=== PATIENT | female | born 1985 | race Asian ===

== ENCOUNTER 2022-07-25 08:25 | Outpatient (CLI) | payer OTHER, SELFPAY ==
--- NOTE | 2022-07-25 08:45 | CRLHL7_ITS ---
For Patients: As a result of the Cures Act, medical imaging exams and procedure reports are released immediately into your electronic medical record. You may view this report before your referring provider. If you have questions, please contact your health care provider. INDICATION: First trimester scan, establish dates. COMPARISON: None. TECHNIQUE: Real-time alexandra-scale imaging of the pelvis was performed. Patient declined transvaginal exam. FINDINGS: Sonographic imaging demonstrates a single living intrauterine gestation. The embryo demonstrates a slightly decreased cardiac rate measuring 111 beats per minute. The embryo`s crown-rump length measurement of 1.0 cm corresponds to a gestational age of 7 weeks 1 day with a sonographic due date of 03/12/2023. There is a normal-appearing yolk sac. There are no gross abnormalities noted within the embryo at this early state of development. The gestational sac has a normal appearance. There is no evidence of a perigestational hemorrhage. The amount of fluid within the sac appears appropriate for gestational age. Left ovary is normal. Right ovary is not visualized. IMPRESSION: Single living intrauterine with sonographic gestational age 7 weeks 1 day and sonographic due date 03/12/2023. heart rate is slightly low, likely due to early gestation. Follow-up 11-14 days suggested. Dictated by Jersey Bunch MD @ 07/25/2022 10:10:11 AM (Electronically Signed)
== END 2022-07-25 08:26 | disposition home or self-care (01) ==
LOC: US 08:27
PROVIDERS: Visit Provider Obstetrics & Gynecology
DX: Z34.91 Encounter for supervision of normal pregnancy, unspecified, first trimester (principal)
CPT/HCPCS: 76801; 87086; 87491; 87591

== ENCOUNTER 2022-08-08 09:08 | Outpatient (CLI) | payer OTHER, SELFPAY ==
--- NOTE | 2022-08-08 09:15 | CRLHL7_ITS ---
For Patients: As a result of the Century Cures Act, medical imaging exams and procedure reports are released immediately into your electronic medical record. You may view this report before your referring provider. If you have questions, please contact your health care provider. INDICATION: Confirm viability COMPARISON: 07/25/2022 TECHNIQUE: Real-time alexandra-scale imaging of the pelvis was performed. FINDINGS: Sonographic imaging demonstrates a single living intrauterine gestation. The embryo demonstrates a regular cardiac rate measuring 180 beats per minute. The embryo`s crown-rump length measurement of 2.1 cm corresponds to a gestational age of 8 weeks 5 days with a sonographic due date of 03/15/2023. There is a normal-appearing yolk sac. There are no gross abnormalities noted within the embryo at this early state of development. The gestational sac has a normal appearance. There is a 1.4 x 1.9 x 0.7 cm perigestational hemorrhage. The amount of fluid within the sac appears appropriate for gestational age. The cervix is closed. The myometrium appears normal. The ovaries are not visualized. There are no suspicious fluid collections noted in the cul-de-sac. IMPRESSION: Single living intrauterine with sonographic gestational age 8 weeks 5 days and sonographic due date 03/15/2023. Normal heart rate. Small right inferior subchorionic hemorrhage measuring 1.4 x 1.9 x 0.7 cm. Dictated by Jersey Bunch MD @ 08/08/2022 11:14:34 AM (Electronically Signed)
== END 2022-08-08 09:09 | disposition home or self-care (01) ==
LOC: US 09:08
PROVIDERS: Visit Provider Obstetrics & Gynecology
DX: O36.80X0 Pregnancy with inconclusive fetal viability, not applicable or unspecified (principal); Z87.59 Personal history of other complications of pregnancy, childbirth and the puerperium; Z3A.09 9 weeks gestation of pregnancy
CPT/HCPCS: 76801; 86592; 86703; 86762; 86787; 86803; 86850; 86900; 86901; 87340

== ENCOUNTER 2022-10-10 22:35 | Emergency (ER) | payer OTHER, SELFPAY ==
[2022-10-10 22:50] VITALS: BP 136/89; PULSE 94; RESP 18; TEMP 36.7; O2SAT 99; BMI 30.2
--- NOTE | 2022-10-10 23:17 | ED.NURSE ---
poc u/s was done per dr mullins. he did a perineal exam. noted to have a rectal fissure and no vag bleeding. this nurse did order processing clerk. ua was obtained.
[2022-10-10 23:22] LABS: Appearance Urine Clear (Clear); Color Urine Yellow (Yellow)
[2022-10-10 23:23] LABS: Bilirubin Urine Negative (Negative); Blood Urine Trace-lysed (Negative); Glucose Urine 3+ (Negative); Ketones Urine Negative (Negative); Leukocyte Esterase Urine Negative (Negative); Nitrite Urine Negative (Negative); Protein Urine Negative (Negative); Urobilinogen Urine 0.2 (0.2-1.0); pH Urine 6.5 (5.0-8.5)
[2022-10-10 23:32] LABS: Bacteria Urine Few; RBC Urine 0-2 (0-2); Squamous Epithelial Cell Urine Few (None-Few); WBC Urine 0-2 (0-5)
[2022-10-10 23:46] VITALS: BP 125/78; PULSE 89; RESP 18; TEMP 36.9; O2SAT 99
--- NOTE | 2022-10-11 00:07 | ED_ITS ---
HPI - General Date Seen: 10/10/22 Chief complaint: Vaginal Bleeding Stated complaint: 18wks 1day , vaginal bleeding Time Seen by Provider: 10/10/22 22:50 Source: patient and family Mode of arrival: ambulatory Limitations: no limitations History of Present Illness HPI Narrative: Patient is a 37-year-old at 18 weeks gestation. Presents here with a little bit of blood on her tissue after she wiped herself when she was having a bowel movement. She tells me she was having a tough bowel movement, and a little bit of pain with this. She wiped herself from back to front, they were not having intercourse, and she has no blood from her vagina she thinks, and also when she pees is negative. She denies any fevers chills or sweats any abdominal pain, the has thus far been okay. She is able to show me that tissue, there is just a little bit of staining of blood on there. Complaint: vaginal bleeding Related Data Home Medications Medication Instructions Recorded Confirmed prenat.vits,get,wkp-jgva-[id number] 1 tab PO QDAY 07/25/22 09/19/22 Previous Rx's Medication Instructions Recorded aspirin 81 mg tablet,delayed 81 mg PO QDAY #60 tabs 09/19/22 release (Adult Low Dose Aspirin) Allergies Allergy/AdvReac Type Severity Reaction Status Date / Time No Known Drug Allergies Allergy Verified 09/19/22 09:23 Review of Systems Status of ROS: Reports: 10 or more systems reviewed and unremarkable except as noted in History and below [facility] Medical History No significant past medical history Surgical History No significant past surgical history Social History Smoking Status: Never smoker Do you use any of these nicotine containing products: None Second hand tobacco smoke exposure: No How often do you have a drink containing alcohol: never How often do you have six or more drinks on one occasion: Never AUDIT-C Alcohol total score: 0 Non-prescribed substance use: denies use Little interest or pleasure in doing things: several days Feeling down, depressed, or hopeless: not at all Exam Narrative: Exam Narrative: On examination here in room 1, care all my nurse is present, gravid uterus, with no tenderness to palpation, ultrasound is done by myself, which shows a Page , with a posterior fundal placenta, fetus moving around, with a good heartbeat at 160, I examined the rectal area, there is clearly a anal fissure here, which is at the 7 o'clock position, no blood is seen in the vagina, Const: Vital Signs, click to edit/add: Vital Signs - 24 hr 10/10/22 22:50 10/10/22 23:46 10/10/22 23:46 Temperature 98.0 F 98.5 F 98.5 F Pulse Rate [Right Pulse Oximeter] 94 89 89 Respiratory Rate 18 18 18 Blood Pressure [Ri ght Upper Arm] 136/89 125/78 125/78 Pulse Oximetry 99 99 Oxygen Delivery Me thod Room Air Room Air Course Vital Signs Vital signs: Initial Vital Signs Temperature 98.0 F 10/10/22 22:50 Temperature Source Temporal Artery Scan 10/10/22 22:50 Pulse Rate 94 10/10/22 22:50 Respiratory Rate 18 10/10/22 22:50 Blood Pressure 136/89 10/10/22 22:50 Blood Pressure Mean 104 10/10/22 22:50 Blood Pressure Position Sitting 10/10/22 22:50 Pulse Oximetry 99 10/10/22 22:50 Oxygen Delivery Method 10/10/22 22:50 Vital Signs Temperature 98.0 F 10/10/22 22:50 Pulse Rate 94 10/10/22 22:50 Respiratory Rate 18 10/10/22 22:50 Blood Pressure 136/89 10/10/22 22:50 Pulse Oximetry 99 10/10/22 22:50 Oxygen Delivery Method 10/10/22 22:50 Temperature 98.5 F 10/10/22 23:46 Pulse Rate 89 10/10/22 23:46 Respiratory Rate 18 10/10/22 23:46 Blood Pressure 125/78 10/10/22 23:46 Pulse Oximetry 99 10/10/22 23:46 Oxygen Delivery Method 10/10/22 23:46 MDM - OB/Uterine Contractions MDM Narrative Medical decision making narrative: vaginal bleeding with , threatened miscarriage, UTI, hemorrhagic cystitis, Medical Records Attestation: I reviewed the patient's medical records. Lab Data Attestation: I reviewed the patient's lab results. Labs: Lab Results 10/10/22 Range/Units 23:11 Urine Color Yellow (Yellow) Urine Appearance Clear (Clear) Urine pH 6.5 (5.0-8.5) Ur Specific Prospect 1.010 (1.000-1.030) Urine Protein Negative (Negative) Urine Glucose (UA) 3+ A (Negative) Urine Ketones Negative (Negative) Urine Blood Trace-lysed A (Negative) Urine Nitrite Negative (Negative) Urine Bilirubin Negative (Negative) Urine Urobilinogen 0.2 (0.2-1.0) Ur Leukocyte Esterase Negative (Negative) Urine RBC 0-2 (0-2) Urine WBC 0-2 (0-5) Ur Squamous Epith Cells Few (None-Few) Urine Bacteria Few A (None) Discharge Plan Discharge Clinical Impression: , Acute anal fissure, Glucosuria, Blood glucose elevated Patient Disposition: Home w/ Parent or Adult Condition: Stable Instructions: Anal Fissure (ED), at 15 to 18 Weeks (ED) Additional Instructions: home, rest, reassurance given, stool softeners are suggested, Colace 2 tablets morning and night, Anusol HC on area of the fissure, I would do this twice a day, follow-up with OB as needed, but her baby looked good on the limited ultr asound we did today No evidence of infection on the urinalysis. Your glucose level is elevated, and I would like you to call tomorrow to the OB doctor, and talk to them. Seeing a dietitian is usually the 1st step. Prescriptions: No Action prenat.vits,get,uks-wsml-fylpr Tablet 1 tab PO QDAY aspirin [Adult Low Dose Aspirin] 81 mg tablet,delayed release (DR/EC) 81 mg PO QDAY Qty: 60 2RF Follow Up/Referrals: Provider,Not a Local [Referring] - Stand Alone Forms: DLSth Info Instructions
== END 2022-10-10 23:56 | disposition home or self-care (01) ==
LOC: ED 23:48
PROVIDERS: Emergency Provider Family Medicine; PCP Obstetrics & Gynecology
DX: K60.2 Anal fissure, unspecified (principal); O99.810 Abnormal glucose complicating pregnancy; R73.9 Hyperglycemia, unspecified; Z3A.18 18 weeks gestation of pregnancy
CPT/HCPCS: 81001; 82962; 87086; 99283; 99284

== ENCOUNTER 2022-10-31 12:56 | Outpatient (CLI) | payer OTHER, SELFPAY | END 2022-10-31 12:57 | disposition home or self-care (01) | LOC: US 12:56 | PROVIDERS: PCP Obstetrics & Gynecology; Visit Provider Pediatrics Neonatal-Perinatal Medicine | DX: O09.522 Supervision of elderly multigravida, second trimester (principal); Z3A.21 21 weeks gestation of pregnancy | CPT/HCPCS: 76811; 76820 ==

== ENCOUNTER 2022-11-21 08:44 | Outpatient (CLI) | payer OTHER, SELFPAY ==
--- NOTE | 2022-11-21 08:45 | CRLHL7_ITS ---
For Patients: As a result of the Cures Act, medical imaging exams and procedure reports are released immediately into your electronic medical record. You may view this report before your referring provider. If you have questions, please contact your health care provider. INDICATION: Follow-up growth TECHNIQUE: Real time alexandra scale imaging of the fetus was performed as well as color Doppler and spectral Doppler analysis of the umbilical artery. COMPARISON: 10/31/2022 FINDINGS: Sonographic imaging demonstrates a single living intrauterine gestation. Fetus demonstrates a regular cardiac rate of 154 beats per minute. Fetus has a transverse position. The placenta lies left fundal. Amniotic fluid volume appears normal and there is a single deepest pocket of 5.0 cm. The estimated weight is 567gm which lies at the 9th %. On the prior OB ultrasound dated 10/31/2022 the estimated weight was at the 10th percentile. There is adequate diastolic blood flow within the umbilical artery. The S/D ratio measures 3.4. BPD 14th percentile. HC 6th percentile. AC 24th percentile. FL 5th percentile. The recorded biophysical profile data is not accurate before 28 weeks. IMPRESSION: Sonographic gestational age 23 weeks 1 day and sonographic due date 03/19/2023. Sonographic age 1 week behind the clinical age. Estimated weight 9 percentile. Abdominal circumference 24th percentile. Dictated by Jersey Bunch MD @ 11/21/2022 12:26:55 PM (Electronically Signed)
== END 2022-11-21 08:45 | disposition home or self-care (01) ==
LOC: US 08:44
PROVIDERS: Visit Provider Obstetrics & Gynecology
DX: O09.522 Supervision of elderly multigravida, second trimester (principal); Z3A.23 23 weeks gestation of pregnancy
CPT/HCPCS: 76816; 76819; 76820

== ENCOUNTER 2022-12-04 07:05 | Outpatient (CLI) | payer OTHER, SELFPAY ==
--- NOTE | 2022-12-04 07:15 | CRLHL7_ITS ---
For Patients: As a result of the Cures Act, medical imaging exams and procedure reports are released immediately into your electronic medical record. You may view this report before your referring provider. If you have questions, please contact your health care provider. INDICATION: Intrauterine growth retardation. TECHNIQUE: Transabdominal obstetrical ultrasound. COMPARISON: November 21, 2022. FINDINGS: Single living intrauterine in transverse presentation. Anterior, fundal, and posterior placenta. heart rate 142 beats per minute. Normal amniotic fluid. Single deepest pocket measurement 3.6 cm. Biophysical profile score 6/8 with 2 points given each for gross body movement, tone, and amniotic fluid. respiratory activity was not observed during the time course of the study. The umbilical artery systolic to diastolic ratio is 3.0 which is within the range of normal. IMPRESSION: Biophysical profile score 6/8. The biophysical profile score is unchanged when compared to November 21, 2022. Dictated by Enrrique Beck MD @ 12/04/2022 8:36:41 AM (Electronically Signed)
== END 2022-12-04 07:06 | disposition home or self-care (01) ==
PROVIDERS: Visit Provider Obstetrics & Gynecology
DX: O36.5990 Maternal care for other known or suspected poor fetal growth, unspecified trimester, not applicable or unspecified (principal)
CPT/HCPCS: 76819; 76820

== ENCOUNTER 2022-12-12 08:58 | Outpatient (CLI) | payer OTHER, SELFPAY ==
--- NOTE | 2022-12-12 09:15 | CRLHL7_ITS ---
For Patients: As a result of the Century Cures Act, medical imaging exams and procedure reports are released immediately into your electronic medical record. You may view this report before your referring provider. If you have questions, please contact your health care provider. INDICATION: IUGR COMPARISON: 12/04/2022 TECHNIQUE: Real time alexandra scale imaging of the fetus was performed as well as color Doppler and spectral Doppler analysis of the umbilical artery. Without non-stress testing. FINDINGS: Sonographic imaging demonstrates a single living intrauterine gestation. Fetus demonstrates a regular cardiac rate of 154 beats per minute. Fetus has a transverse position. The umbilical artery demonstrates adequate diastolic blood flow. The S/D ratio measures 3.8. The amniotic fluid volume appears normal and there is a single deepest pocket measurement of 6.4 cm. The fetus was active and demonstrated normal breathing movements. There was normal flexion and extension of the trunk and extremities. IMPRESSION: Normal biophysical profile score of 8 out of 8. Dictated by Jersey Bunch MD @ 12/12/2022 12:19:16 PM (Electronically Signed)
== END 2022-12-12 08:59 | disposition home or self-care (01) ==
LOC: US 08:59
PROVIDERS: Visit Provider Obstetrics & Gynecology
DX: O36.5990 Maternal care for other known or suspected poor fetal growth, unspecified trimester, not applicable or unspecified (principal)
CPT/HCPCS: 76819; 76820

== ENCOUNTER 2022-12-26 08:12 | Outpatient (CLI) | payer OTHER, SELFPAY ==
--- NOTE | 2022-12-26 08:15 | CRLHL7_ITS ---
For Patients: As a result of the Century Cures Act, medical imaging exams and procedure reports are released immediately into your electronic medical record. You may view this report before your referring provider. If you have questions, please contact your health care provider. INDICATION: IUGR COMPARISON: 12/12/2022 TECHNIQUE: Real time alexandra scale imaging of the fetus was performed as well as color Doppler and spectral Doppler analysis of the umbilical artery. Without non-stress testing. FINDINGS: Sonographic imaging demonstrates a single living intrauterine gestation. Fetus demonstrates a regular cardiac rate of 149 beats per minute. Fetus has a transverse position. The umbilical artery demonstrates adequate diastolic blood flow. The S/D ratio measures 2.9. The amniotic fluid volume appears normal and there is a single deepest pocket measurement of 5.0 cm. The fetus was active and demonstrated normal breathing movements. There was normal flexion and extension of the trunk and extremities. Possible echogenic bowel loops noted. IMPRESSION: Normal biophysical profile score of 8 out of 8. Possible echogenic bowel loops. A maternal medicine consult is recommended. Dictated by Jersey Bunch MD @ 12/26/2022 9:07:23 AM (Electronically Signed)
== END 2022-12-26 08:13 | disposition home or self-care (01) ==
LOC: US 08:12
PROVIDERS: Visit Provider Obstetrics & Gynecology
DX: O36.5990 Maternal care for other known or suspected poor fetal growth, unspecified trimester, not applicable or unspecified (principal); Z3A.00 Weeks of gestation of pregnancy not specified
CPT/HCPCS: 76819; 76820

== ENCOUNTER 2023-01-02 08:56 | Outpatient (CLI) | payer OTHER, SELFPAY ==
--- NOTE | 2023-01-02 09:15 | CRLHL7_ITS ---
For Patients: As a result of the Cures Act, medical imaging exams and procedure reports are released immediately into your electronic medical record. You may view this report before your referring provider. If you have questions, please contact your health care provider. OB ULTRASOUND TRAM by US: 03/12/2023. GA: 30 w, 1 d. COMPARISON: Ultrasound 12/26/2022. Single. INDICATION: IUGR. CERVIX: Not visualized. POSITIONING: Breech. AMNIOTIC FLUID: 3.6 cm. BIOPHYSICAL PROFILE: Total score: 2. Gross body movements: 2. tone: 2. Respiratory activity: 2. Amniotic fluid: 2. (SDP N: Increase 2 x 1 cm) PLACENTA: Technique: Transabdominal. PLACENTA POSITION: Fundal. DOPPLER: heart rate: 157 bpm. Umbilical artery: 2.9 S/D. COMMENT: Comment of echogenic bowel by technologist which is not well documented on this limited biophysical profile. As previously recommended, perinatology consultation would be recommended. IMPRESSION: Biophysical profile score 8 of 8. Ninfa Maher M.D. Diagnostic/Breast Radiologist [email or web address]/ayleen abbasi/Dictated by: Ninfa Maher MD @ 01/02/2023 11:29:00 AM (Electronically Signed)
== END 2023-01-02 08:57 | disposition home or self-care (01) ==
LOC: US 08:57
PROVIDERS: Visit Provider Obstetrics & Gynecology
DX: O36.5930 Maternal care for other known or suspected poor fetal growth, third trimester, not applicable or unspecified (principal); Z3A.30 30 weeks gestation of pregnancy
CPT/HCPCS: 76819; 76820

== ENCOUNTER 2023-01-16 09:04 | Outpatient (CLI) | payer OTHER, SELFPAY ==
--- NOTE | 2023-01-16 09:15 | CRLHL7_ITS ---
For Patients: As a result of the Century Cures Act, medical imaging exams and procedure reports are released immediately into your electronic medical record. You may view this report before your referring provider. If you have questions, please contact your health care provider. INDICATION: IUGR TECHNIQUE: Real time alexandra scale imaging of the fetus was performed as well as color Doppler and spectral Doppler analysis of the umbilical artery. COMPARISON: 11/21/2022, 10/31/2022. 01/02/2023, 12/26/2022, 12/12/2022, 12/04/2022 FINDINGS: Sonographic imaging demonstrates a single living intrauterine gestation. Fetus demonstrates a regular cardiac rate of 150 beats per minute. Fetus has a breech position. The placenta lies anteriorly. Amniotic fluid volume appears normal and there is a single deepest pocket of 6.8 cm. The estimated weight is 1861gm which lies at the 32nd %. On the prior OB ultrasound dated 11/21/2022 the estimated weight was at the 9th percentile. On the prior OB ultrasound dated 10/31/2022, the estimated weight was at the 10th percentile. There is adequate diastolic blood flow within the umbilical artery. The S/D ratio measures 2.5. The fetus was active and demonstrated normal breathing movements. There was normal flexion and extension of the trunk and extremities. IMPRESSION: Normal biophysical profile score 8/8. Normal S/D ratio 2.5. Sonographic gestational age 32 weeks 0 days and sonographic due date 03/13/2023. Good correlation with dates. Normal interval growth. Estimated weight 32nd percentile. Abdominal circumference 69th percentile. Femur length less than 3rd percentile. Dictated by Jersey Bunch MD @ 01/17/2023 8:46:06 AM (Electronically Signed)
== END 2023-01-16 09:05 | disposition home or self-care (01) ==
LOC: US 09:05
PROVIDERS: Visit Provider Obstetrics & Gynecology
DX: O36.5930 Maternal care for other known or suspected poor fetal growth, third trimester, not applicable or unspecified (principal); Z3A.32 32 weeks gestation of pregnancy
CPT/HCPCS: 76819; 76820

== ENCOUNTER 2023-01-23 09:08 | Outpatient (CLI) | payer OTHER, SELFPAY ==
--- NOTE | 2023-01-23 09:15 | CRLHL7_ITS ---
For Patients: As a result of the Century Cures Act, medical imaging exams and procedure reports are released immediately into your electronic medical record. You may view this report before your referring provider. If you have questions, please contact your health care provider. INDICATION: IUGR COMPARISON: 01/16/2023 TECHNIQUE: Real time alexandra scale imaging of the fetus was performed as well as color Doppler and spectral Doppler analysis of the umbilical artery. Without non-stress testing. FINDINGS: Sonographic imaging demonstrates a single living intrauterine gestation. Fetus demonstrates a regular cardiac rate of 152 beats per minute. Fetus has a guerrero breech position. The umbilical artery demonstrates adequate diastolic blood flow. The S/D ratio measures 2.9. The amniotic fluid volume appears normal and there is a single deepest pocket measurement of 5.4 cm. The fetus was active. Absent breathing movements. There was normal flexion and extension of the trunk and extremities. IMPRESSION: Biophysical profile 03/14. Normal umbilical artery Doppler. Dictated by Jersey Bunch MD @ 01/23/2023 12:34:57 PM (Electronically Signed)
== END 2023-01-23 09:09 | disposition home or self-care (01) ==
LOC: US 09:09
PROVIDERS: Visit Provider Obstetrics & Gynecology
DX: O36.5990 Maternal care for other known or suspected poor fetal growth, unspecified trimester, not applicable or unspecified (principal); Z3A.33 33 weeks gestation of pregnancy
CPT/HCPCS: 76819; 76820; 86592

== ENCOUNTER 2023-01-30 08:23 | Outpatient (CLI) | payer OTHER, SELFPAY ==
--- NOTE | 2023-01-30 08:15 | CRLHL7_ITS ---
For Patients: As a result of the Century Cures Act, medical imaging exams and procedure reports are released immediately into your electronic medical record. You may view this report before your referring provider. If you have questions, please contact your health care provider. INDICATION: female. Evaluate well-being. TECHNIQUE: Transabdominal obstetrical ultrasound. COMPARISON: January 16, 2023. January 02, 2023. FINDINGS: Single living intrauterine in variable presentation predominantly transverse but also oblique with head toward the maternal right lower quadrant. Anterior placenta. heart rate 123 beats per minute. Normal amniotic fluid. Single deepest pocket measurement 4.9 cm. Normal amniotic fluid volume index of 15.5 cm. Close cervix measuring 4.5 cm. Biophysical profile 6/8 with 2 points given each for gross body movements, tone, and amniotic fluid. breathing was not fully observed during the course of this study (reported 15-20 seconds of breathing observed at real-time ultrasound evaluation). Biparietal diameter 8.4 cm, 33 weeks 6 days, 40th percentile. Head circumference 31.2 cm, 34 weeks 6 days, 32nd percentile. Abdominal circumference 29.6 cm, 33 weeks 4 days, 38th percentile. Femur length 6.2 cm, 31 weeks 6 days, 3rd percentile. Composite calculated ultrasound age 34 weeks 4 days with a sonographic due date of March 16, 2023. Estimated weight 2156 g which lies at the 21st percentile. Normal head to abdominal circumference ratio 1.05 (0.95-1.11). IMPRESSION: 1. Single living intrauterine in variable presentation predominantly transverse. 2. heart rate 123 beats per minute. Normal amniotic fluid. 3. Biophysical profile score 6/8. 4. Composite calculated ultrasound age 33 weeks 4 days with a sonographic due date of March 16, 2023. Dictated by Enrrique Beck MD @ 01/30/2023 10:14:53 AM (Electronically Signed)
== END 2023-01-30 08:24 | disposition home or self-care (01) ==
LOC: US 08:23
PROVIDERS: Visit Provider Obstetrics & Gynecology
DX: O09.523 Supervision of elderly multigravida, third trimester (principal); O24.913 Unspecified diabetes mellitus in pregnancy, third trimester; Z3A.33 33 weeks gestation of pregnancy
CPT/HCPCS: 76816; 76819

== ENCOUNTER 2023-02-04 07:08 | Outpatient (CLI) | payer OTHER, SELFPAY ==
--- NOTE | 2023-02-04 07:15 | CRLHL7_ITS ---
For Patients: As a result of the Century Cures Act, medical imaging exams and procedure reports are released immediately into your electronic medical record. You may view this report before your referring provider. If you have questions, please contact your health care provider. INDICATION: Advanced maternal age COMPARISON: 01/30/2023 TECHNIQUE: Real time alexandra scale imaging of the fetus was performed. Without non-stress testing. FINDINGS: Sonographic imaging demonstrates a single living intrauterine gestation. Fetus demonstrates a regular cardiac rate of 142 beats per minute. Fetus has a transverse position, head maternal right. The amniotic fluid volume appears normal and there is a single deepest pocket measurement of 4.6 cm. The fetus was active. Absent breathing movements. There was normal flexion and extension of the trunk and extremities. IMPRESSION: Biophysical profile 03/14. Dictated by Jersey Bunch MD @ 02/04/2023 9:15:40 AM (Electronically Signed)
== END 2023-02-04 07:09 | disposition home or self-care (01) ==
PROVIDERS: Visit Provider Obstetrics & Gynecology
DX: O09.529 Supervision of elderly multigravida, unspecified trimester (principal)
CPT/HCPCS: 76819

== ENCOUNTER 2023-02-06 09:17 | Outpatient (CLI) | payer OTHER, SELFPAY ==
--- NOTE | 2023-02-06 09:15 | CRLHL7_ITS ---
For Patients: As a result of the Century Cures Act, medical imaging exams and procedure reports are released immediately into your electronic medical record. You may view this report before your referring provider. If you have questions, please contact your health care provider. INDICATION: Gestational diabetes, advanced maternal age COMPARISON: 02/04/2023 TECHNIQUE: Real time alexandra scale imaging of the fetus was performed. Without non-stress testing. FINDINGS: Sonographic imaging demonstrates a single living intrauterine gestation. Fetus demonstrates a regular cardiac rate of 161 beats per minute. Fetus has a breech position. The amniotic fluid volume appears normal and there is a single deepest pocket measurement of 4.7 cm. The fetus was active and demonstrated normal breathing movements. There was normal flexion and extension of the trunk and extremities. IMPRESSION: Normal biophysical profile score of 8 out of 8. Dictated by Jersey Bunch MD @ 02/06/2023 11:31:38 AM (Electronically Signed)
== END 2023-02-06 09:18 | disposition home or self-care (01) ==
LOC: US 09:17
PROVIDERS: Visit Provider Obstetrics & Gynecology
DX: O09.529 Supervision of elderly multigravida, unspecified trimester (principal); O24.919 Unspecified diabetes mellitus in pregnancy, unspecified trimester
CPT/HCPCS: 76819; 87086

== ENCOUNTER 2023-02-20 09:12 | Outpatient (CLI) | payer OTHER, SELFPAY ==
--- NOTE | 2023-02-20 09:15 | CRLHL7_ITS ---
For Patients: As a result of the Cures Act, medical imaging exams and procedure reports are released immediately into your electronic medical record. You may view this report before your referring provider. If you have questions, please contact your health care provider. INDICATION: PREGESTATIONAL DIABETES MELLITUS TECHNIQUE: Real time alexandra scale imaging of the fetus was performed. COMPARISON: 02/18/2023 FINDINGS: Sonographic imaging demonstrates a single living intrauterine gestation. Fetus demonstrates a regular cardiac rate of 132 beats per minute. Fetus has a transverse position, head maternal right. The placenta lies fundal. Amniotic fluid volume appears normal and there is a single deepest pocket of 4.5 cm. The estimated weight is 3253gm which lies at the 69th %. On the prior OB ultrasound dated 01/30/2023 the estimated weight was at the 21st percentile. BPD 51st percentile. HC 11th percentile. AC 94th percentile. FL 21st percentile. The fetus was active and demonstrated normal breathing movements. There was normal flexion and extension of the trunk and extremities. IMPRESSION: Normal biophysical profile score 8/8. Sonographic gestational age 36 weeks 6 days and sonographic due date 03/14/2023. Good correlation with dates. Normal interval growth. Estimated weight 69th percentile. Abdominal circumference 94th percentile. Dictated by Jersey Bunch MD @ 02/20/2023 10:09:57 AM (Electronically Signed)
== END 2023-02-20 09:13 | disposition home or self-care (01) ==
LOC: US 09:12
PROVIDERS: Visit Provider Obstetrics & Gynecology
DX: O24.913 Unspecified diabetes mellitus in pregnancy, third trimester (principal); Z3A.36 36 weeks gestation of pregnancy
CPT/HCPCS: 76816; 76819

== ENCOUNTER 2023-04-03 08:54 | Outpatient (CLI) | payer OTHER, SELFPAY ==
--- NOTE | 2023-04-03 17:00 | W.PM.LAC.MC ---
Consult Note - Mom Date of Visit Date of visit: 04/03/23 provider relations consultant: Jazzy Quintana Visit Code: Visit Patient's Information Phone number: [phone] : 1 Para: 1 Allergies No Known Drug Allergies Allergy (Verified 02/27/23 10:26) Mother's Medical History: Medical History Work Plans: does not have to return to work Delivery Information Delivery type: Primary C/S; Labored Weeks Gestation: 39.0 Gestational Age: AGA Weight: 3.26 kg Discharge Weight: 2.997 kg Baby's Information Baby's Age at Visit: 1 month Baby's Provider or Clinic: Dr. Booth Jaundice: No Reason for Consult Reason for Consult: weight check, using nipple shield Past Experience Past Experience: No Current Frequency of Day Feedings: every 3 - 3.5 hours Frequency of Night Feedings: twice overnight Both Breasts: Yes Suck: strong with nipple shield Latch: fairly wide Length of Time: about 30 minutes total Pumping Pumping: Yes (2 - 4 times/day) Quantity Pumped: 2 - 3 oz totla Supplementing EMB Supplement: Yes (in the daytime gives 3 oz EBM after nursing baby ) Formula Supplement: Yes (give formula overnight) Baby Elimination Number of Wet Diapers a Day: almost every feeding Number of BM a Day: almost every feeding Breast/Nipple Condition Breast Information: WNL Maternal Nipple Condition - Left: Common Nipple Maternal Nipple Condition - Right: Common Nipple Sore Nipples: No Onsite Pre-Feed weight: 3.522 kg Post-Feed weight: 3.604 kg Milk Transferred (mL): 82 Pre-Nursing Left Nipple: Within Normal Limits Pre-Nursing Right Nipple: Within Normal Limits Post-Nursing Left Nipple: Within Normal Limits Post-Nursing Right Nipple: Within Normal Limits Assessments/Interventions Assessments/Interventions: Met with mom and this now 1 month old ex- term AGA baby for consult.? Mom reports she's nursing every 3 - 3.5 hours during the day.? She uses a nipple shield, offers both sides, and sessions last about 30 minutes.? She then offers about 3 oz EBM.? She pumps 2 - 4 times/day and gets 2 - 3 oz total each time.? Baby is formula fed twice overnight. Breasts WNL- symmetrical with rounded lower quadrants, intramammary distance < 1.5 inches.? Nipples are everted and don't flatten or retract on compression, no damage noted. Baby has gained 24 grams/day since her last visit on 03/20.? Per POC she did not have a caput/cephalohematoma at delivery.? She prefers to turn her head to the right, but mom tries different things to encourage her ROM to the left; she moves her extremities equally.? Baby's palate is WNL.? Her upper lip is easy to flange and her gums don't brenda.? She has a strong suck on a finger and her tongue consistently extends past the gumline, some canoeing when lateralizing.? Her lower frenulum appears to be WNL. Mom attempted to latch baby to the left side but she slipped off without the shield, she had a deep latch with the shield and nursed about 15 minutes.? Mom offered the right side starting with the shield, then removing it after a few minutes.? Baby latched but only suckled a few times and after a few attempts the shield was replaced.? Baby nursed another 10 minutes and transferred 82 ml.? After POC dressed her she started to show feeding cues so dad gave her 1 oz formula. Plan: 1. Encouraged mom to continue with every daytime feeding.? Offer both sides and practice weaning her from the shield like we did here in clinic.? Reviewed this can take a while so be patient and use it when needed.? OK to follow baby's cues re: when to nurse/feed but she should have about 8 feedings/24 hours. 2. Suggested mom not automatically bottle feed her after nursing but to follow her cues.? Baby may also not need 3 oz supplement and to start with 1 - 2 oz.? 3. Encouraged mom to pump TID so that she could offer EBM if needed during the day as well as with the night feeding(s) and reduce or possibly stop formula usage. 4. Will f/u with PCP for a 2 month C and encouraged her to consider [employer] by [employer] (she's not driving). Meds Home Medications and Allergies Home Medications Medication Instructions Recorded Confirmed Type prenat.vits,get,kfb-uanp-ssiup 1 tab PO QDAY 07/25/22 03/05/23 History Allergies Allergy/AdvReac Type Severity Reaction Status Date / Time No Known Drug Allergies Allergy Verified 02/27/23 10:26
== END 2023-04-03 08:55 | disposition home or self-care (01) ==
LOC: OB LAC 08:55
PROVIDERS: Visit Provider Obstetrics & Gynecology
DX: Z39.1 Encounter for care and examination of lactating mother (principal)
CPT/HCPCS: 99211

== ENCOUNTER 2023-04-24 08:07 | Outpatient (CLI) | payer OTHER, SELFPAY | END 2023-04-24 08:08 | disposition home or self-care (01) | LOC: NFLDREF 04-25 06:30 | PROVIDERS: Visit Provider Obstetrics & Gynecology | DX: Z39.2 Encounter for routine postpartum follow-up (principal); Z86.32 Personal history of gestational diabetes | CPT/HCPCS: 82947; 82950 ==

== ENCOUNTER 2023-05-16 08:03 | Outpatient (CLI) | payer OTHER, SELFPAY | END 2023-05-16 08:04 | disposition home or self-care (01) | LOC: NFLDREF 05-17 06:30 | PROVIDERS: PCP Family Medicine; Referring Provider Family Medicine; Visit Provider Family Medicine | DX: Z13.1 Encounter for screening for diabetes mellitus (principal); Z13.6 Encounter for screening for cardiovascular disorders | CPT/HCPCS: 80048; 80061 ==

== ENCOUNTER 2024-01-29 09:10 | Outpatient (CLI) | payer OTHER, SELFPAY ==
--- OUTSIDE RECORDS SUMMARY | 2024-01-29 09:12 | XMS_ITS | Clinical Summary ---
Author Name Unknown Organization [facility] Address [address] [place] [address]. [place] [address] Care Team Providers Care Dentist Name Role Phone No Ref-Primary, Physician Primary Care Provider Dennis Haley MD Unavailable [phone] Allergies No known active allergies Social History Tobacco Use Types Packs/Day Years Used Date Smoking Tobacco: Never Assessed Adolescent Education Answer Date Record ed Getting School Help Needed Not on file 06/29 Sex and Gender Information Value Date Recorded Sex Assigned at Not on file Gender Identity Not on file Sexual Orientation Not on file Last Filed Vital Signs Vital Sign Reading Time Taken Comments Blood Pressure 114/66 11/28/2022 10:17 AM METEOROLOGIST IN CHARGE Pulse 88 07/16/2022 11:23 AM CDT Temperature 36.7 ??C (98.1 ??F) 07/16/2022 1 1:23 AM CDT Respiratory Rate 18 07/16/2022 11:2 3 AM CDT Oxygen Saturation 98% 07/16/2022 11: 23 AM CDT Inhaled Oxygen Concentration - - Weight 52.5 kg (115 lb 12.8 oz) 022 11:23 AM CDT Height 132.1 cm (4' 4) 11/29/2020 4:53 PM METEOROLOGIST IN CHARGE Body Mass Index 30.11 11/29/2020 4:53 PM METEOROLOGIST IN CHARGE Plan of Treatment Health Maintenance Due Date Last Done Comments A1C 1983 ADVANCE CARE PLANNING 1983 ANNUAL REVIEW OF HM ORDERS 1983 DIABETIC FOOT EXAM 1983 EYE EXAM 1983 LIPID 1983 MAMMO SCREENING 1983 MICROALBUMIN 1983 YEARLY PREVENTIVE VISIT 1983 Pneumococcal Vaccine: Pediatrics (0 to 5 Years) and At-Risk Patients (6 to 64 Years) (1 of 2 - PCV) 1989 HIV SCREENING 1998 HEPATITIS C SCREENING 2001 HEPATITIS B IMMUNIZATION (1 of 3 - 19+ 3-dose series) 2002 PAP 2004 BMP 11/29/2021 11/29/2020 COVID-19 Vaccine (3 - 2022-2 4 season) 2023 07/20/2021, 06/22/2021 INFLUENZA VACCINE (#1) 2023 08/08/2022 PHQ-2 (once per calendar year) 2023 DTAP/TDAP/TD IMMUNIZATION (2 - Td or Tdap) 12/26/2032 12/26/2022 HPV IMMUNIZATION Aged Out No longer e ligible based on patient's age to complete this topic IPV IMMUNIZATION Aged Out No longer e ligible based on patient's age to complete this topic MENINGITIS IMMUNIZATION Aged Out No l onger eligible based on patient's age to complete this topic RSV MONOCLONAL ANTIBODY Aged Out No l onger eligible based on patient's age to complete this topic Procedures Procedure Name Priority Date/Time Associated Diagnosis Comments BASIC METABOLIC PANEL STAT 11/29/2020 8:35 PM METEOROLOGIST IN CHARGE from Last 3 Months or Most Recently Relevant to Health Maintenance Results * Basic metabolic panel (11/29/2020 8:35 PM METEOROLOGIST IN CHARGE) Sodium 138 133 - 144 mmol/L 11/29/2020 8:[address] [facility] Potassium 3.8 3.4 - 5.3 mmol/L 11/29/2020 8:[address] [facility] Chloride 107 94 - 109 mmol/L 11/29/2020 8:[address] [facility] Carbon Dioxide 23 20 - 32 mmol/L 11/29/2020 8:59 PM [facility] Anion Gap 8 3 - 14 mmol/L 11/29/2020 8:59 PM [facility] Glucose 93 70 - 99 mg/dL 11/29/2020 8:59 PM [facility] Urea Nitrogen 16 7 - 30 mg/dL 11/29/2020 8:59 PM METEOROLOGIST IN CHARGE [facility] Creatinine 0.57 0.52 - 1.04 mg/dL 11/29/2020 8:59 PM [facility] GFR Estimate >90 >60 mL/min/{1. 73_m2} 11/29/2020 8:59 PM METEOROLOGIST IN CHARGE [facility] Comment: Non GFR Calc Starting 09/23/2018, serum creatinine based estimated GFR (eGFR) will be calculated using the Chronic Kidney Disease Epidemiology Collaboration (CKD-EPI) equation. GFR Estimate If Black >90 >60 mL/min/{1. 73_m2} 11/29/2020 8:59 PM METEOROLOGIST IN CHARGE [facility] Comment: GFR Calc Starting 09/23/2018, serum creatinine based estimated GFR (eGFR) will be calculated using the Chronic Kidney Disease Epidemiology Collaboration (CKD-EPI) equation. Calcium 8.7 8.5 - 10.1 mg/dL 11/29/2020 8:59 PM [facility] 11/29/2020 8:35 PM METEOROLOGIST IN CHARGE 11/29/2020 8:40 PM METEOROLOGIST IN CHARGE Latricia Trinh MD LAB - BLOOD ORDERABL ES [facility] [address] [place] [address], [facility] [phone] [facility] [address] [place] [address], [facility] [phone] from Last 3 Months or Most Recently Relevant to Health Maintenance Care Teams Dentist Relationship Specialty Start Date End Date No Ref-Primary, Physician PCP - General 11/29/20 Dennis Haley MD [address] [address] Assigned OBGYN Provider 02/02/23
--- OUTSIDE RECORDS SUMMARY | 2024-01-29 09:12 | XMS_ITS | Referral Summary ---
Author Name Unknown Organization [facility] Address [address] [place] [address]. [place] [address] Care Team Providers Care Biodiesel Engineering Manager Name Role Phone No Ref-Primary, Physician Primary Care Provider Dennis Haley MD Unavailable [phone] Allergies No known active allergies Social History [...] Comments Blood Pressure 114/66 11/28/2022 10:17 AM STATE WILDLIFE OFFICER Pulse 88 07/16/2022 11:23 AM CDT Temperature 36.7 ??C (98.1 ??F) 07/16/2022 1 1:23 AM CDT Respiratory Rate 18 07/16/2022 11:2 3 AM CDT Oxygen Saturation 98% 07/16/2022 11: 23 AM CDT Inhaled Oxygen Concentration - - Weight 52.5 kg (115 lb 12.8 oz) 022 11:23 AM CDT Height 132.1 cm (4' 4) 11/29/2020 4:53 PM STATE WILDLIFE OFFICER Body Mass Index 30.11 11/29/2020 4:53 PM STATE WILDLIFE OFFICER Plan of Treatment Not on file Procedures Procedure Name Priority Date/Time Associated Diagnosis Comments BASIC METABOLIC PANEL STAT 11/29/2020 8:35 PM STATE WILDLIFE OFFICER from Last 3 Months or Most Recently Relevant to Health Maintenance Results * Basic metabolic panel (11/29/2020 8:35 PM STATE WILDLIFE OFFICER) Sodium 138 133 - 144 mmol/L 11/29/2020 8:52 PM STATE WILDLIFE OFFICER [facility] Potassium 3.8 3.4 - 5.3 mmol/L 11/29/2020 8:52 PM [facility] Chloride 107 94 - 109 mmol/L 11/29/2020 8:52 PM [facility] Carbon Dioxide 23 20 - 32 mmol/L 11/29/2020 8:59 PM [facility] Anion Gap 8 3 - 14 mmol/L 11/29/2020 8:59 PM [facility] Glucose 93 70 - 99 mg/dL 11/29/2020 8:59 PM [facility] Urea Nitrogen 16 7 - 30 mg/dL 11/29/2020 8:59 PM [facility] Creatinine 0.57 0.52 - 1.04 mg/dL 11/29/2020 8:59 PM [facility] GFR Estimate >90 >60 mL/min/{1. 73_m2} 11/29/2020 8:59 PM [facility] Comment: Non GFR Calc Starting 09/23/2018, serum creatinine based estimated GFR (eGFR) will be calculated using the Chronic Kidney Disease Epidemiology Collaboration (CKD-EPI) equation. GFR Estimate If Black >90 >60 mL/min/{1. 73_m2} 11/29/2020 8:59 PM [facility] Comment: GFR Calc Starting 09/23/2018, serum creatinine based estimated GFR (eGFR) will be calculated using the Chronic Kidney Disease Epidemiology Collaboration (CKD-EPI) equation. Calcium 8.7 8.5 - 10.1 mg/dL 11/29/2020 8:59 PM [facility] 11/29/2020 8:35 PM STATE WILDLIFE OFFICER 11/29/2020 8:40 PM STATE WILDLIFE OFFICER Latricia Trinh MD LAB - BLOOD ORDERABL ES [facility] [address], [place] [address], [facility] [phone] [facility] [address] [address], [facility] [phone] from Last 3 Months or Most Recently Relevant to Health Maintenance Care Teams Biodiesel Engineering Manager Relationship Specialty Start Date End Date No Ref-Primary, Physician PCP - General 11/29/20 Dennis Haley MD [address] [facility] [address], [place] [id number] Assigned OBGYN Provider 02/02/23
--- NOTE | 2024-01-29 09:15 | US_ITS ---
Patient: MORENA QUINTANILLA Facility:?[facility] RIS Patient ID:?[id number] Site Patient ID:?[id number]. Site :?[id number] Study:?US-OB Pelvis dating-01/29/2024 10:17:59 AM Ordering Physician:Amanda Granados Final Report: INDICATION: First trimester scan, establish dates. COMPARISON: None. TECHNIQUE: Real-time alexandar-scale imaging of the pelvis was performed. FINDINGS: Sonographic imaging demonstrates a single living intrauterine gestation. The embryo demonstrates a regular cardiac rate measuring 169 beats per minute. The embryo`s crown-rump length measurement of 1.7 cm corresponds to a gestational age of 8 weeks 0 days with a sonographic due date of 09/09/2022. There is a normal-appearing yolk sac. There are no gross abnormalities noted within the embryo at this early state of development. The gestational sac has a normal appearance. There is no evidence of a perigestational hemorrhage. The amount of fluid within the sac appears appropriate for gestational age. The cervix is closed. Small posterior intramural fibroid measures 9 x 8 x 11 millimeters. The ovaries are of normal size. Corpus luteal cyst right ovary. There are no suspicious fluid collections noted in the cul-de-sac. IMPRESSION: Single living intrauterine with sonographic gestational age 8 weeks 0 days and a sonographic due date of 09/09/2022. Dictated by Jersey Bunch MD @ 01/29/2024 7:07:02 PM Signed by:?Jersey Bunch MD @01/29/2024 7:07:02 PM (Electronic Signature)
== END 2024-01-29 09:11 | disposition home or self-care (01) ==
LOC: US 09:10
PROVIDERS: PCP Family Medicine; Visit Provider Obstetrics & Gynecology
DX: Z34.91 Encounter for supervision of normal pregnancy, unspecified, first trimester (principal); Z3A.08 8 weeks gestation of pregnancy
CPT/HCPCS: 76817; 82565; 82570; 84156; 84450; 84460; 86592; 86703; 86704; 86706; 86762; 86787; 86803; 86850; 86900; 86901; 87086; 87340; 87491; 87591

== ENCOUNTER 2024-02-12 12:30 | Outpatient (CLI) | payer OTHER, SELFPAY ==
--- OUTSIDE RECORDS SUMMARY | 2024-02-16 07:13 | XMS_ITS | Clinical Summary ---
Author Name Unknown Organization [facility] Address [facility] [place] [address] Care Team Providers Care Public Health Physician Name Role Phone No Ref-Primary, Physician Primary Care Provider Dennis Haley MD Unavailable Allergies No known active allergies Encounters Date Type Department Care Team Description 02/06/2024 Orders Only [facility] Maternal Medicine [facility] [address] [place] [address] Nicole Grant RN Pre-existing diabetes mellitus during in first trimester (Primary Dx) 02/05/2024 Telephone [facility] Maternal Medicine [facility] [address] [place] [address] Nicole Grant mayonnaise mixer 02/05/2024 Transcribe Orders [facility] Maternal Medicine [facility] [address] [facility] [address] [place] [address] Amanda Qureshi MD related condition (Primary Dx) 01/29/2024 Medical Correspondence [facility] [address] [place] [address] Scan, Non-Provider from Last 3 Months Social History Tobacco Use Types Packs/Day Years [...] Comments Blood Pressure 114/66 11/28/2022 10:17 AM JELLY FILTER TENDER Pulse 88 07/16/2022 11:23 AM CDT Temperature 36.7 ??C (98.1 ??F) 07/16/2022 1 1:23 AM CDT Respiratory Rate 18 07/16/2022 11:2 3 AM CDT Oxygen Saturation 98% 07/16/2022 11: 23 AM CDT Inhaled Oxygen Concentration - - Weight 52.5 kg (115 lb 12.8 oz) 022 11:23 AM CDT Height 132.1 cm (4' 4) 11/29/2020 4:53 PM JELLY FILTER TENDER Body Mass Index 30.11 11/29/2020 4:53 PM JELLY FILTER TENDER Plan of Treatment Upcoming Encounters Date Type Department Care Team (Late st Contact Info) Description 02/26/2024 10:15 AM CDT Appointment [facility] Maternal Medicine [facility] [address] [facility] [address] [place] [phone] Annika Ibrahim MD [address] [place], [place] [address] 02/26/2024 11:00 AM CDT Office Visit [facility] Medicine [facility] [address] [facility] [address] [place] [phone] Annika Ibrahim MD [address] [place], [place] [id number] Health Maintenance Due Date Last Done Comments [...] - 2022-2 4 season) 2023 07/20/2021, 06/22/2021 PHQ-2 (once per calendar year) 2023 INFLUENZA VACCINE (Season Ended) 2024 08/08/2022 DTAP/TDAP/TD IMMUNIZATION (2 - Td or Tdap) [...] BASIC METABOLIC PANEL STAT 11/29/2020 8:35 PM JELLY FILTER TENDER from Last 3 Months or Most Recently Relevant to Health Maintenance Results * Basic metabolic panel (11/29/2020 8:35 PM JELLY FILTER TENDER) Sodium 138 133 - 144 mmol/L 11/29/2020 8:52 PM [facility] Potassium 3.8 3.4 - 5.3 mmol/L 11/29/2020 8:52 PM [facility] Chloride 107 94 - 109 mmol/L 11/29/2020 8:52 PM [facility] Carbon Dioxide 23 20 - 32 mmol/L 11/29/2020 8:59 PM [facility] Anion Gap 8 3 - 14 mmol/L 11/29/2020 8:59 PM [facility] Glucose 93 70 - 99 mg/dL 11/29/2020 8:59 PM [facility] Urea Nitrogen 16 7 - 30 mg/dL 11/29/2020 8:59 PM [facility] Creatinine 0.57 0.52 - 1.04 mg/dL 11/29/2020 8:59 PM [facility] GFR Estimate >90 >60 mL/min/{1. 73_m2} 11/29/2020 8:59 PM JELLY FILTER TENDER [facility] Comment: Non GFR Calc Starting 09/23/2018, serum creatinine based estimated GFR (eGFR) will be calculated using the Chronic Kidney Disease Epidemiology Collaboration (CKD-EPI) equation. GFR Estimate If Black >90 >60 mL/min/{1. 73_m2} 11/29/2020 8:59 PM JELLY FILTER TENDER [facility] Comment: GFR Calc Starting 09/23/2018, serum creatinine based estimated GFR (eGFR) will be calculated using the Chronic Kidney Disease Epidemiology Collaboration (CKD-EPI) equation. Calcium 8.7 8.5 - 10.1 mg/dL 11/29/2020 8:59 PM JELLY FILTER TENDER [facility] 11/29/2020 8:35 PM JELLY FILTER TENDER 11/29/2020 8:40 PM JELLY FILTER TENDER Latricia Trinh MD LAB - BLOOD ORDERABL ES [facility] [address] [place] [address], [facility] [phone] [facility] [address] [place] [address], [facility] [phone] from Last 3 Months or Most Recently Relevant to Health Maintenance Care Teams Public Health Physician Relationship Specialty Start Date End Date No Ref-Primary, Physician PCP - General 11/29/20 Dennis Haley MD [address] [facility] [address] [place] [address] Assigned OBGYN Provider 02/02/23
--- OUTSIDE RECORDS SUMMARY | 2024-02-16 07:13 | XMS_ITS | Encounter Summary ---
Author Name Unknown Organization [facility] Address [address] [place] [address]. [place] [address] Care Team Providers Care Vp Talent Management Name Role Phone No Ref-Primary, Physician Primary Care Provider Dennis Haley MD Unavailable [phone] Reason for Referral * Consultation (Routine: Next available opening) - Pending Review Specialty Diagnoses / Procedures Referred By Jade gonsales Referred To Contact Diagnoses Pre-existing diabetes mellitus during in first trimester Annika Ibrahim MD [address] [place], [place] [address]E [address] [address] Referral ID Status Reason Start Date Expiration Date V isits Requested Visits Authorized [id number] Pending Review 02/06/2024 02/05/2025 1 1 Question Answer MFM Consult Yes Comments MFM radiologic consult * Diagnostic Imaging Ultrasound (Routine) - Pending Review Specialty Diagnoses / Procedures Referred By Jade gonsales Referred To Contact Radiology. Diagnoses Pre-existing diabetes mellitus during in first trimester Procedures Maternal Nuchal Translucency Annika Ibrahim MD [address] [place] [address] Referral ID Status Reason Start Date Expiration Date V isits Requested Visits Authorized [id number] Pending Review 02/06/2024 02/05/2025 1 1 Encounter Details Date Type Department Care Team (Late st Contact Info) Description 02/06/2024 Orders Only [facility] Maternal Medicine [facility] [address] [place] [address] Nicole Grant RN Pre-existing diabetes mellitus during in first trimester (Primary Dx) Social History Tobacco Use Types Packs/Day Years Used Date Smoking Tobacco: Never Assessed Adolescent Education Answer Date Record ed Getting School Help Needed Not on file 06/29 Sex and Gender Information Value Date Recorded Sex Assigned at Not on file Gender Identity Not on file Sexual Orientation Not on file documented as of this encounter Plan of Treatment Upcoming Encounters Date Type Department Care Team (Late Contact Info) Description 02/26/2024 10:15 AM CDT Appointment [facility] Medicine [facility] [address] [facility] [address] [place] [phone] Annika Ibrahim MD [address] [place] [address] 02/26/2024 11:00 AM CDT Office Visit [facility] Medicine [facility] [address] [place] [phone] Annika Ibrahim MD [address] [place] [address] Scheduled Orders Name Type Priority Associated Diagnoses Orde r Schedule Maternal Nuchal Translucency Imaging Routine Pre-existing diabetes mellitus during in first trimester Expected: 02/20/2024 (Approximate), Expires: 12/06/2024 Scheduled Referrals Name Type Priority Associated Diagnoses Orde r Schedule MFM Office Visit Referral Routine: Next available opening Pre-existing diabetes mellitus during in first trimester Expected: 02/20/2024 (Approximate), Expires: 02/05/2025 documented as of this encounter Visit Diagnoses Diagnosis Pre-existing diabetes mellitus during in first trimester- Primary documented in this encounter Care Teams Vp Talent Management Relationship Specialty Start Date End Date No Ref-Primary, Physician PCP - General 11/29/20 Dennis Haley MD [address] [facility] [address] [place] [address] Assigned OBGYN Provider 02/02/23 documented as of this encounter
--- OUTSIDE RECORDS SUMMARY | 2024-02-16 07:13 | XMS_ITS | Referral Summary ---
Author Name Unknown Organization [place] Address [facility] [place] [address] Care Team Providers Care B Operator Name Role Phone No Ref-Primary, Physician Primary Care Provider Dennis Haley MD Unavailable [phone] Encounters Date Type Department Care Team Description 02/06/2024 Orders Only [facility] [place] [address] [place], [place] [address] Nicole Grant RN Pre-existing diabetes mellitus during in first trimester (Primary Dx) 02/05/2024 Telephone [facility] Maternal Medicine [facility] [address] [place], [place] [address] Nicole Grant airplane rental clerk 02/05/2024 Transcribe Orders [facility] Maternal Medicine [facility] [address] [facility] [address] [place] [address] Amanda Qureshi MD related condition (Primary Dx) 01/29/2024 Medical Correspondence [facility] [address] [place] [address] Scan, Non-Provider from Last 3 Months Allergies No known active allergies Social History [...] Comments Blood Pressure 114/66 11/28/2022 10:17 AM [facility] Pulse 88 07/16/2022 11:23 AM CDT Temperature 36.7 ??C (98.1 ??F) 07/16/2022 1 1:23 AM CDT Respiratory Rate 18 07/16/2022 11:2 3 AM CDT Oxygen Saturation 98% 07/16/2022 11: 23 AM CDT Inhaled Oxygen Concentration - - Weight 52.5 kg (115 lb 12.8 oz) 022 11:23 AM CDT Height 132.1 cm (4' 4) 11/29/2020 4:53 PM [facility] Body Mass Index 30.11 11/29/2020 4:53 PM [facility] Plan of Treatment Upcoming Encounters Date Type Department Care Team (Late st Contact Info) Description 02/26/2024 10:15 AM CDT Appointment [facility] Medicine [facility] [address] [facility] [address] [place] [phone] Annika Ibrahim MD [address] [place], [place] [address] 02/26/2024 11:00 AM CDT Office Visit [facility] Medicine [facility] [address] [facility] [address] [place] [phone] Annika Ibrahim MD [address] [place], [place] [phone] Procedures Procedure Name Priority Date/Time Associated Diagnosis Comments BASIC METABOLIC PANEL STAT 11/29/2020 8:35 PM [facility] from Last 3 Months or Most Recently Relevant to Health Maintenance Results * Basic metabolic panel (11/29/2020 8:35 PM [facility]) Sodium 138 133 - 144 mmol/L 11/29/2020 8:52 PM [facility] Potassium 3.8 3.4 - 5.3 mmol/L 11/29/2020 8:52 PM [facility] Chloride 107 94 - 109 mmol/L 11/29/2020 8:52 PM [facility] Carbon Dioxide 23 20 - 32 mmol/L 11/29/2020 8:59 PM [facility] Anion Gap 8 3 - 14 mmol/L 11/29/2020 8:59 PM [facility] Glucose 93 70 - 99 mg/dL 11/29/2020 8:59 PM [facility] Urea Nitrogen 16 7 - 30 mg/dL 11/29/2020 8:59 PM [facility] Creatinine 0.57 0.52 - 1.04 mg/dL 11/29/2020 8:59 PM [facility] GFR Estimate >90 >60 mL/min/{1. 73_m2} 11/29/2020 8:59 PM [facility] Comment: Non GFR Calc Starting 09/23/2018, serum creatinine based estimated GFR (eGFR) will be calculated using the Chronic Kidney Disease Epidemiology Collaboration (CKD-EPI) equation. GFR Estimate If Black >90 >60 mL/min/{1. 73_m2} 11/29/2020 8:59 PM [facility] Comment: GFR Calc Starting 09/23/2018, serum creatinine based estimated GFR (eGFR) will be calculated using the Chronic Kidney Disease Epidemiology Collaboration (CKD-EPI) equation. Calcium 8.7 8.5 - 10.1 mg/dL 11/29/2020 8:59 PM [facility] 11/29/2020 8:35 PM [facility] 11/29/2020 8:40 PM [facility] Latricia Trinh MD LAB - BLOOD ORDERABL ES [facility] [address] [place] [address], [facility] [phone] [facility] [address] [place] [address], [facility] [phone] from Last 3 Months or Most Recently Relevant to Health Maintenance Care Teams B Operator Relationship Specialty Start Date End Date No Ref-Primary, Physician PCP - General 11/29/20 Dennis Haley MD [address] [facility] [address] [place], [place] [phone] Assigned OBGYN Provider 02/02/23
--- OUTSIDE RECORDS SUMMARY | 2024-02-16 07:14 | XMS_ITS | Encounter Summary ---
Author Name Unknown Organization [place] Address [address] [facility] [place] [address] Care Team Providers Care Second Time Worker Name Role Phone No Ref-Primary, Physician Primary Care Provider Dennis Haley MD Unavailable [phone] Reason for Visit * Reason Onset Date Comments Referral 02/05/2024 Encounter Details Date Type Department Care Team (Late Contact Info) Description 02/05/2024 Telephone [facility] Maternal Medicine [facility] [address] [place], [place] [phone] Nicole Grant, lean engineer Social History Tobacco Use Types Packs/Day Years Used Date Smoking Tobacco: Never Assessed Adolescent Education Answer Date Record ed Getting School Help Needed Not on file 06/29 Sex and Gender Information Value Date Recorded Sex Assigned at Not on file Gender Identity Not on file Sexual Orientation Not on file documented as of this encounter Miscellaneous Notes * Telephone Encounter - Nicole Grant RN - 02/05/2024 3:40 PM CDT Spoke with patient who gave verbal permission to review [facility] electronic records. Pt is planning NIPT with primary area coordinator clinic. Nicole Grant RN documented in this encounter Plan of Treatment Upcoming Encounters Date Type Department Care Team (Late st Contact Info) Description 02/26/2024 10:15 AM CDT Appointment [facility] Maternal Medicine [facility] [address] [facility] [address] [place] [address] Annika Ibrahim MD [address] [place], [place] [address] 02/26/2024 11:00 AM CDT Office Visit [facility] Maternal Medicine [facility] [address] [facility] [address] [place] [phone] Annika Ibrahim MD [address] [place], [place] [address] documented as of this encounter Visit Diagnoses Not on filedocumented in this encounter Care Teams Second Time Worker Relationship Specialty Start Date End Date No Ref-Primary, Physician PCP - General 11/29/20 Dennis Haley MD [address] [place], [place] [address] Assigned OBGYN Provider 02/02/23 documented as of this encounter
--- OUTSIDE RECORDS SUMMARY | 2024-02-16 07:14 | XMS_ITS | Encounter Summary ---
Author Name Unknown Organization [place] Address [address] [place] [address]. [place] [address] Care Team Providers Care Policy Change Clerk Name Role Phone No Ref-Primary, Physician Primary Care Provider Dennis Haley MD Unavailable [phone] Reason for Referral * Consultation (Routine) - Pending Review Specialty Diagnoses / Procedures Referred By Jade gonsales Referred To Contact Diagnoses related condition Amanda Qureshi MD [facility] [address] [place] [address] [facility] [address] [place] [address] Referral ID Status Reason Start Date Expiration Date V isits Requested Visits Authorized [id number] Pending Review 02/05/2024 02/04/2025 1 1 Question Answer MFM Consultation (unrelated to Ultrasound findings) Yes (enter details in Comments) Genetic Counseling Consultation: No fax [facility] Amandatono Qureshi [phone] Ultrasound NONE US PROC NONE Preferred Location: [facility] [place] [facility] 09/04/2024 MFM Issue OTHER (enter details in Comments) - diabetes Comments There is no height or weight on file to calculate BMI. >> Patient may proceed with recommendations for further testing as directed by the Maternal Medicine Specialist >> >> If requesting Echo: MFM will determine appropriate location for exam due to indication. Please be aware that coverage of these services is subject to the terms and limitations of your health insurance plan. Call member services at your health plan with any benefit or coverage questions. Encounter Details Date Type Department Care Team (Latest Contact Info) Description 02/05/2024 Transcribe Orders [facility] Maternal Medicine [place] [address] [place] [phone] Amanda Qureshi MD [facility] [address] [place] [address] related condition (Primary Dx) Social History Tobacco Use Types [...] Info) Description 02/26/2024 10:15 AM CDT Appointment [facility] Maternal Medicine [place] [address] [place] [phone] Annika Ibrahim MD [address] [id number] 02/26/2024 11:00 AM CDT Office Visit [facility] Medicine [place] [address] [phone] Annika Ibrahim MD [address] [phone] Scheduled Referrals Name Type Priority Associated Diagnoses Orde r Schedule [facility] Ctr Referral - Referral Routine related condition Expected: 02/05/2024 (Approximate), Expires: 08/03/2024 documented as of this encounter Visit Diagnoses Diagnosis related condition- Primary Unspecified complication of , unspecified as to episode of care documented in this encounter Care Teams Policy Change Clerk Relationship Specialty Start Date End Date No Ref-Primary, Physician PCP - General 11/29/20 Dennis Haley MD [address] [address] Assigned OBGYN Provider 02/02/23 documented as of this encounter
--- OUTSIDE RECORDS SUMMARY | 2024-02-16 07:14 | XMS_ITS | Encounter Summary ---
Author Name Unknown Organization [place] Address [address] [place] [address]. [place] [address] Care Team Providers Care Curing Room Supervisor Name Role Phone No Ref-Primary, Physician Primary Care Provider Dennis Haley MD Unavailable [phone] Encounter Details Date Type Department Care Team (Late st Contact Info) Description 01/29/2024 [facility] [address] [place] [phone] Scan, Non-Provider Social History Tobacco Use Types Packs/Day Years [...] Info) Description 02/26/2024 10:15 AM CDT Appointment [facility] Maternal Medicine [facility] [address] [facility] [address] [place] [address] Annika Ibrahim MD [address] [place] [address] 02/26/2024 11:00 AM CDT Office Visit [facility] Maternal Medicine [facility] [address] [facility] [address] [place] [address] Annika Ibrahim MD [address] [place] [address] documented as of this encounter Visit Diagnoses Not on filedocumented in this encounter Care Teams Curing Room Supervisor Relationship Specialty Start Date End Date No Ref-Primary, Physician PCP - General 11/29/20 Dennis Haley MD [address] [facility] [address] [place], [place] [address] Assigned OBGYN Provider 02/02/23 documented as of this encounter
== END 2024-02-12 12:31 | disposition home or self-care (01) ==
LOC: NFLDREF 02-16 07:12
PROVIDERS: PCP Family Medicine; Referring Provider Family Medicine; Visit Provider Obstetrics & Gynecology
DX: O24.13 Pre-existing type 2 diabetes mellitus, in the puerperium (principal); E11.65 Type 2 diabetes mellitus with hyperglycemia; Z79.84 Long term (current) use of oral hypoglycemic drugs
CPT/HCPCS: 82570; 84156

== ENCOUNTER 2024-02-27 10:29 | Outpatient (CLI) | payer OTHER, SELFPAY | END 2024-02-27 10:30 | disposition home or self-care (01) | PROVIDERS: PCP Family Medicine; Visit Provider Physician Assistant | DX: O24.111 Pre-existing type 2 diabetes mellitus, in pregnancy, first trimester (principal); E13.9 Other specified diabetes mellitus without complications; Z3A.12 12 weeks gestation of pregnancy; Z79.4 Long term (current) use of insulin | CPT/HCPCS: 80053; 84443 ==

== ENCOUNTER 2024-06-15 08:39 | Outpatient (CLI) | payer OTHER, SELFPAY ==
--- OUTSIDE RECORDS SUMMARY | 2024-06-15 08:40 | XMS_ITS | Clinical Summary ---
Author Organization [facility] Address [address] [place] [address] Care Team Providers Care Maxillofacial Prosthodontist Name Role Phone Unavailable Primary Care Provider Unavailabl e Source Comments Patient records contain information from all sites at [facility]. For routine questions regarding patient records, call [phone] during business hours, M-F 8:00 AM - 5:00 PM Central Time. Record requests for emergency care only can be directed to [phone] at any time.[facility] Allergies No known active allergies Medications Medication Sig Dispensed Refills Start Date End Date Status insulin NPH 100 unit/mL injection Inject 9 Units under the skin 2 (two) times a day with meals. 14 units in the morning - 10 units in the evening Active no115/iron/folic acid ( 19 ORAL) Take 1 tablet by mouth daily. Active aspirin [address] tablet Take 81 mg by mouth daily. Active Alcohol Prep pads, medicated USE A NEW PAD FOUR TIMES DAILY NEEDED 02/27/2024 Active Accu-Chek Guide test strips USE TO TEST BLOOD SUGAR FOUR TIMES DAILY 03/19/2024 Active Accu-Chek Guide Me Glucose Mtr misc See Admin Instructions. 02/27/2024 Active Accu-Chek Softclix Lancets lancets USE TO TEST BLOOD SUGAR FOUR TIMES DAILY 03/20/2024 Active metFORMIN XR (Glucophage-XR) 500 mg 24 hr tablet Take 2 tablets by mouth daily. 03/05/2024 Active insulin syringe-needle U-100 1 mL 31 gauge x 5/16 syringe 2 (two) times a day. as directed 03/25/2024 Active Active Problems Patient Care Coordination No te Formatting of this note migh t be different from the original. Delivery plan: chart: Care Team/nursing team: [facility]. CHEYANNE Colon Partner name: Pertinent medical issues for management (just critical diagnoses for ): thickened NT, AMA, Diabetes Type II /Maternal Board plans indicated: (yes or no) Genetic testing at delivery: Antepartum: Additional consults needed/completed: Echo - Payam - Anesthesia - Tour - Genetics - Social Work - COVID: Flu Shot: Rhogam: Tdap: Rubella/Varicella status: 28 week labs: PHQ 9: GBS: Labor/Delivery Plan: Contraception plan: Education: NOB - Early - Mid - Late - Estimated Date of Delivery Comme nts Yes 09/09/2024 Based on Ultraso und No additional problems on file Encounters Date Type Department Care Team Description 05/20/2024 9:00 AM CDT Comprehensive Visit Division of Pediatric Cardiology in [place], [place] [address] [place] [phone] Yosvany Murphy M.B.B.S. Encounter For Screening For Congenital Cardiac Abnormalities (HCC) (Primary Dx); Diabetes Mellitus Type 2 (HCC); Abnormal Ultrasound 05/20/2024 7:11 AM CDT - 05/20/2024 11:59 PM CDT Hospital Encounter Department of Cardiovascular Diseases in [address] [phone] Ino Colno M.B.B.S. Diabetes Mellitus Type 2 (HCC); Abnormal Ultrasound Discharge Disposition: Home or Self Care 04/29/2024 3:00 PM CDT Comprehensive Visit Department of Obstetrics and Gynecology in [address] [phone] Ino Colon M.B.B.S. Lala Heredia M.S., [facility] Procedure And Treatment Not Carried Out Due To Patient Leaving Prior To Being Seen By Health Care Provider (Primary Dx); Abnormal Ultrasound 04/29/2024 2:00 PM CDT Routine Department of Obstetrics and Gynecology in [place], [place] [address] [place] [phone] Ino Colon M.B.B.S. Diabetes Mellitus Type 2 (HCC) (Primary Dx); Abnormal Ultrasound 04/29/2024 12:49 PM CDT - 04/29/2024 11:59 PM CDT Hospital Encounter Department of Obstetrics and Gynecology in [place], [place] [address] [place] [address] Ino Colon M.B.B.S. Abnormal Ultrasound Discharge Disposition: Home or Self Care 04/01/2024 1:00 PM CDT Routine Department of Obstetrics and Gynecology in [place], [place] [address] [place] [address] Ino Colon M.B.B.S. Abnormal Ultrasound (Primary Dx) 04/01/2024 11:03 AM CDT - 04/01/2024 11:59 PM CDT Hospital Encounter Department of Obstetrics and Gynecology in [place], [place] [address] [place] [address] Naomi Dahl M.D. Diabetes Mellitus Type 2 (HCC); Abnormal Ultrasound Discharge Disposition: Home or Self Care from Last 3 Months Social History Tobacco Use Types Packs/Day Years Used Date Smoking Tobacco: Never Smokeless Tobacco: Never Tobacco Cessation:Counseling Given: Not Answered Alcohol Use Standard Drinks/Week Comments Not Currently 0 (1 standard drink = 0.6 oz pur e alcohol) [facility] Utilities Answer Date Recorded In the past 12 months has th e BuildingLayer, gas, oil, or water [employer] threatened to shut off services in your home? No 03/31/2024 Exercise Vital Sign Answer Date Recorde d On average, how many days pe r week do you engage in moderate to strenuous exercise (like a brisk walk)? 0 days 03/31/2024 On average, how many minutes do you engage in exercise at this level? 30 min 03/31/2024 Hunger Vital Sign Answer Date Recorded Within the past 12 months, y ou worried that your food would run out before you got the money to buy more. Never true 03/31/20 24 Within the past 12 months, t he food you bought just didn't last and you didn't have money to get more. Never true 03/31/2024 PRAPARE - Transportation Answer Date Re corded In the past 12 months, has l ack of transportation kept you from medical appointments or from getting medications? No 03/08 In the past 12 months, has l ack of transportation kept you from meetings, work, or from getting things needed for daily living? No 03/31/2024 Nutrition Answer Date Recorded On average, how many serving s of fruits and vegetables do you eat per day (serving size is equal to 1 cup or approximately the size of a tennis ball)? 5 or more 03/31/2024 Dental Answer Date Recorded Dental: Regular Dentist Yes 03/31/20 Employment Answer Date Recorded Employment status Unemployed/not in [employer] paid workforce and NOT seeking employment 03/31/2024 Housing Stability Answer Date Recorded What is your living situation today? I have a [facility] place to live 03/31/2024 Estimated Date of Delivery Comme nts Yes 09/09/2024 Based on Ultraso und Sex and Gender Information Value Date Recorded Sex Assigned at Female 03/31/2024 9:51 PM CDT Gender Identity Female 03/31/2024 9:51 PM CDT Sexual Orientation Choose not to disclose 2023 9:51 PM CDT Last Filed Vital Signs Vital Sign Reading Time Taken Comments Blood Pressure 110/75 04/29/2024 2:31 PM CDT Pulse 91 04/29/2024 2:31 PM CDT Temperature - - Respiratory Rate - - Oxygen Saturation 98% 04/29/2024 2:31 PM CDT Inhaled Oxygen Concentration - - Weight - - Height - - Body Mass Index - - Plan of Treatment Health Maintenance Due Date Last Done Comments Cervical Cancer Screening 1985 HIV Screening 1985 Hepatitis C Screening 1985 Lipid (Cholesterol) Screening 1985 Mammogram 1985 Hepatitis B Vaccines (1 of 3 - 19+ 3-dose series) 2002 Depression Screening (Annual PHQ-2) 10/07/2023 COVID-19 Vaccine (3 - 2022-2 4 season) 2024 07/20/2021, 06/22/2021 Influenza Vaccine (#1) 2024 08/08/2022 RSV vaccine - (32-3 6 weeks) or 60+ years (1 - Risk 1-dose series) 07/15/2024 DTaP,Tdap,and Td Vaccines (2 - Td or Tdap) 12/26/2032 12/26/2022 HPV Vaccines Aged Out No longer eligi ble based on patient's age to complete this topic Pneumococcal vaccine (0-64 years) Aged Out No longer eligible b ased on patient's age to complete this topic Procedures Procedure Name Priority Date/Time Associated Diagnosis Comments COSBY ECHO 2D WITH COLOR AND DOPPLER Routine 05/20/2024 8:42 AM CDT Diabetes Mellitus Type 2 (HCC) Abnormal Ultrasound US OB FOLLOW-UP AND OR GROWTH COSBY RAD - Routine (most inpatients and all outpatients) 04/29/2024 4:27 PM CDT Abnormal Ultrasound US OB ADVANCED LEVEL COSBY RAD - Routine (most inpatients and all outpatients) 04/01/2024 12:04 PM CDT Diabetes Mellitus Type 2 (HCC) Abnormal Ultrasound from Last 3 Months Results * COSBY ECHO 2D WITH COLOR AND DOPPLER (05/20/2024 8:42 AM CDT) Ejection Fraction [facility] Anatomical Region Laterality Modality Echocardiography 05/20/2024 7:12 AM CDT Impressions 05/20/2024 8:56 AM CDT 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 Normal great artery relationships. For the complete report, see the Order-Level Documents. Narrative 05/20/2024 8:56 AM CDT For the complete report, see the Order-Level Documents. Final Impressions 1. echocardiogram performed due to maternal diabetes mellitus. 2. Estimated date of delivery 09/09/2024. ??Gestational age 24 weeks; 0 days. 3. Cosby . 4. lie: transverse. 5. Normal cardiac anatomy. 6. Normal cardiac dimensions. 7. Normal biventricular function. 8. Normal Doppler velocities. 9. Normal aortic arch. 10. Normal ductal arch. 11. Normal patency of the foramen ovale. 12. echocardiogram reveals normal sinus rhythm at a heart rate of 144 contr/min. 13. Normal umbilical cord Doppler velocities and profile. Three vessel cord. 14. No pericardial effusion. No hydrops. Procedure Note Yosvany Murphy M.B.B.S. - 05/20/2024 For the complete report, see the Order-Level Documents. Final Impressions 1. echocardiogram performed due to maternal diabetes mellitus. 2. Estimated date of delivery 09/09/2024. Gestational age 24 weeks; 0days. 3. Cosby . 4. lie: transverse. 5. Normal cardiac anatomy. 6. Normal cardiac dimensions. 7. Normal biventricular function. 8. Normal Doppler velocities. 9. Normal aortic arch. 10. Normal ductal arch. 11. Normal patency of the foramen ovale. 12. echocardiogram reveals normal sinus rhythm at a heart rate of144 contr/min. 13. Normal umbilical cord Doppler velocities and profile. Three vesselcord. 14. No pericardial effusion. No hydrops. 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 Normal great artery relationships. For the complete report, see the Order-Level Documents. Ino FigueredoS. CV ECHO PROCEDURES * US OB Follow-up and or Growth Cosby (04/29/2024 4:27 PM CDT) Anatomical Region Laterality Modality Body, Ultrasound OB RST LOS, Ultrasound ARZ LOS N/A Ultrasound Narrative 04/29/2024 4:27 PM CDT MORENA ALVARADO OB Exam, 04/29/2024 EXAM INFORMATION Patient Name: ??MORENA ALVARADO : ??1985 Age: ??38 yrs Sex: ??Female Ref Phys: ??INO COLON Exam Date: 04/29/2024 Procedure: US OB FOLLOW-UP AND OR GROWTH COSBY Exam Site: [facility] OB #1 Plurality: 1 OBHx: [G:(3)] ?F Trm:() Pre:() C-Sec:() Ab-I:() Ab-S:() Ect:() Multi:() Cece:(1) INDICATIONS FOR SONOGRAPHY growth and followup anatomy IMPRESSION A transabdominal ultrasound was performed. Follow-up for anatomy scan completion: Dating revised. She did an ultrasound at 8 weeks elsewhere with 5 days difference compared to LMP dating. TRAM will be adjusted to 09/09/2024. Findings:Cosby's in transverse lie with the head towards the maternal right side. The following structures can be seen today and appear normal: Sag and Trans Lumbar spine, Sag and Trans Sacral spine, Cerebellum, Vermis, CSP, Midline falx, Palate, Maxilla, Mandible, Tongue, 4 chamber heart, Interventricular septum, RVOT, LVOT, 3VV, 3VT, Aortic arch, Ductal arch, SVC/IVC, Pulmonary veins, Chest/Heart/lungs, Diaphragm, Upper lip/nose, Hands, Feet. ??The placenta is Posterior, and there is no evidence of Previa. Normal amniotic fluid biometry is consistent with the 71st percentile for gestational age. The AC is at the 73rd percentile. Conclusion:The anatomy survey was completed today and appears normal. Normal growth for gestational age. MATERNAL MEASUREMENTS Cervix Length: ??54.5 mm MEASUREMENTS ??jaswinder ??wks [+/-] (Range) % ?? BPD: 4.95 cm ?? 21w0d ??[+/-1.73] ??(4.38 - 5.55) 48% FL: ??3.26 cm ?? 20w1d ??[+/-1.80] ??(2.97 - 4.15) 16% HC: ??18.69 cm ?? 21w0d ??[+/-1.48] ??(16.96 - 20.88) 41% AC: ??16.92 cm ?? 21w6d ??[+/-2.06] ??(13.48 - 18.74) 73% HL: ??2.99 cm ?? 19w4d ? (2.80 - 3.80) 22% TCD: 2.21 cm ?? 21w4d ??[+/-1.80] ??(1.90 - 2.40) 52% NF: ??3.7 mm ? Cisterna Magna: 0.33 cm ? RATIOS ??(Range) % ?? HC/AC: 1.10 ?(1.06 - 1.25) 27% ?? FL/BPD: 0.66 ? FL/AC: 0.19 ? LONG BONES SURVEY ??cm ??wks [+/-] (Range) % ?? Humerus: 2.99 cm ?? 19w4d ? (2.80 - 3.80) 22% Ulna: ?? 2.85 cm ? Radius: 2.48 cm ? Femur: 3.26 cm ?? 20w1d ??[+/-1.80] ??(2.97 - 4.15) 16% Tibia: 2.63 cm ? Fibula: 2.59 cm ? COMPUTATIONS GA: ?? 21w0d [+/-1.40] Method: ??TRAM TRAM: ??09/09/2024 Sono GA: ??20w5d [+/-1.40] Method: ?? BPD, HC, AC, FL Weight: ??427 gms. ??0 lb 15 oz. ??71% Method: ??BPD, HC, AC, FL OBSERVATIONS Amniotic Fluid Fluid Volume: ??Normal MVP: ??4.71 cm Placenta: ??Placenta is Posterior. ??There is no evidence of a placenta previa. Presentation: ?Transverse head maternal right Size: ?Normal for dates FHR: ??157 bpm Sex: ??Male ANATOMY Normal: Sag and Trans Lumbar spine, Sag and Trans Sacral spine, Cerebellum, Vermis, CSP, Midline falx, Palate, Maxilla, Mandible, Tongue, 4 chamber heart, Interventricular septum, RVOT, LVOT, 3VV, 3VT, Aortic arch, Ductal arch, SVC/IVC, Pulmonary veins, Chest/Heart/lungs, Diaphragm, Upper lip/nose, Hands, Feet Preliminary Read by Tish Claudio R.V.T., RChintanM.S. on 04/29/2024 2:17:32 PM. Preliminary Read by Tish Claudio R.V.T., R.VikaM.S. on 04/29/2024 2:23:24 PM. Delivery Recruiter: ??Tish Claudio R.V.T., Mirta.S. Thank You For This Referral Procedure Note Ino Colon M.B.B.S. - 04/29/2024 KADE SOCORROMORENA OB Exam, 04/29/2024 EXAM INFORMATION Patient Name: MORENA ALVARADO : 1985 Age: 38 yrs Sex: Female Ref Phys: INO COLON Exam Date: 04/29/2024 Procedure: US OB FOLLOW-UP AND OR GROWTH COSBY Exam Site: [facility] OB #1 Plurality: 1 OBHx: [G:(3)] F Trm:() Pre:() C-Sec:() Ab-I:() Ab-S:() Ect:() Multi:() Cece:(1) INDICATIONS FOR SONOGRAPHY growth and followup anatomy IMPRESSION A transabdominal ultrasound was performed. Follow-up for anatomy scan completion: Dating revised. She did an ultrasound at 8 weeks elsewhere with 5 daysdifference compared to LMP dating. TRAM will be adjusted to 09/09/2024. Findings:Cosby's in transverse lie with the headtowards the maternal right side. The following structures can be seentoday and appear normal: Sag and Trans Lumbar spine, Sag and Trans Sacralspine, Cerebellum, Vermis, CSP, Midline falx, Palate, Maxilla, Mandible, Tongue, 4 chamber heart, Interventricularseptum, RVOT, LVOT, 3VV, 3VT, Aortic arch, Ductal arch, SVC/IVC, Pulmonaryveins, Chest/Heart/lungs, Diaphragm, Upper lip/nose, Hands, Feet. Theplacenta is Posterior, and there is no evidence of Previa. Normal amniotic fluid biometry isconsistent with the 71st percentile for gestational age. The AC isat the 73rd percentile. Conclusion:The anatomy survey was completedtoday and appears normal. Normal growth for gestational age. MATERNAL MEASUREMENTS Cervix Length: 54.5 mm MEASUREMENTS jaswinder wks [+/-] (Range) % BPD: 4.95 cm 21w0d [+/-1.73] (4.38 - 5.55) 48% FL: 3.26 cm 20w1d [+/-1.80] (2.97 - 4.15) 16% HC: 18.69 cm 21w0d [+/-1.48] (16.96 - 20.88) 41% AC: 16.92 cm 21w6d [+/-2.06] (13.48 - 18.74) 73% HL: 2.99 cm 19w4d (2.80 - 3.80) 22% TCD: 2.21 cm 21w4d [+/-1.80] (1.90 - 2.40) 52% NF: 3.7 mm Cisterna Magna: 0.33 cm RATIOS (Range) % HC/AC: 1.10 (1.06 - 1.25) 27% FL/BPD: 0.66 FL/AC: 0.19 LONG BONES SURVEY cm wks [+/-] (Range) % Humerus: 2.99 cm 19w4d (2.80 - 3.80) 22% Ulna: 2.85 cm Radius: 2.48 cm Femur: 3.26 cm 20w1d [+/-1.80] (2.97 - 4.15) 16% Tibia: 2.63 cm Fibula: 2.59 cm COMPUTATIONS GA: 21w0d [+/-1.40] Method: TRAM TRAM: 09/09/2024 Sono GA: 20w5d [+/-1.40] Method: BPD, HC, AC, FL Weight: 427 gms. 0 lb 15 oz. 71% Method: BPD, HC, AC, FL OBSERVATIONS Amniotic Fluid Fluid Volume: Normal MVP: 4.71 cm Placenta: Placenta is Posterior. There is no evidence of a placentaprevia. Presentation: Transverse head maternal right Size: Normal for dates FHR: 157 bpm Sex: Male ANATOMY Normal: Sag and Trans Lumbar spine, Sag and Trans Sacral spine,Cerebellum, Vermis, CSP, Midline falx, Palate, Maxilla, Mandible, Tongue,4 chamber heart, Interventricular septum, RVOT, LVOT, 3VV, 3VT, Aorticarch, Ductal arch, SVC/IVC, Pulmonary veins, Chest/Heart/lungs, Diaphragm, Upper lip/nose, Hands, Feet Preliminary Read by Tish Claudio R.V.T., R.D.M.S. on :17:32 PM. Preliminary Read by Tish Claudio R.V.T., R.D.M.S. on :23:24 PM. Delivery Recruiter: Tish Claudio R.V.T., R.D.M.S. Thank You For This Referral Ino Robertson IMG OB US PROCEDUR ES * US OB Advanced Level Cosby (04/01/2024 12:04 PM CDT) Anatomical Region Laterality Modality Body, Ultrasound OB RST LOS, Ultrasound ARZ LOS N/A Ultrasound Narrative 04/01/2024 12:17 PM CDT MORENA ALVARADO OB Exam, 04/01/2024 EXAM INFORMATION Patient Name: ??MORENA ALVARADO : ??1985 Age: ??38 yrs Sex: ??Female Ref Phys: ??NAOMI DAHL Exam Date: 04/01/2024 Procedure: US OB ADVANCED LEVEL COSBY Exam Site: [facility] OB #[id number] Plurality: 1 OBHx: [G:(3)] ?F Trm:() Pre:() C-Sec:() Ab-I:() Ab-S:() Ect:() Multi:() Cece:(1) INDICATIONS FOR SONOGRAPHY ama, type 2 DM, increased NT IMPRESSION A transabdominal detailed ultrasound examination of the fetus was ordered and performed secondary to thickened nuchal translucency, T2DM. Findings: Cosby intrauterine with good activity. Size is consistent with dates. Imaging today is limited by early gestational age, patient scanning characteristics and position There are no abnormalities or sonographic soft markers of aneuploidy visualized however numerous views are suboptimal. Normal fluid Posterior low lying placenta. The maternal uterus and adnexae were visualized and normal. Recommend follow-up of suboptimal anatomy views in 1-3 weeks. Recommend reassessment of placentation around 28-32 weeks. MATERNAL MEASUREMENTS Cervix Length: ??55.8 mm MEASUREMENTS ??jaswinder ??wks [+/-] (Range) % ?? BPD: 3.64 cm ?? 17w1d ??[+/-1.19] ??(3.26 - 4.43) 25% FL: ??2.23 cm ?? 16w5d ??[+/-1.38] ??(2.00 - 3.17) 12% HC: ??13.76 cm ?? 17w1d ??[+/-1.19] ??(12.77 - 16.69) 16% AC: ??11.34 cm ?? 17w1d ??[+/-1.66] ??(9.46 - 14.71) 29% HL: ??1.96 cm ?? 15w5d ? (1.94 - 2.91) 7% TCD: 1.75 cm ?? 18w0d ??[+/-1.80] ??(1.67 - 1.87) 40% NF: ??3.4 mm ? Cisterna Magna: 0.45 cm ? Lateral Ventricle: 0.47 cm ? RATIOS ??(Range) % ?? HC/AC: 1.21 ?(1.07 - 1.29) 64% ?? FL/BPD: 0.61 ? FL/AC: 0.20 ? LONG BONES SURVEY ??cm ??wks [+/-] (Range) % ?? Humerus: 1.96 cm ?? 15w5d ? (1.94 - 2.91) 7% Ulna: ?? 1.75 cm ? Radius: 1.6 cm ? Femur: 2.23 cm ?? 16w5d ??[+/-1.38] ??(2.00 - 3.17) 12% Tibia: 1.68 cm ? Fibula: 1.57 cm ? COMPUTATIONS GA: ?? 17w5d Method: ??TRAM TRAM: ??09/04/2024 Sono GA: ??17w0d Method: ?? Average OBSERVATIONS Amniotic Fluid Fluid Volume: ??Normal Placenta: ??Placenta is Posterior, Low Lying. ?? Presentation: ?Variable Size: ?Normal for dates FHR: ??159 bpm Sex: ??Male ANATOMY Normal: Sag and Trans Cervical spine, Sag and Trans Thoracic spine, Cisterna magna, Cerebral ventricle, Choroid plexus, Nuchal thickness, Midline falx, Mandible, Situs, Anterior abdominal wall, Abdominal cord insertion, Placental cord insert , 3 vessel cord, Stomach, Kidneys (coronal and trans), Renal arteries, Bladder, Face, Profile/Nasal Bone, Orbits/lens, Upper extremities, Lower extremities Not Seen: Sag and Trans Lumbar spine, Sag and Trans Sacral spine, Cerebellum, Vermis, CSP, Palate, Maxilla, Tongue, 4 chamber heart, Interventricular septum, RVOT, LVOT, 3VV, 3VT, Aortic arch, Ductal arch, SVC/IVC, Pulmonary veins, Chest/Heart/lungs, Diaphragm, Upper lip/nose, Hands, Feet Preliminary Read by Tish Claudio, Kin, R.D.M.S. on 04/01/2024 12:03:53 PM. Delivery Recruiter: ??Tish Claudio R.V.T., R.Parisa.M.S. Thank You For This Referral Procedure Note Jaz Chahal M.D. - 04/01/2024 MORENA ALVARADO OB Exam, 04/01/2024 EXAM INFORMATION Patient Name: MORENA ALVARADO : 1985 Age: 38 yrs Sex: Female Ref Phys: NAOMI DAHL Exam Date: 04/01/2024 Procedure: US OB ADVANCED LEVEL COSBY Exam Site: [facility] OB #[id number] Plurality: 1 OBHx: [G:(3)] F Trm:() Pre:() C-Sec:() Ab-I:() Ab-S:() Ect:() Multi:() Cece:(1) INDICATIONS FOR SONOGRAPHY ama, type 2 DM, increased NT IMPRESSION A transabdominal detailed ultrasound examination of the fetus was orderedand performed secondary to thickened nuchal translucency, T2DM. Findings: Cosby intrauterine with good activity. Size is consistent with dates. Imaging today is limited by early gestational age, patient scanningcharacteristics and position There are no abnormalities or sonographic soft markers of aneuploidyvisualized however numerous views are suboptimal. Normal fluid Posterior low lying placenta. The maternal uterus and adnexae were visualized and normal. Recommend follow-up of suboptimal anatomy views in 1-3 weeks. Recommend reassessment of placentation around 28-32 weeks. MATERNAL MEASUREMENTS Cervix Length: 55.8 mm MEASUREMENTS jaswinder wks [+/-] (Range) % BPD: 3.64 cm 17w1d [+/-1.19] (3.26 - 4.43) 25% FL: 2.23 cm 16w5d [+/-1.38] (2.00 - 3.17) 12% HC: 13.76 cm 17w1d [+/-1.19] (12.77 - 16.69) 16% AC: 11.34 cm 17w1d [+/-1.66] (9.46 - 14.71) 29% HL: 1.96 cm 15w5d (1.94 - 2.91) 7% TCD: 1.75 cm 18w0d [+/-1.80] (1.67 - 1.87) 40% NF: 3.4 mm Cisterna Magna: 0.45 cm Lateral Ventricle: 0.47 cm RATIOS (Range) % HC/AC: 1.21 (1.07 - 1.29) 64% FL/BPD: 0.61 FL/AC: 0.20 LONG BONES SURVEY cm wks [+/-] (Range) % Humerus: 1.96 cm 15w5d (1.94 - 2.91) 7% Ulna: 1.75 cm Radius: 1.6 cm Femur: 2.23 cm 16w5d [+/-1.38] (2.00 - 3.17) 12% Tibia: 1.68 cm Fibula: 1.57 cm COMPUTATIONS GA: 17w5d Method: TRAM TRAM: 09/04/2024 Sono GA: 17w0d Method: Average OBSERVATIONS Amniotic Fluid Fluid Volume: Normal Placenta: Placenta is Posterior, Low Lying. Presentation: Variable Size: Normal for dates FHR: 159 bpm Sex: Male ANATOMY Normal: Sag and Trans Cervical spine, Sag and Trans Thoracic spine,Cisterna magna, Cerebral ventricle, Choroid plexus, Nuchal thickness,Midline falx, Mandible, Situs, Anterior abdominal wall, Abdominal cordinsertion, Placental cord insert , 3 vessel cord, Stomach, Kidneys (coronal and trans), Renal arteries, Bladder, Face,Profile/Nasal Bone, Orbits/lens, Upper extremities, Lower extremities Not Seen: Sag and Trans Lumbar spine, Sag and Trans Sacral spine,Cerebellum, Vermis, CSP, Palate, Maxilla, Tongue, 4 chamber heart,Interventricular septum, RVOT, LVOT, 3VV, 3VT, Aortic arch, Ductal arch,SVC/IVC, Pulmonary veins, Chest/Heart/lungs, Diaphragm, Upper lip/nose, Hands, Feet Preliminary Read by Tish Claudio R.V.T., RChintanM.S. on 2:03:53 PM. Delivery Recruiter: Tish Claudio R.V.T., JoanM.S. Thank You For This Referral Naomi Dahl M.D. IMG OB US IN OCEDURES from Last 3 Months
--- OUTSIDE RECORDS SUMMARY | 2024-06-15 08:41 | XMS_ITS | Referral Summary ---
Author Organization [facility] Address [address] [place] [address]. [place] [address] Care Team Providers Care Primer Press Operator Name Role Phone No Ref-Primary, Physician Primary Care Provider Annika Ibrahim MD Unavailable [phone] Allergies No known active allergies Social History Tobacco Use Types Packs/Day Years Used Date Smoking Tobacco: Never Assessed Adolescent Education Answer Date Record ed Getting School Help Needed Not on file 06/29 Estimated Date of Delivery Comme nts Yes 09/04/2024 Based on last me nstrual period of 11/29/2023 Sex and Gender Information Value Date Recorded Sex Assigned at Not on file Gender Identity Not on file Sexual Orientation Not on file Last Filed Vital Signs Vital Sign Reading Time Taken Comments Blood Pressure 138/87 02/26/2024 11:03 AM CDT Pulse 79 02/26/2024 11:03 AM CDT Temperature 36.7 ??C (98.1 ??F) 07/16/2022 1 1:23 AM CDT Respiratory Rate 18 02/26/2024 11:0 0 AM CDT Oxygen Saturation 100% 02/26/2024 11: 00 AM CDT Inhaled Oxygen Concentration - - Weight 52.5 kg (115 lb 12.8 oz) 022 11:23 AM CDT Height 132.1 cm (4' 4) 11/29/2020 4:53 PM COMMUNITY RELATIONS DIRECTOR Body Mass Index 30.11 11/29/2020 4:53 PM COMMUNITY RELATIONS DIRECTOR Plan of Treatment Not on file Procedures Procedure Name Priority Date/Time Associated Diagnosis Comments BASIC METABOLIC PANEL STAT 11/29/2020 8:35 PM COMMUNITY RELATIONS DIRECTOR from Last 3 Months or Most Recently Relevant to Health Maintenance Results * Basic metabolic panel (11/29/2020 8:35 PM COMMUNITY RELATIONS DIRECTOR) Sodium 138 133 - 144 mmol/L 11/29/2020 8:52 PM [facility] Potassium 3.8 3.4 - 5.3 mmol/L 11/29/2020 8:52 PM [facility] Chloride 107 94 - 109 mmol/L 11/29/2020 8:52 PM [facility] Carbon Dioxide 23 20 - 32 mmol/L 11/29/2020 8:59 PM [facility] Anion Gap 8 3 - 14 mmol/L 11/29/2020 8:59 PM [facility] Glucose 93 70 - 99 mg/dL 11/29/2020 8:59 PM [facility] Urea Nitrogen 16 7 - 30 mg/dL 11/29/2020 8:59 PM [facility] Creatinine 0.57 0.52 - 1.04 mg/dL 11/29/2020 8:59 PM [facility] GFR Estimate >90 >60 mL/min/{1. 73_m2} 11/29/2020 8:59 PM [facility] Comment: Non GFR Calc Starting 09/23/2018, serum creatinine based estimated GFR (eGFR) will be calculated using the Chronic Kidney Disease Epidemiology Collaboration (CKD-EPI) equation. GFR Estimate If Black >90 >60 mL/min/{1. 73_m2} 11/29/2020 8:59 PM [facility] Comment: GFR Calc Starting 09/23/2018, serum creatinine based estimated GFR (eGFR) will be calculated using the Chronic Kidney Disease Epidemiology Collaboration (CKD-EPI) equation. Calcium 8.7 8.5 - 10.1 mg/dL 11/29/2020 8:59 PM [facility] 11/29/2020 8:35 PM COMMUNITY RELATIONS DIRECTOR 11/29/2020 8:40 PM COMMUNITY RELATIONS DIRECTOR Latricia Trinh MD LAB - BLOOD ORDERABL ES [facility] [address] [address], [facility] [phone] [facility] [address] [place] [address], [facility] [phone] from Last 3 Months or Most Recently Relevant to Health Maintenance Care Teams Primer Press Operator Relationship Specialty Start Date End Date No Ref-Primary, Physician PCP - General 11/29/20 Annika Ibrahim MD [address] [address] Assigned OBGYN Provider 03/29/24
--- OUTSIDE RECORDS SUMMARY | 2024-06-15 08:41 | XMS_ITS | Referral Summary ---
Author Organization [facility] Address [address] [place] [address] Care Team Providers Care Ui Developer Name Role Phone Unavailable Primary Care Provider Unavailabl e Source Comments Patient records contain information from all sites at [facility]. For routine questions regarding patient records, call [phone] during business hours, M-F 8:00 AM - 5:00 PM Central Time. Record requests for emergency care only can be directed to [phone] at any time.[facility] Encounters Date Type Department Care Team Description 05/20/2024 9:00 AM CDT Comprehensive Visit Division of Pediatric Cardiology in [place], [place] [address] [place] [address] Yosvany Murphy M.B.B.S. Encounter For Screening For Congenital Cardiac Abnormalities (HCC) (Primary Dx); Diabetes Mellitus Type 2 (HCC); Abnormal Ultrasound 05/20/2024 7:11 AM CDT - 05/20/2024 11:59 PM CDT Hospital Encounter Department of Cardiovascular Diseases in [place], [place] [address] [place] [phone] Ino Kingsley M.B.B.S. Diabetes Mellitus Type 2 (HCC); Abnormal Ultrasound Discharge Disposition: Home or Self Care 04/29/2024 2:00 PM CDT Routine Department of Obstetrics and Gynecology in [place], [place] [address] [place] [address] Ino Kingsley M.B.B.S. Diabetes Mellitus Type 2 (HCC) (Primary Dx); Abnormal Ultrasound 04/29/2024 12:49 PM CDT - 04/29/2024 11:59 PM CDT Hospital Encounter Department of Obstetrics and Gynecology in [place], [place] [address] [place] [address] Ino Kingsley M.B.B.S. Abnormal Ultrasound Discharge Disposition: Home or Self Care 04/29/2024 3:00 PM CDT Comprehensive Visit Department of Obstetrics and Gynecology in [place], [place] [address] [place] [address] Ino Kingsley M.B.B.S. Lala Heredia M.S., [facility] [place] Procedure And Treatment Not Carried Out Due To Patient Leaving Prior To Being Seen By Health Care Provider (Primary Dx); Abnormal Ultrasound 04/01/2024 1:00 PM CDT Routine Department of Obstetrics and Gynecology in [place], [place] [address] [place] [address] Ino Kingsley M.B.B.S. Abnormal Ultrasound (Primary Dx) 04/01/2024 11:03 AM CDT - 04/01/2024 11:59 PM CDT Hospital Encounter Department of Obstetrics and Gynecology in [place], [place] [address] [place] [address] Naomi Dahl M.D. Diabetes Mellitus Type 2 (HCC); Abnormal Ultrasound Discharge Disposition: Home or Self Care from Last 3 Months Allergies No known active allergies Medications Medication [...] original. Delivery plan: chart: Care Team/nursing team: [facility]. MFM Blair Partner name: Pertinent medical issues for management (just critical diagnoses for ): thickened NT, AMA, Diabetes Type II /Maternal Board plans indicated: (yes or no) Genetic testing at delivery: Antepartum: Additional consults needed/completed: Echo - Pyaam - Anesthesia - Tour - Genetics - Social Work - COVID: Flu Shot: Rhogam: Tdap: Rubella/Varicella status: 28 week labs: PHQ 9: GBS: Labor/Delivery Plan: Contraception plan: Education: NOB - Early - Mid - Late - Estimated Date of Delivery Comme nts Yes 09/09/2024 Based on Ultraso und No additional problems on file Social History Tobacco Use Types Packs/Day Years Used Date Smoking Tobacco: Never Smokeless Tobacco: Never Tobacco Cessation:Counseling Given: Not Answered Alcohol Use Standard Drinks/Week Comments Not Currently 0 (1 standard drink = 0.6 oz pur e alcohol) [facility] Utilities Answer Date Recorded In the past 12 months has th e [email or web address], gas, oil, or water [employer] threatened to shut off services in your [...] Answer Date Recorded Employment status Unemployed/not in e paid workforce and NOT seeking employment 03/31/2024 Housing Stability Answer Date Recorded What is your living situation today? I have a [facility] place to live 03/31/2024 Estimated Date of [...] Mass Index - - Plan of Treatment Not on file Procedures [...] DOPPLER (05/20/2024 8:42 AM CDT) Ejection Fraction [facility] Anatomical Region Laterality Modality Echocardiography 05/20/2024 7:12 [...] complete report, see the Order-Level Documents. Ino Robertson CV ECHO PROCEDURES * US OB Follow-up and or Growth Cosby (04/29/2024 4:27 PM CDT) Anatomical Region Laterality Modality Body, Ultrasound OB RST LOS, Ultrasound ARZ LOS N/A Ultrasound Narrative 04/29/2024 4:27 PM CDT MORENA LAYNE OB Exam, 04/29/2024 EXAM INFORMATION Patient Name: ??NELLY LAYNEMARINE GONSALEZA : ??1985 Age: ??38 yrs Sex: ??Female Ref Phys: ??INO KINGSLEY Exam Date: 04/29/2024 Procedure: US OB FOLLOW-UP AND OR GROWTH COSYB Exam Site: [facility] OB #1 Plurality: 1 OBHx: [G:(3)] [...] ?? 21w0d [+/-1.40] Method: ??TRAM TRAM: ??09/09/2024 Malcom GA: ??20w5d [+/-1.40] Method: ?? BPD, HC, [...] Hands, Feet Preliminary Read by Tish Claudio R.VDiyaTDiya, R.D.M.S. on 04/29/2024 2:17:32 PM. Preliminary Read by Tish Claudio R.VDiyaTDiya, R.D.M.S. on 04/29/2024 2:23:24 PM. Trade Show Coordinator: ??Tish Claudio R.VDiyaTDiya, R.D.M.S. Thank You For This Referral Procedure Note Ino Kingsley M.B.B.S. - 04/29/2024 MORENA LAYNE OB Exam, 04/29/2024 EXAM INFORMATION Patient Name: MORENA LAYNE : 1985 Age: 38 yrs Sex: Female Ref Phys: INO SANCHO Exam Date: 04/29/2024 Procedure: US OB FOLLOW-UP AND OR GROWTH COSBY Exam Site: [facility] OB #1 Plurality: 1 OBHx: [G:(3)] [...] Read by Tish Claudio R.V.T., R.D.M.S. on 7/24/94404:23:24 PM. Trade Show Coordinator: Tish Claudio R.V.T., R.D.M.S. Thank You For This Referral Ino Robertson IMG OB US PROCEDUR ES * US OB Advanced Level Cosby (04/01/2024 12:04 PM CDT) Anatomical Region Laterality Modality Body, Ultrasound OB RST LOS, Ultrasound ARZ LOS N/A Ultrasound Narrative 04/01/2024 12:17 PM CDT MORENA LAYNE OB Exam, 04/01/2024 EXAM INFORMATION Patient Name: ??KADE SOCORROMORENA : ??1985 Age: ??38 yrs Sex: ??Female Ref Phys: ??NAOMI DAHL Exam Date: 04/01/2024 Procedure: US OB ADVANCED LEVEL COSBY Exam Site: [facility] OB #[id number] Plurality: 1 OBHx: [G:(3)] [...] GA: ?? 17w5d Method: ??TRAM TRAM: ??09/04/2024 Malcom GA: ??17w0d Method: ?? Average OBSERVATIONS Amniotic [...] Hands, Feet Preliminary Read by Tish Claudio, R.V.T., R.D.M.S. on 04/01/2024 12:03:53 PM. Trade Show Coordinator: ??Tish Claudio, R.V.T., R.D.M.S. Thank You For This Referral Procedure Note Jaz Chahal M.D. - 04/01/2024 MORENA LAYNE OB Exam, 04/01/2024 EXAM INFORMATION Patient Name: MORENA LAYNE : 1985 Age: 38 yrs Sex: Female Ref Phys: NAOMI DAHL Exam Date: 04/01/2024 Procedure: US OB ADVANCED LEVEL COSBY Exam Site: [facility] OB #[id number] Plurality: 1 OBHx: [G:(3)] [...] Read by Tish Claudio R.V.T., R.D.M.S. on 2:03:53 PM. Trade Show Coordinator: Tish Claudio R.V.T., R.D.M.S. Thank You For This Referral Naomi ACEVES OB US CO OCEDURES from Last 3 Months
--- OUTSIDE RECORDS SUMMARY | 2024-06-15 08:41 | XMS_ITS | Clinical Summary ---
Author Organization [facility] Address [address] [place] [address]. [place] [address] Care Team Providers Care Decision Support Manager Name Role Phone No Ref-Primary, Physician Primary Care Provider Annika Ibrahim MD Unavailable [phone] Allergies No known active allergies Social [...] 132.1 cm (4' 4) 11/29/2020 4:53 PM FUR DESIGNER Body Mass Index 30.11 11/29/2020 4:53 PM FUR DESIGNER Plan of Treatment Health Maintenance Due Date [...] series) 2002 PAP 2004 BMP 11/29/2021 11/29/2020 PHQ-2 (once per calendar year) 2023 MATERNAL SCREENING DISCUSSION 02/07/2024 OBGCT (OB) 05/15/2024 COVID-19 Vaccine (3 - 2022-2 4 season) 2024 07/20/2021, 06/22/2021 INFLUENZA VACCINE (#1) 2024 08/08/2022 RSV VACCINE (1 - Risk 1-dose series) 07/10/2024 DTAP/TDAP/TD IMMUNIZATION (2 - Td or Tdap) [...] BASIC METABOLIC PANEL STAT 11/29/2020 8:35 PM FUR DESIGNER from Last 3 Months or Most Recently Relevant to Health Maintenance Results * Basic metabolic panel (11/29/2020 8:35 PM FUR DESIGNER) Sodium 138 133 - 144 mmol/L 11/29/2020 8:52 PM FUR DESIGNER [facility] Potassium 3.8 3.4 - 5.3 mmol/L 11/29/2020 8:52 PM FUR DESIGNER [facility] Chloride 107 94 - 109 mmol/L 11/29/2020 8:52 PM FUR DESIGNER [facility] Carbon Dioxide 23 20 - 32 mmol/L 11/29/2020 8:59 PM FUR DESIGNER [facility] Anion Gap 8 3 - 14 mmol/L 11/29/2020 8:59 PM FUR DESIGNER [facility] Glucose 93 70 - 99 mg/dL 11/29/2020 8:59 PM [facility] Urea Nitrogen 16 7 - 30 mg/dL 11/29/2020 8:59 PM [facility] Creatinine 0.57 0.52 - 1.04 mg/dL 11/29/2020 8:59 PM [facility] GFR Estimate >90 >60 mL/min/{1. 73_m2} 11/29/2020 8:59 PM FUR DESIGNER [facility] Comment: Non GFR Calc Starting 09/23/2018, serum creatinine based estimated GFR (eGFR) will be calculated using the Chronic Kidney Disease Epidemiology Collaboration (CKD-EPI) equation. GFR Estimate If Black >90 >60 mL/min/{1. 73_m2} 11/29/2020 8:59 PM [facility] Comment: GFR Calc Starting 09/23/2018, serum creatinine based estimated GFR (eGFR) will be calculated using the Chronic Kidney Disease Epidemiology Collaboration (CKD-EPI) equation. Calcium 8.7 8.5 - 10.1 mg/dL 11/29/2020 8:59 PM [facility] 11/29/2020 8:35 PM FUR DESIGNER 11/29/2020 8:40 PM FUR DESIGNER Latricia Trinh MD LAB - BLOOD ORDERABL ES [facility] [address] [place] [address], [facility] [phone] [facility] [address] [place] [address], [facility] [phone] from Last 3 Months or Most Recently Relevant to Health Maintenance Care Teams Decision Support Manager Relationship Specialty Start Date End Date No Ref-Primary, Physician PCP - General 11/29/20 Annika Ibrahim MD [address] [address] [place] [address] Assigned OBGYN Provider 03/29/24
--- OUTSIDE RECORDS SUMMARY | 2024-06-15 08:41 | XMS_ITS | Encounter Summary ---
Author Organization [facility] Address [address] [place] [address] Care Team Providers Care Pc Technician Name Role Phone Unavailable Primary Care Provider Unavailabl e Reason for Referral * Outpatient (Routine) - Closed Specialty Diagnoses / Procedures Referred By Jade gonsales Referred To Contact Obstetrics and Gynecology Bhaskar Colon M.B.B.S. [address] [place] [phone] [facility] Referral ID Status Reason Start Date Expiration Date Visits Re quested Visits Authorized [id number] Closed 04/01/2024 10/01/2025 1 1 Reason for Visit * Appointment Request (Routine) - Authorized Specialty Diagnoses / Procedures Referred By Jade gonsales Referred To Contact Maternal and Medicine Diagnoses Maternal Care For Suspected Abnormality And Damage Single Gestation (HCC) Amanda Faith M.D. [address] [place] [address] Referral ID Status Reason Start Date Expiration Date V isits Requested Visits Authorized [id number] Authorized 03/03/2024 03/03/2025 2 2 Encounter Details Date Type Department Care Team (Latest Contact Info) Description 04/01/2024 1:00 PM CDT Routine Department of Obstetrics and Gynecology in [place], [place] [address] [place] [phone] Bhaskar Colon M.B.B.S. [address] [place] [phone] Abnormal Ultrasound (Primary Dx) Social History Tobacco Use Types Packs/Day Years Used Date Smoking Tobacco: Never Smokeless Tobacco: Never Tobacco Cessation:Counseling Given: Not Answered Alcohol Use Standard Drinks/Week Comments Not Currently 0 (1 standard drink = 0.6 oz pur e alcohol) [facility] Utilities Answer Date Recorded In the past 12 months has e electric, gas, oil, or water company threatened to shut off services in your [...] money to buy more. Never true 03/31/20 Within the past 12 months, t he [...] your living situation today? I have a [facility] place to live 03/31/2024 Estimated Date of Delivery Comme nts Yes 09/09/2024 Based on Ultraso und Sex and Gender Information Value Date Recorded Sex Assigned at Female 03/31/2024 9:51 PM CDT Gender Identity Female 03/31/2024 9:51 PM CDT Sexual Orientation Choose not to disclose 2023 9:51 PM CDT documented as of this encounter Last Filed Vital Signs Vital Sign Reading Time Taken Comments Blood Pressure 127/77 04/01/2024 11:50 AM CDT Pulse 85 04/01/2024 11:50 AM CDT Temperature - - Respiratory Rate - - Oxygen Saturation 99% 04/01/2024 11:50 AM CDT Inhaled Oxygen Concentration - - Weight - - Height - - Body Mass Index - - documented in this encounter Consult Notes * Bhaskar Colon M.B.B.S. - 04/01/2024 1:00 PM CDT SUBJECTIVE CHIEF COMPLAINT / REASON FOR VISIT Sangita Flor is a 38 y.o. . Patient's last menstrual period was 11/29/2023. Her Estimated Date of Delivery: 09/04/24 determined by LMP consistent with 8 week ultrasound. Gestational age is: 17w5d. She is being referred by Dr. Amanda FAITH in [place] for AMA, type 2 DM on insulin, hx l eiomyoma of uterus with hx of classical c/s due to fibroid. Increased NT with Normal NIPT. She was seen at [facility] for [facility] consult regarding type 2 DM, AMA, classical c/s Leiomyoma of uterus. She declined genetics at that time. She comes in today for increased NT evaluation. HISTORY OF PRESENT CONDITION OB History Para Term AB Living 3 1 1 1 1 SAB IAB Ectopic Molar Multiple Live Births 1 1 # Outcome Date GA Lbr Javier/2nd Weight Sex Type Anes PTL Lv 3 Current 2 Term 03/05/23 39w0d CS-Classical NICOLAS 1 SAB 12/19/20 8w0d Genetic Screen: Low risk NIPT Past Medical History: Diagnosis Date Abnormal Pap Smear Cervix Diabetes Mellitus NOS Leiomyoma (Fibroid) Uterus Past Surgical History: Procedure Laterality Date SECTION COLPOSCOPY No family history on file. Social History Socioeconomic History Marital status: Spouse name: Adam Flor Number of children: 1 Years of education: 12 Tobacco Use Smoking status: Never Smokeless tobacco: Never Vaping Use Vaping status: never used Substance and Sexual Activity Alcohol use: Not Currently Drug use: Never Sexual activity: Yes Partners: Male control/protection: None Social Determinants of Health Food Insecurity: No Food Insecurity (03/31/2024) Hunger Vital Sign Worried About Running Out of Food in the Last Year: Never true Ran Out of Food in the Last Year: Never true Transportation Needs: No Transportation Needs (03/31/2024) PRAPARE - Transportation Lack of Transportation (Medical): No Lack of Transportation (Non-Medical): No Physical Activity: Inactive (03/31/2024) Exercise Vital Sign Days of Exercise per Week: 0 days Minutes of Exercise per Session: 30 min Housing Stability: Low Risk (03/31/2024) Housing Stability Housing: Living Situation: I have a steady place to live No Known Allergies Medications the Patient Reported Taking Accu-Chek Guide Me Glucose Mtr misc (Taking) Accu-Chek Guide test strips (Taking) Accu-Chek Softclix Lancets lancets (Taking) Alcohol Prep pads, medicated (Taking) aspirin [address] tablet (Taking) insulin NPH 100 unit/mL injection (Taking) insulin syringe-needle U-100 1 mL 31 gauge x 5/16 syringe (Taking) metFORMIN XR (Glucophage-XR) 500 mg 24 hr tablet (Taking) no115/iron/folic acid ( 19 ORAL) (Taking) REVIEW OF SYSTEMS Noncontributory OBJECTIVE VITAL SIGNS Vitals: 04/01/24 1150 BP: 127/77 Pulse: 85 SpO2: 99% DIAGNOSTICS I have reviewed the OB ultrasound(s). IMPRESSION A transabdominal detailed ultrasound examination of the fetus was ordered and performed secondary to thickened nuchal translucency, T2DM. Findings: Page intrauterine with good activity. Size is consistent [...] Recommend reassessment of placentation around 28-32 weeks. ASSESSMENT / PLAN Sangita Flor is a 38 years old lady referred to us for enlarged nuchal translucency of 3 mm and a negative NIPT testing. She was previously seen by MFM i at an another rescued to evaluate coexisting medical complications including diabetes type 2, fibroid uterus requiring a classical , and advanced maternal age. She declined genetic testing at that time and she comes in today for early detailed ultrasound and MFM consultation. On today's ultrasound at 17 weeks, no major abnormalities are detected however the ultrasound is limited by early gestational age a woman able to see all necessary structures to complete the study. Afollow-up ultrasound is recommended to further evaluate the fetus and rule out major structural abnormalities. Enlarged nuchal translucency (NT): I have explained to Sangita Flor that nuchal translucency refers to the hypoechoic regionbetween the skin and underlying soft tissues of the posterior cervical spine. The measurement is obtained with a CRL measures between 45-84 mm which corresponds to approximately 11-14 weeks of gestational. A nuchal translucency measurement of more than 3 mm and 3.5 mm is above the 95th and 99th percentile respectively. Enlarged NT at 11 to 14 weeks of gestation has been associated with increased risks for genetic andanatomic abnormalities (particularly congenital heart disease), which are, in turn, associated withincreased risks for miscarriage, demise, and . Genetic abnormalities: Aneuploidy: Chromosomal abnormalities are detected in 33% of cases with Down syndrome being the most common associated abnormality. Other possible chromosomal abnormalities include Trisomy 13 (Patau syndrome), trisomy 18 (Edward syndrome), monosomy X (Yarbrough syndrome), and triploidy. Other genetic abnormalities: Over 100 developmental and genetic syndromes have been associated with enlarged NT. Some, but not all, of these syndromes are associated with pathogenic copy number variants or anatomic abnormalitiesthat can be detected prenatally and suggest a specific diagnosis. For example, Bellingham syndrome, multiple pterygium syndrome, Cedillo syndrome, Hawa de Anderson syndrome, congenital adrenal hyperplasia, spinal muscular atrophy, DiGeorge syndrome, Msybm-Szbgt-Ivlle syndrome, and a variety of skeletal dysplasias have been diagnosed after an enlarged NT was detected in utero . Structural abnormality: Cardiac abnormalities: The 2nd most commonly encountered etiology of increased nuchal translucency is congenital anomalies. Euploid fetus with enlarged nuchal translucency risk is 7 folds higher compared to the general population. Approximately 45% of euploidy fetuses with congenital heart disease had enlarged nuchal translucency antenatally. Enlarged NT is an early marker of cardiac anomalies and may be detected before diagnosis of the anomaly. In a series of 211 fetuses with enlarged NT and subsequently diagnosed with a major cardiac anomaly, the cardiac diagnosis was made at the 11- to 13-week scan in approximately 54 %. Noncardiac abnormalities: Enlarged nuchal translucency has also been associated with noncardiac congenital anomalies either in the setting of a genetic syndrome or in isolation. These structural abnormalities include: Hydrocephalus, Agenesis, hypoplasia, and dysplasia of the lung, Atresia and stenosis of the small intestine, Osteodystrophies and Diaphragm anomalies. Summary of recommendations: 1. Genetic consultation and invasive testing: (the patient declined genetic counseling at this point and further genetic testing. She would like to wait for the completed anatomy ultrasound. If abnormalities are detected on ultrasound or echo she will reconsider having a genetic consult and performing invasive testing). 2. Follow up ultrasound to complete the detailed anatomy scan: Ideally, we will see patient within 2 weeks however due to pre scheduled commitment Sangitakylee Sousa Alissa Flor would rather to have that is scheduled in 4 weeks. Return visit to [facility] after ultrasound. 3. echo ultrasound to rule out cardiac abnormalities at 22-24 weeks. I personally spent 60 minutes in care of the patient today. Time includes both non face to face andface to face patient care. Jordan Witt.S. documented in this encounter Plan of Treatment Scheduled Referrals Name Type Priority Associated Diagnoses Order Schedule Obstetrics and Gynecology office visit (clinic) Outpatient Referral Routine Expected: 04/29/2024, Expires: 07/02/2025 documented as of this encounter Visit Diagnoses Diagnosis Abnormal Ultrasound - Primary documented in this encounter
--- OUTSIDE RECORDS SUMMARY | 2024-06-15 08:41 | XMS_ITS | Encounter Summary ---
Author Organization [facility] Address [address] [place] [address] Care Team Providers Care Director Of Religious Life Name Role Phone Unavailable Primary Care Provider Unavailabl e Encounter Details Date Type Department Care Team (Latest Contact Info) Description 04/01/2024 11:03 AM CDT - 04/01/2024 11:59 PM CDT Hospital Encounter Department of Obstetrics and Gynecology in [place], [place] [address] [place] [phone] Naomi Dahl M.D. [address] [place] [phone] Diabetes Mellitus Type 2 (HCC); Abnormal Ultrasound Discharge Disposition: Home or Self Care Social History Tobacco Use Types Packs/Day Years Used Date Smoking Tobacco: Never Smokeless Tobacco: Never Alcohol Use Standard Drinks/Week Comments Not Currently 0 (1 standard drink = 0.6 oz pur e alcohol) [facility] Utilities Answer Date Recorded In the past 12 months has [employer], [employer], oil, or water [employer] threatened to shut off services in your [...] Answer Date Recorded Employment status Unemployed/not in th e paid workforce and NOT seeking employment 03/31/2024 Housing Stability Answer Date Recorded What is your living situation today? I have a [facility] place to live 03/31/2024 Estimated Date of Delivery Comme nts Yes 09/09/2024 Based on Ultraso und Sex and Gender Information Value Date Recorded Sex Assigned at Female 03/31/2024 9:51 PM CDT Gender Identity Female 03/31/2024 9:51 PM CDT Sexual Orientation Choose not to disclose 2023 9:51 PM CDT documented as of this encounter Medications at Time of Discharge Medication Sig Dispensed Refills Start Date End Date Accu-Chek Guide Me Glucose Mtr misc See Admin Instructions. 02/27/2024 Accu-Chek Guide test strips USE TO TEST BLOOD SUGAR FOUR TIMES DAILY 03/19/2024 Accu-Chek Softclix Lancets lancets USE TO TEST BLOOD SUGAR FOUR TIMES DAILY 03/20/2024 Alcohol Prep pads, medicated USE A NEW PAD FOUR TIMES DAILY NEEDED 02/27/[address] tablet Take 81 mg by mouth daily. insulin NPH 100 unit/mL injection Inject 9 Units under the skin 2 (two) times a day with meals. 14 units in the morning - 10 units in the evening insulin syringe-needle U-100 1 mL 31 gauge x 5/16 syringe 2 (two) times a day. as directed 03/25/2024 metFORMIN XR (Glucophage-XR) 500 mg 24 hr tablet Take 2 tablets by mouth daily. 03/05/2024 no115/iron/folic acid ( 19 ORAL) Take 1 tablet by mouth daily. documented as of this encounter Plan of Treatment Not on file documented as of this encounter Procedures Procedure Name Priority Date/Time Associated Diagnosis Comments US OB ADVANCED LEVEL COSBY RAD - Routine (most inpatients and all outpatients) 04/01/2024 12:04 PM CDT Diabetes Mellitus Type 2 (HCC) Abnormal Ultrasound documented in this encounter Results * US OB Advanced Level Cosby (04/01/2024 12:04 PM CDT) Anatomical Region Laterality Modality Body, Ultrasound OB RST LOS, Ultrasound ARZ LOS N/A Ultrasound Narrative 04/01/2024 12:17 PM CDT MORENA ALVARADO OB Exam, 04/01/2024 EXAM INFORMATION Patient Name: ??KADE SOCORRO MORENA JASS : ??1985 Age: ??38 yrs Sex: ??Female Ref Phys: ??NAOMI DAHL Exam Date: 04/01/2024 Procedure: US OB ADVANCED LEVEL COSBY Exam Site: [facility]126 Plurality: 1 OBHx: [G:(3)] ?F [...] Claudio, R.V.T., R.D.M.S. on 04/01/2024 12:03:53 PM. [employer] Treatment Operator: ??Tish Claudio, R.V.T., R.D.M.S. Thank You For This Referral Procedure Note Jaz Chahal M.D. - 04/01/2024 MORENA ALVARADO OB Exam, 04/01/2024 EXAM INFORMATION Patient Name: MORENA ALVARADO : 1985 Age: 38 yrs Sex: Female Ref Phys: NAOMI DAHL Exam Date: 04/01/2024 Procedure: US OB ADVANCED LEVEL COSBY Exam Site: [facility] #126 Plurality: 1 OBHx: [G:(3)] F [...] Hands, Feet Preliminary Read by Tish Claudio R.VDiyaT., R.D.M.S. on 2:03:53 PM. [employer] Well Treatment Operator: Tish Claudio R.V.T., R.D.M.S. Thank You For This Referral Naomi ACEVES OB US DE OCEDURES documented in this encounter Visit Diagnoses Diagnosis Diabetes Mellitus Type 2 (HCC) Abnormal Ultrasound documented in this encounter
--- OUTSIDE RECORDS SUMMARY | 2024-06-15 08:41 | XMS_ITS | Encounter Summary ---
Author Organization [facility] Address [address] [place] [address] Care Team Providers Care Lookback Coordinator Name Role Phone Unavailable Primary Care Provider Unavailabl e Reason for Referral * Outpatient (Routine) - Closed Specialty Diagnoses / Procedures Referred By Jade gonsales Referred To Contact Diagnoses Diabetes Mellitus Type 2 (HCC) Abnormal Ultrasound Procedures Echo Bhaskar Colon M.B.B.S. [address] [place] [phone] [facility] Referral ID Status Reason Start Date Expiration Date Visits Re quested Visits Authorized [id number] Closed 04/29/2024 04/29/2025 1 1 Reason for Visit * Outpatient (Routine) - Closed Specialty Diagnoses / Procedures Referred By Jade gonsales Referred To Contact Diagnoses Diabetes Mellitus Type 2 (HCC) Abnormal Ultrasound Procedures Echo Bhaskar Colon M.B.B.S. [address] [place] [phone] [facility] Referral ID Status Reason Start Date Expiration Date Visits Re quested Visits Authorized [id number] Closed 04/29/2024 04/29/2025 1 1 Encounter Details Date Type Department Care Team (Latest Contact Info) Description 05/20/2024 7:11 AM CDT - 05/20/2024 11:59 PM CDT Hospital Encounter Department of Cardiovascular Diseases in [place], [place] [address] [place] [phone] Bhaskar Colon M.B.BDiyaS. [address] [place] [phone] Diabetes Mellitus Type 2 (HCC); Abnormal Ultrasound Discharge Disposition: Home or Self Care Social History Tobacco Use Types Packs/Day Years Used Date Smoking Tobacco: Never Smokeless Tobacco: Never Alcohol Use Standard Drinks/Week Comments Not Currently 0 (1 standard drink = 0.6 oz pur e alcohol) [facility] Utilities Answer Date Recorded In the past 12 months has e [employer], gas, oil, or water [employer] threatened to shut off services in your [...] your living situation today? I have a [facility] place to live 03/31/2024 Estimated [...] Ultrasound documented in this encounter Results * COSBY ECHO 2D WITH COLOR AND DOPPLER (05/20/2024 8:42 AM CDT) Ejection Fraction [facility] Anatomical Region Laterality Modality Echocardiography 05/20/2024 7:12 [...] the complete report, see the Order-Level Documents. Bhaskar Robertson CV ECHO PROCEDURES documented in this encounter Visit Diagnoses Diagnosis Diabetes Mellitus Type 2 (HCC) Abnormal Ultrasound documented in this encounter
--- OUTSIDE RECORDS SUMMARY | 2024-06-15 08:41 | XMS_ITS | Encounter Summary ---
Author Organization [facility] Address [address] [place] [address] Care Team Providers Care Xerox Machine Assembler Name Role Phone Unavailable Primary Care Provider Unavailabl e Encounter Details Date Type Department Care Team (Latest Contact Info) Description 04/29/2024 12:49 PM CDT - 04/29/2024 11:59 PM CDT Hospital Encounter Department of Obstetrics and Gynecology in [place], [place] [address] [place] [phone] Ino Colon M.B.B.S. [address] [place] [phone] Abnormal Ultrasound Discharge Disposition: Home or Self Care Social History Tobacco Use Types Packs/Day Years Used Date Smoking Tobacco: Never Smokeless Tobacco: Never Alcohol Use Standard Drinks/Week Comments Not Currently 0 (1 standard drink = 0.6 oz pur e alcohol) [facility] Utilities Answer Date Recorded In the past 12 months has [employer], oil, or water [employer] threatened to shut off services in your [...] your living situation today? I have a [facility] place to live 03/31/2024 Estimated Date [...] Priority Date/Time Associated Diagnosis Comments US OB FOLLOW-UP AND OR GROWTH COSBY RAD - Routine (most inpatients and all outpatients) 04/29/2024 4:27 PM CDT Abnormal Ultrasound documented in this encounter Results * US OB Follow-up and or Growth Cosby (04/29/2024 4:27 PM CDT) Anatomical Region Laterality Modality Body, Ultrasound OB RST LOS, Ultrasound ARZ LOS N/A Ultrasound Narrative 04/29/2024 4:27 PM CDT MORENA ALVARADO OB Exam, 04/29/2024 EXAM INFORMATION Patient Name: ??NELLY ALVARADOAN JASS : ??1985 Age: ??38 yrs Sex: ??Female Ref Phys: ??INO COLON Exam Date: 04/29/2024 Procedure: US OB FOLLOW-UP AND OR GROWTH COSBY Exam Site: [facility] #1 Plurality: 1 OBHx: [G:(3)] ?F [...] Read by Tish Claudio R.V.T., R.D.M.S. on 04/29/2024 2:17:32 PM. Preliminary Read by Tish Claudio R.V.T., R.D.M.S. on 04/29/2024 2:23:24 PM. Glass Handler: ??Tish Claudio R.V.T., R.D.M.S. Thank You For This Referral Procedure Note Ino Colon M.B.B.S. - 04/29/2024 MORENA ALVARADO OB Exam, 04/29/2024 EXAM INFORMATION Patient Name: MORENA ALVARADO : 1985 Age: 38 yrs Sex: Female Ref Phys: INO COLON Exam Date: 04/29/2024 Procedure: US OB FOLLOW-UP AND OR GROWTH COSBY Exam Site: [facility] OB #1 Plurality: 1 OBHx: [G:(3)] F [...] Feet Preliminary Read by Tish Claudio R.V.T., Mirta.S. on :17:32 PM. Preliminary Read by Tish Claudio R.V.T., Mirta.S. on :23:24 PM. Glass Handler: Tish Claudio R.V.T., JuanitoSDiya Thank You For This Referral Ino Robertson IMG OB US PROCEDUR ES documented in this encounter Visit Diagnoses Diagnosis Abnormal Ultrasound documented in this encounter
--- OUTSIDE RECORDS SUMMARY | 2024-06-15 08:41 | XMS_ITS | Encounter Summary ---
Author Organization [facility] Address [address] [place] [address] Care Team Providers Care Patient Appointment Coordinator Name Role Phone Unavailable Primary Care Provider Unavailabl e Reason for Referral * Outpatient (Routine) - Closed Specialty Diagnoses / Procedures Referred By Contac t Referred To Contact Diagnoses Diabetes Mellitus Type 2 (HCC) Abnormal Ultrasound Procedures Echo Bhaskar Colon M.B.B.S. [address] [place] [phone] [facility] Referral ID Status Reason Start Date Expiration Date Visits Re quested Visits Authorized [id number] Closed 04/29/2024 04/29/2025 1 1 * Outpatient (Routine) - Closed Specialty Diagnoses / Procedures Referred By Edac t Referred To Contact Pediatric Cardiology Diagnoses Diabetes Mellitus Type 2 (HCC) Abnormal Ultrasound Bhaskar Colon M.B.B.S. [address] [place] [phone] [facility] Referral ID Status Reason Start Date Expiration Date Visits Re quested Visits Authorized [id number] Closed 04/29/2024 10/29/2025 1 1 Reason for Visit * Outpatient (Routine) - Closed Specialty Diagnoses / Procedures Referred By Jade t Referred To Contact Obstetrics and Gynecology Bhaskar Colon M.B.B.S. [address] [place] [phone] [facility] Referral ID Status Reason Start Date Expiration Date Visits Re quested Visits Authorized [id number] Closed 04/01/2024 10/01/2025 1 1 Encounter Details Date Type Department Care Team (Latest Contact Info) Description 04/29/2024 2:00 PM CDT Routine Department of Obstetrics and Gynecology in [place], [place] [address] [place] [phone] Bhaskar Colon M.B.BDiyaS. [address] [place] [phone] Diabetes Mellitus Type 2 (HCC) (Primary Dx); Abnormal Ultrasound Social History Tobacco Use Types Packs/Day Years Used Date Smoking Tobacco: Never Smokeless Tobacco: Never Alcohol Use Standard Drinks/Week Comments Not Currently 0 (1 standard drink = 0.6 oz pur e alcohol) [facility] Utilities Answer Date Recorded In the past 12 months has [employer], gas, oil, or water [employer] threatened to shut off services in your [...] your living situation today? I have a [facility] place to live 03/31/2024 Estimated [...] Index - - documented in this encounter Progress Notes * Bhaskar Colon M.B.B.S. - 04/29/2024 2:00 PM CDT SUBJECTIVE CHIEF COMPLAINT / REASON FOR VISIT Sangita Flor is a 38 y.o. . Patient's last menstrual period was 11/29/2023. Her Estimated Date of Delivery: 09/09/24 determined by ultrasound at 8 weeks gestational age. Gestational age is 21w2d. She returns today for Advanced level anatomy scan due to enlarged NT at 12 weeks and DMII. HISTORY OF PRESENT CONDITION OBJECTIVE VITAL SIGNS Vitals: 04/29/24 1431 BP: 110/75 Pulse: 91 SpO2: 98% DIAGNOSTICS Ultrasound: IMPRESSION A transabdominal ultrasound was performed. Follow-up for anatomy scan completion: Dating revised. She did an ultrasound at 8 weeks elsewhere with 5 days difference compared to LMP dating. TRAM will be adjusted to 09/09/2024. Findings:Cosby's in transverse lie with the head towards the maternal right side. The following structures can be seen today and appear normal: Sag and Trans Lumbar spine, Sag andTrans Sacral spine, Cerebellum, Vermis, CSP, Midline falx, Palate, Maxilla, Mandible, Tongue, 4 chamber heart, Interventricular septum, RVOT, LVOT, 3VV,3VT, Aortic arch, Ductal arch, SVC/IVC, Pulmonary veins, Chest/Heart/lungs, Diaphragm, Upper lip/nose, Hands, Feet. The placenta is Posterior, and there is no evidence of Previa. Normal amniotic fluid biometry is consistent with the 71st percentile for gestational age. The AC is at the 73rd percentile. Conclusion:The anatomy survey was completed today and appears normal. Normal growth for gestational age. ASSESSMENT / PLAN We discussed today's ultrasound result including normal anatomy survey and absence of soft markers for chromosomal abnormalities. We also discussed the need to have a echo to ensure absence of congenital heart malformations. Which she agrees to. Considering the normal anatomy scan, she declined to meet with the geneticist to discuss the need for any further genetic diseases stating it wont change her plan to keep the . echo is requested. If no cardiac abnormalities identefied, She can continue care with the primary referring OB provider and deliver locally. Recommendations: echo testing starting at 32 weeks due to Hx of DM II and enlarged NT which is associated with adverse outcomes. Timing of delivery is driven by diabetes control in . Mode of delivery is as per usual obstetric indications. I personally spent 30 minutes in care of the patient today. Time includes both non face to face andface to face patient care. Jordan Witt.S. documented in this encounter Plan of Treatment Scheduled Referrals Name Type Priority Associated Diagnoses Order Schedule Pediatric Cardiology - clinic consult (clinic) Outpatient Referral Routine Diabetes Mellitus Type 2 (HCC) Abnormal Ultrasound Expected: 05/20/2024, Expires: 07/30/2025 documented as of this encounter Results * COSBY ECHO 2D WITH COLOR AND DOPPLER (05/20/2024 8:42 AM CDT) Ejection Fraction [facility] Anatomical Region Laterality Modality Echocardiography 05/20/2024 7:12 [...] complete report, see the Order-Level Documents. Bhaskar PringleB.S. CV ECHO PROCEDURES documented in this encounter Visit Diagnoses Diagnosis Diabetes Mellitus Type 2 (HCC)- Primary Abnormal Ultrasound Diabetes Mellitus Type 2 (HCC) Abnormal Ultrasound documented in this encounter
--- OUTSIDE RECORDS SUMMARY | 2024-06-15 08:41 | XMS_ITS ---
Author Organization [facility] Address [address] [place] [address] Care Team Providers Care Handicraft Or Hobby Shop Manager Name Role Phone Unavailable Unavailable Unavailable Surgery Details Not on file Complications Check Surgery Details section. Procedure Estimated Blood Loss Check Surgery Details section. Procedure Findings Check Surgery Details section. Procedure Specimens Taken Check Surgery Details section.
--- OUTSIDE RECORDS SUMMARY | 2024-06-15 08:41 | XMS_ITS | Encounter Summary ---
Author Organization [facility] Address [address] [place] [address] Care Team Providers Care Stove Fitter Name Role Phone Unavailable Primary Care Provider Unavailabl e Reason for Visit * Outpatient (Routine) - Closed Specialty Diagnoses / Procedures Referred By Jade gonsales Referred To Contact Pediatric Cardiology Diagnoses Diabetes Mellitus Type 2 (HCC) Abnormal Ultrasound Bhaskar Colon M.B.B.S. [address] [place] [phone] [facility] Referral ID Status Reason Start Date Expiration Date Visits Re quested Visits Authorized [id number] Closed 04/29/2024 10/29/2025 1 1 Encounter Details Date Type Department Care Team (Latest Contact Info) Description 05/20/2024 9:00 AM CDT Comprehensive Visit Division of Pediatric Cardiology in [place], [place] [address] [place] [phone] Yosvany Murphy M.B.B.S. [address] [place] [phone] Encounter For Screening For Congenital Cardiac Abnormalities (HCC) (Primary Dx); Diabetes Mellitus Type 2 (HCC); Abnormal Ultrasound Social History Tobacco Use Types Packs/Day Years Used Date Smoking Tobacco: Never Smokeless Tobacco: Never Alcohol Use Standard Drinks/Week Comments Not Currently 0 (1 standard drink = 0.6 oz pur e alcohol) [facility] Utilities Answer Date Recorded In the past 12 months has [employer], gas, oil, or water company threatened [...] your living situation today? [facility] 03/31/2024 Estimated Date of Delivery Comme nts Yes 09/09/2024 Based on Ultraso und Sex and Gender Information Value Date Recorded Sex Assigned at Female 03/31/2024 9:51 PM CDT Gender Identity Female 03/31/2024 9:51 PM CDT Sexual Orientation Choose not to disclose 2023 9:51 PM CDT documented as of this encounter Consult Notes * Yosvany Murphy M.B.B.S. - 05/20/2024 9:00 AM CDT [facility] Cardiology Consultation Pino JohnsonB.S. Date of Consultation: 05/20/2024 Patient: Sangita Flor Date of : 1985, Age: 38 y.o. , CSN: [id number] Address: [address] [place] [address] Referral: Bhaskar Colon M.B.B.S. [address] [place] [phone] SUBJECTIVE CHIEF COMPLAINT: cardiovascular screening. HISTORY OF PRESENT ILLNESS: I had the pleasure of meeting Sangita Sousa for the first time in our Cardiology Clinic for cardiovascular screening. Sangita Sousa is a 38 y.o. at 24w0d of gestation. Estimated Date of Delivery: 09/09/24. Obstetric ultrasound showed increased nuchal fold thickness. She has been referred for echocardiography for cardiovascular screening due to abnormal obstetric ultrasound. Current Medications: Accu-Chek Guide Me Glucose Mtr misc, See Admin Instructions. Accu-Chek Guide test strips, USE TO TEST BLOOD SUGAR FOUR TIMES DAILY Accu-Chek Softclix Lancets lancets, USE TO TEST BLOOD SUGAR FOUR TIMES DAILY Alcohol Prep pads, medicated, USE A NEW PAD FOUR TIMES DAILY NEEDED aspirin [address] tablet, Take 81 mg by mouth daily. insulin NPH 100 unit/mL injection, Inject 9 Units under the skin 2 (two) times a day with meals. 14units in the morning - 10 units in the evening insulin syringe-needle U-100 1 mL 31 gauge x 5/16 syringe, 2 (two) times a day. as directed metFORMIN XR (Glucophage-XR) 500 mg 24 hr tablet, Take 2 tablets by mouth daily. no115/iron/folic acid ( 19 ORAL), Take 1 tablet by mouth daily. No Known Allergies Past Medical History: Diagnosis Date Abnormal Pap Smear Cervix Diabetes Mellitus NOS Leiomyoma (Fibroid) Uterus Past Surgical History: Procedure Laterality Date SECTION COLPOSCOPY Social History Socioeconomic History Marital status: Spouse [...] have a steady place to live No family history on file. No known family history of congenital heart disease, cardiomyopathy, arrhythmia, sudden premature or early coronary artery disease. OBJECTIVE DIAGNOSTICS Echo Narrative: For the complete report, see the Order-Level Documents. Final Impressions 1. echocardiogram performed due to maternal diabetes mellitus. 2. Estimated date of delivery 09/09/2024. Gestational age 24 weeks; 0 days. 3. Page . 4. lie: transverse. 5. Normal cardiac [...] cord. 14. No pericardial effusion. No hydrops. 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 Normal great artery relationships. For the complete report, see the Order-Level Documents. ASSESSMENT / PLAN #1 Encounter For Screening For Congenital Cardiac Abnormalities (HCC) #2 Normal echocardiogram In summary, Sangita Sousa is a 38 y.o. at 24w0d of gestation. echocardiogram revealed normal cardiac anatomy and function. I reviewed the findings of the echocardiogram and its limitations with Sangita Sousa. I explained that echocardiography has certain inherent limitations due to f etal hemodynamics and technological constraints. These limitations may include the inability to rule out atrial septal defects, small ventricular septal defects, partial anomalous pulmonary venous connection, minor valve abnormalities such as bicuspid aortic valve, and coarctation of the aorta. Sangita Sousa does not need any further cardiac evaluation during this unless there are new concerns. Transthoracic echocardiogram on the can be performed postnatally if there is a clinical need. Questions were answered. Thank you for allowing me to see Sangita Sousa today. Please feel free to call should any questions or concerns arise. Dahlia Johnson.B.S. documented in this encounter Plan of Treatment Not on file documented as of this encounter Visit Diagnoses Diagnosis Encounter For Screening For Congenital Cardiac Abnormalities (HCC)- Primary Diabetes Mellitus Type 2 (HCC) Abnormal Ultrasound documented in this encounter
--- OUTSIDE RECORDS SUMMARY | 2024-06-15 08:41 | XMS_ITS | Encounter Summary ---
Author Organization [facility] Address [address] [place] [address] Care Team Providers Care Requisition Approver Name Role Phone Unavailable Primary Care Provider Unavailabl e Reason for Visit * Reason Onset Date Comments Left Without Being Seen 04/29/2024 * Outpatient (Routine) - Canceled Specialty Diagnoses / Procedures Referred By Jade t Referred To Contact Obstetrics and Gynecology Diagnoses Abnormal Ultrasound Bhaskar Colon M.B.B.S. [address] [place] [phone] [facility] Referral ID Status Reason Start Date Expiration Date V isits Requested Visits Authorized [id number] Canceled 04/01/2024 10/01/2025 1 1 Encounter Details Date Type Department Care Team (Latest Contact Info) Description 04/29/2024 3:00 PM CDT Comprehensive Visit Department of Obstetrics and Gynecology in [place], [place] [address] [place] [phone] Bhaskar Colon M.B.B.S. [address] [place] [phone] Lala Heredia M.S., [facility] [address] [place] [phone] Procedure And Treatment Not Carried Out Due To Patient Leaving Prior To Being Seen By Health Care Provider (Primary Dx); Abnormal Ultrasound Social History Tobacco Use Types Packs/Day Years Used Date Smoking Tobacco: Never Smokeless Tobacco: Never Alcohol Use Standard Drinks/Week Comments Not Currently 0 (1 standard drink = 0.6 oz pur e alcohol) [facility] Utilities Answer Date Recorded In the past [...] living situation today? I have a [facility] place to live 03/31/2024 Estimated Date of Delivery Comme nts Yes 09/09/2024 Based on Ultraso und Sex and Gender Information Value Date Recorded Sex Assigned at Female 03/31/2024 9:51 PM CDT Gender Identity Female 03/31/2024 9:51 PM CDT Sexual Orientation Choose not to disclose 2023 9:51 PM CDT documented as of this encounter Progress Notes * Lala Heredia M.S., [facility] - 04/29/2024 3:00 PM CDT Mrs. Sangita Flor was scheduled and checked in for an appointment but left before being seen by Lala Heredia M.S., ROGER. documented in this encounter Plan of Treatment Not on file documented as of this encounter Visit Diagnoses Diagnosis Procedure And Treatment Not Carried Out Due To Patient Leaving Prior To Being Seen By Health Care Provider- Primary Abnormal Ultrasound documented in this encounter
--- NOTE | 2024-06-15 08:45 | CRLHL7_ITS ---
For Patients: As a result of the Century Cures Act, medical imaging exams and procedure reports are released immediately into your electronic medical record. You may view this report before your referring provider. If you have questions, please contact your health care provider. INDICATION: Pre-existing diabetes TECHNIQUE: Real time alexandra scale imaging of the fetus was performed. COMPARISON: 01/29/2024 FINDINGS: Sonographic imaging demonstrates a single living intrauterine gestation. Fetus demonstrates a regular cardiac rate of 135 beats per minute. Fetus has a breech position. The placenta lies posteriorly. Amniotic fluid volume appears normal and there is a single deepest pocket of 4.6 cm. The estimated weight is 1090gm which lies at the 12th %. BPD 49th percentile. HC 19th percentile. AC 41st percentile. FL less than 3rd percentile. The fetus was active and demonstrated normal breathing movements. There was normal flexion and extension of the trunk and extremities. IMPRESSION: Normal biophysical profile score 8/8. Sonographic gestational age 27 weeks 6 days and sonographic due date of 09/08/2024. Good correlation with dates. Estimated weight 12th percentile. Abdominal circumference 41st percentile. FL less than 3rd percentile. Dictated by Jersey Bunch MD @ 06/15/2024 9:50:05 AM (Electronically Signed)
== END 2024-06-15 08:40 | disposition home or self-care (01) ==
LOC: US 08:39
PROVIDERS: PCP Family Medicine; Visit Provider Obstetrics & Gynecology
DX: O24.119 Pre-existing type 2 diabetes mellitus, in pregnancy, unspecified trimester (principal); Z3A.28 28 weeks gestation of pregnancy
CPT/HCPCS: 76816; 76819; 86592

== ENCOUNTER 2024-06-22 07:24 | Outpatient (CLI) | payer OTHER, SELFPAY ==
--- NOTE | 2024-06-22 07:15 | CRLHL7_ITS ---
For Patients: As a result of the Century Cures Act, medical imaging exams and procedure reports are released immediately into your electronic medical record. You may view this report before your referring provider. If you have questions, please contact your health care provider. INDICATION: 38 year-old female. Advanced maternal age. Pre-existing type 2 diabetes. Follow-up. Evaluate well-being. COMPARISON: June 15, 2024. TECHNIQUE: Real time alexandra scale imaging of the fetus was performed. Without non-stress testing. FINDINGS: Sonographic imaging demonstrates a single living intrauterine gestation in transverse presentation with the head toward the maternal right side. Posterior placenta. Fetus demonstrates a regular cardiac rate of 133 beats per minute. The amniotic fluid volume appears normal and there is a single deepest pocket measurement of 4.3 cm. The fetus was active and demonstrated normal breathing movements. There was normal flexion and extension of the trunk and extremities. IMPRESSION: Normal biophysical profile score of 8 out of 8. Dictated by Enrrique Beck MD @ 06/22/2024 9:01:22 AM (Electronically Signed)
--- OUTSIDE RECORDS SUMMARY | 2024-06-22 07:26 | XMS_ITS | Encounter Summary ---
Author Organization [facility] Address [address] [place] [address] Care Team Providers Care Vocational Placement Specialist Name Role Phone Unavailable Primary Care Provider Unavailabl e Encounter Details Date Type Department Care Team (Latest Contact Info) Description 04/01/2024 11:03 AM CDT - 04/01/2024 11:59 PM CDT Hospital Encounter Department of Obstetrics and Gynecology in [place], [place] [address] [place] [phone] Naomi Dahl M.D. [address] [place] [phone] Diabetes Mellitus Type 2 (HCC); Abnormal Ultrasound Discharge Disposition: Home or Self Care Social History Tobacco Use Types Packs/Day Years Used Date Smoking Tobacco: Never Smokeless Tobacco: Never Alcohol Use Standard Drinks/Week Comments Not Currently 0 (1 standard drink = 0.6 oz pur e alcohol) [facility] Utilities Answer Date Recorded In the past 12 months has [employer], [employer], oil, or water [employer] threatened to shut off services in your [...] your living situation today? I have a [facility] place to live 03/31/2024 Estimated Date [...] N/A Ultrasound Narrative 04/01/2024 12:17 PM CDT MORNEA ALVARADO OB Exam, 04/01/2024 EXAM INFORMATION Patient Name: ??KADE SOCORRO MORENA JASS : ??1985 Age: ??38 yrs Sex: ??Female Ref Phys: ??NAOMI DAHL Exam Date: 04/01/2024 Procedure: US OB ADVANCED LEVEL COSBY Exam Site: [facility] OB #126 Plurality: 1 OBHx: [G:(3)] [...] Claudio, R.V.T., R.D.M.S. on 04/01/2024 12:03:53 PM. Director Of Field Service: ??Tish Claudio, R.V.T., R.D.M.S. Thank You For This Referral Procedure Note Jaz Chahal M.D. - 04/01/2024 MORENA ALVARADO OB Exam, 04/01/2024 EXAM INFORMATION Patient Name: MORENA ALVARADO : 1985 Age: 38 yrs Sex: Female Ref Phys: NAOMI DAHL Exam Date: 04/01/2024 Procedure: US OB ADVANCED LEVEL COSBY Exam Site: [facility] OB #126 Plurality: 1 OBHx: [G:(3)] [...] Tish Claudio R.VDiyaT., R.D.M.S. on 2:03:53 PM. Director Of Field Service: Tish Claudio R.V.T., R.D.M.S. Thank You For This Referral Naomi ACEVES OB US [place] OCEDURES documented in this encounter Visit Diagnoses Diagnosis Diabetes Mellitus Type 2 (HCC) Abnormal Ultrasound documented in this encounter
--- OUTSIDE RECORDS SUMMARY | 2024-06-22 07:26 | XMS_ITS | Encounter Summary ---
Author Organization [facility] Address [address] [place] [phone] Care Team Providers Care Sanitation Worker Cleaning Machinery Name Role Phone Unavailable Primary Care Provider Unavailabl e Reason for Referral * Outpatient (Routine) - Closed Specialty Diagnoses / Procedures Referred By Contac t Referred To Contact Diagnoses Diabetes Mellitus Type 2 (HCC) Abnormal Ultrasound Procedures Echo Bhaskar Colon M.B.B.S. [address] [place] [phone] [facility] Referral ID Status Reason Start Date Expiration Date Visits Re quested Visits Authorized [id number] Closed 04/29/2024 04/29/2025 1 1 * Outpatient (Routine) - Closed Specialty Diagnoses / Procedures Referred By Edac t Referred To Contact Pediatric Cardiology Diagnoses Diabetes Mellitus Type 2 (HCC) Abnormal Ultrasound Bhaskar Colon M.B.B.S. [address] [place] [phone] [facility] Referral ID Status Reason Start Date Expiration Date Visits Re quested Visits Authorized [id number] Closed 04/29/2024 10/29/2025 1 1 Reason for Visit * Outpatient (Routine) - Closed Specialty Diagnoses / Procedures Referred By Jade t Referred To Contact Obstetrics and Gynecology Bhaskar Colon M.B.B.S. [address] [place] [phone] [facility] Referral ID Status Reason Start Date Expiration Date Visits Re quested Visits Authorized [id number] Closed 04/01/2024 10/01/2025 1 1 Encounter Details Date Type Department Care Team (Latest Contact Info) Description 04/29/2024 2:00 PM CDT Routine Department of Obstetrics and Gynecology in [place], [place] [address] [place] [phone] Bhaskar Colon M.B.BDiyaS. [address] [place] [phone] Diabetes Mellitus Type 2 (HCC) (Primary Dx); Abnormal Ultrasound Social History Tobacco Use Types Packs/Day Years Used Date Smoking Tobacco: Never Smokeless Tobacco: Never Alcohol Use Standard Drinks/Week Comments Not Currently 0 (1 standard drink = 0.6 oz pur e alcohol) [facility] Utilities Answer Date Recorded In the past 12 months has [employer], gas, oil, or water [employer] threatened to shut off services in your [...] your living situation today? I have a [facility] place to live 03/31/2024 Estimated Date of [...] scan, she declined to meet with the oven attendant to discuss the need for any further [...] DOPPLER (05/20/2024 8:42 AM CDT) Ejection Fraction [facility] Anatomical Region Laterality Modality Echocardiography 05/20/2024 7:12 [...]
--- OUTSIDE RECORDS SUMMARY | 2024-06-22 07:26 | XMS_ITS | Clinical Summary ---
Author Organization [facility] Address [address] [place] [address] Care Team Providers Care Lightning Rod Erector Name Role Phone Unavailable Primary Care Provider Unavailabl e Source Comments Patient records contain information from all sites at [facility]. For routine questions regarding patient records, call [phone] during business hours, M-F 8:00 AM - 5:00 PM Central Time. Record requests for emergency care only can be directed to [phone] at any time.[facility] Allergies No known active allergies Medications [...] original. Delivery plan: chart: Care Team/nursing team: [facility]. CHEYANNE Colon Partner name: Pertinent medical issues [...] Comprehensive Visit Division of Pediatric Cardiology in [place], [place] [address] [place] [phone] Yosvany Murphy M.B.B.S. Encounter For Screening For Congenital Cardiac Abnormalities (HCC) (Primary Dx); Diabetes Mellitus Type 2 (HCC); Abnormal Ultrasound 05/20/2024 7:11 AM CDT - 05/20/2024 11:59 PM CDT Hospital Encounter Department of Cardiovascular Diseases in [address] [phone] Ino Colon M.B.B.S. Diabetes Mellitus Type 2 (HCC); Abnormal Ultrasound Discharge Disposition: Home or Self Care 04/29/2024 3:00 PM CDT Comprehensive Visit Department of Obstetrics and Gynecology in [address] [phone] Ino Colon M.B.B.S. Lala Heredia M.S., [facility] Procedure And Treatment Not Carried Out Due To Patient Leaving Prior To Being Seen By Health Care Provider (Primary Dx); Abnormal Ultrasound 04/29/2024 2:00 PM CDT Routine Department of Obstetrics and Gynecology in [place], [place] [address] [place] [phone] Ino Colon M.B.B.S. Diabetes Mellitus Type 2 (HCC) (Primary Dx); Abnormal Ultrasound 04/29/2024 12:49 PM CDT - 04/29/2024 11:59 PM CDT Hospital Encounter Department of Obstetrics and Gynecology in [place], [place] [address] [place] [address] Ino Colon M.B.B.S. Abnormal Ultrasound Discharge Disposition: Home or Self Care 04/01/2024 1:00 PM CDT Routine Department of Obstetrics and Gynecology in [place], [place] [address] [place] [phone] Ino Colon M.B.B.S. Abnormal Ultrasound (Primary Dx) 04/01/2024 11:03 AM CDT - 04/01/2024 11:59 PM CDT Hospital Encounter Department of Obstetrics and Gynecology in [place], [place] [address] [place] [address] Naomi Dahl M.D. Diabetes Mellitus Type 2 (HCC); Abnormal Ultrasound Discharge Disposition: Home or Self Care from Last 3 Months Social History Tobacco Use Types Packs/Day Years Used Date Smoking Tobacco: Never Smokeless Tobacco: Never Tobacco Cessation:Counseling Given: Not Answered Alcohol Use Standard Drinks/Week Comments Not Currently 0 (1 standard drink = 0.6 oz pur e alcohol) [facility] Utilities Answer Date Recorded In the past 12 months has th e [employer], gas, oil, or water [employer] threatened to shut off services in your [...] Answer Date Recorded Employment status Unemployed/not in [employer] paid workforce and NOT seeking employment 03/31/2024 Housing Stability Answer Date Recorded What is your living situation today? I have a [facility] place to live 03/31/2024 Estimated [...] FOLLOW-UP AND OR GROWTH COSBY Exam Site: [facility] OB #1 Plurality: 1 OBHx: [G:(3)] ?F [...] Claudio R.V.T., R.VikaM.S. on 04/29/2024 2:23:24 PM. Employee Counselor: ??Tish Claudio R.V.T., Mirta.S. Thank You For This Referral Procedure Note Ino Colon M.B.B.S. - 04/29/2024 KADE SOCORROMORENA OB Exam, 04/29/2024 EXAM INFORMATION Patient Name: MORENA ALVARADO : 1985 Age: 38 yrs Sex: Female Ref Phys: INO COLON Exam Date: 04/29/2024 Procedure: US OB FOLLOW-UP AND OR GROWTH COSBY Exam Site: [facility] OB #1 Plurality: 1 OBHx: [G:(3)] F [...] Tish Claudio R.V.T., R.D.M.S. on :23:24 PM. Employee Counselor: Tish Claudio R.V.T., R.D.M.S. Thank You For [...] US OB ADVANCED LEVEL COSBY Exam Site: [facility] OB #126 Plurality: 1 OBHx: [G:(3)] ?F [...] Claudio, Kin, R.D.M.S. on 04/01/2024 12:03:53 PM. Employee Counselor: ??Tish Claudio R.V.T., R.Parisa.M.S. Thank You For This Referral Procedure Note Jaz Chahal M.D. - 04/01/2024 MORENA ALVARADO OB Exam, 04/01/2024 EXAM INFORMATION Patient Name: MORENA ALVARADO : 1985 Age: 38 yrs Sex: Female Ref Phys: NAOMI DAHL Exam Date: 04/01/2024 Procedure: US OB ADVANCED LEVEL COSBY Exam Site: [facility] OB #126 Plurality: 1 OBHx: [G:(3)] F [...] Tish Claudio R.V.T., RChintanM.S. on 2:03:53 PM. Employee Counselor: Tish Claudio R.V.T., JoanM.S. Thank You For This Referral Naomi Dahl M.D. IMG OB US [place] OCEDURES from Last 3 Months
--- OUTSIDE RECORDS SUMMARY | 2024-06-22 07:26 | XMS_ITS | Clinical Summary ---
Author Organization [facility] Address [address] [place] [address]. [place] [address] Care Team Providers Care Real Estate Clerk Name Role Phone No Ref-Primary, Physician Primary Care Provider Annika Ibrahim MD Unavailable [phone] Allergies No known active allergies Social [...] 132.1 cm (4' 4) 11/29/2020 4:53 PM PROMOTIONAL ADVERTISING ASSISTANT Body Mass Index 30.11 11/29/2020 4:53 PM PROMOTIONAL ADVERTISING ASSISTANT Plan of Treatment Health Maintenance Due Date [...] BASIC METABOLIC PANEL STAT 11/29/2020 8:35 PM PROMOTIONAL ADVERTISING ASSISTANT from Last 3 Months or Most Recently Relevant to Health Maintenance Results * Basic metabolic panel (11/29/2020 8:35 PM PROMOTIONAL ADVERTISING ASSISTANT) Sodium 138 133 - 144 mmol/L 11/29/2020 8:52 PM PROMOTIONAL ADVERTISING ASSISTANT [facility] Potassium 3.8 3.4 - 5.3 mmol/L 11/29/2020 8:52 PM PROMOTIONAL ADVERTISING ASSISTANT [facility] Chloride 107 94 - 109 mmol/L 11/29/2020 8:52 PM PROMOTIONAL ADVERTISING ASSISTANT [facility] Carbon Dioxide 23 20 - 32 mmol/L 11/29/2020 8:59 PM PROMOTIONAL ADVERTISING ASSISTANT [facility] Anion Gap 8 3 - 14 mmol/L 11/29/2020 8:59 PM PROMOTIONAL ADVERTISING ASSISTANT [facility] Glucose 93 70 - 99 mg/dL 11/29/2020 8:59 PM [facility] Urea Nitrogen 16 7 - 30 mg/dL 11/29/2020 8:59 PM [facility] Creatinine 0.57 0.52 - 1.04 mg/dL 11/29/2020 8:59 PM [facility] GFR Estimate >90 >60 mL/min/{1. 73_m2} 11/29/2020 8:59 PM PROMOTIONAL ADVERTISING ASSISTANT [facility] Comment: Non GFR Calc Starting 09/23/2018, serum creatinine based estimated GFR (eGFR) will be calculated using the Chronic Kidney Disease Epidemiology Collaboration (CKD-EPI) equation. GFR Estimate If Black >90 >60 mL/min/{1. 73_m2} 11/29/2020 8:59 PM [facility] Comment: GFR Calc Starting 09/23/2018, serum creatinine based estimated GFR (eGFR) will be calculated using the Chronic Kidney Disease Epidemiology Collaboration (CKD-EPI) equation. Calcium 8.7 8.5 - 10.1 mg/dL 11/29/2020 8:59 PM [facility] 11/29/2020 8:35 PM PROMOTIONAL ADVERTISING ASSISTANT 11/29/2020 8:40 PM PROMOTIONAL ADVERTISING ASSISTANT Latricia Trinh MD LAB - BLOOD ORDERABL ES [facility] [address] [place] [address], [facility] [phone] [facility] [address] [place] [address], [facility] [phone] from Last 3 Months or Most Recently Relevant to Health Maintenance Care Teams Real Estate Clerk Relationship Specialty Start Date End Date No Ref-Primary, Physician PCP - General 11/29/20 Annika Ibrahim MD [address] [address] [place] [address] Assigned OBGYN Provider 03/29/24
--- OUTSIDE RECORDS SUMMARY | 2024-06-22 07:26 | XMS_ITS | Encounter Summary ---
Author Organization [facility] Address [address] [place] [address] Care Team Providers Care Imager Name Role Phone Unavailable Primary Care Provider Unavailabl e Reason for Visit * Outpatient (Routine) - Closed Specialty Diagnoses / Procedures Referred By Jade gonsales Referred To Contact Pediatric Cardiology Diagnoses Diabetes Mellitus Type 2 (HCC) Abnormal Ultrasound Bhaskar Colon M.B.B.S. [address] [place] [phone] [facility] Referral ID Status Reason Start Date Expiration Date Visits Re quested Visits Authorized [id number] Closed 04/29/2024 10/29/2025 1 1 Encounter Details Date Type Department Care Team (Latest Contact Info) Description 05/20/2024 9:00 AM CDT Comprehensive Visit Division of Pediatric Cardiology in [place], [place] [address] [place] [phone] Yosvany Murphy M.B.B.S. [address] [place] [phone] Encounter For Screening For Congenital Cardiac Abnormalities (HCC) (Primary Dx); Diabetes Mellitus Type 2 (HCC); Abnormal Ultrasound Social History Tobacco Use Types Packs/Day Years Used Date Smoking Tobacco: Never Smokeless Tobacco: Never Alcohol Use Standard Drinks/Week Comments Not Currently 0 (1 standard drink = 0.6 oz pur e alcohol) [facility] Utilities Answer Date Recorded In the past 12 months has [employer], gas, oil, or water company threatened [...] living situation today? I have a [facility] place to live 03/31/2024 Estimated Date [...] Murphy M.B.B.S. - 05/20/2024 9:00 AM CDT [facility] Cardiology Consultation Pino JohnsonB.S. Date of Consultation: 05/20/2024 Patient: Sangita Flor Date of : 1985, Age: 38 y.o. , CSN: [id number] Address: [address] [place] [address] Referral: Bhaskar Colon M.B.B.S. [address] [place] [address] SUBJECTIVE CHIEF COMPLAINT: cardiovascular screening. HISTORY OF [...]
--- OUTSIDE RECORDS SUMMARY | 2024-06-22 07:26 | XMS_ITS | Referral Summary ---
Author Organization [facility] Address [address] [place] [address]. [place] [address] Care Team Providers Care Carton Waxing Machine Operator Name Role Phone No Ref-Primary, Physician Primary Care Provider Annika Ibrahim MD Unavailable [phone] Allergies No known active allergies Social [...] 132.1 cm (4' 4) 11/29/2020 4:53 PM GRAPHIC DESIGN ASSISTANT Body Mass Index 30.11 11/29/2020 4:53 PM GRAPHIC DESIGN ASSISTANT Plan of Treatment Not on file Procedures Procedure Name Priority Date/Time Associated Diagnosis Comments BASIC METABOLIC PANEL STAT 11/29/2020 8:35 PM GRAPHIC DESIGN ASSISTANT from Last 3 Months or Most Recently Relevant to Health Maintenance Results * Basic metabolic panel (11/29/2020 8:35 PM GRAPHIC DESIGN ASSISTANT) Sodium 138 133 - 144 mmol/L 11/29/2020 8:52 PM [facility] Potassium 3.8 3.4 - 5.3 mmol/L 11/29/2020 8:52 PM [facility] Chloride 107 94 - 109 mmol/L 11/29/2020 8:52 PM [facility] Carbon Dioxide 23 20 - 32 mmol/L 11/29/2020 8:59 PM [facility] Anion Gap 8 3 - 14 mmol/L 11/29/2020 8:59 PM [facility] Glucose 93 70 - 99 mg/dL 11/29/2020 8:59 PM [facility] Urea Nitrogen 16 7 - 30 mg/dL 11/29/2020 8:59 PM [facility] Creatinine 0.57 0.52 - 1.04 mg/dL 11/29/2020 8:59 PM [facility] GFR Estimate >90 >60 mL/min/{1. 73_m2} 11/29/2020 8:59 PM [facility] Comment: Non GFR Calc Starting 09/23/2018, serum creatinine based estimated GFR (eGFR) will be calculated using the Chronic Kidney Disease Epidemiology Collaboration (CKD-EPI) equation. GFR Estimate If Black >90 >60 mL/min/{1. 73_m2} 11/29/2020 8:59 PM [facility] Comment: GFR Calc Starting 09/23/2018, serum creatinine based estimated GFR (eGFR) will be calculated using the Chronic Kidney Disease Epidemiology Collaboration (CKD-EPI) equation. Calcium 8.7 8.5 - 10.1 mg/dL 11/29/2020 8:59 PM [facility] 11/29/2020 8:35 PM GRAPHIC DESIGN ASSISTANT 11/29/2020 8:40 PM GRAPHIC DESIGN ASSISTANT Latricia Trinh MD LAB - BLOOD ORDERABL ES [facility] [address] [address], [facility] [phone] [facility] [address] [place] [address], [facility] [phone] from Last 3 Months or Most Recently Relevant to Health Maintenance Care Teams Carton Waxing Machine Operator Relationship Specialty Start Date End Date No Ref-Primary, Physician PCP - General 11/29/20 Annika Ibrahim MD [address] [address] Assigned OBGYN Provider 03/29/24
--- OUTSIDE RECORDS SUMMARY | 2024-06-22 07:26 | XMS_ITS | Referral Summary ---
Author Organization [facility] Address [address] [place] [address] Care Team Providers Care Metal Fitters And Machinists Name Role Phone Unavailable Primary Care Provider Unavailabl e Source Comments Patient records contain information from all sites at [facility]. For routine questions regarding patient records, call [phone] during business hours, M-F 8:00 AM - 5:00 PM Central Time. Record requests for emergency care only can be directed to [phone] at any time.[facility] Encounters Date Type Department Care Team Description 05/20/2024 9:00 AM CDT Comprehensive Visit Division of Pediatric Cardiology in [place], [place] [address] [place] [phone] Yosvany Murphy M.B.B.S. Encounter For Screening For Congenital Cardiac Abnormalities (HCC) (Primary Dx); Diabetes Mellitus Type 2 (HCC); Abnormal Ultrasound 05/20/2024 7:11 AM CDT - 05/20/2024 11:59 PM CDT Hospital Encounter Department of Cardiovascular Diseases in [place], [place] [address] [place] [phone] Ino Kingsley M.B.B.S. Diabetes Mellitus Type 2 (HCC); Abnormal Ultrasound Discharge Disposition: Home or Self Care 04/29/2024 2:00 PM CDT Routine Department of Obstetrics and Gynecology in [place], [place] [address] [place] [phone] Ino Kingsley M.B.B.S. Diabetes Mellitus Type 2 (HCC) (Primary Dx); Abnormal Ultrasound 04/29/2024 12:49 PM CDT - 04/29/2024 11:59 PM CDT Hospital Encounter Department of Obstetrics and Gynecology in [place], [place] [address] [place] [address] Ino Kingsley M.B.B.S. Abnormal Ultrasound Discharge Disposition: Home or Self Care 04/29/2024 3:00 PM CDT Comprehensive Visit Department of Obstetrics and Gynecology in [place], [place] [address] [place] [address] Ino Kingsley M.B.B.S. Lala Heredia M.S., [facility] Procedure And Treatment Not Carried Out Due To Patient Leaving Prior To Being Seen By Health Care Provider (Primary Dx); Abnormal Ultrasound 04/01/2024 1:00 PM CDT Routine Department of Obstetrics and Gynecology in [place], [place] [address] [place] [address] Ino Kingsley M.B.B.S. Abnormal Ultrasound (Primary Dx) 04/01/2024 11:03 AM CDT - 04/01/2024 11:59 PM CDT Hospital Encounter Department of Obstetrics and Gynecology in [place], [place] [address] [place] [address] Naomi Dahl M.D. Diabetes Mellitus Type 2 [...] plan: chart: Care Team/nursing team: [facility]. MFM [place] Partner name: Pertinent medical issues for management [...] drink = 0.6 oz pur e alcohol) [facility] Utilities Answer Date Recorded In the past 12 months has th e [employer], gas, oil, or water [employer] threatened to shut off services in your [...] your living situation today? I have a [facility] place to live 03/31/2024 Estimated Date [...] DOPPLER (05/20/2024 8:42 AM CDT) Ejection Fraction [facility] Anatomical Region Laterality Modality Echocardiography 05/20/2024 [...] FOLLOW-UP AND OR GROWTH COSBY Exam Site: [facility] OB #1 Plurality: 1 OBHx: [G:(3)] [...] Claudio R.VDiyaTDiya, R.D.M.S. on 04/29/2024 2:23:24 PM. Forensic Identification Specialist: ??Tish Claudio R.VDiyaTDiya, R.D.M.S. Thank You For This Referral Procedure Note Ino Kingsley M.B.B.S. - 04/29/2024 MORENA LAYNE OB Exam, 04/29/2024 EXAM INFORMATION Patient Name: MORENA LAYNE : 1985 Age: 38 yrs Sex: Female Ref Phys: INO SANCHO Exam Date: 04/29/2024 Procedure: US OB FOLLOW-UP AND OR GROWTH COSBY Exam Site: [facility] OB #1 Plurality: 1 OBHx: [G:(3)] [...] Read by Tish Claudio R.V.T., R.D.M.S. on 7/24/40074:23:24 PM. Forensic Identification Specialist: Tish Claudio R.V.T., R.D.M.S. Thank You For [...] US OB ADVANCED LEVEL COSBY Exam Site: [facility] OB #126 Plurality: 1 OBHx: [G:(3)] [...] Claudio, R.V.T., R.D.M.S. on 04/01/2024 12:03:53 PM. Forensic Identification Specialist: ??Tish Claudio, R.V.T., R.D.M.S. Thank You For This Referral Procedure Note Jaz Chahal M.D. - 04/01/2024 MORENA LAYNE OB Exam, 04/01/2024 EXAM INFORMATION Patient Name: MORENA LAYNE : 1985 Age: 38 yrs Sex: Female Ref Phys: NAOMI DAHL Exam Date: 04/01/2024 Procedure: US OB ADVANCED LEVEL COSBY Exam Site: [facility] OB #126 Plurality: 1 OBHx: [G:(3)] [...] Tish Claudio R.V.T., R.D.M.S. on 2:03:53 PM. Forensic Identification Specialist: Tish Claudio R.V.T., R.D.M.S. Thank You For This Referral Naomi ACEVES OB US [place] OCEDURES from Last 3 Months
--- OUTSIDE RECORDS SUMMARY | 2024-06-22 07:26 | XMS_ITS | Encounter Summary ---
Author Organization [facility] Address [address] [place] [address] Care Team Providers Care Guest Experience Specialist Name Role Phone Unavailable Primary Care Provider Unavailabl e Reason for Referral * Outpatient (Routine) - Closed Specialty Diagnoses / Procedures Referred By Jade gonsales Referred To Contact Diagnoses Diabetes Mellitus Type 2 (HCC) Abnormal Ultrasound Procedures Echo Bhaskar Colon M.B.B.S. [address] [place] [phone] [facility] Referral ID Status Reason Start Date Expiration Date Visits Re quested Visits Authorized [id number] Closed 04/29/2024 04/29/2025 1 1 Reason for Visit * Outpatient (Routine) - Closed Specialty Diagnoses / Procedures Referred By Jade gonsales Referred To Contact Diagnoses Diabetes Mellitus Type 2 (HCC) Abnormal Ultrasound Procedures Echo Bhaskar Colon M.B.B.S. [address] [place] [phone] [facility] Referral ID Status Reason Start Date Expiration Date Visits Re quested Visits Authorized [id number] Closed 04/29/2024 04/29/2025 1 1 Encounter Details Date Type Department Care Team (Latest Contact Info) Description 05/20/2024 7:11 AM CDT - 05/20/2024 11:59 PM CDT Hospital Encounter Department of Cardiovascular Diseases in [place], [place] [address] [place] [phone] Bhaskar Colon M.B.BDiyaS. [address] [place] [address] Diabetes Mellitus Type 2 (HCC); Abnormal Ultrasound Discharge Disposition: Home or Self Care Social History Tobacco Use Types Packs/Day Years Used Date Smoking Tobacco: Never Smokeless Tobacco: Never Alcohol Use Standard Drinks/Week Comments Not Currently 0 (1 standard drink = 0.6 oz pur e alcohol) [facility] Utilities Answer Date Recorded In the past 12 months has e [employer], gas, oil, or water [employer] threatened to shut off services in your [...] your living situation today? I have a [facility] place to live 03/31/2024 Estimated Date of [...] DOPPLER (05/20/2024 8:42 AM CDT) Ejection Fraction [facility] Anatomical Region Laterality Modality Echocardiography 05/20/2024 [...]
--- OUTSIDE RECORDS SUMMARY | 2024-06-22 07:26 | XMS_ITS | Encounter Summary ---
Author Organization [facility] Address [address] [place] [address] Care Team Providers Care Branch Manager Trainee Name Role Phone Unavailable Primary Care Provider Unavailabl e Encounter Details Date Type Department Care Team (Latest Contact Info) Description 04/29/2024 12:49 PM CDT - 04/29/2024 11:59 PM CDT Hospital Encounter Department of Obstetrics and Gynecology in [place], [place] [address] [place] [phone] Ino Colon M.B.B.S. [address] [place] [phone] Abnormal Ultrasound Discharge Disposition: Home or Self Care Social History Tobacco Use Types Packs/Day Years Used Date Smoking Tobacco: Never Smokeless Tobacco: Never Alcohol Use Standard Drinks/Week Comments Not Currently 0 (1 standard drink = 0.6 oz pur e alcohol) [facility] Utilities Answer Date Recorded In the past 12 months has [employer], oil, or water [facility] threatened to shut off services in your [...] your living situation today? I have a [facility] place to live 03/31/2024 Estimated Date [...] FOLLOW-UP AND OR GROWTH COSBY Exam Site: [facility] OB #1 Plurality: 1 OBHx: [G:(3)] ?F [...] Claudio R.V.T., R.D.M.S. on 04/29/2024 2:23:24 PM. Lever Miller: ??Tish Claudio R.V.T., R.D.M.S. Thank You For This Referral Procedure Note Ino Colon M.B.B.S. - 04/29/2024 MORENA ALVARADO OB Exam, 04/29/2024 EXAM INFORMATION Patient Name: MORENA ALVARADO : 1985 Age: 38 yrs Sex: Female Ref Phys: INO COLON Exam Date: 04/29/2024 Procedure: US OB FOLLOW-UP AND OR GROWTH COSBY Exam Site: [facility] OB #1 Plurality: 1 OBHx: [G:(3)] F [...] Tish Claudio R.V.T., Mirta.S. on :23:24 PM. Lever Miller: Tish Claudio R.V.T., JuanitoSDiya Thank You For This Referral Ino Robertson IMG OB US PROCEDUR ES documented in this encounter Visit Diagnoses Diagnosis Abnormal Ultrasound documented in this encounter
--- OUTSIDE RECORDS SUMMARY | 2024-06-22 07:26 | XMS_ITS ---
Author Organization [facility] Address [address] [place] [address] Care Team Providers Care Laserist Name Role Phone Unavailable Unavailable Unavailable Surgery Details Not on file Complications Check Surgery Details section. Procedure Estimated Blood Loss Check Surgery Details section. Procedure Findings Check Surgery Details section. Procedure Specimens Taken Check Surgery Details section.
--- OUTSIDE RECORDS SUMMARY | 2024-06-22 07:26 | XMS_ITS | Encounter Summary ---
Author Organization [facility] Address [address] [place] [address] Care Team Providers Care Snowboarder Name Role Phone Unavailable Primary Care Provider Unavailabl e Reason for Referral * Outpatient (Routine) - Closed Specialty Diagnoses / Procedures Referred By Jade gonsales Referred To Contact Obstetrics and Gynecology Bhaskar Colon M.B.B.S. [address] [place] [phone] [facility] Referral ID Status Reason Start Date Expiration Date Visits Re quested Visits Authorized [id number] Closed 04/01/2024 10/01/2025 1 1 Reason for Visit * Appointment Request (Routine) - Authorized Specialty Diagnoses / Procedures Referred By Jade gonsales Referred To Contact Maternal and Medicine Diagnoses Maternal Care For Suspected Abnormality And Damage Single Gestation (HCC) Amanda Faith M.D. [address] [place] [address] Referral ID Status Reason Start Date Expiration Date V isits Requested Visits Authorized [id number] Authorized 03/03/2024 03/03/2025 2 2 Encounter Details Date Type Department Care Team (Latest Contact Info) Description 04/01/2024 1:00 PM CDT Routine Department of Obstetrics and Gynecology in [place], [place] [address] [place] [phone] Bhaskar Colon M.B.B.S. [address] [place] [phone] Abnormal Ultrasound (Primary Dx) Social History Tobacco Use Types Packs/Day Years Used Date Smoking Tobacco: Never Smokeless Tobacco: Never Tobacco Cessation:Counseling Given: Not Answered Alcohol Use Standard Drinks/Week Comments Not Currently 0 (1 standard drink = 0.6 oz pur e alcohol) [facility] Utilities Answer Date Recorded In the [...] your living situation today? I have a [facility] place to live 03/31/2024 Estimated Date [...] being referred by Dr. 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 Increased NT with Normal NIPT. She was seen at [facility] for [facility] consult regarding type 2 DM, AMA, classical [...] and suggest a specific diagnosis. For example, Shanelle syndrome, multiple pterygium syndrome, Cedillo syndrome, Petal de Anderson syndrome, congenital adrenal hyperplasia, spinal muscular atrophy, DiGeorge syndrome, Hasup-Eupjq-Oxulf syndrome, and a variety of skeletal dysplasias [...] scheduled in 4 weeks. Return visit to [facility] after ultrasound. 3. echo ultrasound to rule [...]
--- OUTSIDE RECORDS SUMMARY | 2024-06-22 07:26 | XMS_ITS | Encounter Summary ---
Author Organization [facility] Address [address] [place] [address] Care Team Providers Care Wax Bleacher Name Role Phone Unavailable Primary Care Provider Unavailabl e Reason for Visit * Reason Onset Date Comments Left Without Being Seen 04/29/2024 * Outpatient (Routine) - Canceled Specialty Diagnoses / Procedures Referred By Jade t Referred To Contact Obstetrics and Gynecology Diagnoses Abnormal Ultrasound Bhaskar Colon M.B.B.S. [address] [place] [phone] [facility] Referral ID Status Reason Start Date Expiration Date V isits Requested Visits Authorized [id number] Canceled 04/01/2024 10/01/2025 1 1 Encounter Details Date Type Department Care Team (Latest Contact Info) Description 04/29/2024 3:00 PM CDT Comprehensive Visit Department of Obstetrics and Gynecology in [place], [place] [address] [place] [phone] Bhaskar Colon M.B.B.S. [address] [place] [phone] Lala Heredia M.S., [facility] [address] [place] [phone] Procedure And Treatment Not Carried Out Due To Patient Leaving Prior To Being Seen By Health Care Provider (Primary Dx); Abnormal Ultrasound Social History Tobacco Use Types Packs/Day Years Used Date Smoking Tobacco: Never Smokeless Tobacco: Never Alcohol Use Standard Drinks/Week Comments Not Currently 0 (1 standard drink = 0.6 oz pur e alcohol) [facility] Utilities Answer Date Recorded In the [...] your living situation today? I have a [facility] place to live 03/31/2024 Estimated Date of Delivery Comme nts Yes 09/09/2024 Based on Ultraso und Sex and Gender Information Value Date Recorded Sex Assigned at Female 03/31/2024 9:51 PM CDT Gender Identity Female 03/31/2024 9:51 PM CDT Sexual Orientation Choose not to disclose 2023 9:51 PM CDT documented as of this encounter Progress Notes * Lala Heredia M.S., [facility] - 04/29/2024 3:00 PM CDT Mrs. Sangita [...]
== END 2024-06-22 07:25 | disposition home or self-care (01) ==
LOC: US 07:24
PROVIDERS: PCP Family Medicine; Visit Provider Obstetrics & Gynecology
DX: O09.529 Supervision of elderly multigravida, unspecified trimester (principal); O24.119 Pre-existing type 2 diabetes mellitus, in pregnancy, unspecified trimester
CPT/HCPCS: 76819

== ENCOUNTER 2024-06-29 07:26 | Outpatient (CLI) | payer OTHER, SELFPAY ==
--- NOTE | 2024-06-29 07:15 | CRLHL7_ITS ---
For Patients: As a result of the Century Cures Act, medical imaging exams and procedure reports are released immediately into your electronic medical record. You may view this report before your referring provider. If you have questions, please contact your health care provider. INDICATION: Gestational diabetes COMPARISON: 06/22/2024 TECHNIQUE: Sue-scale and color Doppler of the gravid uterus and fetus from a transabdominal approach. FINDINGS: Established gestational age: 30 weeks 3 days Single intrauterine gestation in a breech presentation. heart rate is 155 bpm. The nose and lips are normal. Normal profile. No pleural effusion, pericardial effusion, ascites, or skin edema. Amniotic fluid volume is normal. The placenta is posterior. No previa. No periplacental hemorrhage. Three-vessel cord. WELLBEING tone: 2/2 movement: 2/2 breathin/2 Amniotic fluid volume: 2/2 The single deepest vertical pocket measures: 6.4 cm. MATERNAL Cervical length is 4.5 cm. No funneling at the os. Measured transabdominally. IMPRESSION: Biophysical profile score is 8/8. Dictated by Joselyn Garza MD @ 06/29/2024 11:27:53 AM (Electronically Signed)
--- OUTSIDE RECORDS SUMMARY | 2024-06-29 07:28 | XMS_ITS | Encounter Summary ---
Author Organization [facility] Address [address] [place] [address] Care Team Providers Care Automobile Wrecker Name Role Phone Unavailable Primary Care Provider Unavailabl e Reason for Referral * Outpatient (Routine) - Closed Specialty Diagnoses / Procedures Referred By Contac t Referred To Contact Diagnoses Diabetes Mellitus Type 2 (HCC) Abnormal Ultrasound Procedures Echo Bhaskar Colon M.B.B.S. [address] [place] [phone] [facility] Referral ID Status Reason Start Date Expiration Date Visits Re quested Visits Authorized [id number] Closed 04/29/2024 04/29/2025 1 1 * Outpatient (Routine) - Closed Specialty Diagnoses / Procedures Referred By Edac t Referred To Contact Pediatric Cardiology Diagnoses Diabetes Mellitus Type 2 (HCC) Abnormal Ultrasound Bhaskar Colon M.B.B.S. [address] [place] [phone] [facility] Referral ID Status Reason Start Date Expiration Date Visits Re quested Visits Authorized [id number] Closed 04/29/2024 10/29/2025 1 1 Reason for Visit * Outpatient (Routine) - Closed Specialty Diagnoses / Procedures Referred By Jade t Referred To Contact Obstetrics and Gynecology Bhaskar Colon M.B.B.S. [address] [place] [phone] [facility] Referral ID Status Reason Start Date Expiration Date Visits Re quested Visits Authorized [id number] Closed 04/01/2024 10/01/2025 1 1 Encounter Details Date Type Department Care Team (Latest Contact Info) Description 04/29/2024 2:00 PM CDT Routine Department of Obstetrics and Gynecology in [place], [place] [address] [place] [phone] Bhaskar Colon M.B.BDiyaS. [address] [place] [phone] Diabetes Mellitus Type 2 (HCC) (Primary Dx); Abnormal Ultrasound Social History Tobacco Use Types Packs/Day Years Used Date Smoking Tobacco: Never Smokeless Tobacco: Never Alcohol Use Standard Drinks/Week Comments Not Currently 0 (1 standard drink = 0.6 oz pur e alcohol) [facility] Utilities Answer Date Recorded In the past 12 months has [employer], gas, oil, or water [employer] threatened to shut off services in your [...] your living situation today? I have a [facility] place to live 03/31/2024 Estimated [...] scan, she declined to meet with the business analyst project manager to discuss the need for any further [...] DOPPLER (05/20/2024 8:42 AM CDT) Ejection Fraction [facility] Anatomical Region Laterality Modality Echocardiography 05/20/2024 [...]
--- OUTSIDE RECORDS SUMMARY | 2024-06-29 07:28 | XMS_ITS | Clinical Summary ---
Author Organization [facility] Address [address] [place] [address] Care Team Providers Care Die Drawing Checker Name Role Phone Unavailable Primary Care Provider Unavailabl e Source Comments Patient records contain information from all sites at [facility]. For routine questions regarding patient records, call [phone] during business hours, M-F 8:00 AM - 5:00 PM Central Time. Record requests for emergency care only can be directed to [phone] at any time.[facility] Allergies No known active allergies Medications Medication [...] original. Delivery plan: chart: Care Team/nursing team: [facility]. CHEYANNE Colon Partner name: Pertinent medical issues [...] Comprehensive Visit Division of Pediatric Cardiology in [place], [place] [address] [place] [phone] Yosvany Murphy M.B.B.S. Encounter For Screening For Congenital Cardiac Abnormalities (HCC) (Primary Dx); Diabetes Mellitus Type 2 (HCC); Abnormal Ultrasound 05/20/2024 7:11 AM CDT - 05/20/2024 11:59 PM CDT Hospital Encounter Department of Cardiovascular Diseases in [address] [phone] Ino Colon M.B.B.S. Diabetes Mellitus Type 2 (HCC); Abnormal Ultrasound Discharge Disposition: Home or Self Care 04/29/2024 3:00 PM CDT Comprehensive Visit Department of Obstetrics and Gynecology in [address] [phone] Ino Colon M.B.B.S. Lala Heredia M.S., [facility] Procedure And Treatment Not Carried Out Due To Patient Leaving Prior To Being Seen By Health Care Provider (Primary Dx); Abnormal Ultrasound 04/29/2024 2:00 PM CDT Routine Department of Obstetrics and Gynecology in [place], [place] [address] [place] [phone] Ino Colon M.B.B.S. Diabetes Mellitus Type 2 (HCC) (Primary Dx); Abnormal Ultrasound 04/29/2024 12:49 PM CDT - 04/29/2024 11:59 PM CDT Hospital Encounter Department of Obstetrics and Gynecology in [place], [place] [address] [place] [address] Ino Colon M.B.B.S. Abnormal Ultrasound Discharge Disposition: Home or Self Care 04/01/2024 1:00 PM CDT Routine Department of Obstetrics and Gynecology in [place], [place] [address] [place] [address] Ino Colon M.B.B.S. Abnormal Ultrasound (Primary Dx) 04/01/2024 11:03 AM CDT - 04/01/2024 11:59 PM CDT Hospital Encounter Department of Obstetrics and Gynecology in [place], [place] [address] [place] [phone] Naomi Dahl M.D. Diabetes Mellitus Type 2 (HCC); Abnormal Ultrasound Discharge Disposition: Home or Self Care from Last 3 Months Social History Tobacco Use Types Packs/Day Years Used Date Smoking Tobacco: Never Smokeless Tobacco: Never Tobacco Cessation:Counseling Given: Not Answered Alcohol Use Standard Drinks/Week Comments Not Currently 0 (1 standard drink = 0.6 oz pur e alcohol) [facility] Utilities Answer Date Recorded In the past 12 months has th e [employer], gas, oil, or water [employer] threatened to shut off services in your [...] Answer Date Recorded Employment status Unemployed/not in [email or web address] paid workforce and NOT seeking employment 03/31/2024 Housing Stability Answer Date Recorded What is your living situation today? I have a [facility] place to live 03/31/2024 Estimated Date of [...] DOPPLER (05/20/2024 8:42 AM CDT) Ejection Fraction [facility] Anatomical Region Laterality Modality Echocardiography 05/20/2024 [...] FOLLOW-UP AND OR GROWTH COSBY Exam Site: [facility] OB #1 Plurality: 1 OBHx: [G:(3)] ?F [...] Claudio R.V.T., R.VikaM.S. on 04/29/2024 2:23:24 PM. Smoking Pipe Maker: ??Tish Claudio R.V.T., Mirta.S. Thank You For This Referral Procedure Note Ino Colon M.B.B.S. - 04/29/2024 KADE SOCORROMORENA OB Exam, 04/29/2024 EXAM INFORMATION Patient Name: MORENA ALVARADO : 1985 Age: 38 yrs Sex: Female Ref Phys: INO COLON Exam Date: 04/29/2024 Procedure: US OB FOLLOW-UP AND OR GROWTH COSBY Exam Site: [facility] OB #1 Plurality: 1 OBHx: [G:(3)] F [...] Tish Claudio R.V.T., R.D.M.S. on :23:24 PM. Smoking Pipe Maker: Tish Claudio R.V.T., R.D.M.S. Thank You For [...] US OB ADVANCED LEVEL COSBY Exam Site: [facility] OB #126 Plurality: 1 OBHx: [G:(3)] ?F [...] Claudio, Kin, R.D.M.S. on 04/01/2024 12:03:53 PM. Smoking Pipe Maker: ??Tish Claudio R.V.T., R.Parisa.M.S. Thank You For This Referral Procedure Note Jaz Chahal M.D. - 04/01/2024 MORENA ALVARADO OB Exam, 04/01/2024 EXAM INFORMATION Patient Name: MORENA ALVARADO : 1985 Age: 38 yrs Sex: Female Ref Phys: NAOMI DAHL Exam Date: 04/01/2024 Procedure: US OB ADVANCED LEVEL COSBY Exam Site: [facility] OB #126 Plurality: 1 OBHx: [G:(3)] F [...] Tish Claudio R.V.T., RChintanM.S. on 2:03:53 PM. Smoking Pipe Maker: Tish Claudio R.V.T., JoanM.S. Thank You For This Referral Naomi Dahl M.D. IMG OB US [place] OCEDURES from Last 3 Months
--- OUTSIDE RECORDS SUMMARY | 2024-06-29 07:28 | XMS_ITS | Encounter Summary ---
Author Organization [facility] Address [address] [place] [address] Care Team Providers Care Lapidarist Name Role Phone Unavailable Primary Care Provider Unavailabl e Encounter Details Date Type Department Care Team (Latest Contact Info) Description 04/29/2024 12:49 PM CDT - 04/29/2024 11:59 PM CDT Hospital Encounter Department of Obstetrics and Gynecology in [place], [place] [address] [place] [phone] Ino Colon M.B.B.S. [address] [place] [phone] Abnormal Ultrasound Discharge Disposition: Home or Self Care Social History Tobacco Use Types Packs/Day Years Used Date Smoking Tobacco: Never Smokeless Tobacco: Never Alcohol Use Standard Drinks/Week Comments Not Currently 0 (1 standard drink = 0.6 oz pur e alcohol) [facility] Utilities Answer Date Recorded In the past 12 months has [employer], oil, or water [employer] threatened to shut off services in your [...] your living situation today? I have a [facility] place to live 03/31/2024 Estimated [...] FOLLOW-UP AND OR GROWTH COSBY Exam Site: [facility] OB #1 Plurality: 1 OBHx: [G:(3)] [...] Claudio R.V.T., R.D.M.S. on 04/29/2024 2:23:24 PM. Spot Welder Body Assembly: ??Tish Claudio R.V.T., R.D.M.S. Thank You For This Referral Procedure Note Ino Colon M.B.B.S. - 04/29/2024 MORENA ALVARADO OB Exam, 04/29/2024 EXAM INFORMATION Patient Name: MORENA ALVARADO : 1985 Age: 38 yrs Sex: Female Ref Phys: INO COLON Exam Date: 04/29/2024 Procedure: US OB FOLLOW-UP AND OR GROWTH COSBY Exam Site: [facility] OB #1 Plurality: 1 OBHx: [G:(3)] [...] Tish Claudio R.V.T., Mirta.S. on :23:24 PM. Spot Welder Body Assembly: Tish Claudio R.V.T., JuanitoSDiya Thank You For This Referral Ino Robertson IMG OB US PROCEDUR ES documented in this encounter Visit Diagnoses Diagnosis Abnormal Ultrasound documented in this encounter
--- OUTSIDE RECORDS SUMMARY | 2024-06-29 07:28 | XMS_ITS ---
Author Organization [facility] Address [address] [place] [address] Care Team Providers Care Chemical Production Machine Operator Name Role Phone Unavailable Unavailable Unavailable Surgery Details Not on file Complications Check Surgery Details section. Procedure Estimated Blood Loss Check Surgery Details section. Procedure Findings Check Surgery Details section. Procedure Specimens Taken Check Surgery Details section.
--- OUTSIDE RECORDS SUMMARY | 2024-06-29 07:28 | XMS_ITS | Encounter Summary ---
Author Organization [facility] Address [address] [place] [address] Care Team Providers Care Trade Embalmer Name Role Phone Unavailable Primary Care Provider Unavailabl e Reason for Referral * Outpatient (Routine) - Closed Specialty Diagnoses / Procedures Referred By Jade gonsales Referred To Contact Diagnoses Diabetes Mellitus Type 2 (HCC) Abnormal Ultrasound Procedures Echo Bhaskar Colon M.B.B.S. [address] [place] [phone] [facility] Referral ID Status Reason Start Date Expiration Date Visits Re quested Visits Authorized [id number] Closed 04/29/2024 04/29/2025 1 1 Reason for Visit * Outpatient (Routine) - Closed Specialty Diagnoses / Procedures Referred By Jade gonsales Referred To Contact Diagnoses Diabetes Mellitus Type 2 (HCC) Abnormal Ultrasound Procedures Echo Bhaskar Colon M.B.B.S. [address] [place] [phone] [facility] Referral ID Status Reason Start Date Expiration Date Visits Re quested Visits Authorized [id number] Closed 04/29/2024 04/29/2025 1 1 Encounter Details Date Type Department Care Team (Latest Contact Info) Description 05/20/2024 7:11 AM CDT - 05/20/2024 11:59 PM CDT Hospital Encounter Department of Cardiovascular Diseases in [place], [place] [address] [place] [phone] Bhaskar Colon M.B.BDiyaS. [address] [place] [address] Diabetes Mellitus Type 2 (HCC); Abnormal Ultrasound Discharge Disposition: Home or Self Care Social History Tobacco Use Types Packs/Day Years Used Date Smoking Tobacco: Never Smokeless Tobacco: Never Alcohol Use Standard Drinks/Week Comments Not Currently 0 (1 standard drink = 0.6 oz pur e alcohol) [facility] Utilities Answer Date Recorded In the past 12 months has e [employer], gas, oil, or water [employer] threatened to shut off services in your [...] your living situation today? I have a [facility] place to live 03/31/2024 Estimated Date [...] DOPPLER (05/20/2024 8:42 AM CDT) Ejection Fraction [facility] Anatomical Region Laterality Modality Echocardiography [...]
--- OUTSIDE RECORDS SUMMARY | 2024-06-29 07:28 | XMS_ITS | Encounter Summary ---
Author Organization [facility] Address [address] [place] [address] Care Team Providers Care Manager Monitoring Name Role Phone Unavailable Primary Care Provider Unavailabl e Reason for Visit * Outpatient (Routine) - Closed Specialty Diagnoses / Procedures Referred By Jade gonsales Referred To Contact Pediatric Cardiology Diagnoses Diabetes Mellitus Type 2 (HCC) Abnormal Ultrasound Bhaskar Colon M.B.B.S. [address] [place] [phone] [facility] Referral ID Status Reason Start Date Expiration Date Visits Re quested Visits Authorized [id number] Closed 04/29/2024 10/29/2025 1 1 Encounter Details Date Type Department Care Team (Latest Contact Info) Description 05/20/2024 9:00 AM CDT Comprehensive Visit Division of Pediatric Cardiology in [place], [place] [address] [place] [phone] Yosvany Murphy M.B.B.S. [address] [place] [phone] Encounter For Screening For Congenital Cardiac Abnormalities (HCC) (Primary Dx); Diabetes Mellitus Type 2 (HCC); Abnormal Ultrasound Social History Tobacco Use Types Packs/Day Years Used Date Smoking Tobacco: Never Smokeless Tobacco: Never Alcohol Use Standard Drinks/Week Comments Not Currently 0 (1 standard drink = 0.6 oz pur e alcohol) [facility] Utilities Answer Date Recorded In the past 12 months has [employer], gas, oil, or water company threatened [...] your living situation today? I [facility] a [facility] place [facility] live 03/31/2024 Estimated [...] Murphy M.B.B.S. - 05/20/2024 9:00 AM CDT [facility] Cardiology Consultation Pino JohnsonB.S. Date of Consultation: 05/20/2024 Patient: Sangita Flor Date of : 1985, Age: 38 y.o. , CSN: [id number] Address: [address] [place] [address] Referral: Bhaskar Colon M.B.B.S. [address] [place] [address] SUBJECTIVE CHIEF COMPLAINT: cardiovascular screening. HISTORY OF [...]
--- OUTSIDE RECORDS SUMMARY | 2024-06-29 07:28 | XMS_ITS | Referral Summary ---
Author Organization [facility] Address [address] [place] [address] Care Team Providers Care School Bus Inspector Name Role Phone Unavailable Primary Care Provider Unavailabl e Source Comments Patient records contain information from all sites at [facility]. For routine questions regarding patient records, call [phone] during business hours, M-F 8:00 AM - 5:00 PM Central Time. Record requests for emergency care only can be directed to [phone] at any time.[facility] Encounters Date Type Department Care Team Description 05/20/2024 9:00 AM CDT Comprehensive Visit Division of Pediatric Cardiology in [place], [place] [address] [place] [phone] Yosvany Murphy M.B.B.S. Encounter For Screening For Congenital Cardiac Abnormalities (HCC) (Primary Dx); Diabetes Mellitus Type 2 (HCC); Abnormal Ultrasound 05/20/2024 7:11 AM CDT - 05/20/2024 11:59 PM CDT Hospital Encounter Department of Cardiovascular Diseases in [place], [place] [address] [place] [phone] Ino Kingsley M.B.B.S. Diabetes Mellitus Type 2 (HCC); Abnormal Ultrasound Discharge Disposition: Home or Self Care 04/29/2024 2:00 PM CDT Routine Department of Obstetrics and Gynecology in [place], [place] [address] [place] [phone] Ino Kingsley M.B.B.S. Diabetes Mellitus Type 2 (HCC) (Primary Dx); Abnormal Ultrasound 04/29/2024 12:49 PM CDT - 04/29/2024 11:59 PM CDT Hospital Encounter Department of Obstetrics and Gynecology in [place], [place] [address] [place] [phone] Ino Kingsley M.B.B.S. Abnormal Ultrasound Discharge Disposition: Home or Self Care 04/29/2024 3:00 PM CDT Comprehensive Visit Department of Obstetrics and Gynecology in [place], [place] [address] [place] [phone] Ino Kingsley M.B.B.S. Lala Heredia M.S., [facility] Procedure And Treatment Not Carried Out Due To Patient Leaving Prior To Being Seen By Health Care Provider (Primary Dx); Abnormal Ultrasound 04/01/2024 1:00 PM CDT Routine Department of Obstetrics and Gynecology in [place], [place] [address] [place] [phone] Ino Kingsley M.B.B.S. Abnormal Ultrasound (Primary Dx) 04/01/2024 11:03 AM CDT - 04/01/2024 11:59 PM CDT Hospital Encounter Department of Obstetrics and Gynecology in [place], [place] [address] [place] [phone] Naomi Dahl M.D. Diabetes Mellitus Type 2 [...] original. Delivery plan: chart: Care Team/nursing team: [facility]. MFM Sebastian Partner name: Pertinent medical issues for management [...] drink = 0.6 oz pur e alcohol) [facility] Utilities Answer Date Recorded In the past 12 months has th e [email or web address], gas, oil, or water [employer] threatened to shut off services in your [...] your living situation today? I have a [facility] place to live 03/31/2024 Estimated Date [...] DOPPLER (05/20/2024 8:42 AM CDT) Ejection Fraction [facility] Anatomical Region Laterality Modality Echocardiography 05/20/2024 [...] FOLLOW-UP AND OR GROWTH COSBY Exam Site: [facility] OB #1 Plurality: 1 OBHx: [G:(3)] ?F [...] Claudio R.VDiyaTDiya, R.D.M.S. on 04/29/2024 2:23:24 PM. Warehouse Loader: ??Tish Claudio R.VDiyaTDiya, R.D.M.S. Thank You For This Referral Procedure Note Ino Kingsley M.B.B.S. - 04/29/2024 MORENA LAYNE OB Exam, 04/29/2024 EXAM INFORMATION Patient Name: MORENA LAYNE : 1985 Age: 38 yrs Sex: Female Ref Phys: INO SANCHO Exam Date: 04/29/2024 Procedure: US OB FOLLOW-UP AND OR GROWTH COSBY Exam Site: [facility] OB #1 Plurality: 1 OBHx: [G:(3)] F [...] Read by Tish Claudio R.V.T., R.D.M.S. on 7/24/10216:23:24 PM. Warehouse Loader: Tish Claudio R.V.T., R.D.M.S. Thank You For [...] US OB ADVANCED LEVEL COSBY Exam Site: [facility] OB #126 Plurality: 1 OBHx: [G:(3)] ?F [...] Claudio, R.V.T., R.D.M.S. on 04/01/2024 12:03:53 PM. Warehouse Loader: ??Tish Claudio, R.V.T., R.D.M.S. Thank You For This Referral Procedure Note Jaz Chahal M.D. - 04/01/2024 MORENA LAYNE OB Exam, 04/01/2024 EXAM INFORMATION Patient Name: MORENA LAYNE : 1985 Age: 38 yrs Sex: Female Ref Phys: NAOMI DAHL Exam Date: 04/01/2024 Procedure: US OB ADVANCED LEVEL COSBY Exam Site: [facility] OB #126 Plurality: 1 OBHx: [G:(3)] F [...] Tish Claudio R.V.T., R.D.M.S. on 2:03:53 PM. Warehouse Loader: Tish Claudio R.V.T., R.D.M.S. Thank You For This Referral Naomi ACEVES OB US [place] OCEDURES from Last 3 Months
--- OUTSIDE RECORDS SUMMARY | 2024-06-29 07:29 | XMS_ITS | Referral Summary ---
Author Organization [facility] Address [address] [place] [address]. [place] [address] Care Team Providers Care Stone Banker Name Role Phone No Ref-Primary, Physician Primary Care Provider Annika Ibrahim MD Unavailable [phone] Allergies No known active allergies Social [...] 132.1 cm (4' 4) 11/29/2020 4:53 PM SYSTEMS AUDITOR Body Mass Index 30.11 11/29/2020 4:53 PM SYSTEMS AUDITOR Plan of Treatment Not on file Procedures Procedure Name Priority Date/Time Associated Diagnosis Comments BASIC METABOLIC PANEL STAT 11/29/2020 8:35 PM SYSTEMS AUDITOR from Last 3 Months or Most Recently Relevant to Health Maintenance Results * Basic metabolic panel (11/29/2020 8:35 PM SYSTEMS AUDITOR) Sodium 138 133 - 144 mmol/L 11/29/2020 8:52 PM [facility] Potassium 3.8 3.4 - 5.3 mmol/L 11/29/2020 8:52 PM [facility] Chloride 107 94 - 109 mmol/L 11/29/2020 8:52 PM [facility] Carbon Dioxide 23 20 - 32 mmol/L 11/29/2020 8:59 PM [facility] Anion Gap 8 3 - 14 mmol/L 11/29/2020 8:59 PM [facility] Glucose 93 70 - 99 mg/dL 11/29/2020 8:59 PM [facility] Urea Nitrogen 16 7 - 30 mg/dL 11/29/2020 8:59 PM [facility] Creatinine 0.57 0.52 - 1.04 mg/dL 11/29/2020 8:59 PM [facility] GFR Estimate >90 >60 mL/min/{1. 73_m2} 11/29/2020 8:59 PM [facility] Comment: Non GFR Calc Starting 09/23/2018, serum creatinine based estimated GFR (eGFR) will be calculated using the Chronic Kidney Disease Epidemiology Collaboration (CKD-EPI) equation. GFR Estimate If Black >90 >60 mL/min/{1. 73_m2} 11/29/2020 8:59 PM [facility] Comment: GFR Calc Starting 09/23/2018, serum creatinine based estimated GFR (eGFR) will be calculated using the Chronic Kidney Disease Epidemiology Collaboration (CKD-EPI) equation. Calcium 8.7 8.5 - 10.1 mg/dL 11/29/2020 8:59 PM [facility] 11/29/2020 8:35 PM SYSTEMS AUDITOR 11/29/2020 8:40 PM SYSTEMS AUDITOR Latricia Trinh MD LAB - BLOOD ORDERABL ES [facility] [address] [address], [facility] [phone] [facility] [address] [place] [address], [facility] [phone] from Last 3 Months or Most Recently Relevant to Health Maintenance Care Teams Stone Banker Relationship Specialty Start Date End Date No Ref-Primary, Physician PCP - General 11/29/20 Annika Ibrahim MD [address] [address] Assigned OBGYN Provider 03/29/24
--- OUTSIDE RECORDS SUMMARY | 2024-06-29 07:29 | XMS_ITS | Encounter Summary ---
Author Organization [facility] Address [address] [place] [address] Care Team Providers Care Brake Press Operator Name Role Phone Unavailable Primary Care Provider Unavailabl e Reason for Referral * Outpatient (Routine) - Closed Specialty Diagnoses / Procedures Referred By Jade gonsales Referred To Contact Obstetrics and Gynecology Bhaskar Colon M.B.B.S. [address] [place] [phone] [facility] Referral ID Status Reason Start Date Expiration Date Visits Re quested Visits Authorized [id number] Closed 04/01/2024 10/01/2025 1 1 Reason for Visit * Appointment Request (Routine) - Authorized Specialty Diagnoses / Procedures Referred By Jade gonsales Referred To Contact Maternal and Medicine Diagnoses Maternal Care For Suspected Abnormality And Damage Single Gestation (HCC) Amanda Faith M.D. [address] [place] [address] Referral ID Status Reason Start Date Expiration Date V isits Requested Visits Authorized [id number] Authorized 03/03/2024 03/03/2025 2 2 Encounter Details Date Type Department Care Team (Latest Contact Info) Description 04/01/2024 1:00 PM CDT Routine Department of Obstetrics and Gynecology in [place], [place] [address] [place] [phone] Bhaskar Colon M.B.B.S. [address] [place] [phone] Abnormal Ultrasound (Primary Dx) Social History Tobacco Use Types Packs/Day Years Used Date Smoking Tobacco: Never Smokeless Tobacco: Never Tobacco Cessation:Counseling Given: Not Answered Alcohol Use Standard Drinks/Week Comments Not Currently 0 (1 standard drink = 0.6 oz pur e alcohol) [facility] Utilities Answer Date Recorded In the past [...] your living situation today? I have a [facility] place to live 03/31/2024 Estimated Date [...] being referred by Dr. 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 Increased NT with Normal NIPT. She was seen at [facility] consult regarding type 2 DM, AMA, classical [...] Shanelle syndrome, multiple pterygium syndrome, Cedillo syndrome, Westcliffe de Anderson syndrome, congenital adrenal hyperplasia, spinal muscular atrophy, DiGeorge syndrome, Gnibf-Ttamj-Kwuld syndrome, and a variety of skeletal dysplasias [...] scheduled in 4 weeks. Return visit to [facility] after ultrasound. 3. echo ultrasound to rule [...]
--- OUTSIDE RECORDS SUMMARY | 2024-06-29 07:29 | XMS_ITS | Encounter Summary ---
Author Organization [facility] Address [address] [place] [address] Care Team Providers Care Secondary School Special Ed Teacher Name Role Phone Unavailable Primary Care Provider Unavailabl e Encounter Details Date Type Department Care Team (Latest Contact Info) Description 04/01/2024 11:03 AM CDT - 04/01/2024 11:59 PM CDT Hospital Encounter Department of Obstetrics and Gynecology in [place], [place] [address] [place] [phone] Naomi Dahl M.D. [address] [place] [phone] Diabetes Mellitus Type 2 (HCC); Abnormal Ultrasound Discharge Disposition: Home or Self Care Social History Tobacco Use Types Packs/Day Years Used Date Smoking Tobacco: Never Smokeless Tobacco: Never Alcohol Use Standard Drinks/Week Comments Not Currently 0 (1 standard drink = 0.6 oz pur e alcohol) [facility] Utilities Answer Date Recorded In the past 12 months has [employer], [employer], oil, or water [email or web address] threatened to shut off services in your [...] US OB ADVANCED LEVEL COSBY Exam Site: [facility] OB #126 Plurality: 1 OBHx: [...] Claudio, R.V.T., R.D.M.S. on 04/01/2024 12:03:53 PM. Winding Rack Operator: ??Tish Claudio, R.V.T., R.D.M.S. Thank You For This Referral Procedure Note Jaz Chahal M.D. - 04/01/2024 MORENA ALVARADO OB Exam, 04/01/2024 EXAM INFORMATION Patient Name: MORENA ALVARADO : 1985 Age: 38 yrs Sex: Female Ref Phys: NAOMI DAHL Exam Date: 04/01/2024 Procedure: US OB ADVANCED LEVEL COSBY Exam Site: [facility] OB #126 Plurality: 1 OBHx: [...] Tish Claudio R.VDiyaT., R.D.M.S. on 2:03:53 PM. Winding Rack Operator: Tish Claudio R.V.T., R.D.M.S. Thank You For This Referral Naomi ACEVES OB US AR OCEDURES documented in this encounter Visit Diagnoses Diagnosis Diabetes Mellitus Type 2 (HCC) Abnormal Ultrasound documented in this encounter
--- OUTSIDE RECORDS SUMMARY | 2024-06-29 07:29 | XMS_ITS | Clinical Summary ---
Author Organization [facility] Address [address] [place] [address]. [place] [address] Care Team Providers Care Radiographer Angiogram Name Role Phone No Ref-Primary, Physician Primary Care Provider Annika Ibrahim MD Unavailable [phone] Allergies No known active allergies Social [...] 132.1 cm (4' 4) 11/29/2020 4:53 PM GAME FARM SUPERVISOR Body Mass Index 30.11 11/29/2020 4:53 PM GAME FARM SUPERVISOR Plan of Treatment Health Maintenance Due Date [...] OBGCT (OB) 05/15/2024 COVID-19 Vaccine (3 - 2023-2 5 season) 2024 07/20/2021, 06/22/2021 INFLUENZA VACCINE (#1) [...] BASIC METABOLIC PANEL STAT 11/29/2020 8:35 PM GAME FARM SUPERVISOR from Last 3 Months or Most Recently Relevant to Health Maintenance Results * Basic metabolic panel (11/29/2020 8:35 PM GAME FARM SUPERVISOR) Sodium 138 133 - 144 mmol/L 11/29/2020 8:52 PM GAME FARM SUPERVISOR [facility] Potassium 3.8 3.4 - 5.3 mmol/L 11/29/2020 8:52 PM GAME FARM SUPERVISOR [facility] Chloride 107 94 - 109 mmol/L 11/29/2020 8:52 PM GAME FARM SUPERVISOR [facility] Carbon Dioxide 23 20 - 32 mmol/L 11/29/2020 8:[address] [facility] Anion Gap 8 3 - 14 mmol/L 11/29/2020 8:[address] [facility] Glucose 93 70 - 99 mg/dL 11/29/2020 8:59 PM [facility] Urea Nitrogen 16 7 - 30 mg/dL 11/29/2020 8:59 PM [facility] Creatinine 0.57 0.52 - 1.04 mg/dL 11/29/2020 8:59 PM [facility] GFR Estimate >90 >60 mL/min/{1. 73_m2} 11/29/2020 8:[address]OR [facility] Comment: Non GFR Calc Starting 09/23/2018, serum creatinine based estimated GFR (eGFR) will be calculated using the Chronic Kidney Disease Epidemiology Collaboration (CKD-EPI) equation. GFR Estimate If Black >90 >60 mL/min/{1. 73_m2} 11/29/2020 8:59 PM [facility] Comment: GFR Calc Starting 09/23/2018, serum creatinine based estimated GFR (eGFR) will be calculated using the Chronic Kidney Disease Epidemiology Collaboration (CKD-EPI) equation. Calcium 8.7 8.5 - 10.1 mg/dL 11/29/2020 8:59 PM [facility] 11/29/2020 8:35 PM GAME FARM SUPERVISOR 11/29/2020 8:40 PM GAME FARM SUPERVISOR Latricia Trinh MD LAB - BLOOD ORDERABL ES [facility] [address] [place] [address], [facility] [phone] [facility] [address] [place] [address], [facility] [phone] from Last 3 Months or Most Recently Relevant to Health Maintenance Care Teams Radiographer Angiogram Relationship Specialty Start Date End Date No Ref-Primary, Physician PCP - General 11/29/20 Annika Ibrahim MD [address] [address] [place] [address] Assigned OBGYN Provider 03/29/24
--- OUTSIDE RECORDS SUMMARY | 2024-06-29 07:29 | XMS_ITS | Encounter Summary ---
Author Organization [facility] Address [address] [place] [address] Care Team Providers Care Patternmaker Grader Name Role Phone Unavailable Primary Care Provider Unavailabl e Reason for Visit * Reason Onset Date Comments Left Without Being Seen 04/29/2024 * Outpatient (Routine) - Canceled Specialty Diagnoses / Procedures Referred By Jade t Referred To Contact Obstetrics and Gynecology Diagnoses Abnormal Ultrasound Bhaskar Colon M.B.B.S. [address] [place] [phone] [facility] Referral ID Status Reason Start Date Expiration Date V isits Requested Visits Authorized [id number] Canceled 04/01/2024 10/01/2025 1 1 Encounter Details Date Type Department Care Team (Latest Contact Info) Description 04/29/2024 3:00 PM CDT Comprehensive Visit Department of Obstetrics and Gynecology in [place], [place] [address] [place] [phone] Bhaskar Colon M.B.B.S. [address] [place] [phone] Lala Heredia M.S., [facility] [address] [place] [phone] Procedure And Treatment Not Carried Out Due To Patient Leaving Prior To Being Seen By Health Care Provider (Primary Dx); Abnormal Ultrasound Social History Tobacco Use Types Packs/Day Years Used Date Smoking Tobacco: Never Smokeless Tobacco: Never Alcohol Use Standard Drinks/Week Comments Not Currently 0 (1 standard drink = 0.6 oz pur e alcohol) [facility] Utilities Answer Date Recorded In the past [...] your living situation today? I have a [facility] place to live 03/31/2024 Estimated Date of Delivery Comme nts Yes 09/09/2024 Based on Ultraso und Sex and Gender Information Value Date Recorded Sex Assigned at Female 03/31/2024 9:51 PM CDT Gender Identity Female 03/31/2024 9:51 PM CDT Sexual Orientation Choose not to disclose 2023 9:51 PM CDT documented as of this encounter Progress Notes * Lala Heredia M.S., [facility] - 04/29/2024 3:00 PM CDT Mrs. Sangita [...]
== END 2024-06-29 07:27 | disposition home or self-care (01) ==
LOC: US 07:27
PROVIDERS: PCP Family Medicine; Visit Provider Obstetrics & Gynecology
DX: O24.119 Pre-existing type 2 diabetes mellitus, in pregnancy, unspecified trimester (principal); Z3A.30 30 weeks gestation of pregnancy
CPT/HCPCS: 76819

== ENCOUNTER 2024-07-06 10:12 | Outpatient (CLI) | payer OTHER, SELFPAY ==
--- OUTSIDE RECORDS SUMMARY | 2024-07-06 10:14 | XMS_ITS | Encounter Summary ---
Author Organization [facility] Address [address] [place] [address] Care Team Providers Care Electronics Parts Sales Representative Name Role Phone Unavailable Primary Care Provider Unavailabl e Reason for Visit * Outpatient (Routine) - Closed Specialty Diagnoses / Procedures Referred By Jade gonsales Referred To Contact Pediatric Cardiology Diagnoses Diabetes Mellitus Type 2 (HCC) Abnormal Ultrasound Bhaskar Colon M.B.B.S. [address] [place] [phone] [facility] Referral ID Status Reason Start Date Expiration Date Visits Re quested Visits Authorized [id number] Closed 04/29/2024 10/29/2025 1 1 Encounter Details Date Type Department Care Team (Latest Contact Info) Description 05/20/2024 9:00 AM CDT Comprehensive Visit Division of Pediatric Cardiology in [place], [place] [address] [place] [phone] Yosvany Murphy M.B.B.S. [address] [place] [phone] Encounter For Screening For Congenital Cardiac Abnormalities (HCC) (Primary Dx); Diabetes Mellitus Type 2 (HCC); Abnormal Ultrasound Social History Tobacco Use Types Packs/Day Years Used Date Smoking Tobacco: Never Smokeless Tobacco: Never Alcohol Use Standard Drinks/Week Comments Not Currently 0 (1 standard drink = 0.6 oz pur e alcohol) [facility] Utilities Answer Date Recorded In the past 12 months has [employer] electric, gas, oil, or water company threatened [...] your living situation today? I have a [facility] place to live 03/31/2024 Estimated Date [...] Murphy M.B.B.S. - 05/20/2024 9:00 AM CDT [facility] Cardiology Consultation Pino JohnsonB.S. Date of Consultation: 05/20/2024 Patient: Sangita Flor Date of : 1985, Age: 38 y.o. , CSN: [id number] Address: [address] [place] [address] Referral: Bhaskar Colon M.B.B.S. [address] [place] [address] SUBJECTIVE CHIEF COMPLAINT: cardiovascular screening. HISTORY OF [...]
--- OUTSIDE RECORDS SUMMARY | 2024-07-06 10:14 | XMS_ITS ---
Author Organization [facility] Address [address] [place] [address] Care Team Providers Care Rigging Worker Name Role Phone Unavailable Unavailable Unavailable Surgery Details Not on file Complications Check Surgery Details section. Procedure Estimated Blood Loss Check Surgery Details section. Procedure Findings Check Surgery Details section. Procedure Specimens Taken Check Surgery Details section.
--- OUTSIDE RECORDS SUMMARY | 2024-07-06 10:14 | XMS_ITS | Referral Summary ---
Author Organization [facility] Address [address] [place] [address] Care Team Providers Care Child Protection Specialist Name Role Phone Unavailable Primary Care Provider Unavailabl e Source Comments Patient records contain information from all sites at [facility]. For routine questions regarding patient records, call [phone] during business hours, M-F 8:00 AM - 5:00 PM Central Time. Record requests for emergency care only can be directed to [phone] at any time.[facility] Encounters Date Type Department Care Team Description 05/20/2024 9:00 AM CDT Comprehensive Visit Division of Pediatric Cardiology in [place], [place] [address] [place] [address] Yosvany Murphy M.B.B.S. Encounter For Screening For Congenital Cardiac Abnormalities (HCC) (Primary Dx); Diabetes Mellitus Type 2 (HCC); Abnormal Ultrasound 05/20/2024 7:11 AM CDT - 05/20/2024 11:59 PM CDT Hospital Encounter Department of Cardiovascular Diseases in [place], [place] [address] [place] [phone] Ino Colon M.B.B.S. Diabetes Mellitus Type 2 (HCC); Abnormal Ultrasound Discharge Disposition: Home or Self Care 04/29/2024 2:00 PM CDT Routine Department of Obstetrics and Gynecology in [place], [place] [address] [place] [address] Ino Colon M.B.B.S. Diabetes Mellitus Type 2 (HCC) (Primary Dx); Abnormal Ultrasound 04/29/2024 12:49 PM CDT - 04/29/2024 11:59 PM CDT Hospital Encounter Department of Obstetrics and Gynecology in [place], [place] [address] [place] [address] Ino Colon M.B.B.S. Abnormal Ultrasound Discharge Disposition: Home or Self Care 04/29/2024 3:00 PM CDT Comprehensive Visit Department of Obstetrics and Gynecology in [place], [place] [address] [place] [address] Ino Colon M.B.B.S. Lala Heredia M.S., [facility] Procedure And Treatment Not Carried Out Due To Patient Leaving Prior To Being Seen By Health Care Provider (Primary Dx); Abnormal Ultrasound from Last 3 Months Allergies No known [...] drink = 0.6 oz pur e alcohol) [facility] Utilities Answer Date Recorded In [...] your living situation today? I have a [facility] place to live 03/31/2024 Estimated [...] outpatients) 04/29/2024 4:27 PM CDT Abnormal Ultrasound from Last 3 Months Results * COSBY ECHO 2D WITH COLOR AND DOPPLER (05/20/2024 8:42 AM CDT) Ejection Fraction [facility] Anatomical Region Laterality Modality Echocardiography 05/20/2024 [...] complete report, see the Order-Level Documents. Ino Guo. CV ECHO PROCEDURES * US OB Follow-up and or Growth Cosby (04/29/2024 4:27 PM CDT) Anatomical Region Laterality Modality Body, Ultrasound OB RST LOS, Ultrasound ARZ LOS N/A Ultrasound Narrative 04/29/2024 4:27 PM CDT MORENA ALVARADO OB Exam, 04/29/2024 EXAM INFORMATION Patient Name: ??MORENA ALVARADO : ??1985 Age: ??38 yrs Sex: ??Female Ref Phys: ??KATYALEXGO ARAB Exam Date: 04/29/2024 Procedure: US OB FOLLOW-UP AND OR GROWTH COSBY Exam Site: [facility] OB #1 Plurality: 1 OBHx: [G:(3)] [...] Read by Tish Claudio, Kin, R.D.M.S. on 04/29/2024 2:17:32 PM. Preliminary Read by Tish Claudio R.V.T., R.Parisa.M.S. on 04/29/2024 2:23:24 PM. Customer Account Administrator: ??Tish Claudio R.V.T., R.Parisa.M.S. Thank You For This Referral Procedure Note Ino Colon M.B.B.S. - 04/29/2024 MORENA ALVARADO OB Exam, 04/29/2024 EXAM INFORMATION Patient Name: MORENA ALVARADO : 1985 Age: 38 yrs Sex: Female Ref Phys: INO COLON Exam Date: 04/29/2024 Procedure: US OB FOLLOW-UP AND OR GROWTH COSBY Exam Site: [facility] OB #1 Plurality: 1 OBHx: [G:(3)] [...] Tish Claudio R.V.T., R.D.M.S. on :23:24 PM. Customer Account Administrator: Tish Claudio R.V.T., R.Parisa.M.S. Thank You For This Referral Ino Robertson IMG OB US PROCEDUR ES from Last 3 Months
--- OUTSIDE RECORDS SUMMARY | 2024-07-06 10:14 | XMS_ITS | Encounter Summary ---
Author Organization [facility] Address [address] [place] [address] Care Team Providers Care Assistant Purchasing Manager Name Role Phone Unavailable Primary Care Provider Unavailabl e Reason for Referral * Outpatient (Routine) - Closed Specialty Diagnoses / Procedures Referred By Jade gonsales Referred To Contact Diagnoses Diabetes Mellitus Type 2 (HCC) Abnormal Ultrasound Procedures Echo Bhaskar Colon M.B.B.S. [address] [place] [phone] [facility] Referral ID Status Reason Start Date Expiration Date Visits Re quested Visits Authorized [id number] Closed 04/29/2024 04/29/2025 1 1 Reason for Visit * Outpatient (Routine) - Closed Specialty Diagnoses / Procedures Referred By Jade gonsales Referred To Contact Diagnoses Diabetes Mellitus Type 2 (HCC) Abnormal Ultrasound Procedures Echo Bhaskar Colon M.B.B.S. [address] [place] [phone] [facility] Referral ID Status Reason Start Date Expiration Date Visits Re quested Visits Authorized [id number] Closed 04/29/2024 04/29/2025 1 1 Encounter Details Date Type Department Care Team (Latest Contact Info) Description 05/20/2024 7:11 AM CDT - 05/20/2024 11:59 PM CDT Hospital Encounter Department of Cardiovascular Diseases in [place], [place] [address] [place] [phone] Bhaskar Colon M.B.BDiyaS. [address] [place] [address] Diabetes Mellitus Type 2 (HCC); Abnormal Ultrasound Discharge Disposition: Home or Self Care Social History Tobacco Use Types Packs/Day Years Used Date Smoking Tobacco: Never Smokeless Tobacco: Never Alcohol Use Standard Drinks/Week Comments Not Currently 0 (1 standard drink = 0.6 oz pur e alcohol) [facility] Utilities Answer Date Recorded In the past 12 months has e [employer], gas, oil, or water [employer] threatened to shut off services in your [...] your living situation today? I have a [facility] place to live 03/31/2024 Estimated Date [...]
--- OUTSIDE RECORDS SUMMARY | 2024-07-06 10:14 | XMS_ITS | Encounter Summary ---
Author Organization [facility] Address [address] [place] [address] Care Team Providers Care Service Desk Specialist Name Role Phone Unavailable Primary Care Provider Unavailabl e Reason for Referral * Outpatient (Routine) - Closed Specialty Diagnoses / Procedures Referred By Contac t Referred To Contact Diagnoses Diabetes Mellitus Type 2 (HCC) Abnormal Ultrasound Procedures Echo Bhaskar Colon M.B.B.S. [address] [place] [phone] [facility] Referral ID Status Reason Start Date Expiration Date Visits Re quested Visits Authorized [id number] Closed 04/29/2024 04/29/2025 1 1 * Outpatient (Routine) - Closed Specialty Diagnoses / Procedures Referred By Edac t Referred To Contact Pediatric Cardiology Diagnoses Diabetes Mellitus Type 2 (HCC) Abnormal Ultrasound Bhaskar Colon M.B.B.S. [address] [place] [phone] [facility] Referral ID Status Reason Start Date Expiration Date Visits Re quested Visits Authorized [id number] Closed 04/29/2024 10/29/2025 1 1 Reason for Visit * Outpatient (Routine) - Closed Specialty Diagnoses / Procedures Referred By Jade t Referred To Contact Obstetrics and Gynecology Bhaskar Colon M.B.B.S. [address] [place] [phone] [facility] Referral ID Status Reason Start Date Expiration Date Visits Re quested Visits Authorized [id number] Closed 04/01/2024 10/01/2025 1 1 Encounter Details Date Type Department Care Team (Latest Contact Info) Description 04/29/2024 2:00 PM CDT Routine Department of Obstetrics and Gynecology in [place], [place] [address] [place] [phone] Bhaskar Colon M.B.BDiyaS. [address] [place] [phone] Diabetes Mellitus Type 2 (HCC) (Primary Dx); Abnormal Ultrasound Social History Tobacco Use Types Packs/Day Years Used Date Smoking Tobacco: Never Smokeless Tobacco: Never Alcohol Use Standard Drinks/Week Comments Not Currently 0 (1 standard drink = 0.6 oz pur e alcohol) [facility] Utilities Answer Date Recorded In the past 12 months has [employer], gas, oil, or water [employer] threatened to shut off services in your [...] your living situation today? I have a [facility] place to live 03/31/2024 Estimated Date [...] scan, she declined to meet with the regional branch manager to discuss the need for any [...] DOPPLER (05/20/2024 8:42 AM CDT) Ejection Fraction [facility] Anatomical Region Laterality Modality Echocardiography 05/20/2024 7:12 [...]
--- OUTSIDE RECORDS SUMMARY | 2024-07-06 10:14 | XMS_ITS | Clinical Summary ---
Author Organization [facility] Address [address] [place] [address] Care Team Providers Care Servicenow Administrator Name Role Phone Unavailable Primary Care Provider Unavailabl e Source Comments Patient records contain information from all sites at [facility]. For routine questions regarding patient records, call [phone] during business hours, M-F 8:00 AM - 5:00 PM Central Time. Record requests for emergency care only can be directed to [phone] at any time.[facility] Allergies No known active allergies Medications [...] original. Delivery plan: chart: Care Team/nursing team: [facility]. CHEYANNE Colon Partner name: Pertinent medical [...] Comprehensive Visit Division of Pediatric Cardiology in [place], [place] [address] [place] [phone] Yosvany Murphy M.B.B.S. Encounter For Screening For Congenital Cardiac Abnormalities (HCC) (Primary Dx); Diabetes Mellitus Type 2 (HCC); Abnormal Ultrasound 05/20/2024 7:11 AM CDT - 05/20/2024 11:59 PM CDT Hospital Encounter Department of Cardiovascular Diseases in [address] [phone] Ino Colon M.B.B.S. Diabetes Mellitus Type 2 (HCC); Abnormal Ultrasound Discharge Disposition: Home or Self Care 04/29/2024 3:00 PM CDT Comprehensive Visit Department of Obstetrics and Gynecology in [address] [phone] Ino Colon M.B.B.S. Lala Heredia M.S., [facility] Procedure And Treatment Not Carried Out Due To Patient Leaving Prior To Being Seen By Health Care Provider (Primary Dx); Abnormal Ultrasound 04/29/2024 2:00 PM CDT Routine Department of Obstetrics and Gynecology in [place], [place] [address] [place] [phone] Ino Colon M.B.B.S. Diabetes Mellitus Type 2 (HCC) (Primary Dx); Abnormal Ultrasound 04/29/2024 12:49 PM CDT - 04/29/2024 11:59 PM CDT Hospital Encounter Department of Obstetrics and Gynecology in [place], [place] [address] [place] [address] Ino Colon M.B.B.S. Abnormal Ultrasound Discharge Disposition: Home or Self Care from Last 3 Months Social History Tobacco Use Types Packs/Day Years Used Date Smoking Tobacco: Never Smokeless Tobacco: Never Tobacco Cessation:Counseling Given: Not Answered Alcohol Use Standard Drinks/Week Comments Not Currently 0 (1 standard drink = 0.6 oz pur e alcohol) [facility] Utilities Answer Date Recorded In the past 12 months has th e electric, gas, oil, or water company [...] your living situation today? I have a [facility] place to live 03/31/2024 Estimated [...] (Annual PHQ-2) 10/07/2023 COVID-19 Vaccine (3 - 2023-2 5 season) 2024 07/20/2021, 06/22/2021 Influenza Vaccine (#1) [...] OB Exam, 04/29/2024 EXAM INFORMATION Patient Name: ??KADE SOCORROMORENA CARLTON : ??1985 Age: ??38 yrs Sex: ??Female Ref Phys: ??INO COLON Exam Date: 04/29/2024 Procedure: US OB FOLLOW-UP AND OR GROWTH COSBY Exam Site: [facility] OB #1 Plurality: 1 OBHx: [G:(3)] [...] Claudio R.VDiyaTDiya, R.D.M.S. on 04/29/2024 2:23:24 PM. Ship Superintendent: ??Tish Claudio R.V.T., R.Parisa.M.S. Thank You For This Referral Procedure Note Ino Colon M.B.B.S. - 04/29/2024 MORENA ALVARADO OB Exam, 04/29/2024 EXAM INFORMATION Patient Name: MORENA ALVARADO : 1985 Age: 38 yrs Sex: Female Ref Phys: INO COLON Exam Date: 04/29/2024 Procedure: US OB FOLLOW-UP AND OR GROWTH COSBY Exam Site: [facility] OB #1 Plurality: 1 OBHx: [G:(3)] [...] Read by Tish Claudio, R.V.T., R.D.M.S. on :17:32 PM. Preliminary Read by Tish Claudio R.V.T., JoanM.S. on :23:24 PM. Ship Superintendent: Tish Claudio R.V.T., [place]. Thank You For This Referral Ino Robertson IMG OB US PROCEDUR ES from Last 3 Months
--- NOTE | 2024-07-06 10:15 | CRLHL7_ITS ---
For Patients: As a result of the Century Cures Act, medical imaging exams and procedure reports are released immediately into your electronic medical record. You may view this report before your referring provider. If you have questions, please contact your health care provider. INDICATION: Pre-existing type 2 diabetes COMPARISON: 06/29/2024 TECHNIQUE: Real time alexandra scale imaging of the fetus was performed. Without non-stress testing. FINDINGS: Sonographic imaging demonstrates a single living intrauterine gestation. Fetus demonstrates a regular cardiac rate of 161 beats per minute. Fetus has a breech position. The amniotic fluid volume appears normal and there is a single deepest pocket measurement of 4.6 cm. The fetus was active and demonstrated normal breathing movements. There was normal flexion and extension of the trunk and extremities. IMPRESSION: Normal biophysical profile score of 8 out of 8. Dictated by Jersey Bunch MD @ 07/06/2024 11:12:25 AM (Electronically Signed)
--- OUTSIDE RECORDS SUMMARY | 2024-07-06 10:15 | XMS_ITS | Referral Summary ---
Author Organization [facility] Address [address] [place] [address]. [place] [address] Care Team Providers Care Senior Radiation Protection Technician Name Role Phone No Ref-Primary, Physician Primary Care Provider Annika Ibrahim MD Unavailable [phone] Allergies No known active allergies Social [...] 132.1 cm (4' 4) 11/29/2020 4:53 PM RADIATOR MECHANIC Body Mass Index 30.11 11/29/2020 4:53 PM RADIATOR MECHANIC Plan of Treatment Not on file Procedures Procedure Name Priority Date/Time Associated Diagnosis Comments BASIC METABOLIC PANEL STAT 11/29/2020 8:35 PM RADIATOR MECHANIC from Last 3 Months or Most Recently Relevant to Health Maintenance Results * Basic metabolic panel (11/29/2020 8:35 PM RADIATOR MECHANIC) Sodium 138 133 - 144 mmol/L 11/29/2020 8:52 PM [facility] Potassium 3.8 3.4 - 5.3 mmol/L 11/29/2020 8:52 PM [facility] Chloride 107 94 - 109 mmol/L 11/29/2020 8:52 PM [facility] Carbon Dioxide 23 20 - 32 mmol/L 11/29/2020 8:[address] [facility] Anion Gap 8 3 - 14 mmol/L 11/29/2020 8:[address] [facility] Glucose 93 70 - 99 mg/dL 11/29/2020 8:[address] [facility] Urea Nitrogen 16 7 - 30 mg/dL 11/29/2020 8:[address] [facility] Creatinine 0.57 0.52 - 1.04 mg/dL 11/29/2020 8:[address] [facility] GFR Estimate >90 >60 mL/min/{1. 73_m2} 11/29/2020 8:[address] [facility] Comment: Non GFR Calc Starting 09/23/2018, serum creatinine based estimated GFR (eGFR) will be calculated using the Chronic Kidney Disease Epidemiology Collaboration (CKD-EPI) equation. GFR Estimate If Black >90 >60 mL/min/{1. 73_m2} 11/29/2020 8:[address] [facility] Comment: GFR Calc Starting 09/23/2018, serum creatinine based estimated GFR (eGFR) will be calculated using the Chronic Kidney Disease Epidemiology Collaboration (CKD-EPI) equation. Calcium 8.7 8.5 - 10.1 mg/dL 11/29/2020 8:[address] [facility] 11/29/2020 8:35 PM RADIATOR MECHANIC 11/29/2020 8:40 PM RADIATOR MECHANIC Latricia Trinh MD LAB - BLOOD ORDERABL ES [facility] [address] [address], [facility] [phone] [facility] [address] [place] [address], [facility] [phone] from Last 3 Months or Most Recently Relevant to Health Maintenance Care Teams Senior Radiation Protection Technician Relationship Specialty Start Date End Date No Ref-Primary, Physician PCP - General 11/29/20 Annika Ibrahim MD [address] [address] Assigned OBGYN Provider 03/29/24
--- OUTSIDE RECORDS SUMMARY | 2024-07-06 10:15 | XMS_ITS | Encounter Summary ---
Author Organization [facility] Address [address] [place] [address] Care Team Providers Care Terminal Gauger Name Role Phone Unavailable Primary Care Provider Unavailabl e Encounter Details Date Type Department Care Team (Latest Contact Info) Description 04/29/2024 12:49 PM CDT - 04/29/2024 11:59 PM CDT Hospital Encounter Department of Obstetrics and Gynecology in [place], [place] [address] [place] [phone] Ino Colon M.B.B.S. [address] [place] [phone] Abnormal Ultrasound Discharge Disposition: Home or Self Care Social History Tobacco Use Types Packs/Day Years Used Date Smoking Tobacco: Never Smokeless Tobacco: Never Alcohol Use Standard Drinks/Week Comments Not Currently 0 (1 standard drink = 0.6 oz pur e alcohol) [facility] Utilities Answer Date Recorded In the past 12 months has [employer], oil, or water [employer] threatened to shut off services in your [...] living situation today? I have a [facility] place to live 03/31/2024 Estimated Date [...] FOLLOW-UP AND OR GROWTH COSBY Exam Site: [facility] OB #1 Plurality: 1 OBHx: [...] Claudio R.V.T., R.D.M.S. on 04/29/2024 2:23:24 PM. Band Saw Operator: ??Tish Claudio R.V.T., R.D.M.S. Thank You For This Referral Procedure Note Ino Colon M.B.B.S. - 04/29/2024 MORENA ALVARADO OB Exam, 04/29/2024 EXAM INFORMATION Patient Name: MORENA ALVARADO : 1985 Age: 38 yrs Sex: Female Ref Phys: INO COLON Exam Date: 04/29/2024 Procedure: US OB FOLLOW-UP AND OR GROWTH COSBY Exam Site: [facility] OB #1 Plurality: 1 OBHx: [...] Tish Claudio R.V.T., Mirta.S. on :23:24 PM. Band Saw Operator: Tish Claudio R.V.T., JuanitoSDiya Thank You For This Referral Ino Robertson IMG OB US PROCEDUR ES documented in this encounter Visit Diagnoses Diagnosis Abnormal Ultrasound documented in this encounter
--- OUTSIDE RECORDS SUMMARY | 2024-07-06 10:15 | XMS_ITS | Clinical Summary ---
Author Organization [facility] Address [address] [place] [address]. [place] [address] Care Team Providers Care Superior Court Judge Name Role Phone No Ref-Primary, Physician Primary Care Provider Annika Ibrahim MD Unavailable [phone] Allergies No known active allergies Social [...] 132.1 cm (4' 4) 11/29/2020 4:53 PM BLOOD BANK ATTENDANT Body Mass Index 30.11 11/29/2020 4:53 PM BLOOD BANK ATTENDANT Plan of Treatment Health Maintenance Due Date [...] BASIC METABOLIC PANEL STAT 11/29/2020 8:35 PM BLOOD BANK ATTENDANT from Last 3 Months or Most Recently Relevant to Health Maintenance Results * Basic metabolic panel (11/29/2020 8:35 PM BLOOD BANK ATTENDANT) Sodium 138 133 - 144 mmol/L 11/29/2020 8:52 PM BLOOD BANK ATTENDANT [facility] Potassium 3.8 3.4 - 5.3 mmol/L 11/29/2020 8:52 PM BLOOD BANK ATTENDANT [facility] Chloride 107 94 - 109 mmol/L 11/29/2020 8:52 PM BLOOD BANK ATTENDANT [facility] Carbon Dioxide 23 20 - 32 mmol/L 11/29/2020 8:59 [address] [facility] Anion Gap 8 3 - 14 mmol/L 11/29/2020 8:59 [address] [facility] Glucose 93 70 - 99 mg/dL 11/29/2020 8:59 PM [facility] Urea Nitrogen 16 7 - 30 mg/dL 11/29/2020 8:59 PM [facility] Creatinine 0.57 0.52 - 1.04 mg/dL 11/29/2020 8:59 PM [facility] GFR Estimate >90 >60 mL/min/{1. 73_m2} 11/29/2020 8:[address] [facility] Comment: Non GFR Calc Starting 09/23/2018, serum creatinine based estimated GFR (eGFR) will be calculated using the Chronic Kidney Disease Epidemiology Collaboration (CKD-EPI) equation. GFR Estimate If Black >90 >60 mL/min/{1. 73_m2} 11/29/2020 8:59 PM [facility] Comment: GFR Calc Starting 09/23/2018, serum creatinine based estimated GFR (eGFR) will be calculated using the Chronic Kidney Disease Epidemiology Collaboration (CKD-EPI) equation. Calcium 8.7 8.5 - 10.1 mg/dL 11/29/2020 8:59 PM [facility] 11/29/2020 8:35 PM BLOOD BANK ATTENDANT 11/29/2020 8:40 PM BLOOD BANK ATTENDANT Latricia Trinh MD LAB - BLOOD ORDERABL ES [facility] [address] [place] [address], [facility] [phone] [facility] [address] [place] [address], [facility] [phone] from Last 3 Months or Most Recently Relevant to Health Maintenance Care Teams Superior Court Judge Relationship Specialty Start Date End Date No Ref-Primary, Physician PCP - General 11/29/20 Annika Ibrahim MD [address] [address] [place] [address] Assigned OBGYN Provider 03/29/24
--- OUTSIDE RECORDS SUMMARY | 2024-07-06 10:15 | XMS_ITS | Encounter Summary ---
Author Organization [facility] Address [address] [place] [address] Care Team Providers Care Pathology Supervisor Name Role Phone Unavailable Primary Care Provider Unavailabl e Reason for Visit * Reason Onset Date Comments Left Without Being Seen 04/29/2024 * Outpatient (Routine) - Canceled Specialty Diagnoses / Procedures Referred By Jade t Referred To Contact Obstetrics and Gynecology Diagnoses Abnormal Ultrasound Bhaskar Colon M.B.B.S. [address] [place] [phone] [facility] Referral ID Status Reason Start Date Expiration Date V isits Requested Visits Authorized [id number] Canceled 04/01/2024 10/01/2025 1 1 Encounter Details Date Type Department Care Team (Latest Contact Info) Description 04/29/2024 3:00 PM CDT Comprehensive Visit Department of Obstetrics and Gynecology in [place], [place] [address] [place] [phone] Bhaskar Colon M.B.B.S. [address] [place] [phone] Lala Heredia M.S., [facility] [address] [place] [phone] Procedure And Treatment Not Carried Out Due To Patient Leaving Prior To Being Seen By Health Care Provider (Primary Dx); Abnormal Ultrasound Social History Tobacco Use Types Packs/Day Years Used Date Smoking Tobacco: Never Smokeless Tobacco: Never Alcohol Use Standard Drinks/Week Comments Not Currently 0 (1 standard drink = 0.6 oz pur e alcohol) [facility] Utilities Answer Date Recorded In [...] your living situation today? I have a [facility] place to live 03/31/2024 Estimated Date of Delivery Comme nts Yes 09/09/2024 Based on Ultraso und Sex and Gender Information Value Date Recorded Sex Assigned at Female 03/31/2024 9:51 PM CDT Gender Identity Female 03/31/2024 9:51 PM CDT Sexual Orientation Choose not to disclose 2023 9:51 PM CDT documented as of this encounter Progress Notes * Lala Heredia M.S., [facility] - 04/29/2024 3:00 PM CDT Mrs. Sangita [...]
--- OUTSIDE RECORDS SUMMARY | 2024-07-06 10:15 | XMS_ITS | Encounter Summary ---
Author Organization [facility] Address [address] [place] [address] Care Team Providers Care Consolidator Name Role Phone Unavailable Primary Care Provider Unavailabl e Reason for Referral * Outpatient (Routine) - Closed Specialty Diagnoses / Procedures Referred By Jade gonsales Referred To Contact Obstetrics and Gynecology Bhaskar Colon M.B.B.S. [address] [place] [phone] [facility] Referral ID Status Reason Start Date Expiration Date Visits Re quested Visits Authorized [id number] Closed 04/01/2024 10/01/2025 1 1 Reason for Visit * Appointment Request (Routine) - Authorized Specialty Diagnoses / Procedures Referred By Jade gonsales Referred To Contact Maternal and Medicine Diagnoses Maternal Care For Suspected Abnormality And Damage Single Gestation (HCC) Amanda Faith M.D. [address] [place] [address] Referral ID Status Reason Start Date Expiration Date V isits Requested Visits Authorized [id number] Authorized 03/03/2024 03/03/2025 2 2 Encounter Details Date Type Department Care Team (Latest Contact Info) Description 04/01/2024 1:00 PM CDT Routine Department of Obstetrics and Gynecology in [place], [place] [address] [place] [phone] Bhaskar Colon M.B.B.S. [address] [place] [phone] Abnormal Ultrasound (Primary Dx) Social History Tobacco Use Types Packs/Day Years Used Date Smoking Tobacco: Never Smokeless Tobacco: Never Tobacco Cessation:Counseling Given: Not Answered Alcohol Use Standard Drinks/Week Comments Not Currently 0 (1 standard drink = 0.6 oz pur e alcohol) [facility] Utilities Answer Date Recorded In the [...] your living situation today? I have a [facility] place to live 03/31/2024 Estimated Date [...] being referred by Dr. 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 Increased NT with Normal NIPT. She was seen at [facility] for [facility] consult regarding type 2 DM, AMA, classical [...] and suggest a specific diagnosis. For example, Shanelel syndrome, multiple pterygium syndrome, Cedillo syndrome, Durham de Anderson syndrome, congenital adrenal hyperplasia, spinal muscular atrophy, DiGeorge syndrome, Qbpdo-Ofybt-Xyowe syndrome, and a variety of skeletal dysplasias [...] scheduled in 4 weeks. Return visit to [facility] after ultrasound. 3. echo ultrasound to rule [...]
--- OUTSIDE RECORDS SUMMARY | 2024-07-06 10:15 | XMS_ITS | Encounter Summary ---
Author Organization [facility] Address [address] [place] [address] Care Team Providers Care Ladies' Locker Room Attendant Name Role Phone Unavailable Primary Care Provider Unavailabl e Encounter Details Date Type Department Care Team (Latest Contact Info) Description 04/01/2024 11:03 AM CDT - 04/01/2024 11:59 PM CDT Hospital Encounter Department of Obstetrics and Gynecology in [place], [place] [address] [place] [phone] Naomi Dahl M.D. [address] [place] [phone] Diabetes Mellitus Type 2 (HCC); Abnormal Ultrasound Discharge Disposition: Home or Self Care Social History Tobacco Use Types Packs/Day Years Used Date Smoking Tobacco: Never Smokeless Tobacco: Never Alcohol Use Standard Drinks/Week Comments Not Currently 0 (1 standard drink = 0.6 oz pur e alcohol) [facility] Utilities Answer Date Recorded In the past 12 months has [employer], [employer], oil, or water [email or web address] threatened to shut off services in your [...] your living situation today? I have a [facility] place to live 03/31/2024 Estimated [...] EXAM INFORMATION Patient Name: ??KADE SOCORRO MORENA JSAS : ??1985 Age: ??38 yrs Sex: ??Female Ref Phys: ??NAOMI DAHL Exam Date: 04/01/2024 Procedure: US OB ADVANCED LEVEL COSBY Exam Site: [facility] Plurality: 1 OBHx: [G:(3)] ?F [...] Claudio, R.V.T., R.D.M.S. on 04/01/2024 12:03:53 PM. President & Ceo [employer]: ??Tish Claudio, R.V.T., R.D.M.S. Thank You For This Referral Procedure Note Jaz Chahal M.D. - 04/01/2024 MORENA ALVARADO OB Exam, 04/01/2024 EXAM INFORMATION Patient Name: MORENA ALVARADO : 1985 Age: 38 yrs Sex: Female Ref Phys: NAOMI DAHL Exam Date: 04/01/2024 Procedure: US OB ADVANCED LEVEL COSBY Exam Site: [facility] Plurality: 1 OBHx: [G:(3)] F [...] Tish Claudio R.VDiyaT., R.D.M.S. on 2:03:53 PM. President & Ceo [employer]: Tish Claudio R.V.T., R.D.M.S. Thank You For This Referral Naomi ACEVES OB US AR OCEDURES documented in this encounter Visit Diagnoses Diagnosis Diabetes Mellitus Type 2 (HCC) Abnormal Ultrasound documented in this encounter
== END 2024-07-06 10:13 | disposition home or self-care (01) ==
LOC: US 10:12
PROVIDERS: PCP Family Medicine; Visit Provider Obstetrics & Gynecology
DX: O24.119 Pre-existing type 2 diabetes mellitus, in pregnancy, unspecified trimester (principal)
CPT/HCPCS: 76819

== ENCOUNTER 2024-07-13 07:29 | Outpatient (CLI) | payer OTHER, SELFPAY ==
--- NOTE | 2024-07-13 07:15 | CRLHL7_ITS ---
For Patients: As a result of the Century Cures Act, medical imaging exams and procedure reports are released immediately into your electronic medical record. You may view this report before your referring provider. If you have questions, please contact your health care provider. INDICATION: type 2 diabetes TECHNIQUE: Real time alexandra scale imaging of the fetus was performed. COMPARISON: 07/06/2024 FINDINGS: Sonographic imaging demonstrates a single living intrauterine gestation. Fetus demonstrates a regular cardiac rate of 149 beats per minute. Fetus has a transverse position, head maternal right. The placenta lies posteriorly. Amniotic fluid volume appears normal and there is a single deepest pocket of 4.2 cm. The estimated weight is 1938gm which lies at the 35th %. On the prior OB ultrasound dated 06/15/2024 the estimated weight was at the 12th percentile. BPD 81st percentile. HC 59th percentile. AC 85th percentile. FL less than 3rd percentile. The fetus was active and demonstrated normal breathing movements. There was normal flexion and extension of the trunk and extremities. IMPRESSION: Normal biophysical profile score 8/8. Sonographic gestational age 31 weeks 4 days and sonographic due date of 09/10/2024. Sonographic age 6 days behind the clinical age. Estimated weight 35th percentile. Abdominal circumference 85th percentile. FL less than 3rd percentile. Dictated by Jersey Bunch MD @ 07/13/2024 9:41:32 AM (Electronically Signed)
--- OUTSIDE RECORDS SUMMARY | 2024-07-13 07:32 | XMS_ITS | Clinical Summary ---
Author Organization [facility] Address [address] [place] [address] Care Team Providers Care Supervisor [employer] Name Role Phone Unavailable Primary Care Provider Unavailabl e Source Comments Patient records contain information from all sites at [facility]. For routine questions regarding patient records, call [phone] during business hours, M-F 8:00 AM - 5:00 PM Central Time. Record requests for emergency care only can be directed to [phone] at any time.[facility] Allergies No known active allergies Medications Medication [...] original. Delivery plan: chart: Care Team/nursing team: [facility]. CHEYANNE Colon Partner name: Pertinent medical issues [...] Comprehensive Visit Division of Pediatric Cardiology in [place], [place] [address] [place] [phone] Yosvany Murphy M.B.B.S. Encounter For Screening For Congenital Cardiac Abnormalities (HCC) (Primary Dx); Diabetes Mellitus Type 2 (HCC); Abnormal Ultrasound 05/20/2024 7:11 AM CDT - 05/20/2024 11:59 PM CDT Hospital Encounter Department of Cardiovascular Diseases in [address] [phone] Ino Colon M.B.B.S. Diabetes Mellitus Type 2 (HCC); Abnormal Ultrasound Discharge Disposition: Home or Self Care 04/29/2024 3:00 PM CDT Comprehensive Visit Department of Obstetrics and Gynecology in [address] [phone] Ino Colon M.B.B.S. Lala Heredia M.S., [facility] Procedure And Treatment Not Carried Out Due To Patient Leaving Prior To Being Seen By Health Care Provider (Primary Dx); Abnormal Ultrasound 04/29/2024 2:00 PM CDT Routine Department of Obstetrics and Gynecology in [place], [place] [address] [place] [phone] Ino Colon M.B.B.S. Diabetes Mellitus Type 2 (HCC) (Primary Dx); Abnormal Ultrasound 04/29/2024 12:49 PM CDT - 04/29/2024 11:59 PM CDT Hospital Encounter Department of Obstetrics and Gynecology in [place], [place] [address] [place] [phone] Ino Colon M.B.B.S. Abnormal Ultrasound Discharge Disposition: Home or Self Care from Last 3 Months Social History Tobacco Use Types Packs/Day Years Used Date Smoking Tobacco: Never Smokeless Tobacco: Never Tobacco Cessation:Counseling Given: Not Answered Alcohol Use Standard Drinks/Week Comments Not Currently 0 (1 standard drink = 0.6 oz pur e alcohol) [facility] Utilities Answer Date Recorded In the [...] your living situation today? I have a [facility] place to live 03/31/2024 Estimated Date of [...] OR GROWTH COSBY Exam Site: [facility] Plurality: 1 OBHx: [G:(3)] [...] Claudio R.VDiyaTDiya, R.D.M.S. on 04/29/2024 2:23:24 PM. Guest Service Supervisor: ??Tish Claudio R.V.T., R.Parisa.M.S. Thank You For This Referral Procedure Note Ino Colon M.B.B.S. - 04/29/2024 MORENA ALVARADO OB Exam, 04/29/2024 EXAM INFORMATION Patient Name: MORENA ALVARADO : 1985 Age: 38 yrs Sex: Female Ref Phys: INO COLON Exam Date: 04/29/2024 Procedure: US OB FOLLOW-UP AND OR GROWTH COSBY Exam Site: [facility] Plurality: 1 OBHx: [G:(3)] [...] Tish Claudio R.V.T., JoanM.S. on :23:24 PM. Guest Service Supervisor: Tish Claudio R.V.T., [place]. Thank You For This Referral Ino Robertson IMG OB US PROCEDUR ES from Last 3 Months
--- OUTSIDE RECORDS SUMMARY | 2024-07-13 07:33 | XMS_ITS | Referral Summary ---
Author Organization [facility] Address [address] [place] [address]. [place] [address] Care Team Providers Care Food Assembler Name Role Phone No Ref-Primary, Physician Primary Care Provider Annika Ibrahim MD Unavailable [phone] Allergies No known active allergies Social [...] 132.1 cm (4' 4) 11/29/2020 4:53 PM DISPLAY DIRECTOR Body Mass Index 30.11 11/29/2020 4:53 PM DISPLAY DIRECTOR Plan of Treatment Not on file Procedures Procedure Name Priority Date/Time Associated Diagnosis Comments BASIC METABOLIC PANEL STAT 11/29/2020 8:35 PM DISPLAY DIRECTOR from Last 3 Months or Most Recently Relevant to Health Maintenance Results * Basic metabolic panel (11/29/2020 8:35 PM DISPLAY DIRECTOR) Sodium 138 133 - 144 mmol/L 11/29/2020 8:52 PM [facility] Potassium 3.8 3.4 - 5.3 mmol/L 11/29/2020 8:52 PM [facility] Chloride 107 94 - 109 mmol/L 11/29/2020 8:52 PM [facility] Carbon Dioxide 23 20 - 32 mmol/L 11/29/2020 8:[address] [facility] Anion Gap 8 3 - 14 mmol/L 11/29/2020 8:[address] [facility] Glucose 93 70 - 99 mg/dL 11/29/2020 8:[address] [facility] Urea Nitrogen 16 7 - 30 mg/dL 11/29/2020 8:[address] [facility] Creatinine 0.57 0.52 - 1.04 mg/dL 11/29/2020 8:[address] [facility] GFR Estimate >90 >60 mL/min/{1. 73_m2} 11/29/2020 8:[address] [facility] Comment: Non GFR Calc Starting 09/23/2018, serum creatinine based estimated GFR (eGFR) will be calculated using the Chronic Kidney Disease Epidemiology Collaboration (CKD-EPI) equation. GFR Estimate If Black >90 >60 mL/min/{1. 73_m2} 11/29/2020 8:[address] [facility] Comment: GFR Calc Starting 09/23/2018, serum creatinine based estimated GFR (eGFR) will be calculated using the Chronic Kidney Disease Epidemiology Collaboration (CKD-EPI) equation. Calcium 8.7 8.5 - 10.1 mg/dL 11/29/2020 8:[address] [facility] 11/29/2020 8:35 PM DISPLAY DIRECTOR 11/29/2020 8:40 PM DISPLAY DIRECTOR Latricia Trinh MD LAB - BLOOD ORDERABL ES [facility] [address] [address], [facility] [phone] [facility] [address] [place] [address], [facility] [phone] from Last 3 Months or Most Recently Relevant to Health Maintenance Care Teams Food Assembler Relationship Specialty Start Date End Date No Ref-Primary, Physician PCP - General 11/29/20 Annika Ibrahim MD [address] [address] Assigned OBGYN Provider 03/29/24
--- OUTSIDE RECORDS SUMMARY | 2024-07-13 07:33 | XMS_ITS | Encounter Summary ---
Author Organization [facility] Address [address] [place] [address] Care Team Providers Care Tool Engine Lathe Set Up Operator Name Role Phone Unavailable Primary Care Provider Unavailabl e Reason for Referral * Outpatient (Routine) - Closed Specialty Diagnoses / Procedures Referred By Jade gonsales Referred To Contact Diagnoses Diabetes Mellitus Type 2 (HCC) Abnormal Ultrasound Procedures Echo Bhaskar Colon M.B.B.S. [address] [place] [phone] [facility] Referral ID Status Reason Start Date Expiration Date Visits Re quested Visits Authorized [id number] Closed 04/29/2024 04/29/2025 1 1 Reason for Visit * Outpatient (Routine) - Closed Specialty Diagnoses / Procedures Referred By Jade gonsales Referred To Contact Diagnoses Diabetes Mellitus Type 2 (HCC) Abnormal Ultrasound Procedures Echo Bhaskar Colon M.B.B.S. [address] [place] [phone] [facility] Referral ID Status Reason Start Date Expiration Date Visits Re quested Visits Authorized [id number] Closed 04/29/2024 04/29/2025 1 1 Encounter Details Date Type Department Care Team (Latest Contact Info) Description 05/20/2024 7:11 AM CDT - 05/20/2024 11:59 PM CDT Hospital Encounter Department of Cardiovascular Diseases in [place], [place] [address] [place] [phone] Bhaskar Colon M.B.BDiyaS. [address] [place] [phone] Diabetes Mellitus Type 2 (HCC); Abnormal Ultrasound Discharge Disposition: Home or Self Care Social History Tobacco Use Types Packs/Day Years Used Date Smoking Tobacco: Never Smokeless Tobacco: Never Alcohol Use Standard Drinks/Week Comments Not Currently 0 (1 standard drink = 0.6 oz pur e alcohol) [facility] Utilities Answer Date Recorded In the past 12 months has e [employer], gas, oil, or water [employer] threatened to shut off services in your [...] your living situation today? I have a [facility] place to live 03/31/2024 Estimated [...] AM CDT) Ejection Fraction [facility] Anatomical Region Laterality Modality Echocardiography 05/20/2024 [...]
--- OUTSIDE RECORDS SUMMARY | 2024-07-13 07:33 | XMS_ITS | Encounter Summary ---
Author Organization [facility] Address [address] [place] [address] Care Team Providers Care Bias Binding Folder Name Role Phone Unavailable Primary Care Provider Unavailabl e Reason for Visit * Reason Onset Date Comments Left Without Being Seen 04/29/2024 * Outpatient (Routine) - Canceled Specialty Diagnoses / Procedures Referred By Jade t Referred To Contact Obstetrics and Gynecology Diagnoses Abnormal Ultrasound Bhaskar Colon M.B.B.S. [address] [place] [phone] [facility] Referral ID Status Reason Start Date Expiration Date V isits Requested Visits Authorized [id number] Canceled 04/01/2024 10/01/2025 1 1 Encounter Details Date Type Department Care Team (Latest Contact Info) Description 04/29/2024 3:00 PM CDT Comprehensive Visit Department of Obstetrics and Gynecology in [place], [place] [address] [place] [phone] Bhaskar Colon M.B.B.S. [address] [place] [phone] Lala Heredia M.S., [facility] [address] [place] [phone] Procedure And Treatment Not Carried Out Due To Patient Leaving Prior To Being Seen By Health Care Provider (Primary Dx); Abnormal Ultrasound Social History Tobacco Use Types Packs/Day Years Used Date Smoking Tobacco: Never Smokeless Tobacco: Never Alcohol Use Standard Drinks/Week Comments Not Currently 0 (1 standard drink = 0.6 oz pur e alcohol) [facility] Utilities Answer Date Recorded In the [...] encounter Progress Notes * Lala Heredia M.S., [facility] - 04/29/2024 3:00 PM [...]
--- OUTSIDE RECORDS SUMMARY | 2024-07-13 07:33 | XMS_ITS | Referral Summary ---
Author Organization [facility] Address [address] [place] [address] Care Team Providers Care Bellmaker Name Role Phone Unavailable Primary Care Provider Unavailabl e Source Comments Patient records contain information from all sites at [facility]. For routine questions regarding patient records, call [phone] during business hours, M-F 8:00 AM - 5:00 PM Central Time. Record requests for emergency care only can be directed to [phone] at any time.[facility] Encounters Date Type Department Care Team Description 05/20/2024 9:00 AM CDT Comprehensive Visit Division of Pediatric Cardiology in [place], [place] [address] [place] [phone] Yosvany Murphy M.B.B.S. Encounter For Screening For Congenital Cardiac Abnormalities (HCC) (Primary Dx); Diabetes Mellitus Type 2 (HCC); Abnormal Ultrasound 05/20/2024 7:11 AM CDT - 05/20/2024 11:59 PM CDT Hospital Encounter Department of Cardiovascular Diseases in [place], [place] [address] [place] [phone] Ino Colon M.B.B.S. Diabetes Mellitus Type 2 (HCC); Abnormal Ultrasound Discharge Disposition: Home or Self Care 04/29/2024 2:00 PM CDT Routine Department of Obstetrics and Gynecology in [place], [place] [address] [place] [address] Ino Colon M.B.B.S. Diabetes Mellitus Type 2 (HCC) (Primary Dx); Abnormal Ultrasound 04/29/2024 12:49 PM CDT - 04/29/2024 11:59 PM CDT Hospital Encounter Department of Obstetrics and Gynecology in [place], [place] [address] [place] [phone] Ino Colon M.B.B.S. Abnormal Ultrasound Discharge Disposition: Home or Self Care 04/29/2024 3:00 PM CDT Comprehensive Visit Department of Obstetrics and Gynecology in [place], [place] [address] [place] [phone] Ino Colon M.B.B.S. Lala Heredia M.S., [facility] Procedure And Treatment Not Carried Out Due [...] original. Delivery plan: chart: Care Team/nursing team: [facility]. CHEYANNE Colon Partner name: Pertinent medical [...] drink = 0.6 oz pur e alcohol) [facility] Utilities Answer Date Recorded In the [...] your living situation today? I have a [facility] place to live 03/31/2024 Estimated [...] DOPPLER (05/20/2024 8:42 AM CDT) Ejection Fraction [facility] Anatomical Region Laterality Modality Echocardiography [...] OR GROWTH COSBY Exam Site: [facility] Plurality: 1 OBHx: [G:(3)] [...] Claudio R.V.T., R.Parisa.M.S. on 04/29/2024 2:23:24 PM. Card Grinder: ??Tish Claudio R.V.T., R.Parisa.M.S. Thank You For This Referral Procedure Note Ino Colon M.B.B.S. - 04/29/2024 MORENA ALVARADO OB Exam, 04/29/2024 EXAM INFORMATION Patient Name: MORENA ALVARADO : 1985 Age: 38 yrs Sex: Female Ref Phys: INO COLON Exam Date: 04/29/2024 Procedure: US OB FOLLOW-UP AND OR GROWTH COSBY Exam Site: [facility] #1 Plurality: 1 OBHx: [G:(3)] [...] Tish Claudio R.V.T., R.D.M.S. on :23:24 PM. Card Grinder: Tish Claudio R.V.T., R.Parisa.M.S. Thank You For This Referral Ino Robertson IMG OB US PROCEDUR ES from Last 3 Months
--- OUTSIDE RECORDS SUMMARY | 2024-07-13 07:33 | XMS_ITS | Encounter Summary ---
Author Organization [facility] Address [address] [place] [address] Care Team Providers Care Adding Machine Operator Name Role Phone Unavailable Primary Care Provider Unavailabl e Reason for Referral * Outpatient (Routine) - Closed Specialty Diagnoses / Procedures Referred By Contac t Referred To Contact Diagnoses Diabetes Mellitus Type 2 (HCC) Abnormal Ultrasound Procedures Echo Bhaskar Colon M.B.B.S. [address] [place] [phone] [facility] Referral ID Status Reason Start Date Expiration Date Visits Re quested Visits Authorized [id number] Closed 04/29/2024 04/29/2025 1 1 * Outpatient (Routine) - Closed Specialty Diagnoses / Procedures Referred By Edac t Referred To Contact Pediatric Cardiology Diagnoses Diabetes Mellitus Type 2 (HCC) Abnormal Ultrasound Bhaskar Colon M.B.B.S. [address] [place] [phone] [facility] Referral ID Status Reason Start Date Expiration Date Visits Re quested Visits Authorized [id number] Closed 04/29/2024 10/29/2025 1 1 Reason for Visit * Outpatient (Routine) - Closed Specialty Diagnoses / Procedures Referred By Jade t Referred To Contact Obstetrics and Gynecology Bhaskar Colon M.B.B.S. [address] [place] [phone] [facility] Referral ID Status Reason Start Date Expiration Date Visits Re quested Visits Authorized [id number] Closed 04/01/2024 10/01/2025 1 1 Encounter Details Date Type Department Care Team (Latest Contact Info) Description 04/29/2024 2:00 PM CDT Routine Department of Obstetrics and Gynecology in [place], [place] [address] [place] [phone] Bhaskar Colon M.B.BDiyaS. [address] [place] [phone] Diabetes Mellitus Type 2 (HCC) (Primary Dx); Abnormal Ultrasound Social History Tobacco Use Types Packs/Day Years Used Date Smoking Tobacco: Never Smokeless Tobacco: Never Alcohol Use Standard Drinks/Week Comments Not Currently 0 (1 standard drink = 0.6 oz pur e alcohol) [facility] Utilities Answer Date Recorded In the past 12 months has [employer], gas, oil, or water [employer] threatened to shut off services in your [...] living situation today? I have a [facility] place to live 03/31/2024 Estimated [...] in this encounter Progress Notes * Bhaskar Cloon M.B.B.S. - 04/29/2024 2:00 PM CDT SUBJECTIVE [...] scan, she declined to meet with the dramatic director to discuss the need for any further [...] DOPPLER (05/20/2024 8:42 AM CDT) Ejection Fraction [facility] Anatomical Region Laterality Modality Echocardiography 05/20/2024 [...]
--- OUTSIDE RECORDS SUMMARY | 2024-07-13 07:33 | XMS_ITS | Encounter Summary ---
Author Organization [facility] Address [address] [place] [address] Care Team Providers Care Marketing Project Coordinator Name Role Phone Unavailable Primary Care Provider Unavailabl e Reason for Visit * Outpatient (Routine) - Closed Specialty Diagnoses / Procedures Referred By Jade gonsales Referred To Contact Pediatric Cardiology Diagnoses Diabetes Mellitus Type 2 (HCC) Abnormal Ultrasound Bhaskar Colon M.B.B.S. [address] [place] [phone] [facility] Referral ID Status Reason Start Date Expiration Date Visits Re quested Visits Authorized [id number] Closed 04/29/2024 10/29/2025 1 1 Encounter Details Date Type Department Care Team (Latest Contact Info) Description 05/20/2024 9:00 AM CDT Comprehensive Visit Division of Pediatric Cardiology in [place], [place] [address] [place] [phone] Yosvany Murphy M.B.B.S. [address] [place] [phone] Encounter For Screening For Congenital Cardiac Abnormalities (HCC) (Primary Dx); Diabetes Mellitus Type 2 (HCC); Abnormal Ultrasound Social History Tobacco Use Types Packs/Day Years Used Date Smoking Tobacco: Never Smokeless Tobacco: Never Alcohol Use Standard Drinks/Week Comments Not Currently 0 (1 standard drink = 0.6 oz pur e alcohol) [facility] Utilities Answer Date Recorded In the past 12 months has [employer], gas, oil, or water company threatened [...] your living situation today? I have a [facility] place to live 03/31/2024 Estimated Date of [...] : 1985, Age: 38 y.o. , CSN: [id number] Address: [address] [place] [address] Referral: Bhaskar Colon M.B.B.S. [address] [place] [address] SUBJECTIVE CHIEF COMPLAINT: cardiovascular screening. HISTORY OF [...]
--- OUTSIDE RECORDS SUMMARY | 2024-07-13 07:33 | XMS_ITS | Clinical Summary ---
Author Organization [facility] Address [address] [place] [address]. [address] Care Team Providers Care Compliance Quality Performance Analyst Name Role Phone No Ref-Primary, Physician Primary Care Provider Annika Ibrahim MD Unavailable [phone] Allergies No known active allergies Social [...] 132.1 cm (4' 4) 11/29/2020 4:53 PM DESIGN SPECIALIST Body Mass Index 30.11 11/29/2020 4:53 PM DESIGN SPECIALIST Plan of Treatment Health Maintenance Due Date [...] BASIC METABOLIC PANEL STAT 11/29/2020 8:35 PM DESIGN SPECIALIST from Last 3 Months or Most Recently Relevant to Health Maintenance Results * Basic metabolic panel (11/29/2020 8:35 PM DESIGN SPECIALIST) Sodium 138 133 - 144 mmol/L 11/29/2020 8:52 PM DESIGN SPECIALIST [facility] Potassium 3.8 3.4 - 5.3 mmol/L 11/29/2020 8:52 PM DESIGN SPECIALIST [facility] Chloride 107 94 - 109 mmol/L 11/29/2020 8:52 PM DESIGN SPECIALIST [facility] Carbon Dioxide 23 20 - 32 mmol/L 11/29/2020 8:59 PM DESIGN SPECIALIST [facility] Anion Gap 8 3 - 14 mmol/L 11/29/2020 8:59 PM DESIGN SPECIALIST [facility] Glucose 93 70 - 99 mg/dL 11/29/2020 8:59 PM [facility] Urea Nitrogen 16 7 - 30 mg/dL 11/29/2020 8:59 PM [facility] Creatinine 0.57 0.52 - 1.04 mg/dL 11/29/2020 8:59 PM [facility] GFR Estimate >90 >60 mL/min/{1. 73_m2} 11/29/2020 8:59 PM DESIGN SPECIALIST [facility] Comment: Non GFR Calc Starting 09/23/2018, serum creatinine based estimated GFR (eGFR) will be calculated using the Chronic Kidney Disease Epidemiology Collaboration (CKD-EPI) equation. GFR Estimate If Black >90 >60 mL/min/{1. 73_m2} 11/29/2020 8:59 PM [facility] Comment: GFR Calc Starting 09/23/2018, serum creatinine based estimated GFR (eGFR) will be calculated using the Chronic Kidney Disease Epidemiology Collaboration (CKD-EPI) equation. Calcium 8.7 8.5 - 10.1 mg/dL 11/29/2020 8:59 PM [facility] 11/29/2020 8:35 PM DESIGN SPECIALIST 11/29/2020 8:40 PM DESIGN SPECIALIST Latricia Trinh MD LAB - BLOOD ORDERABL ES [facility] [address] [place] [address], [facility] [phone] [facility] [address] [place] [address], [facility] [phone] from Last 3 Months or Most Recently Relevant to Health Maintenance Care Teams Compliance Quality Performance Analyst Relationship Specialty Start Date End Date No Ref-Primary, Physician PCP - General 11/29/20 Annika Ibrahim MD [address] [facility] [address] [place] [address] Assigned OBGYN Provider 03/29/24
--- OUTSIDE RECORDS SUMMARY | 2024-07-13 07:33 | XMS_ITS | Encounter Summary ---
Author Organization [facility] Address [address] [place] [address] Care Team Providers Care Rack Washer Name Role Phone Unavailable Primary Care Provider Unavailabl e Encounter Details Date Type Department Care Team (Latest Contact Info) Description 04/29/2024 12:49 PM CDT - 04/29/2024 11:59 PM CDT Hospital Encounter Department of Obstetrics and Gynecology in [place], [place] [address] [place] [phone] Ino Colon M.B.B.S. [address] [place] [phone] Abnormal Ultrasound Discharge Disposition: Home or Self Care Social History Tobacco Use Types Packs/Day Years Used Date Smoking Tobacco: Never Smokeless Tobacco: Never Alcohol Use Standard Drinks/Week Comments Not Currently 0 (1 standard drink = 0.6 oz pur e alcohol) [facility] Utilities Answer Date Recorded In the past 12 months has [employer], oil, or water [employer] threatened to shut off services in your [...] your living situation today? I have a [facility] place to live 03/31/2024 Estimated [...] FOLLOW-UP AND OR GROWTH COSBY Exam Site: [facility] OB #1 Plurality: 1 OBHx: [G:(3)] ?F [...] Claudio R.V.T., R.D.M.S. on 04/29/2024 2:23:24 PM. Drawer Hardware Worker: ??Tish Claudio R.V.T., R.D.M.S. Thank You For This Referral Procedure Note Ino Colon M.B.B.S. - 04/29/2024 MORENA ALVARADO OB Exam, 04/29/2024 EXAM INFORMATION Patient Name: MORENA ALVARADO : 1985 Age: 38 yrs Sex: Female Ref Phys: INO COLON Exam Date: 04/29/2024 Procedure: US OB FOLLOW-UP AND OR GROWTH COSBY Exam Site: [facility] OB #1 Plurality: 1 OBHx: [G:(3)] F [...] Tish Claudio R.V.T., Mirta.S. on :23:24 PM. Drawer Hardware Worker: Tish Claudio R.V.T., JuanitoSDiya Thank You For This Referral Ino Robertson IMG OB US PROCEDUR ES documented in this encounter Visit Diagnoses Diagnosis Abnormal Ultrasound documented in this encounter
--- OUTSIDE RECORDS SUMMARY | 2024-07-13 07:33 | XMS_ITS ---
Author Organization [facility] Address [address] [place] [address] Care Team Providers Care Ground Instructor Advanced Name Role Phone Unavailable Unavailable Unavailable Surgery Details Not on file Complications Check Surgery Details section. Procedure Estimated Blood Loss Check Surgery Details section. Procedure Findings Check Surgery Details section. Procedure Specimens Taken Check Surgery Details section.
== END 2024-07-13 07:30 | disposition home or self-care (01) ==
LOC: US 07:30
PROVIDERS: PCP Family Medicine; Visit Provider Obstetrics & Gynecology
DX: O24.119 Pre-existing type 2 diabetes mellitus, in pregnancy, unspecified trimester (principal); Z3A.31 31 weeks gestation of pregnancy
CPT/HCPCS: 76816; 76819

== ENCOUNTER 2024-07-20 07:23 | Outpatient (CLI) | payer OTHER, SELFPAY ==
--- NOTE | 2024-07-20 07:15 | CRLHL7_ITS ---
For Patients: As a result of the Century Cures Act, medical imaging exams and procedure reports are released immediately into your electronic medical record. You may view this report before your referring provider. If you have questions, please contact your health care provider. INDICATION: Type 2 diabetes COMPARISON: 02/27/2023 TECHNIQUE: Real time alexandra scale imaging of the fetus was performed. Without non-stress testing. FINDINGS: Sonographic imaging demonstrates a single living intrauterine gestation. Fetus demonstrates a regular cardiac rate of 135 beats per minute. Fetus has a transverse position, head maternal right. The amniotic fluid volume appears normal and there is a single deepest pocket measurement of 6.0 cm. The fetus was active and demonstrated normal breathing movements. There was normal flexion and extension of the trunk and extremities. IMPRESSION: Normal biophysical profile score of 8 out of 8. Dictated by Jersey Bunch MD @ 07/21/2024 2:06:11 PM (Electronically Signed)
--- OUTSIDE RECORDS SUMMARY | 2024-07-20 07:25 | XMS_ITS | Clinical Summary ---
Author Organization [facility] Address [address] [place] [address] Care Team Providers Care Operators School Manager Name Role Phone Unavailable Primary Care Provider Unavailabl e Source Comments Patient records contain information from all sites at [facility]. For routine questions regarding patient records, call [phone] during business hours, M-F 8:00 AM - 5:00 PM Central Time. Record requests for emergency care only can be directed to [phone] at any time.[facility] Allergies No known active allergies Medications insulin NPH 100 unit/mL injection Inject 9 Units under the skin 2 (two) times a day with meals. 14 units in the morning - 10 units in the evening Active no115/iron/foli c acid ( 19 ORAL) Take 1 tablet [...] original. Delivery plan: chart: Care Team/nursing team: [facility]. CHEYANNE Colon Partner name: Pertinent medical [...] Comprehensive Visit Division of Pediatric Cardiology in [address] [phone] Yosvany Murphy M.B.B.S. Encounter For Screening For Congenital Cardiac Abnormalities (HCC) (Primary Dx); Diabetes Mellitus Type 2 (HCC); Abnormal Ultrasound 05/20/2024 7:11 AM CDT - 05/20/2024 11:59 PM CDT Hospital Encounter Department of Cardiovascular Diseases in [address] [phone] Ino Colon M.B.B.S. Diabetes Mellitus Type 2 (HCC); Abnormal Ultrasound Discharge Disposition: Home or Self Care 04/29/2024 3:00 PM CDT Comprehensive Visit Department of Obstetrics and Gynecology in [address] [phone] Ino Colon M.B.B.S. Lala Heredia M.S., [facility] Procedure And Treatment Not Carried Out Due To Patient Leaving Prior To Being Seen By Health Care Provider (Primary Dx); Abnormal Ultrasound 04/29/2024 2:00 PM CDT Routine Department of Obstetrics and Gynecology in [place], [place] [address] [place] [phone] Ino Colon M.B.B.S. Diabetes Mellitus Type 2 (HCC) (Primary Dx); Abnormal Ultrasound 04/29/2024 12:49 PM CDT - 04/29/2024 11:59 PM CDT Hospital Encounter Department of Obstetrics and Gynecology in [place], [place] [address] [place] [address] Ino Colon M.B.B.S. Abnormal Ultrasound Discharge Disposition: Home or Self Care from Last 3 Months Social History Tobacco Use Types Packs/Day Years Used Date Smoking Tobacco: Never Smokeless Tobacco: Never Tobacco Cessation:Counseling Given: Not Answered Alcohol Use Standard Drinks/Week Comments Not Currently 0 (1 standard drink = 0.6 oz pur e alcohol) [facility] Utilities Answer Date Recorded In the past [...] your living situation today? I have a [facility] place to live 03/31/2024 Estimated Date of Delivery Comme nts Yes 09/09/2024 Based on Ultraso und Sex and Gender Information Value Date Recorded Sex Assigned at Female 03/31/2024 9:51 PM CDT Legal Sex Female 3:33 PM CDT Gender Identity Female 03/31/2024 9:51 [...] DOPPLER (05/20/2024 8:42 AM CDT) Ejection Fraction [facility] Anatomical Region Laterality Modality Echocardiography 05/20/2024 [...] the complete report, see the Order-Level Documents. us Ino Robertson CV ECHO PROCEDURES Final R esult * US OB Follow-up and or Growth Cosby (04/29/2024 4:27 PM CDT) Anatomical Region Laterality Modality Body, Ultrasound OB RST LOS, Ultrasound ARZ LOS N/A Ultrasound Narrative 04/29/2024 4:27 PM CDT MORENA ALVARADO OB Exam, 04/29/2024 EXAM INFORMATION Patient Name: ??KADE SOCORROMORENA : ??1985 Age: ??38 yrs Sex: ??Female Ref Phys: ??INO COLON Exam Date: 04/29/2024 Procedure: US OB FOLLOW-UP AND OR GROWTH COSBY Exam Site: [facility] OB #1 Plurality: 1 OBHx: [...] Hands, Feet Preliminary Read by Tish Claudio R.V.TDiya, R.D.M.S. on 04/29/2024 2:17:32 PM. Preliminary Read by Tish Claudio R.V.T., R.D.M.S. on 04/29/2024 2:23:24 PM. Order Packer Or Packager: ??Tish Claudio R.V.T., R.D.M.S. Thank You For This Referral Procedure Note Ino Colon M.B.B.S. - 04/29/2024 MORENA ALVARADO OB Exam, 04/29/2024 EXAM INFORMATION Patient Name: MORENA ALVARADO : 1985 Age: 38 yrs Sex: Female Ref Phys: INO COLON Exam Date: 04/29/2024 Procedure: US OB FOLLOW-UP AND OR GROWTH COSBY Exam Site: [facility] OB #1 Plurality: 1 OBHx: [...] Feet Preliminary Read by Tish Claudio R.V.T., Stephan on :17:32 PM. Preliminary Read by Tish Claudio R.V.T., JuanitoS. on :23:24 PM. Order Packer Or Packager: Tish Claudio R.V.T., R.D.M.S. Thank You For This Referral us Ino Robertson IMG OB US PROCEDURES Final Result from Last 3 Months Insurance [employer] [id number]
--- OUTSIDE RECORDS SUMMARY | 2024-07-20 07:26 | XMS_ITS | Encounter Summary ---
Author Organization [facility] Address [address] [place] [address] Care Team Providers Care Video Production Engineer Name Role Phone Unavailable Primary Care Provider Unavailabl e Reason for Visit * Outpatient (Routine) - Closed Specialty Diagnoses / Procedures Referred By Jade gonsales Referred To Contact Pediatric Cardiology Diagnoses Diabetes Mellitus Type 2 (HCC) Abnormal Ultrasound Bhaskar Colon M.B.B.S. [address] [place] [phone] Phone: tel: fax: [facility] Referral ID Status Reason Start Date Expiration Date Visits Re quested Visits Authorized [id number] Closed 04/29/2024 10/29/2025 1 1 Encounter Details Date Type Department Care Team (Latest Contact Info) Description 05/20/2024 9:00 AM CDT Comprehensive Visit Division of Pediatric Cardiology in [place], [place] [address] [place] [phone] Yosvany Murphy M.B.B.S. [address] [place] [phone] Encounter For Screening For Congenital Cardiac Abnormalities (HCC) (Primary Dx); Diabetes Mellitus Type 2 (HCC); Abnormal Ultrasound Social History Tobacco Use Types Packs/Day Years Used Date Smoking Tobacco: Never Smokeless Tobacco: Never Alcohol Use Standard Drinks/Week Comments Not Currently 0 (1 standard drink = 0.6 oz pur e alcohol) [facility] Utilities Answer Date Recorded In the past 12 months has [employer], gas, oil, or water [employer] threatened to shut off services in your [...] your living situation today? I have a [facility] place to live 03/31/2024 Estimated Date [...] - 05/20/2024 9:00 AM CDT [facility] Cardiology Consultation Bea JohnsonS. Date of Consultation: 05/20/2024 Patient: Sangita Flor Date of : 1985, Age: 38 y.o. , CSN: [id number] Address: [facility] [address] [place] [id number] Referral: Bhaskar Colon M.B.B.S. [address] [place] [address] SUBJECTIVE CHIEF COMPLAINT: cardiovascular screening. HISTORY OF [...] Current Medications: Accu-Chek Guide Me Glucose Mtr [facility], See Admin Instructions. Accu-Chek Guide test strips, [...]
--- OUTSIDE RECORDS SUMMARY | 2024-07-20 07:26 | XMS_ITS | Encounter Summary ---
Author Organization [facility] Address [address] [place] [address] Care Team Providers Care Apple Peeler Operator Name Role Phone Unavailable Primary Care Provider Unavailabl e Reason for Visit * Reason Onset Date Comments Left Without Being Seen 04/29/2024 * Outpatient (Routine) - Canceled Specialty Diagnoses / Procedures Referred By Jade t Referred To Contact Obstetrics and Gynecology Diagnoses Abnormal Ultrasound Bhaskar Colon M.B.B.S. [address] [place] [phone] Phone: tel: fax: [facility] Referral ID Status Reason Start Date Expiration Date V isits Requested Visits Authorized [id number] Canceled 04/01/2024 10/01/2025 1 1 Encounter Details Date Type Department Care Team (Latest Contact Info) Description 04/29/2024 3:00 PM CDT Comprehensive Visit Department of Obstetrics and Gynecology in [place], [place] [address] [place] [phone] Bhaskar Colon M.B.B.S. [address] [place] [phone] Lala Heredia M.S., [facility] [address] [place] [phone] Procedure And Treatment Not Carried Out Due [...] your living situation today? I have a [facility] place to live 03/31/2024 Estimated Date of [...] encounter Progress Notes * Lala Heredia M.S., ROGER - 04/29/2024 3:00 PM CDT Mrs. Sangita [...]
--- OUTSIDE RECORDS SUMMARY | 2024-07-20 07:26 | XMS_ITS | Referral Summary ---
Author Organization [facility] Address [address] [place] [address] Care Team Providers Care Hard Rock Drill Operator Name Role Phone Unavailable Primary Care Provider Unavailabl e Source Comments Patient records contain information from all sites at [facility]. For routine questions regarding patient records, call [phone] during business hours, M-F 8:00 AM - 5:00 PM Central Time. Record requests for emergency care only can be directed to [phone] at any time.[facility] Encounters Date Type Department Care Team Description 05/20/2024 9:00 AM CDT Comprehensive Visit Division of Pediatric Cardiology in [place], [place] [address] [place] [phone] Yosvany Murphy M.B.B.S. Encounter For Screening For Congenital Cardiac Abnormalities (HCC) (Primary Dx); Diabetes Mellitus Type 2 (HCC); Abnormal Ultrasound 05/20/2024 7:11 AM CDT - 05/20/2024 11:59 PM CDT Hospital Encounter Department of Cardiovascular Diseases in [place], [place] [address] [place] [phone] Ino Colon M.B.B.S. Diabetes Mellitus Type 2 (HCC); Abnormal Ultrasound Discharge Disposition: Home or Self Care 04/29/2024 2:00 PM CDT Routine Department of Obstetrics and Gynecology in [place], [place] [address] [place] [phone] Ino Colon M.B.B.S. Diabetes Mellitus Type 2 (HCC) (Primary Dx); Abnormal Ultrasound 04/29/2024 12:49 PM CDT - 04/29/2024 11:59 PM CDT Hospital Encounter Department of Obstetrics and Gynecology in [place], [place] [address] [place] [address] Ino Colon M.B.B.S. Abnormal Ultrasound Discharge Disposition: Home or Self Care 04/29/2024 3:00 PM CDT Comprehensive Visit Department of Obstetrics and Gynecology in [place], [place] [address] [place] [address] Ino Colon M.B.B.S. Lala Heredia M.S., [facility] Procedure And Treatment Not Carried Out Due To Patient Leaving Prior To Being Seen By Health Care Provider (Primary Dx); Abnormal Ultrasound from Last 3 Months Allergies No known active allergies Medications insulin [...] original. Delivery plan: chart: Care Team/nursing team: [facility]. CHEYANNE Colon Partner name: Pertinent medical [...] drink = 0.6 oz pur e alcohol) [facility] Utilities Answer Date Recorded In the past 12 months has th e [employer], gas, oil, or water company threatened to [...] living situation today? I have a [facility] place to live 03/31/2024 Estimated [...] 8:42 AM CDT) Ejection Fraction [facility] Anatomical Region Laterality Modality Echocardiography 05/20/2024 [...] report, see the Order-Level Documents. us Ino PringleBDiyaSDiya CV ECHO PROCEDURES Final R esult * US OB Follow-up and or Growth Cosby (04/29/2024 4:27 PM CDT) Anatomical Region Laterality Modality Body, Ultrasound OB RST LOS, Ultrasound ARZ LOS N/A Ultrasound Narrative 04/29/2024 4:27 PM CDT MORENA ALVARADO OB Exam, 04/29/2024 EXAM INFORMATION Patient Name: ??MORENA ALVARADO : ??1985 Age: ??38 yrs Sex: ??Female Ref Phys: ??INO ARAB Exam Date: 04/29/2024 Procedure: US OB FOLLOW-UP AND OR GROWTH COSBY Exam Site: [facility] OB #1 Plurality: 1 OBHx: [G:(3)] ?F [...] R.V.T., R.D.M.S. on 04/29/2024 2:23:24 PM. Glass Inspector: ??Tish Claudio R.V.T., R.Parisa.M.S. Thank You For This Referral Procedure Note Ino Colon M.B.B.S. - 04/29/2024 KADE FLOR MORENA GONSALEZA OB Exam, 04/29/2024 EXAM INFORMATION Patient Name: MORENA ALVARADO : 1985 Age: 38 yrs Sex: Female Ref Phys: INO COLON Exam Date: 04/29/2024 Procedure: US OB FOLLOW-UP AND OR GROWTH COSBY Exam Site: [facility] OB #1 Plurality: 1 OBHx: [G:(3)] F [...] Read by Tish Claudio R.V.TDiya, R.D.M.S. on :17:32 PM. Preliminary Read by Tish Claudio R.V.T., R.D.M.S. on :23:24 PM. Glass Inspector: Tish Claudio R.V.T., R.D.M.S. Thank You For This Referral us Ino Robertson IMG OB US PROCEDURES Final Result from Last 3 [place] [id number]
--- OUTSIDE RECORDS SUMMARY | 2024-07-20 07:26 | XMS_ITS | Encounter Summary ---
Author Organization [facility] Address [address] [place] [address] Care Team Providers Care Diet Therapist Name Role Phone Unavailable Primary Care Provider Unavailabl e Reason for Referral * Outpatient (Routine) - Closed Specialty Diagnoses / Procedures Referred By Jade gonsales Referred To Contact Diagnoses Diabetes Mellitus Type 2 (HCC) Abnormal Ultrasound Procedures Echo Bhaskar Colon M.B.B.S. [address] [place] [phone] Phone: tel: fax: [facility] Referral ID Status Reason Start Date Expiration Date Visits Re quested Visits Authorized [id number] Closed 04/29/2024 04/29/2025 1 1 Reason for Visit * Outpatient (Routine) - Closed Specialty Diagnoses / Procedures Referred By Jade gonsales Referred To Contact Diagnoses Diabetes Mellitus Type 2 (HCC) Abnormal Ultrasound Procedures Echo Bhaskar Colon M.B.B.S. [address] [place] [phone] Phone: tel: fax: [facility] Referral ID Status Reason Start Date Expiration Date Visits Re quested Visits Authorized [id number] Closed 04/29/2024 04/29/2025 1 1 Encounter Details Date Type Department Care Team (Latest Contact Info) Description 05/20/2024 7:11 AM CDT - 05/20/2024 11:59 PM CDT Hospital Encounter Department of Cardiovascular Diseases in [place], [place] [address] [place] [phone] Bhaskar Colon M.B.B.S. [address] [place] [address] Diabetes Mellitus Type 2 (HCC); Abnormal Ultrasound Discharge Disposition: Home or Self Care Social History Tobacco Use Types Packs/Day Years Used Date Smoking Tobacco: Never Smokeless Tobacco: Never Alcohol Use Standard Drinks/Week Comments Not Currently 0 (1 standard drink = 0.6 oz pur e alcohol) [facility] Utilities Answer Date Recorded In [...] your living situation today? I have a [facility] place to live 03/31/2024 Estimated Date [...] this encounter Medications at Time of Discharge Accu-Chek Guide Me Glucose Mtr misc See [...] complete report, see the Order-Level Documents. us Bhaskar FigueredoSDiya CV ECHO PROCEDURES Final R esult documented in this encounter Visit Diagnoses Diagnosis Diabetes Mellitus Type 2 (HCC) Abnormal Ultrasound documented in this encounter
--- OUTSIDE RECORDS SUMMARY | 2024-07-20 07:26 | XMS_ITS ---
Author Organization [facility] Address [address] [place] [address] Care Team Providers Care Field Manager Name Role Phone Unavailable Unavailable Unavailable Surgery Details Not on file Complications Check Surgery Details section. Procedure Estimated Blood Loss Check Surgery Details section. Procedure Findings Check Surgery Details section. Procedure Specimens Taken Check Surgery Details section.
--- OUTSIDE RECORDS SUMMARY | 2024-07-20 07:26 | XMS_ITS | Encounter Summary ---
Author Organization [facility] Address [address] [place] [address] Care Team Providers Care Front Office Clerk Name Role Phone Unavailable Primary Care Provider Unavailabl e Reason for Referral * Outpatient (Routine) - Closed Specialty Diagnoses / Procedures Referred By Jade gonsales Referred To Contact Diagnoses Diabetes Mellitus Type 2 (HCC) Abnormal Ultrasound Procedures Echo Bhaskar Colon M.B.B.S. [address] [place] [phone] Phone: tel: fax: [facility] Referral ID Status Reason Start Date Expiration Date Visits Re quested Visits Authorized [id number] Closed 04/29/2024 04/29/2025 1 1 * Outpatient (Routine) - Closed Specialty Diagnoses / Procedures Referred By Jade gonsales Referred To Contact Pediatric Cardiology Diagnoses Diabetes Mellitus Type 2 (HCC) Abnormal Ultrasound Bhaskar Colon M.B.B.S. [address] [place] [address] Phone: tel: fax: [facility] Referral ID Status Reason Start Date Expiration Date Visits Re quested Visits Authorized [id number] Closed 04/29/2024 10/29/2025 1 1 Reason for Visit * Outpatient (Routine) - Closed Specialty Diagnoses / Procedures Referred By Jade t Referred To Contact Obstetrics and Gynecology Bhaskar Colon M.B.B.S. [address] [place] [address] Phone: tel: fax: [facility] Referral ID Status Reason Start Date Expiration Date Visits Re quested Visits Authorized [id number] Closed 04/01/2024 10/01/2025 1 1 Encounter Details Date Type Department Care Team (Latest Contact Info) Description 04/29/2024 2:00 PM CDT Routine Department of Obstetrics and Gynecology in [place], [place] [address] [place] [phone] Bhaskar Colon M.B.B.S. [address] [place] [address] Diabetes Mellitus Type 2 (HCC) (Primary Dx); Abnormal Ultrasound Social History Tobacco Use Types Packs/Day Years Used Date Smoking Tobacco: Never Smokeless Tobacco: Never Alcohol Use Standard Drinks/Week Comments Not Currently 0 (1 standard drink = 0.6 oz pur e alcohol) [facility] Utilities Answer Date Recorded In the past 12 months has e [employer], gas, oil, or water [employer] threatened to shut off services in your [...] your living situation today? I have a [facility] place to live 03/31/2024 Estimated Date [...] scan, she declined to meet with the medical geneticist to discuss the need for any [...] to face andface to face patient care. Sari Witt. documented in this encounter Plan of Treatment Scheduled Referrals Name Type Priority Associated Diagnoses Order Schedule Pediatric Cardiology - clinic consult (clinic) Outpatient Referral Routine Diabetes Mellitus Type 2 (HCC) Abnormal Ultrasound Expected: 05/20/2024, Expires: 07/30/2025 documented as of this encounter Results * COSBY ECHO 2D WITH COLOR AND DOPPLER (05/20/2024 8:42 AM CDT) Ejection Fraction [facility] Anatomical Region Laterality Modality Echocardiography 05/20/2024 [...] report, see the Order-Level Documents. us Bhaskar Robertson CV ECHO PROCEDURES Final R esult documented in this encounter Visit Diagnoses Diagnosis Diabetes Mellitus Type 2 (HCC)- Primary Abnormal Ultrasound Diabetes Mellitus Type 2 (HCC) Abnormal Ultrasound documented in this encounter
--- OUTSIDE RECORDS SUMMARY | 2024-07-20 07:26 | XMS_ITS | Clinical Summary ---
Author Organization [facility] Address [address] [place] [address]. [place] [address] Care Team Providers Care Volunteer Recruitment Coordinator Name Role Phone No Ref-Primary, Physician Primary Care Provider Annika Ibrahim MD Unavailable [phone] Allergies No known active allergies Social [...] 132.1 cm (4' 4) 11/29/2020 4:53 PM INSPECTOR WATCH ASSEMBLY Body Mass Index 30.11 11/29/2020 4:53 PM INSPECTOR WATCH ASSEMBLY Plan of Treatment Health Maintenance Due Date [...] BASIC METABOLIC PANEL STAT 11/29/2020 8:35 PM INSPECTOR WATCH ASSEMBLY from Last 3 Months or Most Recently Relevant to Health Maintenance Results * Basic metabolic panel (11/29/2020 8:35 PM INSPECTOR WATCH ASSEMBLY) Sodium 138 133 - 144 mmol/L 11/29/2020 8:52 PM INSPECTOR WATCH ASSEMBLY [facility] Potassium 3.8 3.4 - 5.3 mmol/L 11/29/2020 8:52 PM INSPECTOR WATCH ASSEMBLY [facility] Chloride 107 94 - 109 mmol/L 11/29/2020 8:52 PM INSPECTOR WATCH ASSEMBLY [facility] Carbon Dioxide 23 20 - 32 mmol/L 11/29/2020 8:59 PM INSPECTOR WATCH ASSEMBLY [facility] Anion Gap 8 3 - 14 mmol/L 11/29/2020 8:59 PM INSPECTOR WATCH ASSEMBLY [facility] Glucose 93 70 - 99 mg/dL 11/29/2020 8:59 PM [facility] Urea Nitrogen 16 7 - 30 mg/dL 11/29/2020 8:59 PM [facility] Creatinine 0.57 0.52 - 1.04 mg/dL 11/29/2020 8:59 PM [facility] GFR Estimate >90 >60 mL/min/{1. 73_m2} 11/29/2020 8:59 PM INSPECTOR WATCH ASSEMBLY [facility] Comment: Non GFR Calc Starting 09/23/2018, serum creatinine based estimated GFR (eGFR) will be calculated using the Chronic Kidney Disease Epidemiology Collaboration (CKD-EPI) equation. GFR Estimate If Black >90 >60 mL/min/{1. 73_m2} 11/29/2020 8:59 PM [facility] Comment: GFR Calc Starting 09/23/2018, serum creatinine based estimated GFR (eGFR) will be calculated using the Chronic Kidney Disease Epidemiology Collaboration (CKD-EPI) equation. Calcium 8.7 8.5 - 10.1 mg/dL 11/29/2020 8:59 PM [facility] 11/29/2020 8:35 PM INSPECTOR WATCH ASSEMBLY 11/29/2020 8:40 PM INSPECTOR WATCH ASSEMBLY Latricia Trinh MD LAB - BLOOD ORDERABL ES [facility] [address] [place] [address], [facility] [phone] [facility] [address] [place] [address], [facility] [phone] from Last 3 Months or Most Recently Relevant to Health Maintenance Care Teams Volunteer Recruitment Coordinator Relationship Specialty Start Date End Date No Ref-Primary, Physician PCP - General 11/29/20 Annika Ibrahim MD [address] [address] [place] [address] Assigned OBGYN Provider 03/29/24
--- OUTSIDE RECORDS SUMMARY | 2024-07-20 07:26 | XMS_ITS | Referral Summary ---
Author Organization [facility] Address [address] [place] [address]. [place] [address] Care Team Providers Care Nondestructive Tester Name Role Phone No Ref-Primary, Physician Primary Care Provider Annika Ibrahim MD Unavailable [phone] Allergies No known active allergies Social [...] 132.1 cm (4' 4) 11/29/2020 4:53 PM PEST CONTROLLER ASSISTANT Body Mass Index 30.11 11/29/2020 4:53 PM PEST CONTROLLER ASSISTANT Plan of Treatment Not on file Procedures Procedure Name Priority Date/Time Associated Diagnosis Comments BASIC METABOLIC PANEL STAT 11/29/2020 8:35 PM PEST CONTROLLER ASSISTANT from Last 3 Months or Most Recently Relevant to Health Maintenance Results * Basic metabolic panel (11/29/2020 8:35 PM PEST CONTROLLER ASSISTANT) Sodium 138 133 - 144 mmol/L 11/29/2020 8:52 PM [facility] Potassium 3.8 3.4 - 5.3 mmol/L 11/29/2020 8:52 PM [facility] Chloride 107 94 - 109 mmol/L 11/29/2020 8:52 PM [facility] Carbon Dioxide 23 20 - 32 mmol/L 11/29/2020 8:59 PM [facility] Anion Gap 8 3 - 14 mmol/L 11/29/2020 8:59 PM [facility] Glucose 93 70 - 99 mg/dL 11/29/2020 8:59 PM [facility] Urea Nitrogen 16 7 - 30 mg/dL 11/29/2020 8:59 PM [facility] Creatinine 0.57 0.52 - 1.04 mg/dL 11/29/2020 8:59 PM [facility] GFR Estimate >90 >60 mL/min/{1. 73_m2} 11/29/2020 8:59 PM [facility] Comment: Non GFR Calc Starting 09/23/2018, serum creatinine based estimated GFR (eGFR) will be calculated using the Chronic Kidney Disease Epidemiology Collaboration (CKD-EPI) equation. GFR Estimate If Black >90 >60 mL/min/{1. 73_m2} 11/29/2020 8:59 PM [facility] Comment: GFR Calc Starting 09/23/2018, serum creatinine based estimated GFR (eGFR) will be calculated using the Chronic Kidney Disease Epidemiology Collaboration (CKD-EPI) equation. Calcium 8.7 8.5 - 10.1 mg/dL 11/29/2020 8:59 PM [facility] 11/29/2020 8:35 PM PEST CONTROLLER ASSISTANT 11/29/2020 8:40 PM PEST CONTROLLER ASSISTANT Latricia Trinh MD LAB - BLOOD ORDERABL ES [facility] [address] [address], [facility] [phone] [facility] [address] [place] [address], [facility] [phone] from Last 3 Months or Most Recently Relevant to Health Maintenance Care Teams Nondestructive Tester Relationship Specialty Start Date End Date No Ref-Primary, Physician PCP - General 11/29/20 Annika Ibrahim MD [address] [address] Assigned OBGYN Provider 03/29/24
--- OUTSIDE RECORDS SUMMARY | 2024-07-20 07:26 | XMS_ITS | Encounter Summary ---
Author Organization [facility] Address [address] [place] [address] Care Team Providers Care Health Care Liaison Name Role Phone Unavailable Primary Care Provider Unavailabl e Encounter Details Date Type Department Care Team (Latest Contact Info) Description 04/29/2024 12:49 PM CDT - 04/29/2024 11:59 PM CDT Hospital Encounter Department of Obstetrics and Gynecology in [place], [place] [address] [place] [phone] Ino Colon M.B.B.S. [address] [place] [phone] Abnormal Ultrasound Discharge Disposition: Home or Self Care Social History Tobacco Use Types Packs/Day Years Used Date Smoking Tobacco: Never Smokeless Tobacco: Never Alcohol Use Standard Drinks/Week Comments Not Currently 0 (1 standard drink = 0.6 oz pur e alcohol) [facility] Utilities Answer Date Recorded In the past 12 months has [employer], oil, or water [employer] threatened to shut off services in your [...] your living situation today? I have a [facility] place to live 03/31/2024 Estimated Date [...] AND OR GROWTH COSBY Exam Site: [facility] Plurality: 1 OBHx: [G:(3)] ?F [...] Claudio R.V.T., R.D.M.S. on 04/29/2024 2:23:24 PM. Special Education Inclusion Teacher: ??Tish Claudio R.V.T., RChintanM.S. Thank You For This Referral Procedure Note nIo Colon M.B.B.S. - 04/29/2024 MORENA ALVARADO OB Exam, 04/29/2024 EXAM INFORMATION Patient Name: MORENA ALVARADO : 1985 Age: 38 yrs Sex: Female Ref Phys: INO COLON Exam Date: 04/29/2024 Procedure: US OB FOLLOW-UP AND OR GROWTH COSBY Exam Site: [facility]1 Plurality: 1 OBHx: [G:(3)] F [...] Read by Tish Claudio R.V.T., RChintanM.S. on :17:32 PM. Preliminary Read by Tish Claudio R.V.T., Mirta.S. on :23:24 PM. Special Education Inclusion Teacher: Tish Claudio R.V.T., JuanitoS. Thank You For This Referral us Ino Robertson IMG OB US PROCEDURES Final Result documented in this encounter Visit Diagnoses Diagnosis Abnormal Ultrasound documented in this encounter
== END 2024-07-20 07:24 | disposition home or self-care (01) ==
LOC: US 07:24
PROVIDERS: PCP Family Medicine; Visit Provider Obstetrics & Gynecology
DX: O24.119 Pre-existing type 2 diabetes mellitus, in pregnancy, unspecified trimester (principal)
CPT/HCPCS: 76819

== ENCOUNTER 2024-07-22 10:03 | Outpatient (CLI) | payer OTHER, SELFPAY ==
--- OUTSIDE RECORDS SUMMARY | 2024-07-22 10:06 | XMS_ITS | Encounter Summary ---
Author Organization [facility] Address [address] [place] [address] Care Team Providers Care Team Leader Name Role Phone Unavailable Primary Care Provider Unavailabl e Reason for Visit * Reason Onset Date Comments Left Without Being Seen 04/29/2024 * Outpatient (Routine) - Canceled Specialty Diagnoses / Procedures Referred By Jade t Referred To Contact Obstetrics and Gynecology Diagnoses Abnormal Ultrasound Bhaskar Colon M.B.B.S. [address] [place] [phone] Phone: tel: fax: [facility] Referral ID Status Reason Start Date Expiration Date V isits Requested Visits Authorized [id number] Canceled 04/01/2024 10/01/2025 1 1 Encounter Details Date Type Department Care Team (Latest Contact Info) Description 04/29/2024 3:00 PM CDT Comprehensive Visit Department of Obstetrics and Gynecology in [place], [place] [address] [place] [phone] Bhaskar Colon M.B.B.S. [address] [place] [phone] Lala Heredia M.S., [facility] [address] [place] [phone] Procedure And Treatment Not Carried Out Due To Patient Leaving Prior To Being Seen By Health Care Provider (Primary Dx); Abnormal Ultrasound Social History Tobacco Use Types Packs/Day Years Used Date Smoking Tobacco: Never Smokeless Tobacco: Never Alcohol Use Standard Drinks/Week Comments Not Currently 0 (1 standard drink = 0.6 oz pur e alcohol) [facility] Utilities Answer Date Recorded In the [...] your living situation today? I have a [facility] place to live 03/31/2024 Estimated Date [...]
--- OUTSIDE RECORDS SUMMARY | 2024-07-22 10:06 | XMS_ITS | Encounter Summary ---
Author Organization [facility] Address [address] [place] [address] Care Team Providers Care Tag Marker Name Role Phone Unavailable Primary Care Provider Unavailabl e Reason for Referral * Outpatient (Routine) - Closed Specialty Diagnoses / Procedures Referred By Jade gonsales Referred To Contact Diagnoses Diabetes Mellitus Type 2 (HCC) Abnormal Ultrasound Procedures Echo Bhaskar Colon M.B.B.S. [address] [place] [phone] Phone: tel: fax: [facility] Referral ID Status Reason Start Date Expiration Date Visits Re quested Visits Authorized [id number] Closed 04/29/2024 04/29/2025 1 1 Reason for Visit * Outpatient (Routine) - Closed Specialty Diagnoses / Procedures Referred By Jade gonsales Referred To Contact Diagnoses Diabetes Mellitus Type 2 (HCC) Abnormal Ultrasound Procedures Echo Bhaskar Colon M.B.B.S. [address] [place] [phone] Phone: tel: fax: [facility] Referral ID Status Reason Start Date Expiration Date Visits Re quested Visits Authorized [id number] Closed 04/29/2024 04/29/2025 1 1 Encounter Details Date Type Department Care Team (Latest Contact Info) Description 05/20/2024 7:11 AM CDT - 05/20/2024 11:59 PM CDT Hospital Encounter Department of Cardiovascular Diseases in [place], [place] [address] [place] [phone] Bhaskar Colon M.B.B.S. [address] [place] [address] Diabetes Mellitus Type 2 (HCC); Abnormal Ultrasound Discharge Disposition: Home or Self Care Social History Tobacco Use Types Packs/Day Years Used Date Smoking Tobacco: Never Smokeless Tobacco: Never Alcohol Use Standard Drinks/Week Comments Not Currently 0 (1 standard drink = 0.6 oz pur e alcohol) [facility] Utilities Answer Date Recorded In the past [...] your living situation today? I have a [facility] place to live 03/31/2024 Estimated [...] 8:42 AM CDT) Ejection Fraction [facility] Anatomical Region Laterality Modality Echocardiography 05/20/2024 7:12 [...]
--- OUTSIDE RECORDS SUMMARY | 2024-07-22 10:06 | XMS_ITS | Encounter Summary ---
Author Organization [facility] Address [address] [place] [address] Care Team Providers Care Paper Guillotine Operator Name Role Phone Unavailable Primary Care Provider Unavailabl e Encounter Details Date Type Department Care Team (Latest Contact Info) Description 04/29/2024 12:49 PM CDT - 04/29/2024 11:59 PM CDT Hospital Encounter Department of Obstetrics and Gynecology in [place], [place] [address] [place] [phone] Ino Colon M.B.B.S. [address] [place] [phone] Abnormal Ultrasound Discharge Disposition: Home or Self Care Social History Tobacco Use Types Packs/Day Years Used Date Smoking Tobacco: Never Smokeless Tobacco: Never Alcohol Use Standard Drinks/Week Comments Not Currently 0 (1 standard drink = 0.6 oz pur e alcohol) [facility] Utilities Answer Date Recorded In the past 12 months has [employer], oil, or water [employer] threatened to shut off services in your [...] your living situation today? I have a [facility] place to live 03/31/2024 Estimated Date [...] AND OR GROWTH COSBY Exam Site: [facility] #1 Plurality: 1 OBHx: [G:(3)] ?F [...] Claudio R.V.T., R.D.M.S. on 04/29/2024 2:23:24 PM. Change Of Address Clerk: ??Tish Claudio R.V.T., RChintanM.S. Thank You For This Referral Procedure Note Ino Colon M.B.B.S. - 04/29/2024 MORENA ALVARADO OB Exam, 04/29/2024 EXAM INFORMATION Patient Name: MORENA ALVARADO : 1985 Age: 38 yrs Sex: Female Ref Phys: INO COLON Exam Date: 04/29/2024 Procedure: US OB FOLLOW-UP AND OR GROWTH COSBY Exam Site: [facility] Plurality: 1 OBHx: [G:(3)] F [...] Tish Claudio R.V.T., Mirta.S. on :23:24 PM. Change Of Address Clerk: Tish Claudio R.V.T., JuanitoS. Thank You For This Referral us Ino Robertson IMG OB US PROCEDURES Final Result documented in this encounter Visit Diagnoses Diagnosis Abnormal Ultrasound documented in this encounter
--- OUTSIDE RECORDS SUMMARY | 2024-07-22 10:06 | XMS_ITS | Referral Summary ---
Author Organization [facility] Address [address] [place] [address] Care Team Providers Care Pulmonary Physician Name Role Phone Unavailable Primary Care Provider Unavailabl e Source Comments Patient records contain information from all sites at [facility]. For routine questions regarding patient records, call [phone] during business hours, M-F 8:00 AM - 5:00 PM Central Time. Record requests for emergency care only can be directed to [phone] at any time.[facility] Encounters Date Type Department Care Team Description 05/20/2024 9:00 AM CDT Comprehensive Visit Division of Pediatric Cardiology in [place], [place] [address] [place] [phone] Yosvany Murphy M.B.B.S. Encounter For Screening For Congenital Cardiac Abnormalities (HCC) (Primary Dx); Diabetes Mellitus Type 2 (HCC); Abnormal Ultrasound 05/20/2024 7:11 AM CDT - 05/20/2024 11:59 PM CDT Hospital Encounter Department of Cardiovascular Diseases in [place], [place] [address] [place] [phone] Ino Colon M.B.B.S. Diabetes Mellitus Type 2 (HCC); Abnormal Ultrasound Discharge Disposition: Home or Self Care 04/29/2024 2:00 PM CDT Routine Department of Obstetrics and Gynecology in [place], [place] [address] [place] [phone] Ino Colon M.B.B.S. Diabetes Mellitus Type 2 (HCC) (Primary Dx); Abnormal Ultrasound 04/29/2024 12:49 PM CDT - 04/29/2024 11:59 PM CDT Hospital Encounter Department of Obstetrics and Gynecology in [place], [place] [address] [place] [address] Ino Colon M.B.B.S. Abnormal Ultrasound Discharge Disposition: Home or Self Care 04/29/2024 3:00 PM CDT Comprehensive Visit Department of Obstetrics and Gynecology in [place], [place] [address] [place] [address] Ino Colon M.B.B.S. Lala Heredia M.S., [facility] Procedure And Treatment Not [...] original. Delivery plan: chart: Care Team/nursing team: [facility]. CHEYANNE Colon Partner name: Pertinent medical issues [...] drink = 0.6 oz pur e alcohol) [facility] Utilities Answer Date Recorded In the past 12 months has th e [employer], gas, oil, or water company threatened to [...] your living situation today? I have a [facility] place to live 03/31/2024 Estimated Date [...] FOLLOW-UP AND OR GROWTH COSBY Exam Site: [facility]1 Plurality: 1 OBHx: [G:(3)] [...] Claudio R.V.T., R.D.M.S. on 04/29/2024 2:23:24 PM. [employer] Club Ambassador: ??Tish Claudio R.V.T., R.Parisa.M.S. Thank You For This Referral Procedure Note Ino Colon M.B.B.S. - 04/29/2024 KADE FLOR MORENA GONSALEZA OB Exam, 04/29/2024 EXAM INFORMATION Patient Name: MORENA ALVARADO : 1985 Age: 38 yrs Sex: Female Ref Phys: INO COLON Exam Date: 04/29/2024 Procedure: US OB FOLLOW-UP AND OR GROWTH COSBY Exam Site: [facility] OB #1 Plurality: 1 OBHx: [G:(3)] [...] Tish Claudio R.V.T., R.D.M.S. on :23:24 PM. Nutrition Club Ambassador: Tish Claudio R.V.T., R.D.M.S. Thank You For This Referral us Ino Robertson IMG OB US PROCEDURES Final Result from Last 3 Months Insurance [employer]
--- OUTSIDE RECORDS SUMMARY | 2024-07-22 10:06 | XMS_ITS ---
Author Organization [facility] Address [address] [place] [address] Care Team Providers Care Kitchen Steward Name Role Phone Unavailable Unavailable Unavailable Surgery Details Not on file Complications Check Surgery Details section. Procedure Estimated Blood Loss Check Surgery Details section. Procedure Findings Check Surgery Details section. Procedure Specimens Taken Check Surgery Details section.
--- OUTSIDE RECORDS SUMMARY | 2024-07-22 10:06 | XMS_ITS | Clinical Summary ---
Author Organization [facility] Address [address] [place] [address] Care Team Providers Care Hotel Services Supervisor Name Role Phone Unavailable Primary Care Provider Unavailabl e Source Comments Patient records contain information from all sites at [facility]. For routine questions regarding patient records, call [phone] during business hours, M-F 8:00 AM - 5:00 PM Central Time. Record requests for emergency care only can be directed to [phone] at any time.[facility] Allergies No known active allergies Medications insulin [...] original. Delivery plan: chart: Care Team/nursing team: [facility]. CHEYANNE Colon Partner name: Pertinent [...] Comprehensive Visit Division of Pediatric Cardiology in [address] [phone] Yosvany Murphy M.B.B.S. Encounter For Screening For Congenital Cardiac Abnormalities (HCC) (Primary Dx); Diabetes Mellitus Type 2 (HCC); Abnormal Ultrasound 05/20/2024 7:11 AM CDT - 05/20/2024 11:59 PM CDT Hospital Encounter Department of Cardiovascular Diseases in [address] [address] Ino Colon M.B.B.S. Diabetes Mellitus Type 2 (HCC); Abnormal Ultrasound Discharge Disposition: Home or Self Care 04/29/2024 3:00 PM CDT Comprehensive Visit Department of Obstetrics and Gynecology in [address] [address] Ino Colon M.B.B.S. Lala Heredia M.S., [facility] Procedure And Treatment Not Carried Out Due To Patient Leaving Prior To Being Seen By Health Care Provider (Primary Dx); Abnormal Ultrasound 04/29/2024 2:00 PM CDT Routine Department of Obstetrics and Gynecology in [place], [place] [address] [place] [phone] Ino Colon M.B.B.S. Diabetes Mellitus Type 2 (HCC) (Primary Dx); Abnormal Ultrasound 04/29/2024 12:49 PM CDT - 04/29/2024 11:59 PM CDT Hospital Encounter Department of Obstetrics and Gynecology in [place], [place] [address] [place] [address] Ino Colon M.B.B.S. Abnormal Ultrasound Discharge Disposition: Home or Self Care from Last 3 Months Social History Tobacco Use Types Packs/Day Years Used Date Smoking Tobacco: Never Smokeless Tobacco: Never Tobacco Cessation:Counseling Given: Not Answered Alcohol Use Standard Drinks/Week Comments Not Currently 0 (1 standard drink = 0.6 oz pur e alcohol) [facility] Utilities Answer Date Recorded In the [...] your living situation today? I have a [facility] place to live 03/31/2024 Estimated Date [...] 8:42 AM CDT) Ejection Fraction [facility] Anatomical Region Laterality Modality Echocardiography 05/20/2024 [...] FOLLOW-UP AND OR GROWTH COSBY Exam Site: [facility] OB #1 Plurality: 1 OBHx: [...] Claudio R.V.T., R.D.M.S. on 04/29/2024 2:23:24 PM. Police Communications Operator: ??Tish Claudio R.V.T., R.D.M.S. Thank You For This Referral Procedure Note Ino Colon M.B.B.S. - 04/29/2024 MORENA ALVARADO OB Exam, 04/29/2024 EXAM INFORMATION Patient Name: MORENA ALVARADO : 1985 Age: 38 yrs Sex: Female Ref Phys: INO COLON Exam Date: 04/29/2024 Procedure: US OB FOLLOW-UP AND OR GROWTH COSBY Exam Site: [facility] OB #1 Plurality: 1 OBHx: [...] Tish Claudio R.V.T., JuanitoS. on :23:24 PM. Police Communications Operator: Tish Claudio R.V.T., R.D.M.S. Thank You For This Referral us Ino Robertson IMG OB US PROCEDURES Final Result from Last 3 Months Insurance [place] [id number]
--- OUTSIDE RECORDS SUMMARY | 2024-07-22 10:06 | XMS_ITS | Referral Summary ---
Author Organization [facility] Address [address] [place] [address]. [place] [address] Care Team Providers Care Manufacturing Process Engineer Name Role Phone No Ref-Primary, Physician Primary Care Provider Annika Ibrahim MD Unavailable [phone] Allergies No known active allergies Social [...] 132.1 cm (4' 4) 11/29/2020 4:53 PM DIRECTOR OF LEARNING Body Mass Index 30.11 11/29/2020 4:53 PM DIRECTOR OF LEARNING Plan of Treatment Not on file Procedures Procedure Name Priority Date/Time Associated Diagnosis Comments BASIC METABOLIC PANEL STAT 11/29/2020 8:35 PM DIRECTOR OF LEARNING from Last 3 Months or Most Recently Relevant to Health Maintenance Results * Basic metabolic panel (11/29/2020 8:35 PM DIRECTOR OF LEARNING) Sodium 138 133 - 144 mmol/L 11/29/2020 8:52 PM [facility] Potassium 3.8 3.4 - 5.3 mmol/L 11/29/2020 8:52 PM [facility] Chloride 107 94 - 109 mmol/L 11/29/2020 8:52 PM [facility] Carbon Dioxide 23 20 - 32 mmol/L 11/29/2020 8:59 PM [facility] Anion Gap 8 3 - 14 mmol/L 11/29/2020 8:59 PM [facility] Glucose 93 70 - 99 mg/dL 11/29/2020 8:59 PM [facility] Urea Nitrogen 16 7 - 30 mg/dL 11/29/2020 8:59 PM [facility] Creatinine 0.57 0.52 - 1.04 mg/dL 11/29/2020 8:59 PM [facility] GFR Estimate >90 >60 mL/min/{1. 73_m2} 11/29/2020 8:59 PM [facility] Comment: Non GFR Calc Starting 09/23/2018, serum creatinine based estimated GFR (eGFR) will be calculated using the Chronic Kidney Disease Epidemiology Collaboration (CKD-EPI) equation. GFR Estimate If Black >90 >60 mL/min/{1. 73_m2} 11/29/2020 8:59 PM [facility] Comment: GFR Calc Starting 09/23/2018, serum creatinine based estimated GFR (eGFR) will be calculated using the Chronic Kidney Disease Epidemiology Collaboration (CKD-EPI) equation. Calcium 8.7 8.5 - 10.1 mg/dL 11/29/2020 8:59 PM [facility] 11/29/2020 8:35 PM DIRECTOR OF LEARNING 11/29/2020 8:40 PM DIRECTOR OF LEARNING Latricia Trinh MD LAB - BLOOD ORDERABL ES [facility] [address] [address], [facility] [phone] [facility] [address] [place] [address], [facility] [phone] from Last 3 Months or Most Recently Relevant to Health Maintenance Care Teams Manufacturing Process Engineer Relationship Specialty Start Date End Date No Ref-Primary, Physician PCP - General 11/29/20 Annika Ibrahim MD [address] [address] Assigned OBGYN Provider 03/29/24
--- OUTSIDE RECORDS SUMMARY | 2024-07-22 10:06 | XMS_ITS | Encounter Summary ---
Author Organization [facility] Address [address] [place] [address] Care Team Providers Care Kitchen Manager Name Role Phone Unavailable Primary Care Provider Unavailabl e Reason for Referral * Outpatient (Routine) - Closed Specialty Diagnoses / Procedures Referred By Jade gonsales Referred To Contact Diagnoses Diabetes Mellitus Type 2 (HCC) Abnormal Ultrasound Procedures Echo Bhaskar Colon M.B.B.S. [address] [place] [phone] Phone: tel: fax: [facility] Referral ID Status Reason Start Date Expiration Date Visits Re quested Visits Authorized [id number] Closed 04/29/2024 04/29/2025 1 1 * Outpatient (Routine) - Closed Specialty Diagnoses / Procedures Referred By Jade gonsales Referred To Contact Pediatric Cardiology Diagnoses Diabetes Mellitus Type 2 (HCC) Abnormal Ultrasound Bhaskar Colon M.B.B.S. [address] [place] [address] Phone: tel: fax: [facility] Referral ID Status Reason Start Date Expiration Date Visits Re quested Visits Authorized [id number] Closed 04/29/2024 10/29/2025 1 1 Reason for Visit * Outpatient (Routine) - Closed Specialty Diagnoses / Procedures Referred By Jade t Referred To Contact Obstetrics and Gynecology Bhaskar Colon M.B.B.S. [address] [place] [address] Phone: tel: fax: [facility] Referral ID Status Reason Start Date Expiration Date Visits Re quested Visits Authorized [id number] Closed 04/01/2024 10/01/2025 1 1 Encounter Details Date Type Department Care Team (Latest Contact Info) Description 04/29/2024 2:00 PM CDT Routine Department of Obstetrics and Gynecology in [place], [place] [address] [place] [phone] Bhaskar Colon M.B.B.S. [address] [place] [address] Diabetes Mellitus Type 2 (HCC) (Primary Dx); Abnormal Ultrasound Social History Tobacco Use Types Packs/Day Years Used Date Smoking Tobacco: Never Smokeless Tobacco: Never Alcohol Use Standard Drinks/Week Comments Not Currently 0 (1 standard drink = 0.6 oz pur e alcohol) [facility] Utilities Answer Date Recorded In the past 12 months has e [employer], gas, oil, or water [employer] threatened to shut off services in your [...] your living situation today? I have a [facility] place to live 03/31/2024 Estimated Date [...] scan, she declined to meet with the wildlife forensic geneticist to discuss the need for any [...] (05/20/2024 8:42 AM CDT) Ejection Fraction [facility] Anatomical Region Laterality Modality Echocardiography 05/20/2024 [...]
--- OUTSIDE RECORDS SUMMARY | 2024-07-22 10:06 | XMS_ITS | Clinical Summary ---
Author Organization [facility] Address [address] [place] [address]. [place] [address] Care Team Providers Care Test Engine Evaluator Name Role Phone No Ref-Primary, Physician Primary Care Provider Annika Ibrahim MD Unavailable [phone] Allergies No known active allergies Social [...] 132.1 cm (4' 4) 11/29/2020 4:53 PM MARINE MAMMAL TRAINER Body Mass Index 30.11 11/29/2020 4:53 PM MARINE MAMMAL TRAINER Plan of Treatment Health Maintenance Due Date [...] BASIC METABOLIC PANEL STAT 11/29/2020 8:35 PM MARINE MAMMAL TRAINER from Last 3 Months or Most Recently Relevant to Health Maintenance Results * Basic metabolic panel (11/29/2020 8:35 PM MARINE MAMMAL TRAINER) Sodium 138 133 - 144 mmol/L 11/29/2020 8:52 PM MARINE MAMMAL TRAINER [facility] Potassium 3.8 3.4 - 5.3 mmol/L 11/29/2020 8:52 PM MARINE MAMMAL TRAINER [facility] Chloride 107 94 - 109 mmol/L 11/29/2020 8:52 PM MARINE MAMMAL TRAINER [facility] Carbon Dioxide 23 20 - 32 mmol/L 11/29/2020 8:59 PM MARINE MAMMAL TRAINER [facility] Anion Gap 8 3 - 14 mmol/L 11/29/2020 8:59 PM MARINE MAMMAL TRAINER [facility] Glucose 93 70 - 99 mg/dL 11/29/2020 8:59 PM [facility] Urea Nitrogen 16 7 - 30 mg/dL 11/29/2020 8:59 PM [facility] Creatinine 0.57 0.52 - 1.04 mg/dL 11/29/2020 8:59 PM [facility] GFR Estimate >90 >60 mL/min/{1. 73_m2} 11/29/2020 8:59 PM MARINE MAMMAL TRAINER [facility] Comment: Non GFR Calc Starting 09/23/2018, serum creatinine based estimated GFR (eGFR) will be calculated using the Chronic Kidney Disease Epidemiology Collaboration (CKD-EPI) equation. GFR Estimate If Black >90 >60 mL/min/{1. 73_m2} 11/29/2020 8:59 PM [facility] Comment: GFR Calc Starting 09/23/2018, serum creatinine based estimated GFR (eGFR) will be calculated using the Chronic Kidney Disease Epidemiology Collaboration (CKD-EPI) equation. Calcium 8.7 8.5 - 10.1 mg/dL 11/29/2020 8:59 PM [facility] 11/29/2020 8:35 PM MARINE MAMMAL TRAINER 11/29/2020 8:40 PM MARINE MAMMAL TRAINER Latricia Trinh MD LAB - BLOOD ORDERABL ES [facility] [address] [place] [address], [facility] [phone] [facility] [address] [place] [address], [facility] [phone] from Last 3 Months or Most Recently Relevant to Health Maintenance Care Teams Test Engine Evaluator Relationship Specialty Start Date End Date No Ref-Primary, Physician PCP - General 11/29/20 Annika Ibrahim MD [address] [address] [place] [address] Assigned OBGYN Provider 03/29/24
--- OUTSIDE RECORDS SUMMARY | 2024-07-22 10:06 | XMS_ITS | Encounter Summary ---
Author Organization [facility] Address [address] [place] [address] Care Team Providers Care Molded Goods Spot Picker Name Role Phone Unavailable Primary Care Provider Unavailabl e Reason for Visit * Outpatient (Routine) - Closed Specialty Diagnoses / Procedures Referred By Jade gonsales Referred To Contact Pediatric Cardiology Diagnoses Diabetes Mellitus Type 2 (HCC) Abnormal Ultrasound Bhaskar Colon M.B.B.S. [address] [place] [phone] Phone: tel: fax: [facility] Referral ID Status Reason Start Date Expiration Date Visits Re quested Visits Authorized [id number] Closed 04/29/2024 10/29/2025 1 1 Encounter Details Date Type Department Care Team (Latest Contact Info) Description 05/20/2024 9:00 AM CDT Comprehensive Visit Division of Pediatric Cardiology in [place], [place] [address] [place] [phone] Yosvany Murphy M.B.B.S. [address] [place] [phone] Encounter For Screening For Congenital Cardiac Abnormalities (HCC) (Primary Dx); Diabetes Mellitus Type 2 (HCC); Abnormal Ultrasound Social History Tobacco Use Types Packs/Day Years Used Date Smoking Tobacco: Never Smokeless Tobacco: Never Alcohol Use Standard Drinks/Week Comments Not Currently 0 (1 standard drink = 0.6 oz pur e alcohol) [facility] Utilities Answer Date Recorded In the past 12 months has [employer], gas, oil, or water [employer] threatened to shut off services in your [...] - 05/20/2024 9:00 AM CDT [facility] Cardiology Consultation Bea JohnsonS. Date of Consultation: 05/20/2024 Patient: Sangita Flor Date of : 1985, Age: 38 y.o. , CSN: [id number] Address: [facility] [address] [place] [id number] Referral: Bhaskar Colon M.B.B.S. [address] [place] [address] SUBJECTIVE CHIEF COMPLAINT: cardiovascular screening. HISTORY OF [...] Current Medications: Accu-Chek Guide Me Glucose [facility] [place], See Admin Instructions. Accu-Chek Guide test strips, [...]
[2024-07-23 09:23] LABS: Strep B DNA Probe Negative (Negative)
[2024-07-23 10:33] LABS: Strep B Susceptibility Needed? No
== END 2024-07-22 10:04 | disposition home or self-care (01) ==
LOC: NFLDREF 10:04
PROVIDERS: PCP Family Medicine; Visit Provider Obstetrics & Gynecology
DX: Z34.93 Encounter for supervision of normal pregnancy, unspecified, third trimester (principal); O09.523 Supervision of elderly multigravida, third trimester; Z3A.33 33 weeks gestation of pregnancy
CPT/HCPCS: 87081; 87653

== ENCOUNTER 2024-07-27 07:18 | Outpatient (CLI) | payer OTHER, SELFPAY ==
--- NOTE | 2024-07-27 07:15 | CRLHL7_ITS ---
For Patients: As a result of the Century Cures Act, medical imaging exams and procedure reports are released immediately into your electronic medical record. You may view this report before your referring provider. If you have questions, please contact your health care provider. INDICATION: PREEXISTING TYPE 2 DIABETES COMPARISON: 07/20/2024 TECHNIQUE: Real time alexandra scale imaging of the fetus was performed. Without non-stress testing. FINDINGS: Sonographic imaging demonstrates a single living intrauterine gestation. Fetus demonstrates a regular cardiac rate of 145 beats per minute. Fetus has a transverse position, head maternal left. The amniotic fluid volume appears normal and there is a single deepest pocket measurement of 5.7 cm. The fetus was active and demonstrated normal breathing movements. There was normal flexion and extension of the trunk and extremities. Fluid is present within the hemiscrotum bilaterally. IMPRESSION: Normal biophysical profile score of 8 out of 8. Bilateral scrotal hydroceles are present. Dictated by Jersey Bunch MD @ 07/27/2024 4:40:51 PM (Electronically Signed)
--- OUTSIDE RECORDS SUMMARY | 2024-07-27 07:20 | XMS_ITS | Encounter Summary ---
Author Organization [facility] Address [address] [place] [address] Care Team Providers Care Hand Straightener Name Role Phone Unavailable Primary Care Provider Unavailabl e Reason for Referral * Outpatient (Routine) - Closed Specialty Diagnoses / Procedures Referred By Jade gonsales Referred To Contact Diagnoses Diabetes Mellitus Type 2 (HCC) Abnormal Ultrasound Procedures Echo Bhaskar Colon M.B.B.S. [address] [place] [phone] Phone: tel: fax: [facility] Referral ID Status Reason Start Date Expiration Date Visits Re quested Visits Authorized [id number] Closed 04/29/2024 04/29/2025 1 1 * Outpatient (Routine) - Closed Specialty Diagnoses / Procedures Referred By Jade gonsales Referred To Contact Pediatric Cardiology Diagnoses Diabetes Mellitus Type 2 (HCC) Abnormal Ultrasound Bhaskar Colon M.B.B.S. [address] [place] [address] Phone: tel: fax: [facility] Referral ID Status Reason Start Date Expiration Date Visits Re quested Visits Authorized [id number] Closed 04/29/2024 10/29/2025 1 1 Reason for Visit * Outpatient (Routine) - Closed Specialty Diagnoses / Procedures Referred By Jade t Referred To Contact Obstetrics and Gynecology Bhaskar Colon M.B.B.S. [address] [place] [address] Phone: tel: fax: [facility] Referral ID Status Reason Start Date Expiration Date Visits Re quested Visits Authorized [id number] Closed 04/01/2024 10/01/2025 1 1 Encounter Details Date Type Department Care Team (Latest Contact Info) Description 04/29/2024 2:00 PM CDT Routine Department of Obstetrics and Gynecology in [place], [place] [address] [place] [phone] Bhaskar Colon M.B.B.S. [address] [place] [address] Diabetes Mellitus Type 2 (HCC) (Primary Dx); Abnormal Ultrasound Social History Tobacco Use Types Packs/Day Years Used Date Smoking Tobacco: Never Smokeless Tobacco: Never Alcohol Use Standard Drinks/Week Comments Not Currently 0 (1 standard drink = 0.6 oz pur e alcohol) [facility] Utilities Answer Date Recorded In the past 12 months has e [employer], gas, oil, or water [employer] threatened to shut off services in your [...] your living situation today? I have a [facility] to live 03/31/2024 Estimated Date of [...] scan, she declined to meet with the supervisor tank cleaning to discuss the need for any further [...] DOPPLER (05/20/2024 8:42 AM CDT) Ejection Fraction [facility] Anatomical Region Laterality Modality Echocardiography 05/20/2024 [...]
--- OUTSIDE RECORDS SUMMARY | 2024-07-27 07:20 | XMS_ITS ---
Author Organization [facility] Address [address] [place] [address] Care Team Providers Care Ice Cream Chef Name Role Phone Unavailable Unavailable Unavailable Surgery Details Not on file Complications Check Surgery Details section. Procedure Estimated Blood Loss Check Surgery Details section. Procedure Findings Check Surgery Details section. Procedure Specimens Taken Check Surgery Details section.
--- OUTSIDE RECORDS SUMMARY | 2024-07-27 07:20 | XMS_ITS | Clinical Summary ---
Author Organization [facility] Address [address] [place] [address]. [place] [address] Care Team Providers Care Turnaround Planner Name Role Phone No Ref-Primary, Physician Primary Care Provider Annika Ibrahim MD Unavailable [phone] Allergies No known active allergies Social [...] 132.1 cm (4' 4) 11/29/2020 4:53 PM WIRE GALVANIZER Body Mass Index 30.11 11/29/2020 4:53 PM WIRE GALVANIZER Plan of Treatment Health Maintenance Due Date [...] BASIC METABOLIC PANEL STAT 11/29/2020 8:35 PM WIRE GALVANIZER from Last 3 Months or Most Recently Relevant to Health Maintenance Results * Basic metabolic panel (11/29/2020 8:35 PM WIRE GALVANIZER) Sodium 138 133 - 144 mmol/L 11/29/2020 8:52 PM WIRE GALVANIZER [facility] Potassium 3.8 3.4 - 5.3 mmol/L 11/29/2020 8:52 PM WIRE GALVANIZER [facility] Chloride 107 94 - 109 mmol/L 11/29/2020 8:52 PM WIRE GALVANIZER [facility] Carbon Dioxide 23 20 - 32 mmol/L 11/29/2020 8:59 PM WIRE GALVANIZER [facility] Anion Gap 8 3 - 14 mmol/L 11/29/2020 8:59 PM WIRE GALVANIZER [facility] Glucose 93 70 - 99 mg/dL 11/29/2020 8:59 PM [facility] Urea Nitrogen 16 7 - 30 mg/dL 11/29/2020 8:59 PM [facility] Creatinine 0.57 0.52 - 1.04 mg/dL 11/29/2020 8:59 PM [facility] GFR Estimate >90 >60 mL/min/{1. 73_m2} 11/29/2020 8:59 PM WIRE GALVANIZER [facility] Comment: Non GFR Calc Starting 09/23/2018, serum creatinine based estimated GFR (eGFR) will be calculated using the Chronic Kidney Disease Epidemiology Collaboration (CKD-EPI) equation. GFR Estimate If Black >90 >60 mL/min/{1. 73_m2} 11/29/2020 8:59 PM [facility] Comment: GFR Calc Starting 09/23/2018, serum creatinine based estimated GFR (eGFR) will be calculated using the Chronic Kidney Disease Epidemiology Collaboration (CKD-EPI) equation. Calcium 8.7 8.5 - 10.1 mg/dL 11/29/2020 8:59 PM [facility] 11/29/2020 8:35 PM WIRE GALVANIZER 11/29/2020 8:40 PM WIRE GALVANIZER Latricia Trinh MD LAB - BLOOD ORDERABL ES [facility] [address] [place] [address], [facility] [phone] [facility] [address] [place] [address], [facility] [phone] from Last 3 Months or Most Recently Relevant to Health Maintenance Care Teams Turnaround Planner Relationship Specialty Start Date End Date No Ref-Primary, Physician PCP - General 11/29/20 Annika Ibrahim MD [address] [address] [place] [address] Assigned OBGYN Provider 03/29/24
--- OUTSIDE RECORDS SUMMARY | 2024-07-27 07:20 | XMS_ITS | Encounter Summary ---
Author Organization [facility] Address [address] [place] [address] Care Team Providers Care Farm Machinery Mechanic Name Role Phone Unavailable Primary Care Provider Unavailabl e Reason for Visit * Reason Onset Date Comments Left Without Being Seen 04/29/2024 * Outpatient (Routine) - Canceled Specialty Diagnoses / Procedures Referred By Jade t Referred To Contact Obstetrics and Gynecology Diagnoses Abnormal Ultrasound Bhaskar Colon M.B.B.S. [address] [place] [phone] Phone: tel: fax: [facility] Referral ID Status Reason Start Date Expiration Date V isits Requested Visits Authorized [id number] Canceled 04/01/2024 10/01/2025 1 1 Encounter Details Date Type Department Care Team (Latest Contact Info) Description 04/29/2024 3:00 PM CDT Comprehensive Visit Department of Obstetrics and Gynecology in [place], [place] [address] [place] [phone] Bhaskar Colon M.B.B.S. [address] [place] [phone] Lala Heredia M.S., [facility] [address] [place] [phone] Procedure And Treatment Not Carried Out Due To Patient Leaving Prior To Being Seen By Health Care Provider (Primary Dx); Abnormal Ultrasound Social History Tobacco Use Types Packs/Day Years Used Date Smoking Tobacco: Never Smokeless Tobacco: Never Alcohol Use Standard Drinks/Week Comments Not Currently 0 (1 standard drink = 0.6 oz pur e alcohol) [facility] Utilities Answer Date Recorded [...] your living situation today? I have a [facility] place to live 03/31/2024 [...]
--- OUTSIDE RECORDS SUMMARY | 2024-07-27 07:20 | XMS_ITS | Encounter Summary ---
Author Organization [facility] Address [address] [place] [address] Care Team Providers Care Environmental Protection Specialist Name Role Phone Unavailable Primary Care Provider Unavailabl e Reason for Referral * Outpatient (Routine) - Closed Specialty Diagnoses / Procedures Referred By Jade gonsales Referred To Contact Diagnoses Diabetes Mellitus Type 2 (HCC) Abnormal Ultrasound Procedures Echo Bhaskar Colon M.B.B.S. [address] [place] [phone] Phone: tel: fax: [facility] Referral ID Status Reason Start Date Expiration Date Visits Re quested Visits Authorized [id number] Closed 04/29/2024 04/29/2025 1 1 Reason for Visit * Outpatient (Routine) - Closed Specialty Diagnoses / Procedures Referred By Jade gonsales Referred To Contact Diagnoses Diabetes Mellitus Type 2 (HCC) Abnormal Ultrasound Procedures Echo Bhaskar Colon M.B.B.S. [address] [place] [phone] Phone: tel: fax: [facility] Referral ID Status Reason Start Date Expiration Date Visits Re quested Visits Authorized [id number] Closed 04/29/2024 04/29/2025 1 1 Encounter Details Date Type Department Care Team (Latest Contact Info) Description 05/20/2024 7:11 AM CDT - 05/20/2024 11:59 PM CDT Hospital Encounter Department of Cardiovascular Diseases in [place], [place] [address] [place] [phone] Bhaskar Colon M.B.B.S. [address] [place] [address] Diabetes Mellitus Type 2 (HCC); Abnormal Ultrasound Discharge Disposition: Home or Self Care Social History Tobacco Use Types Packs/Day Years Used Date Smoking Tobacco: Never Smokeless Tobacco: Never Alcohol Use Standard Drinks/Week Comments Not Currently 0 (1 standard drink = 0.6 oz pur e alcohol) [facility] Utilities Answer Date Recorded In the [...] your living situation today? I have a [facility] place to live 03/31/2024 [...]
--- OUTSIDE RECORDS SUMMARY | 2024-07-27 07:20 | XMS_ITS | Encounter Summary ---
Author Organization [facility] Address [address] [place] [address] Care Team Providers Care Plastics Technician Name Role Phone Unavailable Primary Care Provider Unavailabl e Reason for Visit * Outpatient (Routine) - Closed Specialty Diagnoses / Procedures Referred By Jade gonsales Referred To Contact Pediatric Cardiology Diagnoses Diabetes Mellitus Type 2 (HCC) Abnormal Ultrasound Bhaskar Colon M.B.B.S. [address] [place] [phone] Phone: tel: fax: [facility] Referral ID Status Reason Start Date Expiration Date Visits Re quested Visits Authorized [id number] Closed 04/29/2024 10/29/2025 1 1 Encounter Details Date Type Department Care Team (Latest Contact Info) Description 05/20/2024 9:00 AM CDT Comprehensive Visit Division of Pediatric Cardiology in [place], [place] [address] [place] [phone] Yosvany Murphy M.B.B.S. [address] [place] [phone] Encounter For Screening For Congenital Cardiac Abnormalities [...] Recorded In the past 12 months has [employer], gas, oil, or water [employer] threatened to shut off services in your [...] your living situation today? I have a [facility] place to live 03/31/2024 Estimated Date [...] : 1985, Age: 38 y.o. , CSN: [id number] Address: [facility] [address] [place] [id number] Referral: Bhaskar Colon M.B.B.S. [address] [place] [address] SUBJECTIVE CHIEF COMPLAINT: cardiovascular screening. HISTORY OF [...]
--- OUTSIDE RECORDS SUMMARY | 2024-07-27 07:20 | XMS_ITS | Encounter Summary ---
Author Organization [facility] Address [address] [place] [address] Care Team Providers Care Milk And Cream Grader Name Role Phone Unavailable Primary Care Provider Unavailabl e Encounter Details Date Type Department Care Team (Latest Contact Info) Description 04/29/2024 12:49 PM CDT - 04/29/2024 11:59 PM CDT Hospital Encounter Department of Obstetrics and Gynecology in [place], [place] [address] [place] [phone] Ino Colon M.B.B.S. [address] [place] [phone] Abnormal Ultrasound Discharge Disposition: Home or Self Care Social History Tobacco Use Types Packs/Day Years Used Date Smoking Tobacco: Never Smokeless Tobacco: Never Alcohol Use Standard Drinks/Week Comments Not Currently 0 (1 standard drink = 0.6 oz pur e alcohol) [facility] Utilities Answer Date Recorded In the past 12 months has [employer], oil, or water [employer] threatened to shut off services in your [...] your living situation today? I have a [facility] place to live 03/31/2024 [...] FOLLOW-UP AND OR GROWTH COSBY Exam Site: [facility] OB #1 Plurality: 1 OBHx: [G:(3)] [...] Claudio R.V.T., R.D.M.S. on 04/29/2024 2:23:24 PM. Battalion Chief: ??Tish Claudio R.V.T., RChintanM.S. Thank You For This Referral Procedure Note Ino Colon M.B.B.S. - 04/29/2024 MORENA ALVARADO OB Exam, 04/29/2024 EXAM INFORMATION Patient Name: MORENA ALVARADO : 1985 Age: 38 yrs Sex: Female Ref Phys: ION COLON Exam Date: 04/29/2024 Procedure: US OB FOLLOW-UP AND OR GROWTH COSBY Exam Site: [facility] OB #1 Plurality: 1 OBHx: [G:(3)] [...] cm COMPUTATIONS GA: 21w0d [+/-1.40] Method: TRAM RTAM: 09/09/2024 Sono GA: 20w5d [+/-1.40] Method: BPD, [...] Tish Claudio R.V.T., Mirta.S. on :23:24 PM. Battalion Chief: Tish Claudio R.V.T., JuanitoS. Thank You For This Referral us Ino Robertson IMG OB US PROCEDURES Final Result documented in this encounter Visit Diagnoses Diagnosis Abnormal Ultrasound documented in this encounter
--- OUTSIDE RECORDS SUMMARY | 2024-07-27 07:20 | XMS_ITS | Referral Summary ---
Author Organization [facility] Address [address] [place] [address]. [place] [address] Care Team Providers Care Performing Arts Road Manager Name Role Phone No Ref-Primary, Physician Primary Care Provider Annika Ibrahim MD Unavailable [phone] Allergies No known active allergies Social [...] 132.1 cm (4' 4) 11/29/2020 4:53 PM ADMINISTRATIVE LAW JUDGE Body Mass Index 30.11 11/29/2020 4:53 PM ADMINISTRATIVE LAW JUDGE Plan of Treatment Not on file Procedures Procedure Name Priority Date/Time Associated Diagnosis Comments BASIC METABOLIC PANEL STAT 11/29/2020 8:35 PM ADMINISTRATIVE LAW JUDGE from Last 3 Months or Most Recently Relevant to Health Maintenance Results * Basic metabolic panel (11/29/2020 8:35 PM ADMINISTRATIVE LAW JUDGE) Sodium 138 133 - 144 mmol/L 11/29/2020 8:52 PM [facility] Potassium 3.8 3.4 - 5.3 mmol/L 11/29/2020 8:52 PM [facility] Chloride 107 94 - 109 mmol/L 11/29/2020 8:52 PM [facility] Carbon Dioxide 23 20 - 32 [...] PM [facility] 11/29/2020 8:35 PM ADMINISTRATIVE LAW JUDGE 11/29/2020 8:40 PM ADMINISTRATIVE LAW JUDGE Latricia Trinh MD LAB - BLOOD ORDERABL ES [facility] [address] [address], [facility] [phone] [facility] [address] [place] [address], [facility] [phone] from Last 3 Months or Most Recently Relevant to Health Maintenance Care Teams Performing Arts Road Manager Relationship Specialty Start Date End Date No Ref-Primary, Physician PCP - General 11/29/20 Annika Ibrahim MD [address] [address] Assigned OBGYN Provider 03/29/24
--- OUTSIDE RECORDS SUMMARY | 2024-07-27 07:20 | XMS_ITS | Referral Summary ---
Author Organization [facility] Address [address] [place] [address] Care Team Providers Care Senior Environmental Technician Name Role Phone Unavailable Primary Care Provider Unavailabl e Source Comments Patient records contain information from all sites at [facility]. For routine questions regarding patient records, call [phone] during business hours, M-F 8:00 AM - 5:00 PM Central Time. Record requests for emergency care only can be directed to [phone] at any time.[facility] Encounters Date Type Department Care Team Description 05/20/2024 9:00 AM CDT Comprehensive Visit Division of Pediatric Cardiology in [place], [place] [address] [place] [address] Yosvany Murphy M.B.B.S. Encounter For Screening For Congenital Cardiac Abnormalities (HCC) (Primary Dx); Diabetes Mellitus Type 2 (HCC); Abnormal Ultrasound 05/20/2024 7:11 AM CDT - 05/20/2024 11:59 PM CDT Hospital Encounter Department of Cardiovascular Diseases in [place], [place] [address] [place] [phone] Ino Colon M.B.B.S. Diabetes Mellitus Type 2 (HCC); Abnormal Ultrasound Discharge Disposition: Home or Self Care 04/29/2024 2:00 PM CDT Routine Department of Obstetrics and Gynecology in [place], [place] [address] [place] [phone] Ino Colon M.B.B.S. Diabetes Mellitus Type 2 (HCC) (Primary Dx); Abnormal Ultrasound 04/29/2024 12:49 PM CDT - 04/29/2024 11:59 PM CDT Hospital Encounter Department of Obstetrics and Gynecology in [place], [place] [address] [place] [address] Ino Colon M.B.B.S. Abnormal Ultrasound Discharge Disposition: Home or Self Care 04/29/2024 3:00 PM CDT Comprehensive Visit Department of Obstetrics and Gynecology in [place], [place] [address] [place] [phone] Ino Colon M.B.B.S. Lala Heredia M.S., [facility] Procedure And Treatment Not Carried Out Due [...] plan: chart: Care Team/nursing team: [facility]. CHEYANNE Colon Partner name: Pertinent medical [...] drink = 0.6 oz pur e alcohol) [facility] Utilities Answer Date Recorded In the past 12 months has th e [employer] gas, oil, or water company threatened to [...] your living situation today? I have a [facility] place to live 03/31/2024 Estimated [...] Claudio R.V.T., R.D.M.S. on 04/29/2024 2:23:24 PM. Master Lay Out Specialist: ??Tish Claudio R.V.T., R.Parisa.M.S. Thank You For [...] Tish Claudio R.V.T., R.D.M.S. on :23:24 PM. Master Lay Out Specialist: Tish Claudio R.V.T., R.D.M.S. Thank You For This Referral us Ino Robertson IMG OB US PROCEDURES Final Result from Last 3 Months Insurance MEDICA
--- OUTSIDE RECORDS SUMMARY | 2024-07-27 07:20 | XMS_ITS | Clinical Summary ---
Author Organization [facility] Address [address] [place] [address] Care Team Providers Care Conveyor Installer Name Role Phone Unavailable Primary Care Provider Unavailabl e Source Comments Patient records contain information from all sites at [facility]. For routine questions regarding patient records, call [phone] during business hours, M-F 8:00 AM - 5:00 PM Central Time. Record requests for emergency care only can be directed to [phone] at any time.[facility] Allergies No known active allergies Medications insulin [...] Delivery plan: chart: Care Team/nursing team: [facility]. CHEYANNE Colon Partner name: Pertinent medical issues [...] Comprehensive Visit Division of Pediatric Cardiology in [address] [phone] Yosvany Murphy M.B.B.S. Encounter For Screening For Congenital Cardiac Abnormalities (HCC) (Primary Dx); Diabetes Mellitus Type 2 (HCC); Abnormal Ultrasound 05/20/2024 7:11 AM CDT - 05/20/2024 11:59 PM CDT Hospital Encounter Department of Cardiovascular Diseases in [address] [phone] Ino Colon M.B.B.S. Diabetes Mellitus Type 2 (HCC); Abnormal Ultrasound Discharge Disposition: Home or Self Care 04/29/2024 3:00 PM CDT Comprehensive Visit Department of Obstetrics and Gynecology in [address] [phone] Ino Colon M.B.B.S. Lala Heredia M.S., [facility] Procedure And Treatment Not Carried Out Due To Patient Leaving Prior To Being Seen By Health Care Provider (Primary Dx); Abnormal Ultrasound 04/29/2024 2:00 PM CDT Routine Department of Obstetrics and Gynecology in [place], [place] [address] [place] [phone] Ino Colon M.B.B.S. Diabetes Mellitus Type 2 (HCC) (Primary Dx); Abnormal Ultrasound 04/29/2024 12:49 PM CDT - 04/29/2024 11:59 PM CDT Hospital Encounter Department of Obstetrics and Gynecology in [place], [place] [address] [place] [address] Ino Colon M.B.B.S. Abnormal Ultrasound Discharge Disposition: Home or Self Care from Last 3 Months Social History Tobacco Use Types Packs/Day Years Used Date Smoking Tobacco: Never Smokeless Tobacco: Never Tobacco Cessation:Counseling Given: Not Answered Alcohol Use Standard Drinks/Week Comments Not Currently 0 (1 standard drink = 0.6 oz pur e alcohol) [facility] Utilities Answer Date Recorded In [...] your living situation today? I have a [facility] place to live 03/31/2024 Estimated Date [...] AND OR GROWTH COSBY Exam Site: [facility] OB #1 Plurality: 1 OBHx: [G:(3)] [...] Claudio R.V.T., R.D.M.S. on 04/29/2024 2:23:24 PM. Reservations And Ticketing Agent: ??Tish Claudio R.V.T., R.D.M.S. Thank You For This Referral Procedure Note Ino Colon M.B.B.S. - 04/29/2024 MORENA ALVARADO OB Exam, 04/29/2024 EXAM INFORMATION Patient Name: MORENA ALVARADO : 1985 Age: 38 yrs Sex: Female Ref Phys: INO COLON Exam Date: 04/29/2024 Procedure: US OB FOLLOW-UP AND OR GROWTH COSBY Exam Site: [facility] OB #1 Plurality: 1 OBHx: [G:(3)] [...] Tish Claudio R.V.T., JuanitoS. on :23:24 PM. Reservations And Ticketing Agent: Tish Claudio R.V.T., R.D.M.S. Thank You For This Referral us Ino Robertson IMG OB US PROCEDURES Final Result from Last 3 Months Insurance [place]ICA [place] [id number]
== END 2024-07-27 07:19 | disposition home or self-care (01) ==
LOC: US 07:18
PROVIDERS: PCP Family Medicine; Visit Provider Obstetrics & Gynecology
DX: O24.119 Pre-existing type 2 diabetes mellitus, in pregnancy, unspecified trimester (principal)
CPT/HCPCS: 76819

== ENCOUNTER 2024-08-03 07:25 | Outpatient (CLI) | payer OTHER, SELFPAY ==
--- NOTE | 2024-08-03 07:15 | CRLHL7_ITS ---
For Patients: As a result of the Century Cures Act, medical imaging exams and procedure reports are released immediately into your electronic medical record. You may view this report before your referring provider. If you have questions, please contact your health care provider. INDICATION: 38 year-old female. Pre-existing type 2 diabetes. Assess well-being. COMPARISON: July 27, 2024 TECHNIQUE: Real time alexandra scale imaging of the fetus was performed. Without non-stress testing. FINDINGS: Sonographic imaging demonstrates a single living intrauterine gestation. Fetus demonstrates a regular cardiac rate of 141 beats per minute. Fetus has a transverse orientation with head towards the maternal right side. The amniotic fluid volume slightly low and there is a single deepest pocket measurement of 2.7 cm (normal range 3.0-8.0 cm). The previous single deepest pocket measurement was 5.7 cm. The fetus was active and demonstrated normal breathing movements. There was normal flexion and extension of the trunk and extremities. IMPRESSION: Normal biophysical profile score of 8 out of 8. Slightly low amniotic fluid volume with a single deepest pocket measurement of 2.7 cm, previously 5.7 cm. Dictated by Enrrique Beck MD @ 08/03/2024 9:02:02 AM (Electronically Signed)
--- OUTSIDE RECORDS SUMMARY | 2024-08-03 07:27 | XMS_ITS | Clinical Summary ---
Author Organization [facility] Address [address] [place] [address] Care Team Providers Care Patient Access Director Name Role Phone Unavailable Primary Care Provider Unavailabl e Source Comments Patient records contain information from all sites at [facility]. For routine questions regarding patient records, call [phone] during business hours, M-F 8:00 AM - 5:00 PM Central Time. Record requests for emergency care only can be directed to [phone] at any time.[facility] Allergies No known active allergies Medications insulin [...] plan: chart: Care Team/nursing team: [facility]. CHEYANNE Colon Partner name: Pertinent medical issues [...] Comprehensive Visit Division of Pediatric Cardiology in [place], [place] [address] [place] [address] Yosvany Murphy M.B.B.S. Encounter For Screening For Congenital Cardiac Abnormalities (HCC) (Primary Dx); Diabetes Mellitus Type 2 (HCC); Abnormal Ultrasound 05/20/2024 7:11 AM CDT - 05/20/2024 11:59 PM CDT Hospital Encounter Department of Cardiovascular Diseases in [address] [phone] Bhaskar Colon M.B.B.S. Diabetes Mellitus Type 2 (HCC); Abnormal Ultrasound Discharge Disposition: Home or Self Care from Last 3 Months Social History Tobacco Use Types Packs/Day Years Used Date Smoking Tobacco: Never Smokeless Tobacco: Never Tobacco Cessation:Counseling Given: Not Answered Alcohol Use Standard Drinks/Week Comments Not Currently 0 (1 standard drink = 0.6 oz pur e alcohol) [facility] Utilities Answer Date Recorded In the past 12 months has [employer], gas, oil, or water [employer] threatened to shut off services in your [...] Answer Date Recorded Employment status Unemployed/not in [employer] paid workforce and NOT seeking employment 03/31/2024 Housing Stability Answer Date Recorded What is your living situation today? I have a [facility] place to live 03/31/2024 Estimated Date [...] (05/20/2024 8:42 AM CDT) Ejection Fraction [facility] Anatomical Region Laterality Modality Echocardiography 05/20/2024 7:12 [...] effusion. No hydrops. Procedure Note Yosvany Murphy M.B.BDiyaS. - 05/20/2024 For the complete report, see [...] Robertson CV ECHO PROCEDURES Final R esult from Last 3 Months Insurance MEDICA [place] [id number]
--- OUTSIDE RECORDS SUMMARY | 2024-08-03 07:27 | XMS_ITS | Clinical Summary ---
Author Organization [facility] Address [address] [place] [address]. [place] [address] Care Team Providers Care Senior Enlisted Advisor Name Role Phone No Ref-Primary, Physician Primary Care Provider Annika Ibrahim MD Unavailable Allergies No known active allergies Social History Tobacco Use Types Packs/Day Years Used Date Smoking Tobacco: Never Assessed Adolescent Education Answer Date Record ed Getting School Help Needed Not on file 06/29 Estimated Date of Delivery Comme nts Yes 09/04/2024 Based on last me nstrual period of 11/29/2023 Sex and Gender Information Value Date Recorded Sex Assigned at Not on file Legal Sex Female 4:40 PM GLOVE BRUSHER Gender Identity Not on file Sexual Orientation [...] 132.1 cm (4' 4) 11/29/2020 4:53 PM GLOVE BRUSHER Body Mass Index 30.11 11/29/2020 4:53 PM GLOVE BRUSHER Plan of Treatment Health Maintenance Due Date [...] VACCINE (1 - Risk 1-dose series) 07/10/2024 GROUP B STREP SCREENING 08/07/2024 DTAP/TDAP/TD IMMUNIZATION (2 - Td or Tdap) [...] BASIC METABOLIC PANEL STAT 11/29/2020 8:35 PM GLOVE BRUSHER from Last 3 Months or Most Recently Relevant to Health Maintenance Results * Basic metabolic panel (11/29/2020 8:35 PM GLOVE BRUSHER) Sodium 138 133 - 144 mmol/L 11/29/2020 8:52 PM GLOVE BRUSHER [facility] Potassium 3.8 3.4 - 5.3 mmol/L 11/29/2020 8:52 PM GLOVE BRUSHER [facility] Chloride 107 94 - 109 mmol/L 11/29/2020 8:52 PM GLOVE BRUSHER [facility] Carbon Dioxide 23 20 - 32 mmol/L 11/29/2020 8:59 PM [facility] Anion Gap 8 3 - 14 mmol/L 11/29/2020 8:59 PM [facility] Glucose 93 70 - 99 mg/dL 11/29/2020 8:59 PM [facility] Urea Nitrogen 16 7 - 30 mg/dL 11/29/2020 8:59 PM [facility] Creatinine 0.57 0.52 - 1.04 mg/dL 11/29/2020 8:59 PM [facility] GFR Estimate >90 >60 mL/min/{1. 73_m2} 11/29/2020 8:59 PM [facility] Comment: Non GFR Calc Starting 09/23/2018, serum creatinine based estimated GFR (eGFR) will be calculated using the Chronic Kidney Disease Epidemiology Collaboration (CKD-EPI) equation. GFR Estimate If Black >90 >60 mL/min/{1. 73_m2} 11/29/2020 8:59 PM [facility] Comment: GFR Calc Starting 09/23/2018, serum creatinine based estimated GFR (eGFR) will be calculated using the Chronic Kidney Disease Epidemiology Collaboration (CKD-EPI) equation. Calcium 8.7 8.5 - 10.1 mg/dL 11/29/2020 8:59 PM [facility] 11/29/2020 8:35 PM GLOVE BRUSHER 11/29/2020 8:40 PM GLOVE BRUSHER us Latricia Trinh MD LAB - BLOOD ORDERABLES Final R esult [facility] [address] [place] [address], [facility] [phone] [facility] [address] [place] [address], [facility] [phone] from Last 3 Months or Most Recently Relevant to Health Maintenance Insurance [employer]ICA [employer] Care Teams Senior Enlisted Advisor Relationship Specialty Start Date End Date No Ref-Primary, Physician PCP - General 11/29/20 Annika Ibrahim MD [address] [address] Assigned OBGYN Provider 03/29/24
--- OUTSIDE RECORDS SUMMARY | 2024-08-03 07:27 | XMS_ITS | Encounter Summary ---
Author Organization [facility] Address [address] [place] [address] Care Team Providers Care Fishing Accessories Maker Name Role Phone Unavailable Primary Care Provider Unavailabl e Encounter Details Date Type Department Care Team (Latest Contact Info) Description 04/29/2024 12:49 PM CDT - 04/29/2024 11:59 PM CDT Hospital Encounter Department of Obstetrics and Gynecology in [place], [place] [address] [place] [phone] Ino Colon M.B.B.S. [address] [place] [phone] Abnormal Ultrasound Discharge Disposition: Home or Self Care Social History Tobacco Use Types Packs/Day Years Used Date Smoking Tobacco: Never Smokeless Tobacco: Never Alcohol Use Standard Drinks/Week Comments Not Currently 0 (1 standard drink = 0.6 oz pur e alcohol) [facility] Utilities Answer Date Recorded In the past 12 months has [employer], oil, or water [employer] threatened to shut off services in your [...] your living situation today? I have a [facility] place to live 03/31/2024 Estimated [...] OR GROWTH COSYB Exam Site: [facility] OB #1 Plurality: 1 OBHx: [G:(3)] [...] Claudio R.V.T., R.D.M.S. on 04/29/2024 2:23:24 PM. Power Generation Engineer: ??Tish Claudio R.V.T., RChintanM.S. Thank You For This Referral Procedure Note Ino Colon M.B.B.S. - 04/29/2024 MORENA ALVARADO OB Exam, 04/29/2024 EXAM INFORMATION Patient Name: MORENA ALVARADO : 1985 Age: 38 yrs Sex: Female Ref Phys: INO COLON Exam Date: 04/29/2024 Procedure: US OB FOLLOW-UP AND OR GROWTH COSBY Exam Site: [facility] OB #1 Plurality: 1 OBHx: [G:(3)] [...] Upper lip/nose, Hands, Feet Preliminary Read by Tihs Claudio R.V.T., RChintanM.S. on :17:32 PM. Preliminary Read by Tish Claudio R.V.T., Mirta.S. on :23:24 PM. Power Generation Engineer: Tish Claudio R.V.T., JuanitoS. Thank You For This Referral us Ino Robertson IMG OB US PROCEDURES Final Result documented in this encounter Visit Diagnoses Diagnosis Abnormal Ultrasound documented in this encounter
--- OUTSIDE RECORDS SUMMARY | 2024-08-03 07:27 | XMS_ITS | Encounter Summary ---
Author Organization [facility] Address [address] [place] [address] Care Team Providers Care Center Administrator Name Role Phone Unavailable Primary Care Provider Unavailabl e Reason for Visit * Reason Onset Date Comments Left Without Being Seen 04/29/2024 * Outpatient (Routine) - Canceled Specialty Diagnoses / Procedures Referred By Jade t Referred To Contact Obstetrics and Gynecology Diagnoses Abnormal Ultrasound Bhaskar Colon M.B.B.S. [address] [place] [phone] Phone: tel: fax: [facility] Referral ID Status Reason Start Date Expiration Date V isits Requested Visits Authorized [id number] Canceled 04/01/2024 10/01/2025 1 1 Encounter Details Date Type Department Care Team (Latest Contact Info) Description 04/29/2024 3:00 PM CDT Comprehensive Visit Department of Obstetrics and Gynecology in [place], [place] [address] [place] [phone] Bhaskar Colon M.B.B.S. [address] [place] [phone] Lala Heredia M.S., [facility] [address] [place] [phone] Procedure And Treatment Not Carried Out Due [...] your living situation today? I have a [facility] place to live 03/31/2024 Estimated Date [...]
--- OUTSIDE RECORDS SUMMARY | 2024-08-03 07:27 | XMS_ITS | Referral Summary ---
Author Organization [facility] Address [address] [place] [address] Care Team Providers Care Irrigation Service Technician Name Role Phone Unavailable Primary Care Provider Unavailabl e Source Comments Patient records contain information from all sites at [facility]. For routine questions regarding patient records, call [phone] during business hours, M-F 8:00 AM - 5:00 PM Central Time. Record requests for emergency care only can be directed to [phone] at any time.[facility] Encounters Date Type Department Care Team Description 05/20/2024 9:00 AM CDT Comprehensive Visit Division of Pediatric Cardiology in [place], [place] [address] [place] [address] Yosvany Murphy M.B.B.S. Encounter For Screening For Congenital Cardiac Abnormalities (HCC) (Primary Dx); Diabetes Mellitus Type 2 (HCC); Abnormal Ultrasound 05/20/2024 7:11 AM CDT - 05/20/2024 11:59 PM CDT Hospital Encounter Department of Cardiovascular Diseases in [place], [place] [address] [place] [phone] Bhaskar Colon M.B.B.S. Diabetes Mellitus Type 2 [...] plan: chart: Care Team/nursing team: [facility]. MFM Tangent Partner name: Pertinent medical issues for management [...] In the past 12 months has e [employer], gas, oil, or water [employer] threatened to shut off services in your [...] your living situation today? I have a [facility] place to live 03/31/2024 Estimated [...] DOPPLER (05/20/2024 8:42 AM CDT) Ejection Fraction [facility] Anatomical Region Laterality Modality Echocardiography 05/20/2024 [...]
--- OUTSIDE RECORDS SUMMARY | 2024-08-03 07:27 | XMS_ITS | Referral Summary ---
Author Organization [facility] Address [address] [place] [address]. [place] [address] Care Team Providers Care Military Technician Name Role Phone No Ref-Primary, Physician Primary Care Provider Annika Ibrahim MD Unavailable [phone] Allergies No known active allergies Social [...] on file Legal Sex Female 4:40 PM PRODUCTION CONTROL EXPERT Gender Identity Not on file Sexual Orientation [...] 132.1 cm (4' 4) 11/29/2020 4:53 PM PRODUCTION CONTROL EXPERT Body Mass Index 30.11 11/29/2020 4:53 PM PRODUCTION CONTROL EXPERT Plan of Treatment Not on file Procedures Procedure Name Priority Date/Time Associated Diagnosis Comments BASIC METABOLIC PANEL STAT 11/29/2020 8:35 PM PRODUCTION CONTROL EXPERT from Last 3 Months or Most Recently Relevant to Health Maintenance Results * Basic metabolic panel (11/29/2020 8:35 PM PRODUCTION CONTROL EXPERT) Sodium 138 133 - 144 mmol/L 11/29/2020 8:52 PM [facility] Potassium 3.8 3.4 - 5.3 mmol/L 11/29/2020 8:52 PM [facility] Chloride 107 94 - 109 mmol/L 11/29/2020 8:52 PM [facility] Carbon Dioxide 23 20 - 32 mmol/L [...] [facility] 11/29/2020 8:35 PM PRODUCTION CONTROL EXPERT 11/29/2020 8:40 PM PRODUCTION CONTROL EXPERT us Latricia Trinh MD LAB - BLOOD ORDERABLES Final R esult [facility] [address] [place] [address], [facility] [phone] [facility] [address] [place] [address], [facility] [phone] from Last 3 Months or Most Recently Relevant to Health Maintenance Insurance MEDICA CHOICE MEDICA CHOICE Care Teams Military Technician Relationship Specialty Start Date End Date No Ref-Primary, Physician PCP - General 11/29/20 Annika Ibrahim MD [address] [address] Assigned OBGYN Provider 03/29/24
--- OUTSIDE RECORDS SUMMARY | 2024-08-03 07:27 | XMS_ITS ---
Author Organization [facility] Address [address] [place] [address] Care Team Providers Care Computer Art Instructor Name Role Phone Unavailable Unavailable Unavailable Surgery Details Not on file Complications Check Surgery Details section. Procedure Estimated Blood Loss Check Surgery Details section. Procedure Findings Check Surgery Details section. Procedure Specimens Taken Check Surgery Details section.
--- OUTSIDE RECORDS SUMMARY | 2024-08-03 07:27 | XMS_ITS | Encounter Summary ---
Author Organization [facility] Address [address] [place] [address] Care Team Providers Care Livestock Broker Name Role Phone Unavailable Primary Care Provider Unavailabl e Reason for Referral * Outpatient (Routine) - Closed Specialty Diagnoses / Procedures Referred By Jade gonsales Referred To Contact Diagnoses Diabetes Mellitus Type 2 (HCC) Abnormal Ultrasound Procedures Echo Bhaskar Colon M.B.B.S. [address] [place] [phone] Phone: tel: fax: [facility] Referral ID Status Reason Start Date Expiration Date Visits Re quested Visits Authorized [id number] Closed 04/29/2024 04/29/2025 1 1 Reason for Visit * Outpatient (Routine) - Closed Specialty Diagnoses / Procedures Referred By Jade gonsales Referred To Contact Diagnoses Diabetes Mellitus Type 2 (HCC) Abnormal Ultrasound Procedures Echo Bhaskar Colon M.B.B.S. [address] [place] [phone] Phone: tel: fax: [facility] Referral ID Status Reason Start Date Expiration Date Visits Re quested Visits Authorized [id number] Closed 04/29/2024 04/29/2025 1 1 Encounter Details Date Type Department Care Team (Latest Contact Info) Description 05/20/2024 7:11 AM CDT - 05/20/2024 11:59 PM CDT Hospital Encounter Department of Cardiovascular Diseases in [place], [place] [address] [place] [phone] Bhaskar Colon M.B.B.S. [address] [place] [address] Diabetes Mellitus Type 2 (HCC); Abnormal Ultrasound Discharge Disposition: Home or Self Care Social History Tobacco Use Types Packs/Day Years Used Date Smoking Tobacco: Never Smokeless Tobacco: Never Alcohol Use Standard Drinks/Week Comments Not Currently 0 (1 standard drink = 0.6 oz pur e alcohol) [facility] Utilities Answer Date Recorded In the [...] your living situation today? I have a [facility] place to live 03/31/2024 Estimated Date [...] DOPPLER (05/20/2024 8:42 AM CDT) Ejection Fraction [facility] Anatomical Region Laterality Modality Echocardiography 05/20/2024 [...]
--- OUTSIDE RECORDS SUMMARY | 2024-08-03 07:27 | XMS_ITS | Encounter Summary ---
Author Organization [facility] Address [address] [place] [address] Care Team Providers Care Assistant Professor Of Mathematics Name Role Phone Unavailable Primary Care Provider Unavailabl e Reason for Referral * Outpatient (Routine) - Closed Specialty Diagnoses / Procedures Referred By Jade gonsales Referred To Contact Diagnoses Diabetes Mellitus Type 2 (HCC) Abnormal Ultrasound Procedures Echo Bhaskar Colon M.B.B.S. [address] [place] [phone] Phone: tel: fax: [facility] Referral ID Status Reason Start Date Expiration Date Visits Re quested Visits Authorized [id number] Closed 04/29/2024 04/29/2025 1 1 * Outpatient (Routine) - Closed Specialty Diagnoses / Procedures Referred By Jade gonsales Referred To Contact Pediatric Cardiology Diagnoses Diabetes Mellitus Type 2 (HCC) Abnormal Ultrasound Bhaskar Colon M.B.B.S. [address] [place] [address] Phone: tel: fax: [facility] Referral ID Status Reason Start Date Expiration Date Visits Re quested Visits Authorized [id number] Closed 04/29/2024 10/29/2025 1 1 Reason for Visit * Outpatient (Routine) - Closed Specialty Diagnoses / Procedures Referred By Jade t Referred To Contact Obstetrics and Gynecology Bhaskar Colon M.B.B.S. [address] [place] [address] Phone: tel: fax: [facility] Referral ID Status Reason Start Date Expiration Date Visits Re quested Visits Authorized [id number] Closed 04/01/2024 10/01/2025 1 1 Encounter Details Date Type Department Care Team (Latest Contact Info) Description 04/29/2024 2:00 PM CDT Routine Department of Obstetrics and Gynecology in [place], [place] [address] [place] [phone] Bhaskar Colon M.B.B.S. [address] [place] [address] Diabetes Mellitus Type 2 (HCC) (Primary Dx); Abnormal Ultrasound Social History Tobacco Use Types Packs/Day Years Used Date Smoking Tobacco: Never Smokeless Tobacco: Never Alcohol Use Standard Drinks/Week Comments Not Currently 0 (1 standard drink = 0.6 oz pur e alcohol) [facility] Utilities Answer Date Recorded In the past 12 months has e [employer], gas, oil, or water [employer] threatened to shut off services in your [...] today? I have a [facility] place to live 03/31/2024 Estimated Date [...] in this encounter Progress Notes * Bhaskar Colno M.B.B.S. - 04/29/2024 2:00 PM CDT SUBJECTIVE [...] scan, she declined to meet with the home appliance tech to discuss the need for any further genetic diseases stating it wont change her plan to keep the . echo is requested. If no cardiac abnormalities identefied, She can continue care with the primary referring OB provider and deliver locally. Recommendations: echo testing starting at 32 weeks due to Hx of DM II and enlarged NT which is associated withadverse outcomes. Timing of delivery is driven by [...] Order-Level Documents. Bhaskar Robertson CV ECHO PROCEDURES Final R esult documented in this encounter Visit Diagnoses Diagnosis Diabetes Mellitus Type 2 (HCC)- Primary Abnormal Ultrasound Diabetes Mellitus Type 2 (HCC) Abnormal Ultrasound documented in this encounter
--- OUTSIDE RECORDS SUMMARY | 2024-08-03 07:27 | XMS_ITS | Encounter Summary ---
Author Organization [facility] Address [address] [place] [address] Care Team Providers Care Switchboard Manager Name Role Phone Unavailable Primary Care Provider Unavailabl e Reason for Visit * Outpatient (Routine) - Closed Specialty Diagnoses / Procedures Referred By Jade gonsales Referred To Contact Pediatric Cardiology Diagnoses Diabetes Mellitus Type 2 (HCC) Abnormal Ultrasound Bhaskar Colon M.B.B.S. [address] [place] [phone] Phone: tel: fax: [facility] Referral ID Status Reason Start Date Expiration Date Visits Re quested Visits Authorized [id number] Closed 04/29/2024 10/29/2025 1 1 Encounter Details Date Type Department Care Team (Latest Contact Info) Description 05/20/2024 9:00 AM CDT Comprehensive Visit Division of Pediatric Cardiology in [place], [place] [address] [place] [phone] Yosvany Murphy M.B.B.S. [address] [place] [phone] Encounter For Screening For Congenital Cardiac Abnormalities (HCC) (Primary Dx); Diabetes Mellitus Type 2 (HCC); Abnormal Ultrasound Social History Tobacco Use Types Packs/Day Years Used Date Smoking Tobacco: Never Smokeless Tobacco: Never Alcohol Use Standard Drinks/Week Comments Not Currently 0 (1 standard drink = 0.6 oz pur e alcohol) [facility] Utilities Answer Date Recorded In the past 12 months has [employer], gas, oil, or water [employer] threatened to shut off services in your [...] your living situation today? I have a [facility] place to live 03/31/2024 Estimated Date [...] Murphy M.B.B.S. - 05/20/2024 9:00 AM CDT [facility] Cardiology Consultation Bea JohnsonS. Date of Consultation: 05/20/2024 Patient: Sangita Flor Date of : 1985, Age: 38 y.o. , CSN: [id number] Address: [facility] [address] [place] [id number] Referral: Bhaskar Colon M.B.B.S. [address] [place] [address] SUBJECTIVE CHIEF COMPLAINT: cardiovascular screening. HISTORY OF [...] Current Medications: Accu-Chek Guide Me Glucose Mtr [facility] See Admin Instructions. Accu-Chek Guide test strips, [...]
== END 2024-08-03 07:26 | disposition home or self-care (01) ==
LOC: US 07:26
PROVIDERS: PCP Family Medicine; Visit Provider Obstetrics & Gynecology
DX: O24.119 Pre-existing type 2 diabetes mellitus, in pregnancy, unspecified trimester (principal); O09.529 Supervision of elderly multigravida, unspecified trimester
CPT/HCPCS: 76819

== ENCOUNTER 2024-08-10 08:30 | Outpatient (CLI) | payer OTHER, SELFPAY ==
--- NOTE | 2024-08-10 08:15 | CRLHL7_ITS ---
For Patients: As a result of the Century Cures Act, medical imaging exams and procedure reports are released immediately into your electronic medical record. You may view this report before your referring provider. If you have questions, please contact your health care provider. HISTORY: Pre-existing type 2 diabetes. Evaluate growth. COMPARISON: Biophysical profile from 08/03/2024 and early OB ultrasound from 01/29/2024. TECHNIQUE: Ultrasound examination of the is performed with transabdominal technique. FINDINGS: A single intrauterine gestation is seen in transverse lie with regular cardiac activity at 142 beats per minute. The placenta is fundal posterior and is free of the cervical os. The placental grade is 2 and the amniotic fluid volume is normal. Single deepest vertical pocket: Normal at 4.6 cm. BPD: 9.4 cm 38 weeks 3 days HC: 33.1 cm 37 weeks 5 days AC: 32.4 cm 36 weeks 2 days. Fifty-ninth percentile FL: 6.1 cm 31 weeks 4 days The estimated age by ultrasound is 36 weeks 0 days, with an estimated date of delivery of 09/06/2024. This correlates well with the clinical age of 36 weeks 3 days and the previous ultrasound. The FL/AC ratio of 18.7 is below bottom normal 20.0. The rest of the ultrasound ratios are normal. Estimated weight is 2700 grams which is at the 28th percentile based on the clinical dates. The anatomic survey demonstrates normal appearing intracranial structures with a normal septum pellucidum and normal cerebellum. The nuchal thickness is normal at NUCHAL THICKNESS mm, and the lateral ventricle is normal in diameter at LATERAL VENTRICLE mm. The upper lip, 4 chamber heart, left and right ventricular outflow tracts, diaphragm, stomach, cord insertion site, 3-vessel cord, kidneys, bladder and spine are normal in appearance. The biophysical profile score is 8/8, with no points off. IMPRESSION: 1. Single intrauterine gestation in transverse lie with regular cardiac activity. 2. Estimated gestational age is 36 weeks 0 days. 3. Estimated weight is 2700 grams which is at the 28th percentile based on the clinical dates. 4. There has been appropriate interval growth. 5. Biophysical profile score is 8/8, with no points off. Dictated by Cesar Bass MD @ 08/10/2024 12:02:28 PM (Electronically Signed)
--- OUTSIDE RECORDS SUMMARY | 2024-08-10 08:32 | XMS_ITS | Referral Summary ---
Author Organization [facility] Address [address] [place] [address]. [place] [address] Care Team Providers Care Medical Library Assistant Name Role Phone No Ref-Primary, Physician Primary Care Provider Annika Ibrahim MD Unavailable [phone] Allergies No known active allergies Social [...] on file Legal Sex Female 4:40 PM SEISMOGRAPH OPERATOR Gender Identity Not on file Sexual Orientation [...] 132.1 cm (4' 4) 11/29/2020 4:53 PM SEISMOGRAPH OPERATOR Body Mass Index 30.11 11/29/2020 4:53 PM SEISMOGRAPH OPERATOR Plan of Treatment Not on file Procedures Procedure Name Priority Date/Time Associated Diagnosis Comments BASIC METABOLIC PANEL STAT 11/29/2020 8:35 PM SEISMOGRAPH OPERATOR from Last 3 Months or Most Recently Relevant to Health Maintenance Results * Basic metabolic panel (11/29/2020 8:35 PM SEISMOGRAPH OPERATOR) Sodium 138 133 - 144 mmol/L 11/29/2020 8:52 PM [facility] Potassium 3.8 3.4 - 5.3 mmol/L 11/29/2020 8:52 PM [facility] Chloride 107 94 - 109 mmol/L 11/29/2020 8:52 PM [facility] Carbon Dioxide 23 20 - 32 mmol/L 11/29/2020 8:59 PM [facility] Anion Gap 8 3 - 14 mmol/L 11/29/2020 8:59 PM [facility] Glucose 93 70 - 99 mg/dL 11/29/2020 8:59 PM [facility] Urea Nitrogen 16 7 - 30 mg/dL 11/29/2020 8:59 PM [facility] Creatinine 0.57 0.52 - 1.04 mg/dL 11/29/2020 8:59 PM [facility] GFR Estimate >90 >60 mL/min/{1. 73_m2} 11/29/2020 8:59 PM [facility] Comment: Non GFR Calc Starting 09/23/2018, serum creatinine based estimated GFR (eGFR) will be calculated using the Chronic Kidney Disease Epidemiology Collaboration (CKD-EPI) equation. GFR Estimate If Black >90 >60 mL/min/{1. 73_m2} 11/29/2020 8:59 PM [facility] Comment: GFR Calc Starting 09/23/2018, serum creatinine based estimated GFR (eGFR) will be calculated using the Chronic Kidney Disease Epidemiology Collaboration (CKD-EPI) equation. Calcium 8.7 8.5 - 10.1 mg/dL 11/29/2020 8:59 PM [facility] 11/29/2020 8:35 PM SEISMOGRAPH OPERATOR 11/29/2020 8:40 PM SEISMOGRAPH OPERATOR us Latricia Trinh MD LAB - BLOOD ORDERABLES Final R esult [facility] [address] [place] [address], [facility] [phone] [employer] [address] [place] [address], [facility] [phone] from Last 3 Months or Most Recently Relevant to Health Maintenance Insurance MEDICA CHOICE MEDICA CHOICE Care Teams Medical Library Assistant Relationship Specialty Start Date End Date No Ref-Primary, Physician PCP - General 11/29/20 Annika Ibrahim MD [address] [address] Assigned OBGYN Provider 03/29/24
--- OUTSIDE RECORDS SUMMARY | 2024-08-10 08:32 | XMS_ITS ---
Author Organization [facility] Address [address] [place] [address] Care Team Providers Care Nutrition Partner Name Role Phone Unavailable Unavailable Unavailable Surgery Details Not on file Complications Check Surgery Details section. Procedure Estimated Blood Loss Check Surgery Details section. Procedure Findings Check Surgery Details section. Procedure Specimens Taken Check Surgery Details section.
--- OUTSIDE RECORDS SUMMARY | 2024-08-10 08:32 | XMS_ITS | Referral Summary ---
Author Organization [facility] Address [address] [place] [address] Care Team Providers Care Research Engineer Marine Equipment Name Role Phone Unavailable Primary Care Provider Unavailabl e Source Comments Patient records contain information from all sites at [facility]. For routine questions regarding patient records, call [phone] during business hours, M-F 8:00 AM - 5:00 PM Central Time. Record requests for emergency care only can be directed to [phone] at any time.[facility] Encounters Date Type Department Care Team Description 05/20/2024 9:00 AM CDT Comprehensive Visit Division of Pediatric Cardiology in [place], [place] [address] [place] [address] Yosvany Murphy M.B.B.S. Encounter For Screening For Congenital Cardiac Abnormalities (HCC) (Primary Dx); Diabetes Mellitus Type 2 (HCC); Abnormal Ultrasound 05/20/2024 7:11 AM CDT - 05/20/2024 11:59 PM CDT Hospital Encounter Department of Cardiovascular Diseases in [place], [place] [address] [place] [address] Bhaskar Colon M.B.B.S. Diabetes Mellitus Type 2 [...] original. Delivery plan: chart: Care Team/nursing team: [facility]. MFM Gibson Partner name: Pertinent medical issues for management [...] 0.6 oz pur e alcohol) [facility] Utilities Answer Date Recorded In the past 12 months has e [employer], gas, oil, or water [employer] threatened to shut off services in your [...] your living situation today? I have a [facility] place to live 03/31/2024 Estimated Date [...]
--- OUTSIDE RECORDS SUMMARY | 2024-08-10 08:32 | XMS_ITS | Encounter Summary ---
Author Organization [facility] Address [address] [place] [address] Care Team Providers Care Fitter/Welder Name Role Phone Unavailable Primary Care Provider Unavailabl e Reason for Visit * Outpatient (Routine) - Closed Specialty Diagnoses / Procedures Referred By Jade gonsales Referred To Contact Pediatric Cardiology Diagnoses Diabetes Mellitus Type 2 (HCC) Abnormal Ultrasound Bhaskar Colon M.B.B.S. [address] [place] [phone] Phone: tel: fax: [facility] Referral ID Status Reason Start Date Expiration Date Visits Re quested Visits Authorized [id number] Closed 04/29/2024 10/29/2025 1 1 Encounter Details Date Type Department Care Team (Latest Contact Info) Description 05/20/2024 9:00 AM CDT Comprehensive Visit Division of Pediatric Cardiology in [place], [place] [address] [place] [phone] Yosvany Murphy M.B.B.S. [address] [place] [phone] Encounter For Screening For Congenital Cardiac Abnormalities (HCC) (Primary Dx); Diabetes Mellitus Type 2 (HCC); Abnormal Ultrasound Social History Tobacco Use Types Packs/Day Years Used Date Smoking Tobacco: Never Smokeless Tobacco: Never Alcohol Use Standard Drinks/Week Comments Not Currently 0 (1 standard drink = 0.6 oz pur e alcohol) [facility] Utilities Answer Date Recorded In the past 12 months has [employer], gas, oil, or water [employer] threatened to shut off services in your [...] your living situation today? I have a [facility] place to live 03/31/2024 Estimated Date of [...] - 05/20/2024 9:00 AM CDT [facility] Cardiology Consultation Bea JohnsonS. Date of Consultation: 05/20/2024 Patient: Sangita Flor Date of : 1985, Age: 38 y.o. , CSN: [id number] Address: [facility] [address] [place] [id number] Referral: Bhaskar Colon M.B.B.S. [address] [place] [address] SUBJECTIVE CHIEF COMPLAINT: cardiovascular screening. HISTORY OF [...] Current Medications: Accu-Chek Guide Me Glucose Mtr [facility], See Admin Instructions. Accu-Chek Guide test strips, [...]
--- OUTSIDE RECORDS SUMMARY | 2024-08-10 08:32 | XMS_ITS | Clinical Summary ---
Author Organization [facility] Address [address] [place] [address] Care Team Providers Care Refuge Worker Name Role Phone Unavailable Primary Care Provider Unavailabl e Source Comments Patient records contain information from all sites at [facility]. For routine questions regarding patient records, call [phone] during business hours, M-F 8:00 AM - 5:00 PM Central Time. Record requests for emergency care only can be directed to [phone] at any time.[facility] Allergies No known active allergies Medications [...] original. Delivery plan: chart: Care Team/nursing team: [facility] [place]. CHEYANNE Colon Partner name: Pertinent medical issues [...] Comprehensive Visit Division of Pediatric Cardiology in [place], [place] [address] [place] [address] Yosvany Murphy M.B.B.S. Encounter For Screening For Congenital Cardiac Abnormalities (HCC) (Primary Dx); Diabetes Mellitus Type 2 (HCC); Abnormal Ultrasound 05/20/2024 7:11 AM CDT - 05/20/2024 11:59 PM CDT Hospital Encounter Department of Cardiovascular Diseases in [address] [phone] Bhaskar Colon M.B.B.S. Diabetes Mellitus Type 2 (HCC); Abnormal Ultrasound Discharge Disposition: Home or Self Care from Last 3 Months Social History Tobacco Use Types Packs/Day Years Used Date Smoking Tobacco: Never Smokeless Tobacco: Never Tobacco Cessation:Counseling Given: Not Answered Alcohol Use Standard Drinks/Week Comments Not Currently 0 (1 standard drink = 0.6 oz pur e alcohol) [facility] Utilities Answer Date Recorded In the past 12 months has [employer], gas, oil, or water [employer] threatened to shut off services in your [...] Answer Date Recorded Employment status Unemployed/not in [employer] paid workforce and NOT seeking employment 03/31/2024 Housing Stability Answer Date Recorded What is your living situation today? I have a [facility] place to live 03/31/2024 Estimated Date [...] Health Maintenance Due Date Last Done Comments Cervical/Vaginal Cancer Screening 1985 HIV Screening 1985 Hepatitis [...] patient's age to complete this topic IPV Vaccines Aged Out No longer eligi ble [...] COLOR AND DOPPLER (05/20/2024 8:42 AM CDT) [facility] Signature Ejection Fraction [facility] Anatomical Region Laterality Modality Echocardiography 05/20/2024 [...] complete report, see the Order-Level Documents. Bhaskar PringleBAugustine CV ECHO PROCEDURES Final R esult from Last 3 Months Insurance MEDICA
--- OUTSIDE RECORDS SUMMARY | 2024-08-10 08:32 | XMS_ITS | Encounter Summary ---
Author Organization [facility] Address [address] [place] [address] Care Team Providers Care Metal Technician Name Role Phone Unavailable Primary Care Provider Unavailabl e Reason for Referral * Outpatient (Routine) - Closed Specialty Diagnoses / Procedures Referred By Jade gonsales Referred To Contact Diagnoses Diabetes Mellitus Type 2 (HCC) Abnormal Ultrasound Procedures Echo Bhaskar Colon M.B.B.S. [address] [place] [phone] Phone: tel: fax: [facility] Referral ID Status Reason Start Date Expiration Date Visits Re quested Visits Authorized [id number] Closed 04/29/2024 04/29/2025 1 1 Reason for Visit * Outpatient (Routine) - Closed Specialty Diagnoses / Procedures Referred By Jade gonsales Referred To Contact Diagnoses Diabetes Mellitus Type 2 (HCC) Abnormal Ultrasound Procedures Echo Bhaskar Colon M.B.B.S. [address] [place] [phone] Phone: tel: fax: [facility] Referral ID Status Reason Start Date Expiration Date Visits Re quested Visits Authorized [id number] Closed 04/29/2024 04/29/2025 1 1 Encounter Details Date Type Department Care Team (Latest Contact Info) Description 05/20/2024 7:11 AM CDT - 05/20/2024 11:59 PM CDT Hospital Encounter Department of Cardiovascular Diseases in [place], [place] [address] [place] [phone] Bhaskar Colon M.B.B.S. [address] [place] [address] Diabetes Mellitus Type 2 (HCC); Abnormal Ultrasound Discharge Disposition: Home or Self Care Social History Tobacco Use Types Packs/Day Years Used Date Smoking Tobacco: Never Smokeless Tobacco: Never Alcohol Use Standard Drinks/Week Comments Not Currently 0 (1 standard drink = 0.6 oz pur e alcohol) [facility] Utilities Answer Date Recorded In [...] your living situation today? I have a [facility] place to live 03/31/2024 Estimated [...] DOPPLER (05/20/2024 8:42 AM CDT) Ejection Fraction [facility] Anatomical Region Laterality Modality Echocardiography 05/20/2024 [...]
--- OUTSIDE RECORDS SUMMARY | 2024-08-10 08:32 | XMS_ITS | Clinical Summary ---
Author Organization [facility] Address [address] [place] [address]. [place] [address] Care Team Providers Care Recreational Programs Director Name Role Phone No Ref-Primary, Physician Primary Care Provider Annika Ibrahim MD Unavailable [phone] Allergies No known active allergies Social [...] on file Legal Sex Female 4:40 PM SALES ENABLEMENT MANAGER Gender Identity Not on file Sexual Orientation [...] 132.1 cm (4' 4) 11/29/2020 4:53 PM SALES ENABLEMENT MANAGER Body Mass Index 30.11 11/29/2020 4:53 PM SALES ENABLEMENT MANAGER Plan of Treatment Health Maintenance Due Date [...] BASIC METABOLIC PANEL STAT 11/29/2020 8:35 PM SALES ENABLEMENT MANAGER from Last 3 Months or Most Recently Relevant to Health Maintenance Results * Basic metabolic panel (11/29/2020 8:35 PM SALES ENABLEMENT MANAGER) Sodium 138 133 - 144 mmol/L 11/29/2020 8:52 PM SALES ENABLEMENT MANAGER [facility] Potassium 3.8 3.4 - 5.3 mmol/L 11/29/2020 8:52 PM SALES ENABLEMENT MANAGER [facility] Chloride 107 94 - 109 mmol/L 11/29/2020 8:52 PM SALES ENABLEMENT MANAGER [facility] Carbon Dioxide 23 20 - 32 mmol/L 11/29/2020 8:59 PM [facility] Anion Gap 8 3 - 14 mmol/L 11/29/2020 8:59 PM [facility] Glucose 93 70 - 99 mg/dL 11/29/2020 8:59 PM [facility] Urea Nitrogen 16 7 - 30 mg/dL 11/29/2020 8:59 PM [facility] Creatinine 0.57 0.52 - 1.04 mg/dL 11/29/2020 8:59 PM [facility] GFR Estimate >90 >60 mL/min/{1. 73_m2} 11/29/2020 8:59 PM [facility] Comment: Non GFR Calc Starting 09/23/2018, serum creatinine based estimated GFR (eGFR) will be calculated using the Chronic Kidney Disease Epidemiology Collaboration (CKD-EPI) equation. GFR Estimate If Black >90 >60 mL/min/{1. 73_m2} 11/29/2020 8:59 PM [facility] Comment: GFR Calc Starting 09/23/2018, serum creatinine based estimated GFR (eGFR) will be calculated using the Chronic Kidney Disease Epidemiology Collaboration (CKD-EPI) equation. Calcium 8.7 8.5 - 10.1 mg/dL 11/29/2020 8:59 PM [facility] 11/29/2020 8:35 PM SALES ENABLEMENT MANAGER 11/29/2020 8:40 PM SALES ENABLEMENT MANAGER us Latricia Trinh MD LAB - BLOOD ORDERABLES Final R esult [facility] [address] [place] [address], [facility] [phone] [facility] [address] [place] [address], [facility] [phone] from Last 3 Months or Most Recently Relevant to Health Maintenance Insurance MEDICA CHOICE [employer] Care Teams Recreational Programs Director Relationship Specialty Start Date End Date No Ref-Primary, Physician PCP - General 11/29/20 Annika Ibrahim MD [address] [address] Assigned OBGYN Provider 03/29/24
== END 2024-08-10 08:31 | disposition home or self-care (01) ==
LOC: US 08:30
PROVIDERS: PCP Family Medicine; Visit Provider Obstetrics & Gynecology
DX: O24.119 Pre-existing type 2 diabetes mellitus, in pregnancy, unspecified trimester (principal); Z3A.36 36 weeks gestation of pregnancy
CPT/HCPCS: 76816; 76819

== ENCOUNTER 2024-08-12 07:43 | Inpatient (IN) | payer OTHER, SELFPAY ==
[2024-08-12] VITALS (35 sets, daily range): BP systolic 112–158; BP diastolic 63–96; PULSE 76–105; RESP 12–20; TEMP 36.1–37.2; O2SAT 83–100; BMI 30.3
--- OUTSIDE RECORDS SUMMARY | 2024-08-12 07:47 | XMS_ITS | Clinical Summary ---
Author Organization [facility] Address [address] [place] [address] Care Team Providers Care Sand Screener Name Role Phone Unavailable Primary Care Provider Unavailabl e Source Comments Patient records contain information from all sites at [facility]. For routine questions regarding patient records, call [phone] during business hours, M-F 8:00 AM - 5:00 PM Central Time. Record requests for emergency care only can be directed to [phone] at any time.[facility] Allergies No known active allergies Medications insulin [...] original. Delivery plan: chart: Care Team/nursing team: [facility]. CHEYANNE Colon Partner name: Pertinent [...] Comprehensive Visit Division of Pediatric Cardiology in [place], [place] [address] [place] [address] Yosvany Murphy M.B.B.S. Encounter For Screening For Congenital Cardiac Abnormalities (HCC) (Primary Dx); Diabetes Mellitus Type 2 (HCC); Abnormal Ultrasound 05/20/2024 7:11 AM CDT - 05/20/2024 11:59 PM CDT Hospital Encounter Department of Cardiovascular Diseases in [address] [phone] Bhaskar Colon M.B.B.S. Diabetes Mellitus Type 2 (HCC); Abnormal Ultrasound Discharge Disposition: Home or Self Care from Last 3 Months Social History Tobacco Use Types Packs/Day Years Used Date Smoking Tobacco: Never Smokeless Tobacco: Never Tobacco Cessation:Counseling Given: Not Answered Alcohol Use Standard Drinks/Week Comments Not Currently 0 (1 standard drink = 0.6 oz pur e alcohol) [facility] Utilities Answer Date Recorded In the past 12 months has [employer], gas, oil, or water [employer] threatened to shut off services in your [...] Answer Date Recorded Employment status Unemployed/not in [employer] paid workforce and NOT seeking employment 03/31/2024 Housing Stability Answer Date Recorded What is your living situation today? I have a [facility] place to live 03/31/2024 Estimated Date of [...] COLOR AND DOPPLER (05/20/2024 8:42 AM CDT) [facility] Signature Ejection Fraction [facility] Anatomical Region Laterality Modality Echocardiography 05/20/2024 [...]
--- OUTSIDE RECORDS SUMMARY | 2024-08-12 07:47 | XMS_ITS | Encounter Summary ---
Author Organization [facility] Address [address] [place] [address] Care Team Providers Care Blog Writer Name Role Phone Unavailable Primary Care Provider Unavailabl e Reason for Referral * Outpatient (Routine) - Closed Specialty Diagnoses / Procedures Referred By Jade gonsales Referred To Contact Diagnoses Diabetes Mellitus Type 2 (HCC) Abnormal Ultrasound Procedures Echo Bhaskar Colon M.B.B.S. [address] [place] [phone] Phone: tel: fax: [facility] Referral ID Status Reason Start Date Expiration Date Visits Re quested Visits Authorized [id number] Closed 04/29/2024 04/29/2025 1 1 Reason for Visit * Outpatient (Routine) - Closed Specialty Diagnoses / Procedures Referred By Jade gonsales Referred To Contact Diagnoses Diabetes Mellitus Type 2 (HCC) Abnormal Ultrasound Procedures Echo Bhaskar Colon M.B.B.S. [address] [place] [phone] Phone: tel: fax: [facility] Referral ID Status Reason Start Date Expiration Date Visits Re quested Visits Authorized [id number] Closed 04/29/2024 04/29/2025 1 1 Encounter Details Date Type Department Care Team (Latest Contact Info) Description 05/20/2024 7:11 AM CDT - 05/20/2024 11:59 PM CDT Hospital Encounter Department of Cardiovascular Diseases in [place], [place] [address] [place] [phone] Bhaskar Colon M.B.B.S. [address] [place] [address] Diabetes Mellitus Type 2 (HCC); Abnormal Ultrasound Discharge Disposition: Home or Self Care Social History Tobacco Use Types Packs/Day Years Used Date Smoking Tobacco: Never Smokeless Tobacco: Never Alcohol Use Standard Drinks/Week Comments Not Currently 0 (1 standard drink = 0.6 oz pur e alcohol) [facility] Utilities Answer Date Recorded In [...] your living situation today? I have a [facility] place to live 03/31/2024 Estimated [...] DOPPLER (05/20/2024 8:42 AM CDT) Ejection Fraction [facility] Anatomical Region Laterality [...]
--- OUTSIDE RECORDS SUMMARY | 2024-08-12 07:47 | XMS_ITS ---
Author Organization [facility] Address [address] [place] [address] Care Team Providers Care Stave Log Cut Off Saw Operator Name Role Phone Unavailable Unavailable Unavailable Surgery Details Not on file Complications Check Surgery Details section. Procedure Estimated Blood Loss Check Surgery Details section. Procedure Findings Check Surgery Details section. Procedure Specimens Taken Check Surgery Details section.
--- OUTSIDE RECORDS SUMMARY | 2024-08-12 07:47 | XMS_ITS | Clinical Summary ---
Author Organization [facility] Address [address] [place] [address]. [place] [address] Care Team Providers Care Rig Supervisor Name Role Phone No Ref-Primary, Physician Primary Care Provider Annika Ibrahim MD Unavailable [phone] Allergies No known active allergies Social [...] on file Legal Sex Female 4:40 PM DISASTER RECOVERY ANALYST Gender Identity Not on file Sexual Orientation [...] 132.1 cm (4' 4) 11/29/2020 4:53 PM DISASTER RECOVERY ANALYST Body Mass Index 30.11 11/29/2020 4:53 PM DISASTER RECOVERY ANALYST Plan of Treatment Health Maintenance Due Date [...] BASIC METABOLIC PANEL STAT 11/29/2020 8:35 PM DISASTER RECOVERY ANALYST from Last 3 Months or Most Recently Relevant to Health Maintenance Results * Basic metabolic panel (11/29/2020 8:35 PM DISASTER RECOVERY ANALYST) Sodium 138 133 - 144 mmol/L 11/29/2020 8:52 [address] DISASTER RECOVERY ANALYST [facility] Potassium 3.8 3.4 - 5.3 mmol/L 11/29/2020 8:52 PM DISASTER RECOVERY ANALYST [facility] Chloride 107 94 - 109 mmol/L 11/29/2020 8:52 PM DISASTER RECOVERY ANALYST [facility] Carbon Dioxide 23 20 - 32 mmol/L 11/29/2020 8:59 PM [facility] Anion Gap 8 3 - 14 mmol/L 11/29/2020 8:59 PM [facility] Glucose 93 70 - 99 mg/dL 11/29/2020 8:59 PM [facility] Urea Nitrogen 16 7 - 30 mg/dL 11/29/2020 8:59 PM [facility] Creatinine 0.57 0.52 - 1.04 mg/dL 11/29/2020 8:59 PM [facility] GFR Estimate >90 >60 mL/min/{1. 73_m2} 11/29/2020 8:59 PM [facility] Comment: Non GFR Calc Starting 09/23/2018, serum creatinine based estimated GFR (eGFR) will be calculated using the Chronic Kidney Disease Epidemiology Collaboration (CKD-EPI) equation. GFR Estimate If Black >90 >60 mL/min/{1. 73_m2} 11/29/2020 8:59 PM [facility] Comment: GFR Calc Starting 09/23/2018, serum creatinine based estimated GFR (eGFR) will be calculated using the Chronic Kidney Disease Epidemiology Collaboration (CKD-EPI) equation. Calcium 8.7 8.5 - 10.1 mg/dL 11/29/2020 8:59 PM [facility] 11/29/2020 8:35 PM DISASTER RECOVERY ANALYST 11/29/2020 8:40 PM DISASTER RECOVERY ANALYST us Latricia Trinh MD LAB - BLOOD ORDERABLES Final R esult [facility] [address] [address], [facility] [phone] [facility] [address] [place] [address], [facility] [phone] from Last 3 Months or Most Recently Relevant to Health Maintenance Insurance [employer]ICE MED[employer] Care Teams Rig Supervisor Relationship Specialty Start Date End Date No Ref-Primary, Physician PCP - General 11/29/20 Annika Ibrahim MD [address] [address] Assigned OBGYN Provider 03/29/24
--- OUTSIDE RECORDS SUMMARY | 2024-08-12 07:47 | XMS_ITS | Encounter Summary ---
Author Organization [facility] Address [address] [place] [address] Care Team Providers Care Testing Tech Name Role Phone Unavailable Primary Care Provider Unavailabl e Reason for Visit * Outpatient (Routine) - Closed Specialty Diagnoses / Procedures Referred By Jade gonsales Referred To Contact Pediatric Cardiology Diagnoses Diabetes Mellitus Type 2 (HCC) Abnormal Ultrasound Bhaskar Colon M.B.B.S. [address] [place] [phone] Phone: tel: fax: [facility] Referral ID Status Reason Start Date Expiration Date Visits Re quested Visits Authorized [id number] Closed 04/29/2024 10/29/2025 1 1 Encounter Details Date Type Department Care Team (Latest Contact Info) Description 05/20/2024 9:00 AM CDT Comprehensive Visit Division of Pediatric Cardiology in [place], [place] [address] [place] [phone] Yosvany Murphy M.B.B.S. [address] [place] [phone] Encounter For Screening For Congenital Cardiac Abnormalities [...] Recorded In the past 12 months has [employer], gas, oil, or water [employer] threatened to shut off services in your [...] Murphy M.B.B.S. - 05/20/2024 9:00 AM CDT [facility] Cardiology Consultation Bea JohnsonS. Date of Consultation: 05/20/2024 Patient: Sangita Flor Date of : 1985, Age: 38 y.o. , CSN: [id number] Address: [facility] [address] [place] [id number] Referral: Bhaskar Colon M.B.B.S. [address] [place] [address] SUBJECTIVE CHIEF COMPLAINT: cardiovascular screening. HISTORY OF [...] Current Medications: Accu-Chek Guide Me Glucose Mtr [facility], See Admin Instructions. Accu-Chek Guide test strips, [...]
--- OUTSIDE RECORDS SUMMARY | 2024-08-12 07:47 | XMS_ITS | Referral Summary ---
Author Organization [facility] Address [address] [place] [address] Care Team Providers Care Medical Registrar Name Role Phone Unavailable Primary Care Provider Unavailabl e Source Comments Patient records contain information from all sites at [facility]. For routine questions regarding patient records, call [phone] during business hours, M-F 8:00 AM - 5:00 PM Central Time. Record requests for emergency care only can be directed to [phone] at any time.[facility] Encounters Date Type Department Care Team Description 05/20/2024 9:00 AM CDT Comprehensive Visit Division of Pediatric Cardiology in [place], [place] [address] [place] [address] Yosvany Murphy M.B.B.S. Encounter For Screening For Congenital Cardiac Abnormalities (HCC) (Primary Dx); Diabetes Mellitus Type 2 (HCC); Abnormal Ultrasound 05/20/2024 7:11 AM CDT - 05/20/2024 11:59 PM CDT Hospital Encounter Department of Cardiovascular Diseases in [place], [place] [address] [place] [address] Bhaskar Colon M.B.B.S. Diabetes Mellitus Type 2 [...] original. Delivery plan: chart: Care Team/nursing team: [facility]. [facility] [place] Partner name: Pertinent medical issues for management [...] drink = 0.6 oz pur e alcohol) [facility] Utilities Answer Date Recorded In the past 12 months has [employer], gas, oil, or water [employer] threatened to shut off services in your [...] DOPPLER (05/20/2024 8:42 AM CDT) Ejection Fraction [facility] Anatomical Region Laterality Modality Echocardiography [...]
--- OUTSIDE RECORDS SUMMARY | 2024-08-12 07:47 | XMS_ITS | Referral Summary ---
Author Organization [facility] Address [address] [place] [address]. [place] [address] Care Team Providers Care Counter Attendant Name Role Phone No Ref-Primary, Physician Primary Care Provider Annika Ibrahim MD Unavailable [phone] Allergies No known active allergies Social [...] on file Legal Sex Female 4:40 PM EVALUATOR Gender Identity Not on file Sexual Orientation [...] 132.1 cm (4' 4) 11/29/2020 4:53 PM EVALUATOR Body Mass Index 30.11 11/29/2020 4:53 PM EVALUATOR Plan of Treatment Not on file Procedures Procedure Name Priority Date/Time Associated Diagnosis Comments BASIC METABOLIC PANEL STAT 11/29/2020 8:35 PM EVALUATOR from Last 3 Months or Most Recently Relevant to Health Maintenance Results * Basic metabolic panel (11/29/2020 8:35 PM EVALUATOR) Sodium 138 133 - 144 mmol/L 11/29/2020 8:[address] [facility] Potassium 3.8 3.4 - 5.3 mmol/L 11/29/2020 8:[address] [facility] Chloride 107 94 - 109 mmol/L 11/29/2020 8:[address] [facility] Carbon Dioxide 23 20 - 32 mmol/L 11/29/2020 8:59 PM [facility] Anion Gap 8 3 - 14 mmol/L 11/29/2020 8:59 PM [facility] Glucose 93 70 - 99 mg/dL 11/29/2020 8:59 PM [facility] Urea Nitrogen 16 7 - 30 mg/dL 11/29/2020 8:59 PM [facility] Creatinine 0.57 0.52 - 1.04 mg/dL 11/29/2020 8:59 PM [facility] GFR Estimate >90 >60 mL/min/{1. 73_m2} 11/29/2020 8:59 PM [facility] Comment: Non GFR Calc Starting 09/23/2018, serum creatinine based estimated GFR (eGFR) will be calculated using the Chronic Kidney Disease Epidemiology Collaboration (CKD-EPI) equation. GFR Estimate If Black >90 >60 mL/min/{1. 73_m2} 11/29/2020 8:59 PM [facility] Comment: GFR Calc Starting 09/23/2018, serum creatinine based estimated GFR (eGFR) will be calculated using the Chronic Kidney Disease Epidemiology Collaboration (CKD-EPI) equation. Calcium 8.7 8.5 - 10.1 mg/dL 11/29/2020 8:59 PM [facility] 11/29/2020 8:35 PM EVALUATOR 11/29/2020 8:40 PM EVALUATOR us Latricia Trinh MD LAB - BLOOD ORDERABLES Final R esult [facility] [address] [place] [address], [place] [phone] [facility] [address] [place] [address], [place] [phone] from Last 3 Months or Most Recently Relevant to Health Maintenance Insurance [employer] MED[employer] Care Teams Counter Attendant Relationship Specialty Start Date End Date No Ref-Primary, Physician PCP - General 11/29/20 Annika Ibrahim MD [address] [address] Assigned OBGYN Provider 03/29/24
[2024-08-12] MEDS: LACTATED RINGERS 1000 ML 1,000 ML 100 ML IV (08:00)
[2024-08-12 08:38] LABS: Basophils Absolute Auto 0.04 K/uL (0.00-0.30); Basophils Percent Auto 0.6 % (0.0-3.0); Eosinophils Absolute Auto 0.17 K/uL (0.00-0.50); Eosinophils Percent Auto 2.4 % (0.0-7.0); Hemoglobin* 11.5 gm/dL (12.0-16.0); Immature Granulocytes Abs Auto 0.09 K/uL (0.00-0.30); Immature Granulocytes Pct Auto 1.3 %; Lymphocytes Percent Auto 19.9 % (20-44); Mean Corpuscular HGB Conc 33 gm/dL (32-36); Mean Corpuscular Hemoglobin 31 pg (26-34); Mean Corpuscular Volume 95 fL (80-100); Monocytes Percent Auto 7.4 % (0.0-11.0); Neutrophils Absolute Auto 4.88 K/uL (1.7-7.0); Neutrophils Percent Auto 68.4 % (42.0-72.0); Platelet Count* 278 K/uL (140-440); RDW Coefficient of Variation % 13.5 % (11.5-15.5); Red Blood Count 3.67 m/uL (4.00-5.20); White Blood Count* 7.13 K/uL (4.50-11.00)
[2024-08-12 08:39] LABS: Slide Review Reflex No
[2024-08-12] MEDS: OXYTOCIN 30 unit/500 ML in NS 30 UNIT/500 ML BAG 300 UNIT IVPB (10:00)
--- NOTE | 2024-08-12 10:58 | W.PM.NB ---
Nerve Block Nerve Block Time Seen by Provider: 10:46 Date Seen: 08/12/24 Type of block requested by surgeon for post-operative analgesia: TAP Side: bilateral Time out performed: Yes Verification of patient name: Yes Verification of date of : Yes Site marking: site marked Name of person performing procedure: mantyl Continuous monitoring Was continuous monitoring of O2 sat, B/P, cardiac sonographer, recorded every 15 minutes?: Yes Procedure Checklist: sterile prep, needles and gloves Ultrasound guided. Images saved: Yes Medications given in 5ml increments after negative aspiration: Marcaine %: 0.25 mL: 30 and Exparel mL: 10 Patient tolerated procedure well: Yes Block Charges Block Charge (with Pro Fee): TAP Bilateral Use of Ultrasound Machine for Block: Yes- US Guidance/pain block
--- NOTE | 2024-08-12 11:00 | W.ANESCHARGE ---
Anesthesia Charges Start Date/Time Anesthesia Start Date: 08/12/24 Anesthesia Start Time: 08:58 Stop Date/Time Anesthesia Stop Date: 08/12/24 Anesthesia Stop Time: 10:57
--- NOTE | 2024-08-12 11:23 | SUR.PHASEI ---
Patient recovering in center room, slight nausea, one very small emesis 10 minutes after arriving to room. Patient very concerned about baby being transferred to another facility.
--- NOTE | 2024-08-12 11:29 | SUR.PHASEI ---
Patient comfortable, uterus firm, Meets anesthesia discharge criteria from PACU I. No further nausea. No pain.
[2024-08-12] MEDS: ACETAMINOPHEN 500 MG TABLET 1000 MG PO (14:20)
[2024-08-12 14:57] LABS: Hemoglobin* 12.3 gm/dL (12.0-16.0); Mean Corpuscular HGB Conc 33 gm/dL (32-36); Mean Corpuscular Hemoglobin 32 pg (26-34); Mean Corpuscular Volume 96 fL (80-100); Platelet Count* 271 K/uL (140-440); Red Blood Count 3.87 m/uL (4.00-5.20); White Blood Count* 12.51 K/uL (4.50-11.00)
[2024-08-12 15:00] LABS: Slide Review Reflex No
--- NOTE | 2024-08-12 15:05 | P.OBPRC_ITS ---
Procedure Time Seen by Provider: 15:05 Date of procedure: 08/12/24 Procedure Done: Global Will [facility] bill your pro fee for this procedure?: Yes Blood Loss Measurement Type: QBL Bakri Used: No IV fluids (mL): 1,000 Urine Output (mL): 100 Urine Output Comment: Clear Procedure Description: DELIVERY BY SECTION Date of Service: 08/12/24 Delivery time: 09 Summary: Admitted for repeat delivery at 36.5 weeks, repeat classical delivery, bilateral salpingectomy, Pfannenstiel, Closed with sutures, QBL 572 cc, No complications, Findings: 4 cm anterior fibroid noted. Normal bilateral ovaries and tubes 7/9 weight 6lb 5oz. Primary Indication: 1. Uncontrolled diabetes on insulin 2. History of classical delivery 3. Undesired fertility Procedures: 1. Repeat classic section 2. Bilateral salpingectomy Specimens Removed: Placenta Bilateral fallopian tubes Surgeon: Amanda Qureshi MD Fur Trapper Surgeon: Kathie Chen MD Anesthesia: Spinal and TAP Report: Prophylactic antibiotic, 2 g of Ancef was given before patient was taken to OR. After arrival to the operating room patient was placed in the supine position with left lateral tilt after administration of spinal anesthesia. Laparotomy A pfannenstiel incision was made through the anterior abdominal wall with #10 scalpel approximately 2 cm above the pubic symphysis. The incision was extended sharply with the #10 scalpel through the subcutaneous tissue to the level of fascia. The fascia was entered sharply with a #10 scalpel (Pfannenstiel) in the midline and extended in semi-elliptical fashion with Mandel scissor. The underlying muscles were dissected off the overlying fascia by grasping the superior aspect of fascia with two tali clamps and blunt dissection was used along the midline. The fascia was further from rectus muscle with Mandel scissor and/or cautery. In similar fashion, the lower aspect of fascia was also grasped with two Tali clamps and both blunt and sharp dissection was used to separate fascia from rectus muscle. The rectus muscles were in the mi dline bluntly with Sheron's. The peritoneum was then entered sharply with Metzenbaum. The peritoneal incision was then extended superiorly and inferiorly under direct visualization with care being taken to avoid bladder and bowel. Minimal filmy adhesions. The peritoneal incision was enlarged bluntly by lateral traction from the surgeon's and first line supervisor's hand. Yuan retractor was inserted into the abdomen. Delivery A bladder flap was note. A classical hysterotomy was made then with #10 scalpel and extended laterally and cephalad with fingers with care being taken to avoid injury to the fetus. The amniotic cavity (membrane) was then entered with spontaneous rupture of membrane, and the amniotic fluid was noted to be clear, fetus was delivered in breech presentation. With delivery of the baby, no extension was noted. Placenta was delivered spontaneously with steady traction on cord and manual separation of placenta from uterine wall. Closure Uterine cavity was cleaned after placental delivery with lap sponge x 3. The hysterotomy was closed in two layers with stitches using 0 vicryl with continuous locking stitches in 3 layers. 2 figure of 8s placed at the superior angle. Hemostasis was achieved as needed with electrocautery. The ovaries/tubes/uterine surface were evaluated. They were found to be normal. Attention was then turned to performing the bilateral salpingectomy. The right fallopian tube was identified, grasped with 2 Adrian clamps and followed to the fimbriated end of the fallopian tube. The hand-held LigaSure dissecting forceps was used to remove the fallopian tube from the cornua and broad ligament by sequential pedicles. The pedicles were started at the fimbriated end of the tube and extended toward the cornua. The fallopian tube was amputated from the cornual a and sent to pathology. The left fallopian tube was then identified, grasped with 2 Adrian clamps and removed in the same manner as the right fallopian tube. All pedicles were visualized and hemostasis obtained using bipolar cautery with a DeBakey clamp. The uterine incision was reinspected and noted to be hemostatic. Wili was applied to the uterine incision and excellent hemostasis was confirmed. The Yuan retractor was removed and hemostasis was confirmed again. Fascia was closed with running stitches using 0 PDS. Subcutaneous layer was irrigated. Hemostasis was checked for and found to be adequate. The subcutaneous layer was closed with running 2-0 chromic sutures. The skin was closed with monocryl subcuticular sutures . The incision was cleaned and covered with a compression bandage and the procedure considered terminate at this time. Intraoperative Complications: None QBL: 572 cc Uterotonics: 40u of pitocin, 1g of TXA, 0.2 mg of Methergine x 1. Disposition: The patient tolerated the procedure well. She was recovered in Obstetric PACU for close monitoring in stable condition, with a contracted uterus and normal transvaginal bleeding. The infant was given to pediatric team for care and ultimately needed to be transferred due to requiring CPAP and hypoglycemia. The placenta and bilateral fallopian tubes were sent to pathology. Debrief with OR team performed and specimen reviewed at the conclusion of the procedure. [place] total score - 1 minute: 7 total score - 5 minute: 8
[2024-08-12 15:15] LABS: Alanine Aminotransferase* 98 U/L (4-35); Aspartate Amino Transferase* 53 U/L (12-35); Blood Urea Nitrogen* 12 mg/dL (5-24); Creatinine* 0.4 mg/dL (0.5-1.5); Est. Creatinine Clearance* 168.41; Estimated Glomerular Filt Rate 128 ml/min
[2024-08-12] MEDS: LACTATED RINGERS 1000 ML 1,000 ML 50 ML IV (16:25)
[2024-08-12] MEDS: MAGNESIUM IV 4 GM/100 ML PIGGYBACK IVPB (16:26)
[2024-08-12] MEDS: KETOROLAC 30 MG/ML inj IVP ×2 (16:51→22:41)
[2024-08-12] MEDS: ONDANSETRON 2 MG/ML inj 4 MG IV (17:00)
[2024-08-12] MEDS: MAGNESIUM Infusion 40 GM/1,000 ML IV.SOLN IVPB (17:02)
--- NOTE | 2024-08-12 17:24 | P.OBPN_ITS ---
OB - PN:Subj Subjective Time Seen by Provider: 16:30 Date Seen: 08/12/24 Narrative: Amelia is a 38-year-old seen on postop day 0 from repeat delivery. This was performed at 36 weeks due to a prior classical . is otherwise complicated by suboptimally controlled type 2 diabetes. Her delivery itself was uncomplicated. , she is feeling well. Denies headache, vision changes or right upper quadrant pain. She had several mild range blood pressures post delivery, during which patient was sleeping. HELLP labs were obtained and are notable for severe range transaminitis. I presented to the bedside, to explain the suspected diagnosis of preeclampsia with severe features in the immediate . Amelia, her and family were present for this discussion. I explained that DM 2 and AMA are risk factors for preeclampsia. She suspects that her high blood pressures are related to stress, as baby was transferred for NICU admission. Acknowledge that stress certainly may play a role in her blood pressures, but still this is abnormal to be in the mild range. In addition, I am concerned about her new transaminitis with AST of 53 and ALT of 98. Recommend we proceed with diligent blood pressure monitoring, q.6h HELLP labs and initiation of magnesium sulfate to prevent seizures. Explained may will be in place for 24 hours, after which I would recommend inpatient monitoring for an additional 24 hours. Patient expressed understanding and is agreeable to the plan. Orders placed. All questions answered. OB - PN: Obj Exam Physical Exam: Vital signs: Temp Pulse Resp BP Pulse Ox O2 Del Method 98.2 F 90 18 129/81 94 Room Air 08/12/24 16:47 08/12/24 17:22 08/12/24 17:22 08/12/24 17:22 08/12/24 17:22 08/12/24 17:22 OB - PN: Obj Data Labs Labs: Laboratory Results - last 24 hr 08/12/24 08/12/24 08:30 14:50 WBC 7.13 12.51 H RBC 3.67 L 3.87 L Hgb 11.5 L 12.3 Hct 35.0 37.0 MCV 95 96 MCH 31 32 MCHC 33 33 RDW Coeff of Ron 13.5 Plt Count 278 271 Neut % (Auto) 68.4 Lymph % (Auto) 19.9 L [place] % (Auto) 7.4 Eos % (Auto) 2.4 Baso % (Auto) 0.6 Neut # (Auto) 4.88 Lymph # (Auto) 1.40 [place] # (Auto) 0.50 Eos # (Auto) 0.17 Baso # (Auto) 0.04 Abs Immat Gran (auto) 0.09 Imm/Tot Granulo (auto) 1.3 BUN 12 Creatinine 0.4 L Estimated Creat Clear 168.41 Estimated GFR 128 AST 53 H ALT 98 H Blood Type A Positive Antibody Screen NEGATIVE
[2024-08-12] MEDS: INSULIN NPH 100 UNIT/ML 13 UNIT SUBCUT (21:15)
[2024-08-12 22:07] LABS: Hematocrit 33.6 % (33.0-51.0); Hemoglobin* 11.3 gm/dL (12.0-16.0); Mean Corpuscular HGB Conc 34 gm/dL (32-36); Mean Corpuscular Hemoglobin 32 pg (26-34); Mean Corpuscular Volume 95 fL (80-100); Platelet Count* 265 K/uL (140-440); Red Blood Count 3.53 m/uL (4.00-5.20); White Blood Count* 11.51 K/uL (4.50-11.00)
[2024-08-12 22:08] LABS: Slide Review Reflex No
[2024-08-12 22:25] LABS: Alanine Aminotransferase* 97 U/L (4-35); Aspartate Amino Transferase* 61 U/L (12-35); Creatinine* 0.5 mg/dL (0.5-1.5); Est. Creatinine Clearance* 134.73; Estimated Glomerular Filt Rate 122 ml/min
[2024-08-12 22:31] LABS: Magnesium* 6.3 mg/dL (1.5-2.6)
[2024-08-13] VITALS (12 sets, daily range): BP systolic 104–128; BP diastolic 59–84; PULSE 50–89; RESP 14–18; TEMP 36.4–37.3; O2SAT 94–100
[2024-08-13] MEDS: KETOROLAC 30 MG/ML inj IVP ×3 (04:09→16:36)
[2024-08-13 04:13] LABS: Hematocrit 32.5 % (33.0-51.0); Hemoglobin* 10.9 gm/dL (12.0-16.0); Mean Corpuscular HGB Conc 34 gm/dL (32-36); Mean Corpuscular Hemoglobin 32 pg (26-34); Mean Corpuscular Volume 95 fL (80-100); Platelet Count* 284 K/uL (140-440); Red Blood Count 3.42 m/uL (4.00-5.20); White Blood Count* 11.14 K/uL (4.50-11.00)
[2024-08-13 04:15] LABS: Slide Review Reflex No
[2024-08-13 04:28] LABS: Creatinine* 0.4 mg/dL (0.5-1.5); Est. Creatinine Clearance* 168.41; Estimated Glomerular Filt Rate 128 ml/min
[2024-08-13 04:29] LABS: Alanine Aminotransferase* 83 U/L (4-35); Aspartate Amino Transferase* 63 U/L (12-35)
[2024-08-13] MEDS: ACETAMINOPHEN 500 MG TABLET 1000 MG PO ×2 (07:42→14:44)
--- NOTE | 2024-08-13 08:05 | PM.OBPNVD1 ---
OB - PN:Subj Subjective Time Seen by Provider: 08:25 Date Seen: 08/13/24 Patient comments OB post-: no complaints, pain well controlled, tolerating diet and flatus present infant status: transferred feeding status: expressed and storing Narrative: POD#1 s/p repeat low transverse section for poorly controlled type 2 DM, history of classical section. She is on magnesium for severe preeclampsia by transaminitis. Her blood pressures have been normal since being on magnesium. She is not on any antihypertensives. Her baby was transferred to [facility]. OB - PN: Obj Exam Physical Exam: Vital signs: Temp Pulse Resp BP Pulse Ox O2 Del Method 98.6 F 72 18 113/78 94 Room Air 08/13/24 06:07 08/13/24 06:07 08/13/24 06:07 08/13/24 06:07 08/13/24 04:06 08/13/24 06:07 Narrative: General: Pleasant, woman in no acute distress. Vital signs: Per electronic medical record. Chest: Clear to auscultation bilaterally. Heart: Regular rate and rhythm without gallop, rub or murmur. Abdomen: Soft, nontender, nondistended with normal bowel sounds. Incision: Clean, dry and intact. Extremities: No edema or pain. OB - PN: Obj Data Labs Labs: Laboratory Results - last 24 hr 08/12/24 08/12/24 08/12/24 08:30 14:50 21:50 WBC 7.13 12.51 H 11.51 H RBC 3.67 L 3.87 L 3.53 L Hgb 11.5 L 12.3 11.3 L Hct 35.0 37.0 33.6 MCV 95 96 95 MCH 31 32 32 MCHC 33 33 34 RDW Coeff of Ron 13.5 Plt Count 278 271 265 Neut % (Auto) 68.4 Lymph % (Auto) 19.9 L [place] % (Auto) 7.4 Eos % (Auto) 2.4 Baso % (Auto) 0.6 Neut # (Auto) 4.88 Lymph # (Auto) 1.40 [place] # (Auto) 0.50 Eos # (Auto) 0.17 Baso # (Auto) 0.04 Abs Immat Gran (auto) 0.09 Imm/Tot Granulo (auto) 1.3 BUN 12 Creatinine 0.4 L 0.5 Estimated Creat Clear 168.41 134.73 Estimated GFR 128 122 Magnesium 6.3 H* AST 53 H 61 H ALT 98 H 97 H Blood Type A Positive Antibody Screen NEGATIVE 08/13/24 04:05 WBC 11.14 H RBC 3.42 L Hgb 10.9 L Hct 32.5 L MCV 95 MCH 32 MCHC 34 RDW Coeff of Ron Plt Count 284 Neut % (Auto) Lymph % (Auto) [place] % (Auto) Eos % (Auto) Baso % (Auto) Neut # (Auto) Lymph # (Auto) [place] # (Auto) Eos # (Auto) Baso # (Auto) Abs Immat Gran (auto) Imm/Tot Granulo (auto) BUN Creatinine 0.4 L Estimated Creat Clear 168.41 Estimated GFR 128 Magnesium AST 63 H ALT 83 H Blood Type Antibody Screen OB - PN: A/P Delivery Assessment and Plan (1) Severe preeclampsia: Status: Acute Assessment and Plan: 1. Continue magnesium until approximately 4:30 p.m. this evening. 2. Planning on keeping the patient in house until tomorrow to monitor blood pressures after the magnesium has been discontinued. 3. Patient will continue to pump and will be able to be discharged to see her baby hopefully tomorrow.
[2024-08-13] MEDS: INSULIN NPH 100 UNIT/ML 20 UNIT SUBCUT ×2 (09:01→21:40)
[2024-08-13 10:13] LABS: Hematocrit 31.2 % (33.0-51.0); Hemoglobin* 10.5 gm/dL (12.0-16.0); Mean Corpuscular HGB Conc 34 gm/dL (32-36); Mean Corpuscular Hemoglobin 32 pg (26-34); Mean Corpuscular Volume 95 fL (80-100); Platelet Count* 261 K/uL (140-440); Red Blood Count 3.27 m/uL (4.00-5.20); White Blood Count* 8.92 K/uL (4.50-11.00)
[2024-08-13 10:28] LABS: Alanine Aminotransferase* 73 U/L (4-35); Aspartate Amino Transferase* 48 U/L (12-35); Creatinine* 0.5 mg/dL (0.5-1.5); Est. Creatinine Clearance* 124.77; Estimated Glomerular Filt Rate 122 ml/min
[2024-08-13 10:39] LABS: Slide Review Reflex No
[2024-08-13 10:43] LABS: Magnesium* 6.9 mg/dL (1.5-2.6)
[2024-08-13] MEDS: LACTATED RINGERS 500 ML 500 ML 50 ML IV (12:01)
[2024-08-13] MEDS: MAGNESIUM Infusion 40 GM/1,000 ML IV.SOLN IVPB (13:40)
[2024-08-13 15:42] LABS: Hematocrit 34.9 % (33.0-51.0); Hemoglobin* 11.6 gm/dL (12.0-16.0); Mean Corpuscular HGB Conc 33 gm/dL (32-36); Mean Corpuscular Hemoglobin 32 pg (26-34); Mean Corpuscular Volume 95 fL (80-100); Platelet Count* 295 K/uL (140-440); Red Blood Count 3.67 m/uL (4.00-5.20); White Blood Count* 9.79 K/uL (4.50-11.00)
[2024-08-13 15:45] LABS: Slide Review Reflex No
[2024-08-13 16:17] LABS: Alanine Aminotransferase* 81 U/L (4-35); Aspartate Amino Transferase* 52 U/L (12-35); Creatinine* 0.5 mg/dL (0.5-1.5); Est. Creatinine Clearance* 124.77; Estimated Glomerular Filt Rate 122 ml/min
[2024-08-13 16:29] LABS: Magnesium* 6.8 mg/dL (1.5-2.6)
[2024-08-13] MEDS: INSULIN ASPART 100 UNIT/ML SUBCUT (21:40)
[2024-08-13] MEDS: IBUPROFEN 600 MG TABLET PO (21:41)
[2024-08-13] MEDS: OXYCODONE 5 MG TABLET PO (21:48)
[2024-08-13] MEDS: DOCUSATE SODIUM 100 MG CAPSULE PO (21:48)
[2024-08-14 01:58] LABS: Rapid Plasma Reagin (RPR) Non Reactive (Non Reactive)
[2024-08-14] MEDS: ACETAMINOPHEN 500 MG TABLET 1000 MG PO ×2 (02:06→12:56)
[2024-08-14 04:00] VITALS: BP 103/68; PULSE 77; RESP 16; TEMP 36.7; O2SAT 98
[2024-08-14 05:18] LABS: Hematocrit 32.4 % (33.0-51.0); Hemoglobin* 10.9 gm/dL (12.0-16.0); Mean Corpuscular HGB Conc 34 gm/dL (32-36); Mean Corpuscular Hemoglobin 32 pg (26-34); Mean Corpuscular Volume 95 fL (80-100); Platelet Count* 268 K/uL (140-440); Red Blood Count 3.41 m/uL (4.00-5.20); White Blood Count* 11.82 K/uL (4.50-11.00)
[2024-08-14 05:21] LABS: Slide Review Reflex No
[2024-08-14 05:35] LABS: Alanine Aminotransferase* 55 U/L (4-35); Aspartate Amino Transferase* 28 U/L (12-35); Blood Urea Nitrogen* 9 mg/dL (5-24); Creatinine* 0.5 mg/dL (0.5-1.5); Est. Creatinine Clearance* 124.77; Estimated Glomerular Filt Rate 122 ml/min
[2024-08-14] MEDS: IBUPROFEN 600 MG TABLET PO (07:57)
[2024-08-14] MEDS: DOCUSATE SODIUM 100 MG CAPSULE PO (07:57)
[2024-08-14] MEDS: INSULIN NPH 100 UNIT/ML 30 UNIT SUBCUT (07:57)
[2024-08-14 08:07] VITALS: BP 110/76; PULSE 82; RESP 16; TEMP 36.7; O2SAT 97
--- NOTE | 2024-08-14 11:07 | PM.OBDSVD1 ---
DS: Providers Provider Time Seen by Provider: 07:30 Date Seen: 08/14/24 Date of admission: 08/12/24 07:43 Primary care physician: Manuel Leon MD Admitting Clinician: Amanda Qureshi MD Attending Physician on discharge: Dheeraj Cramer MD Date of Discharge: 08/14/24 DS: Diagnosis Discharge Diagnosis (1) S/P section: Status: Acute (2) Severe preeclampsia: Status: Acute (3) Type 2 diabetes mellitus affecting , antepartum: Status: Acute Exam Narrative: Exam Narrative: VITAL SIGNS: As noted above. GENERAL APPEARANCE: Alert, cooperative female in no acute distress. MOOD & AFFECT: Normal. HEART: Regular rate and rhythm without murmurs. LUNGS: Lungs are clear to auscultation bilaterally. No crackles, wheezes, or rhonchi. BREASTS: Symmetric in size and shape. No skin irregularities noted bilaterally. ABDOMEN: Positive bowel sounds. Soft, mildly distended, slightly tender to deep palpation of lower abdominal quadrants. Uterus well contracted at umbilicus. Incision healing well without surrounding erythema, induration or abnormal discharge. : Minimal PP lochia. EXTREMITIES: Nonedematous. Well perfused. Nontender. NEURO: Intact. Const: Vital Signs, click to edit/add: Vital Signs - 24 hr 08/13/24 12:39 08/13/24 14:38 08/13/24 15:08 Temperature 97.8 F 97.9 F Pulse Rate [Pulse Oximeter] 73 78 78 Respiratory Rate 16 14 Blood Pressure [Le ft Arm] 108/73 110/71 126/84 Pulse Oximetry 95 98 98 Oxygen Delivery Me thod Room Air 08/13/24 16:52 08/13/24 19:00 08/13/24 23:00 Temperature 97.7 F 97.8 F Pulse Rate [Pulse Oximeter] 79 89 81 Respiratory Rate 16 18 18 Blood Pressure [Le ft Arm] 120/73 116/78 104/70 Pulse Oximetry 97 100 100 Oxygen Delivery Me thod Room Air Room Air Room Air 08/14/24 04:00 08/14/24 08:07 Temperature 98.1 F 98.0 F Pulse Rate [Pulse Oximeter] 77 82 Respiratory Rate 16 16 Blood Pressure [Le ft Arm] 103/68 110/76 Pulse Oximetry 98 97 Oxygen Delivery Me thod Room Air Room Air OB - DS: Summary Hospital Course Hospital Course: The patient is a 38 year old G 3 P 2013 at 36 5/7 week weeks gestation that was admitted to the Center on 08/12/24 for repeat delivery due to history of classical section, uncontrolled type 2 diabetes. diagnosed with preeclampsia with severe features, due to severely elevated blood pressures and transaminitis. She had an uncomplicated delivery. She delivered a viable male infant. Baby was transferred to NICU for continue respiratory support. She is pumping. Patient completed 24 hours of magnesium sulfate infusion after delivery. Blood pressures have remained within normal limits. Liver enzymes decreasing in trending back to normal. 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 Blood sugar levels had been controlled until last night, patient drank a sugary drink and afterwards BS were in the 300s, this morning her BS is back to normal range. Recommendations have been given for her to continue 50% of the dose of her insulin, until she is able to meet with endocrinology and establish long-term plan. Otherwise, meeting all and postsurgical milestone. Patient would like to be discharged home today so that she can visit with her at NICU. Peripartum Data delivery method: Repeat Section Procedures: Procedures Operation Date: 08/12/24 09:15 Actual Procedure Side Surgeon p Repeat Section, Tubal Ligation Bilateral Amandatono Qureshi MD Procedures: tubal ligation/salpingectomy complications: other (Preeclampsia with severe features) Infant Gender: Male Status at Discharge Functional status at discharge: independent ambulation Overall status at discharge: patient is progressing back to baseline Time Spent with Patient Time attestation: Total time spent providing and/or coordinating discharge services: Time spent: Less than 30 minutes Discharge Plan Discharge Disposition: Home, Self-Care Date of Admission: 08/12/24 07:43 Attending Provider on Discharge: Christine Cramer Primary Care Provider: Manuel Leon Condition: Stable Anticipated Discharge Date/Time: 08/14/24 12:30 Discharge Medications: New acetaminophen 500 mg Tablet 1,000 mg PO Q6H PRN (Reason: Pain) Qty: 30 0RF docusate sodium 100 mg Capsule 100 mg PO DAILY Qty: 30 0RF ibuprofen 600 mg Tablet 600 mg PO Q6H PRN (Reason: Pain) Qty: 30 0RF oxycodone 5 mg Tablet 5 - 10 mg PO Q4H PRN (Reason: Pain) Qty: 10 0RF insulin regular hum U-500 conc 500 unit/mL (3 mL) insulin pen 3 unit subcut QACDINNER Qty: 1.5 2RF insulin NPH isoph U-100 human 100 unit/mL (3 mL) insulin pen 20 unit subcut DAILY Qty: 0.3 2RF Rx Instructions: 20 units in the morning, 13 units in the afternoon. Continued prenat.vits,get,[id number] Tablet 1 tab PO QDAY (DME) Test Strips Misc See Rx Instructions .MEDSUPPLY Qty: 100 6RF Rx Instructions: Test blood sugar 4 times daily. (DME) Blood Glucose Meter Misc See Rx Instructions .Route Qty: 1 0RF Rx Instructions: As directed (DME) lancets [Comfort EZ Lancets] 28 gauge misc See Rx Instructions .Route Qty: 100 2RF Rx Instructions: As directed QID for blood glucose monitoring (DME) Advanced Gluc Meter Test Strip Strip See Rx Instructions .Route Qty: 100 2RF Rx Instructions: As directed QID for blood glucose monitoring alcohol swabs [Alcohol Prep Pads] Pads, Medicated 1 pad topical QID PRN (Reason: use as needed ) Qty: 360 0RF (DME) insulin syringe-needle U-100 [Sure Comfort Insulin Syringe] 1 mL 30 gauge x 5/16 syringe See Rx Instructions .ROUTE .MEDSUPPLY Qty: 100 6RF Rx Instructions: As directed twice daily (DME) pen needle, diabetic [BD Ultra-Fine Jenny Pen Needle] 32 gauge x 5/32 needle See Rx Instructions .Route Qty: 50 0RF Rx Instructions: As directed Discontinued Humulin N NPH U-100 Insulin 100 unit/mL suspension 16 unit subcut BID Qty: 30 3RF Patient Comments: Taking 40 un in am and 26 pm, had 13 un last night and none this am Rx Instructions: 20 U prebreakfast and 16 U at bedtime insulin regular human 100 unit/mL (3 mL) insulin pen 6 unit subcut .QD Qty: 15 0RF Patient Comments: takes 8 units Rx Instructions: Take 45 minutes prior to dinner Discharge Orders: Discharge Order (Routine); Ordered 08/14/24 Ordered By: Christine Cramer Patient Education: OB /Breast Feeding Additional Instructions: Measure blood pressures at home twice a day. Notify clinic if there are blood pressures persistently more than 150 systolics, 100s diastolics or if any symptoms such as headaches that do not go away with pain medication, visual changes such as dark spots in vision, pain in the upper abdomen-that moves towards the upper right side. Follow-up in clinic in 3-5 days after discharge for blood pressure check, review of antihypertensive medication regimen. Follow-up in clinic in 2 weeks for incision check and follow-up. Follow-up in 6 weeks in clinic for regular visit. Insulin regimen: insulin requirements decrease, that is why you should decrease NPH insulin to 20 units in the morning and 13 units in the afternoon. Continue to monitor blood sugars at home: fasting, before and after meals. Activity Level: No strenuous activity and No Weight Bearing Activity Detail: Nothing vaginally for 6 weeks Discharge Diet: Diabetic Follow Up Appointments: Manuel Leon MD [Primary Care Provider] - Forms: [place] Info Instructions
[2024-08-14] MEDS: OXYCODONE 5 MG TABLET PO (12:20)
== END 2024-08-14 12:30 | disposition home or self-care (01) | DRG 783 ==
PROVIDERS: Obstetrics & Gynecology; Admitting Provider Obstetrics & Gynecology; PCP Family Medicine; Visit Provider Obstetrics & Gynecology
PROC: 10D00Z0 Extraction of Products of Conception, High, Open Approach (ICD-10-PCS; CPT 59514; principal; 2024-08-12 09:15)
DX: O34.212 Maternal care for vertical scar from previous cesarean delivery (principal); O24.12 Pre-existing type 2 diabetes mellitus, in childbirth; O14.15 Severe pre-eclampsia, complicating the puerperium; O32.1XX0 Maternal care for breech presentation, not applicable or unspecified; Z79.4 Long term (current) use of insulin; O34.13 Maternal care for benign tumor of corpus uteri, third trimester; D25.9 Leiomyoma of uterus, unspecified; Z3A.36 36 weeks gestation of pregnancy; G89.18 Other acute postprocedural pain; Z37.0 Single live birth
CPT/HCPCS: 01961; 36415; 64488; 76942; 82565; 82962; 83735; 84450; 84460; 84520; 85018; 85025; 85027; 86592; 86850; 86900; 86901; 88302; 88307; A9270; C9290; J0665; J1100; J1885; J2210; J2274; J2371; J2405; J2590; J3475; J7120

== ENCOUNTER 2024-08-24 11:10 | Outpatient (CLI) | payer OTHER, SELFPAY ==
--- OUTSIDE RECORDS SUMMARY | 2024-08-24 11:12 | XMS_ITS | Referral Summary ---
Author Organization [facility] Address [address] [place] [address] Care Team Providers Care Quality Rep Name Role Phone Unavailable Primary Care Provider Unavailabl e Source Comments Patient records contain information from all sites at [facility]. For routine questions regarding patient records, call [phone] during business hours, M-F 8:00 AM - 5:00 PM Central Time. Record requests for emergency care only can be directed to [phone] at any time.[facility] Allergies No known active allergies Medications [...] plan: chart: Care Team/nursing team: [facility]. [facility] [place] Partner name: Pertinent medical issues for management [...] drink = 0.6 oz pur e alcohol) [facility] Utilities Answer Date Recorded In the past 12 months has e [employer], oil, or water [employer] threatened to shut off services in your [...] your living situation today? I have a [facility] place to live 03/31/2024 Estimated [...] - Plan of Treatment Not on file Insurance [place] [id number]
--- OUTSIDE RECORDS SUMMARY | 2024-08-24 11:12 | XMS_ITS ---
Author Organization [facility] Address [address] [place] [address] Care Team Providers Care Vascular Ultrasound Technician Name Role Phone Unavailable Unavailable Unavailable Surgery Details Not on file Complications Check Surgery Details section. Procedure Estimated Blood Loss Check Surgery Details section. Procedure Findings Check Surgery Details section. Procedure Specimens Taken Check Surgery Details section.
--- OUTSIDE RECORDS SUMMARY | 2024-08-24 11:12 | XMS_ITS | Encounter Summary ---
Author Organization [facility] Address [address] [place] [id number] Care Team Providers Care Swing Type Lathe Operator Name Role Phone Unavailable Primary Care Provider Unavailabl e Reason for Visit * Outpatient (Routine) - Closed Specialty Diagnoses / Procedures Referred By Jade gonsales Referred To Contact Pediatric Cardiology Diagnoses Diabetes Mellitus Type 2 (HCC) Abnormal Ultrasound Bhaskar Colon M.B.B.S. [address] [place] [phone] Phone: tel: fax: [facility] Referral ID Status Reason Start Date Expiration Date Visits Re quested Visits Authorized [id number] Closed 04/29/2024 10/29/2025 1 1 Encounter Details Date Type Department Care Team (Latest Contact Info) Description 05/20/2024 9:00 AM CDT Comprehensive Visit Division of Pediatric Cardiology in [place], [place] [address] [place] [phone] Yosvany Murphy M.B.B.S. [address] [place] [phone] Encounter For Screening For Congenital Cardiac Abnormalities (HCC) (Primary Dx); Diabetes Mellitus Type 2 (HCC); Abnormal Ultrasound Social History Tobacco Use Types Packs/Day Years Used Date Smoking Tobacco: Never Smokeless Tobacco: Never Alcohol Use Standard Drinks/Week Comments Not Currently 0 (1 standard drink = 0.6 oz pur e alcohol) [facility] Utilities Answer Date Recorded In the past 12 months has [employer], gas, oil, or water [employer] threatened to shut off services in your [...] situation today? I have a [facility] place to live 03/31/2024 Estimated Date [...] - 05/20/2024 9:00 AM CDT [facility] Cardiology Consultation Bea JohnsonS. Date of Consultation: 05/20/2024 Patient: Sangita Flor Date of : 1985, Age: 38 y.o. , CSN: [id number] Address: [facility] [address] [place] [id number] Referral: Bhaskar Colon M.B.B.S. [address] [place] [phone] SUBJECTIVE CHIEF COMPLAINT: cardiovascular screening. HISTORY OF [...] Guide Me Glucose [facility], See Admin Instructions. Accu-Chek Guide [...]
--- OUTSIDE RECORDS SUMMARY | 2024-08-24 11:12 | XMS_ITS | Clinical Summary ---
Author Organization [facility] Address [address] [place] [address]. [place] [address] Care Team Providers Care Poultry Buyer Name Role Phone No Ref-Primary, Physician Primary [...] on file Legal Sex Female 4:40 PM DRY COLOR TESTER Gender Identity Not on file Sexual Orientation Not on file Last Filed Vital Signs Vital Sign Reading Time Taken Comments Blood Pressure 138/87 02/26/2024 11:03 AM CDT Pulse 79 02/26/2024 11:03 AM CDT Temperature 36.7 C (98.1 F) 07/16/2022 11:23 AM CDT Respiratory Rate 18 02/26/2024 11:0 0 AM CDT Oxygen Saturation 100% 02/26/2024 11: 00 AM CDT Inhaled Oxygen Concentration - - Weight 52.5 kg (115 lb 12.8 oz) 022 11:23 AM CDT Height 132.1 cm (4' 4) 11/29/2020 4:53 PM DRY COLOR TESTER Body Mass Index 30.11 11/29/2020 4:53 PM DRY COLOR TESTER Plan of Treatment Health Maintenance Due Date [...] 07/20/2021, 06/22/2021 INFLUENZA VACCINE (#1) 2024 08/08/2022 GROUP B STREP SCREENING 08/07/2024 DTAP/TDAP/TD IMMUNIZATION [...] patient's age to complete this topic RSV VACCINE (No Doses Required) Completed Procedures Procedure Name Priority Date/Time Associated Diagnosis Comments BASIC METABOLIC PANEL STAT 11/29/2020 8:35 PM DRY COLOR TESTER from Last 3 Months or Most Recently Relevant to Health Maintenance Results * Basic metabolic panel (11/29/2020 8:35 PM DRY COLOR TESTER) Sodium 138 133 - 144 mmol/L 11/29/2020 8:52 PM DRY COLOR TESTER [facility] Potassium 3.8 3.4 - 5.3 mmol/L 11/29/2020 8:52 PM DRY COLOR TESTER [facility] Chloride 107 94 - 109 mmol/L 11/29/2020 8:52 PM DRY COLOR TESTER [facility] Carbon Dioxide 23 20 - 32 mmol/L 11/29/2020 8:59 PM [facility] Anion Gap 8 3 - 14 mmol/L 11/29/2020 8:59 PM [facility] Glucose 93 70 - 99 mg/dL 11/29/2020 8:59 PM [facility] Urea Nitrogen 16 7 - 30 mg/dL 11/29/2020 8:59 PM [facility] Creatinine 0.57 0.52 - 1.04 mg/dL 11/29/2020 8:59 PM [facility] GFR Estimate >90 >60 mL/min/{1. 73_m2} 11/29/2020 8:59 PM [facility] Comment: Non GFR Calc Starting 09/23/2018, serum creatinine based estimated GFR (eGFR) will be calculated using the Chronic Kidney Disease Epidemiology Collaboration (CKD-EPI) equation. GFR Estimate If Black >90 >60 mL/min/{1. 73_m2} 11/29/2020 8:59 PM [facility] Comment: GFR Calc Starting 09/23/2018, serum creatinine based estimated GFR (eGFR) will be calculated using the Chronic Kidney Disease Epidemiology Collaboration (CKD-EPI) equation. Calcium 8.7 8.5 - 10.1 mg/dL 11/29/2020 8:59 PM [facility] 11/29/2020 8:35 PM DRY COLOR TESTER 11/29/2020 8:40 PM DRY COLOR TESTER us Latricia Trinh MD LAB - BLOOD ORDERABLES Final R esult [facility] [address] [place] [address], [facility] [phone] [facility] [address] [place] [address], [facility] [phone] from Last 3 Months or Most Recently Relevant to Health Maintenance Insurance [employer]ICA [employer]ICE [employer] Care Teams Poultry Buyer Relationship Specialty Start Date End Date No Ref-Primary, Physician PCP - General 11/29/20 Annika Ibrahim MD [address] [address] Assigned OBGYN Provider 03/29/24
--- OUTSIDE RECORDS SUMMARY | 2024-08-24 11:12 | XMS_ITS | Encounter Summary ---
Author Organization [facility] Address [address] [place] [id number] Care Team Providers Care Marble Ceiling Installer Name Role Phone Unavailable Primary Care Provider Unavailabl e Reason for Referral * Outpatient (Routine) - Closed Specialty Diagnoses / Procedures Referred By Jade gonsales Referred To Contact Diagnoses Diabetes Mellitus Type 2 (HCC) Abnormal Ultrasound Procedures Echo Bhaskar Colon M.B.B[facility] [address] [place] [id number] Phone: tel: fax: [facility] Referral ID Status Reason Start Date Expiration Date Visits Re quested Visits Authorized [id number] Closed 04/29/2024 04/29/2025 1 1 Reason for Visit * Outpatient (Routine) - Closed Specialty Diagnoses / Procedures Referred By Jade gonsales Referred To Contact Diagnoses Diabetes Mellitus Type 2 (HCC) Abnormal Ultrasound Procedures Echo Bhaskar Colon M[facility] [address] [place] [phone] Phone: tel: fax: [facility] Referral ID Status Reason Start Date Expiration Date Visits Re quested Visits Authorized [id number] Closed 04/29/2024 04/29/2025 1 1 Encounter Details Date Type Department Care Team (Latest Contact Info) Description 05/20/2024 7:11 AM CDT - 05/20/2024 11:59 PM CDT Hospital Encounter Department of Cardiovascular Diseases in [place], [place] [address] [place] [phone] Bhaskar Colon M.B.B.S. [address] [place] [address] Diabetes Mellitus Type 2 (HCC); Abnormal Ultrasound [...] your living situation today? I have a [facility] place to live 03/31/2024 Estimated Date [...] DOPPLER (05/20/2024 8:42 AM CDT) Ejection Fraction [facility] Anatomical Region Laterality Modality Echocardiography [...] Gestational age 24 weeks; 0 days. 3. Cosby [...] report, see the Order-Level Documents. us Bhaskar PringleBDiyaSDiya CV ECHO PROCEDURES Final R esult documented in this encounter Visit Diagnoses Diagnosis Diabetes Mellitus Type 2 (HCC) Abnormal Ultrasound documented in this encounter
--- OUTSIDE RECORDS SUMMARY | 2024-08-24 11:12 | XMS_ITS | Referral Summary ---
Author Organization [facility] Address [address] [place] [address]. [place] [address] Care Team Providers Care Sample Processor Name Role Phone No Ref-Primary, Physician Primary [...] on file Legal Sex Female 4:40 PM MOBILE UNIT ASSISTANT Gender Identity Not on file Sexual Orientation [...] 132.1 cm (4' 4) 11/29/2020 4:53 PM MOBILE UNIT ASSISTANT Body Mass Index 30.11 11/29/2020 4:53 PM MOBILE UNIT ASSISTANT Plan of Treatment Not on file Procedures Procedure Name Priority Date/Time Associated Diagnosis Comments BASIC METABOLIC PANEL STAT 11/29/2020 8:35 PM MOBILE UNIT ASSISTANT from Last 3 Months or Most Recently Relevant to Health Maintenance Results * Basic metabolic panel (11/29/2020 8:35 PM MOBILE UNIT ASSISTANT) Sodium 138 133 - 144 mmol/L 11/29/2020 8:52 PM MOBILE UNIT ASSISTANT [facility] Potassium 3.8 3.4 - 5.3 mmol/L 11/29/2020 8:52 PM [facility] Chloride 107 94 - 109 mmol/L 11/29/2020 8:52 PM [facility] Carbon Dioxide 23 20 - 32 mmol/L 11/29/2020 8:59 PM [facility] Anion Gap 8 3 - 14 mmol/L 11/29/2020 8:59 PM [facility] Glucose 93 70 - 99 mg/dL 11/29/2020 8:59 PM [facility] Urea Nitrogen 16 7 - 30 mg/dL 11/29/2020 8:59 PM [facility] Creatinine 0.57 0.52 - 1.04 mg/dL 11/29/2020 8:59 PM [facility] GFR Estimate >90 >60 mL/min/{1. 73_m2} 11/29/2020 8:59 PM [facility] Comment: Non GFR Calc Starting 09/23/2018, serum creatinine based estimated GFR (eGFR) will be calculated using the Chronic Kidney Disease Epidemiology Collaboration (CKD-EPI) equation. GFR Estimate If Black >90 >60 mL/min/{1. 73_m2} 11/29/2020 8:59 PM [facility] Comment: GFR Calc Starting 09/23/2018, serum creatinine based estimated GFR (eGFR) will be calculated using the Chronic Kidney Disease Epidemiology Collaboration (CKD-EPI) equation. Calcium 8.7 8.5 - 10.1 mg/dL 11/29/2020 8:59 PM [facility] 11/29/2020 8:35 PM MOBILE UNIT ASSISTANT 11/29/2020 8:40 PM MOBILE UNIT ASSISTANT us Latricia Trinh MD LAB - BLOOD ORDERABLES Final R esult [facility] [address] [place] [address], [facility] [phone] [facility] [address] [place] [address], [facility] [phone] from Last 3 Months or Most Recently Relevant to Health Maintenance Insurance MEDICA CHOICE Member Subscriber Plan / Payer (Ef fective 2020-Present) Name:MORENA ALVARADO Relation to Subscriber:Spouse Name:MICHAEL FLOR Date of :1987 (Home) Address: [address] [place] [address] [place] [address] Payer ID:[id number] (NAIC) Type:Indemnity Address: [address] MEDICA CHOICE Member Subscriber Plan / Payer (Ef fective 2020-Present) Name:MORENA ALVARADO Relation to Subscriber:Spouse Name:MICHAEL FLOR Date of :1987 (Home) [facility]: [facility] [place] [address] Payer ID:[id number] (NAIC) Type:Indemnity Address: [place] [phone] Care Teams Sample Processor Relationship Specialty Start Date End Date No Ref-Primary, Physician PCP - General 11/29/20 Annika Ibrahim MD [address] [place] [id number] Assigned OBGYN Provider 03/29/24
--- OUTSIDE RECORDS SUMMARY | 2024-08-24 11:12 | XMS_ITS | Clinical Summary ---
Author Organization [facility] Address [address] [place] [address] Care Team Providers Care Table Games Dual Rate Supervisor Name Role Phone Unavailable Primary Care Provider Unavailabl e Source Comments Patient records contain information from all sites at [facility]. For routine questions regarding patient records, call [phone] during business hours, M-F 8:00 AM - 5:00 PM Central Time. Record requests for emergency care only can be directed to [phone] at any time.[facility] Allergies No known active allergies Medications insulin [...] original. Delivery plan: chart: Care Team/nursing team: [facility]. [facility] [place] Partner name: Pertinent medical issues for management [...] drink = 0.6 oz pur e alcohol) [facility] Utilities Answer Date Recorded In the past 12 months has e [employer], oil, or water [employer] threatened to shut off services in your [...] living situation today? I have a [facility] place to live 03/31/2024 Estimated [...] 07/20/2021, 06/22/2021 Influenza Vaccine (#1) 2024 08/08/2022 DTaP,Tdap,and Td Vaccines (2 - Td or Tdap) 12/26/2032 12/26/2022 HPV Vaccines Aged Out No longer eligi ble based on patient's age to complete this topic IPV Vaccines Aged Out No longer eligi ble based on patient's age to complete this topic Pneumococcal vaccine (0-64 years) Aged Out No longer eligible b ased on patient's age to complete this topic RSV vaccine - (32-3 6 weeks) or 60+ years (No Doses Required) Completed Insurance [place]ICA [place] [id number]
== END 2024-08-24 11:11 | disposition home or self-care (01) ==
PROVIDERS: PCP Family Medicine; Visit Provider Obstetrics & Gynecology
DX: Z39.2 Encounter for routine postpartum follow-up (principal)
CPT/HCPCS: 82565; 84450; 84460